=== PATIENT | male | born 1950 | race Caucasian/White ===

== ENCOUNTER → 2017-10-26 09:02 | Outpatient (CLI) | payer MEDICARE, OTHER, SELFPAY ==
[2017-07-23 14:46] VITALS: BMI 28.0
[2017-10-26 12:39] LABS: Absolute Lymphocyte Count 1.63 X10^3/ul (0.83-4.51); Absolute Neutrophil Count 3.5 X10^3/uL (2.0-7.7); Basophil# 0.04 X10^3/uL; Basophil% 0.6 % (0-1); Eosinophil# 0.35 X10^3/uL; Eosinophils% 5.6 % (0-5); Hematocrit 33.2 % (40-54); Hemoglobin 11.1 g/dl (13.0-16.5); Lymphocyte # 1.63 X10^3/ul (4.0); Lymphocyte % 26.1 % (19-41); Mean Corp Hgb Conc 33.4 g/gl (32-36); Mean Corpuscular Hgb 31.7 pg (27.0-32.0); Mean Corpuscular Volume 94.9 fL (80-94); Mean Platelet Vol. 12.1 fl (6.2-12.0); Monocyte# 0.74 X10^3/uL; Monocyte% 11.8 % (0-10); Neutrophil # 3.48 X10^3/uL (2.7-7.7); Neutrophil % 55.7 % (47-70); POSITIVE COUNT NO; POSITIVE DIFFERENTIAL NO; POSITIVE MORPHOLOGY NO; Platelet Count 210 K/mm3 (150-450); RBC Distribution Width CV 13.7 % (11.6-14.6); RBC Distribution Width SD 44.6 fl (35.1-43.9); White Blood Count 6.3 K/mm3 (4.4-11.0)
[2017-10-26 13:20] LABS: ALB/GLOB Ratio 0.8 RATIO (0.9-2.4); AST(SGOT) 13 U/L (15-37); Alanine Aminotransfer ALT/SGPT 25 U/L (16-61); Albumin, Serum 3.4 g/dL (3.2-5.0); Alkaline Phosphatase 147 U/L (45-117); Anion Gap 9 (5-15); BUN 30 mg/dL (7-18); BUN/Creat Ratio 3.9 RATIO (10-20); Calcium,Total 9.1 mg/dL (8.5-10.1); Chloride 95 mmol/L (98-107); Creatinine, Serum 7.67 mg/dL (0.70-1.30); EST Glomerular Filtration Rate 8 mL/min (>60); Est Glom Filt Rate - Afr Amer 9 mL/min (>60); Glucose 219 mg/dL (74-106); Potassium 4.4 mmol/L (3.5-5.1); Protein, Total 7.4 g/dL (6.4-8.2); Sodium Level 136 mmol/L (136-145); Thyroid Stim Hormone (TSH) 1.48 uIU/mL (0.358-3.74)
== END ==
PROVIDERS: Family Provider Family Medicine Geriatric Medicine; PCP Family Medicine Geriatric Medicine; Visit Provider Family Medicine Geriatric Medicine
DX: E11.9 Type 2 diabetes mellitus without complications (principal); I10 Essential (primary) hypertension
CPT/HCPCS: 36415; 80053; 84443; 85025

== ENCOUNTER → 2018-01-17 16:10 | Outpatient (CLI) | payer MEDICARE, OTHER, SELFPAY ==
[2017-07-23 14:46] VITALS: BMI 28.0
[2018-01-17 16:43] LABS: Absolute Lymphocyte Count 1.66 X10^3/ul (0.83-4.51); Basophil# 0.03 X10^3/uL; Basophil% 0.5 % (0-1); Eosinophil# 0.33 X10^3/uL; Eosinophils% 5.9 % (0-5); Hematocrit 34.1 % (40-54); Lymphocyte # 1.66 X10^3/ul (4.0); Lymphocyte % 29.6 % (19-41); Mean Corp Hgb Conc 32.3 g/gl (32-36); Mean Corpuscular Hgb 31.5 pg (27.0-32.0); Mean Corpuscular Volume 97.7 fL (80-94); Mean Platelet Vol. 10.7 fl (6.2-12.0); Monocyte# 0.63 X10^3/uL; Monocyte% 11.2 % (0-10); Neutrophil # 2.95 X10^3/uL (2.7-7.7); Neutrophil % 52.6 % (47-70); Platelet Count 232 K/mm3 (150-450); RBC Distribution Width CV 15.9 % (11.6-14.6); RBC Distribution Width SD 55.7 fl (35.1-43.9); Red Blood Count 3.49 M/mm3 (4.6-6.2); White Blood Count 5.6 K/mm3 (4.4-11.0)
[2018-01-17 17:10] LABS: POSITIVE COUNT NO; POSITIVE DIFFERENTIAL NO; POSITIVE MORPHOLOGY NO
[2018-01-17 17:11] LABS: ALB/GLOB Ratio 0.8 RATIO (0.9-2.4); AST(SGOT) 12 U/L (15-37); Alanine Aminotransfer ALT/SGPT 20 U/L (16-61); Albumin, Serum 3.4 g/dL (3.2-5.0); Alkaline Phosphatase 127 U/L (45-117); Anion Gap 7 (5-15); BUN 14 mg/dL (7-18); BUN/Creat Ratio 2.2 RATIO (10-20); Calcium,Total 8.4 mg/dL (8.5-10.1); Chloride 96 mmol/L (98-107); Creatinine, Serum 6.37 mg/dL (0.70-1.30); EST Glomerular Filtration Rate 9 mL/min (>60); Est Glom Filt Rate - Afr Amer 11 mL/min (>60); Glucose 298 mg/dL (74-106); Potassium 4.8 mmol/L (3.5-5.1); Protein, Total 7.4 g/dL (6.4-8.2); Sodium Level 138 mmol/L (136-145); Thyroid Stim Hormone (TSH) 0.95 uIU/mL (0.358-3.74)
== END ==
PROVIDERS: Family Provider Family Medicine Geriatric Medicine; PCP Family Medicine Geriatric Medicine; Visit Provider Family Medicine Geriatric Medicine
DX: E11.9 Type 2 diabetes mellitus without complications (principal); E55.9 Vitamin D deficiency, unspecified; I10 Essential (primary) hypertension
CPT/HCPCS: 36415; 80053; 82306; 84443; 85025

== ENCOUNTER → 2018-01-18 16:51 | Outpatient (CLI) | payer MEDICARE, OTHER, SELFPAY ==
[2017-07-23 14:46] VITALS: BMI 28.0
--- NOTE | 2018-01-18 16:35 | CT_ITS ---
STUDY: CT CHEST/THORAX WITH CONTRAST REASON FOR EXAM: Male, 67 years old. Lung nodules follow-up. RADIATION DOSAGE (If Supplied By Facility): CTDIvol = ( 13.48 ) mGy, DLP = ( 722.66 ) mGycm TECHNIQUE: Transaxial imaging was performed following intravenous administration of 100ml ml of Isovue 300 contrast material. Multiplanar coronal and sagittal images were reformatted. Individualized dose optimization techniques were used for this CT. COMPARISON: None. FINDINGS: Irregular 10 mm density in the posterior left apex (series 4 image 21) is unchanged. 5 mm nodular density seen at its inferomedial margin. The pair of 1 cm groundglass nodular densities in the posterior medial right upper lobe on series 4 image 37 are unchanged (differences in measurement reflect interobserver variability). Vague 17.5 x 14.5 x 11.5 mm density in the anterior basilar right lower lobe near the pleural fissure is also stable (again, differences in measurement reflect interim observer variability). There is also stable, similar-appearing 7-8 mm vague density in the anterior medial periphery of the right middle lobe on series 4 image 65. Oval-shaped 11.5 x 5 x 8 mm lesion in the posterior right lower lobe is unchanged. There is stable subtle ill-defined 1.6 x 1.3 1.3 cm density surrounding a central irregular shaped site of gas lucency in the inferior posterior right upper lobe, with subtle retraction of the adjacent pleural fissure. Sites of focal subsegmental atelectasis in the anteromedial inferior right middle lobe and lingula left upper lobe are present. There is no demonstrated pleural abnormality. Normal heart. There is minor thickening of the anterior inferior pericardium. There are stable calcifications of the coronary arteries. There are 2 stable low right anterior pretracheal lymph nodes on series 602 image 1:30, the more superior measuring 14.5 x 9 x 4.5 mm, and the more inferior measuring 10.5 x 8.5 x 4 mm. There is a stable teardrop shaped 18 x 6 x 7 mm precarinal lymph node with a possible fatty hilus. 10 x 4 x 9 mm node seen at the juncture of the aorticopulmonary window and left hilum. There is a stable 2.5 x 1.5 x 0.9 cm right subcarinal lymph node, and stable 12.5 x 8.5 x 7 mm left subcarinal node. Better seen today is a 15 x 8 x 8.5 mm right hilar lymph node just above the distal right pulmonary artery. Normal enhanced pulmonary arteries. There is stable atherosclerotic calcification of the aortic arch, proximal brachiocephalic arteries, and descending thoracic aorta. There are stable multi-level degenerative changes of the thoracic spine as well as degenerative arthrosis of the sternomanubrial articulation. There is stable mild depression of the superior T4-T6 vertebral endplates, and slight depression of the superior T3 endplate. Well-corticated focal invagination of the superior T12 vertebral endplate consistent with benign Schmorl's node. Better defined today is a 19.5 x 14 x 18.5 mm cortical cyst in the posterior upper to midpole of the right kidney. CT/Chest WITH Contrast IMPRESSION: 1. Stable bilateral pulmonary nodular densities, as described. Follow-up in another 6 months is advised to further document stability. 2. Nonspecific borderline enlarged mediastinal and central hilar lymph nodes again identified. 3. Atherosclerotic calcifications of the coronary arteries and thoracic aorta. 4. Stable degenerative changes of the spine, as well as mild depression of a few thoracic superior vertebral endplates. 5. 19.5 mm cortical cyst incidentally noted in the posterior upper to midpole of the right kidney. Electronically Signed: Cleveland Kiser MD at 14:33 EDT , Service support ,
== END ==
PROVIDERS: Family Provider Family Medicine Geriatric Medicine; PCP Family Medicine Geriatric Medicine; Visit Provider Family Medicine Geriatric Medicine
DX: R91.8 Other nonspecific abnormal finding of lung field (principal)
CPT/HCPCS: 71260; Q9967

== ENCOUNTER 2018-04-15 06:13 | Emergency (ER) | payer MEDICARE, OTHER, SELFPAY ==
[2017-07-23 14:46] VITALS: BMI 28.0
[2018-04-15 06:14] VITALS: BP 104/62; PULSE 103; RESP 20; TEMP 36.5; O2SAT 92; BMI 28.9
--- NOTE | 2018-04-15 06:18 | ED.RN ---
CALLED FOR EKG PER RN REQUEST, PULLED OLD EKG'S FOR
--- NOTE | 2018-04-15 06:35 | EKG12_ITS ---
Test Reason : HYPOTEN Blood Pressure : / mmHG Vent. Rate : 099 BPM Atrial Rate : 099 BPM P-R Int : 180 ms QRS Dur : 110 ms QT Int : 366 ms P-R-T Axes : 063 015 170 degrees QTc Int : 469 ms Normal sinus rhythm Incomplete left bundle branch block ST & T wave abnormality, consider inferolateral ischemia Prolonged QT Abnormal ECG Confirmed by KEENAN ARECHIGA, RENATA ([id number]), deputy editor in chief DRISS MONROY ([id number]) on 04/18/2018 2:28:41 PM Referred By: MIRIAN Confirmed By:RENATA HUSSEIN MD
--- NOTE | 2018-04-15 06:40 | RAD_ITS ---
STUDY: X-RAY CHEST REASON FOR EXAM: Male, 67 years old. Shortness of breath. Hypotension TECHNIQUE: 2 views COMPARISON: January 18, 2018 FINDINGS: Small pleural effusions. No pneumonia or failure. The heart is normal.. Platelike atelectatic changes in the left base Normal visualized thoracic spine. Normal visualized ribs, clavicles, and shoulders. There is no demonstrated abnormality of the visualized soft tissue structures of the upper abdomen. RAD/Chest PA and Lateral IMPRESSION: Small pleural effusions bilaterally. Plate atelectatic changes in the left base Electronically Signed: Edwin Gamez, at 7:14 EDT Tel , Service support ,
[2018-04-15 06:43] LABS: Absolute Lymphocyte Count 1.53 X10^3/ul (0.83-4.51); Absolute Neutrophil Count 3.2 X10^3/uL (2.0-7.7); Basophil# 0.05 X10^3/uL; Basophil% 0.9 % (0-1); Eosinophils% 8.6 % (0-5); Hematocrit 21.1 % (40-54); Hemoglobin 6.4 g/dl (13.0-16.5); Lymphocyte # 1.53 X10^3/ul (4.0); Lymphocyte % 26.2 % (19-41); Mean Corp Hgb Conc 30.3 g/gl (32-36); Mean Corpuscular Hgb 31.2 pg (27.0-32.0); Mean Corpuscular Volume 102.9 fL (80-94); Mean Platelet Vol. 10.5 fl (6.2-12.0); Monocyte# 0.55 X10^3/uL; Monocyte% 9.4 % (0-10); Neutrophil # 3.19 X10^3/uL (2.7-7.7); Neutrophil % 54.7 % (47-70); Platelet Count 301 K/mm3 (150-450); RBC Distribution Width CV 15.8 % (11.6-14.6); RBC Distribution Width SD 55.5 fl (35.1-43.9); Red Blood Count 2.05 M/mm3 (4.6-6.2); White Blood Count 5.8 K/mm3 (4.4-11.0)
[2018-04-15 06:46] VITALS: BP 119/72; PULSE 97
[2018-04-15 06:56] LABS: POSITIVE COUNT NO; POSITIVE DIFFERENTIAL NO; POSITIVE MORPHOLOGY NO
[2018-04-15 07:09] LABS: Anion Gap 10 (5-15); BUN 46 mg/dL (7-18); BUN/Creat Ratio 5.7 RATIO (10-20); Calcium,Total 9.1 mg/dL (8.5-10.1); Chloride 98 mmol/L (98-107); Creatinine, Serum 8.12 mg/dL (0.70-1.30); EST Glomerular Filtration Rate 7 mL/min (>60); Est Glom Filt Rate - Afr Amer 9 mL/min (>60); Estimated Creatinine Clearance 8.83 ml/min; Glucose 140 mg/dL (74-106); Sodium Level 140 mmol/L (136-145)
--- NOTE | 2018-04-15 07:09 | ED.RN ---
SERUM CREAT 8.12
--- NOTE | 2018-04-15 07:14 | ED.VISSUMM ---
- ER Visit Summary Date of Service: 04/15/18 Chief Complaint: [] Blood pressures low History of Present Illness: The patient is a 67 M [] complaining of low blood pressure since yesterday gradual onset. He was getting in the 70s last night. This concerned him. He is end-stage renal disease on dialysis. Occasionally gets some chest tightness on and off since yesterday multiple episodes. He has [address] Lund. His last heart cath was last fall and he did have some in stent stenoses requiring a stent to his left circumflex and obtuse marginal.. He had a balloon angioplasty of his ramus intermedius. He is scheduled for dialysis today but missed that. His normal blood pressure is 120s. He was recently admitted [facility] for 9 days and recently just discharged. I told him he had a cardiac event needed 6 units of blood secondary to an occult GI bleed. He had endoscopy that showed no source of the bleeding. Told he should have an outpatient colonoscopy. He did suffer a pneumonia with his admission. He did resume his Plavix. He has had no dark stools. Physical Examination: [] Vital signs reviewed General: Well-nourished well-developed. The patient appears pale Head: Normocephalic atraumatic Eyes: Pupils equal round and reactive to light extraocular movements intact ENT: TMs clear no hemotympanum no trauma Neck: Nontender full range of motion Cardiovascular: Regular rate rhythm no murmurs normal S1-S2 Respiratory: No distress clear to auscultation bilaterally chest nontender Abdomen: Soft nontender nondistended normal bowel sounds no masses Back: Nontender no CVA tenderness Extremities: Nontender active range of motion ?4 extremities no trauma fistula clean dry and intact Skin: Normal color no trauma Neuro alert oriented cranial nerves II through XII intact normal strength sensation reflexes Test Results: [] Emergency Department Course and Treatment: [] EKG shows sinus rhythm at a rate of 99. ST depression inferior lead II and V5 and V6. CBC normal except hemoglobin 6.4. Chemistries normal except creatinine 8.1. Troponin indeterminate 0.19. Patient has an allergy to aspirin therefore was not given. Has no symptoms on reevaluation currently. Chest x-ray shows chronic changes. Discussed with the hospitalist Treatment Plan: [] Disposition: [] Impression: [] Reported hypotension resolved Anemia - acute Indeterminate troponin Chronic renal failure History of occult GI bleed EKG changes This note was generated with [employer] software. It may contain incorrect words, spelling, and punctuation that were not noted in review of the chart prior to signing <Ronen Kohli - Last Filed: 04/15/18 07:14> - ER Visit Summary Date of Service: 04/15/18 Chief Complaint: [] History of Present Illness: The patient is a 67 M [] Physical Examination: [] Test Results: [] Emergency Department Course and Treatment: [] Treatment Plan: [] Disposition: [] Impression: [] This note was generated with [employer] software. It may contain incorrect words, spelling, and punctuation that were not noted in review of the chart prior to signing Dr. Street dictating the patient remained stable hemodynamically department with no complaints the case was discussed with [facility] by Dr. Kohli, it was determined the patient would be best managed by being transferred back to [facility] where he had recently received care for the above, this was discussed the patient and he agreed, I was asked to speak with the [facility] transferring service, I spoke with the hospitalist there discussed the case in great detail they accepted the patient in transfer to [facility] patient's remained hemodynamically stable, <Jaden Street - Last Filed: 04/15/18 08:34> ED Disposition <Ronen Kohli - Last Filed: 04/15/18 07:14> <Jaden Street - Last Filed: 04/15/18 08:34> - Plan for ED Patient: Chief Complaint: Hypotension Referrals: Alfonso Rushing Chi, MD [Primary Care Provider] -
--- NOTE | 2018-04-15 07:17 | ED.DCSUM_ITS ---
- ER Visit Summary Date of Service: 04/15/18 Chief Complaint: [] Blood pressures low History of Present Illness: The patient is a 67 M [] complaining of low blood pressure since yesterday gradual onset. He was getting in the 70s last night. This concerned him. He is end-stage renal disease on dialysis. Occasionally gets some chest tightness on and off since yesterday multiple episodes. He has [address] Lund. His last heart cath was last fall and he did have some in stent stenoses requiring a stent to his left circumflex and obtuse marginal.. He had a balloon angioplasty of his ramus intermedius. He is scheduled for dialysis today but missed that. His normal blood pressure is 120s. He was recently admitted [facility] for 9 days and recently just discharged. I told him he had a cardiac event needed 6 units of blood secondary to an occult GI bleed. He had endoscopy that showed no source of the bleeding. Told he should have an outpatient colonoscopy. He did suffer a pneumonia with his admission. He did resume his Plavix. He has had no dark stools. Physical Examination: [] Vital signs reviewed General: Well-nourished well-developed. The patient appears pale Head: Normocephalic atraumatic Eyes: Pupils equal round and reactive to light extraocular movements intact ENT: TMs clear no hemotympanum no trauma Neck: Nontender full range of motion Cardiovascular: Regular rate rhythm no murmurs normal S1-S2 Respiratory: No distress clear to auscultation bilaterally chest nontender Abdomen: Soft nontender nondistended normal bowel sounds no masses Back: Nontender no CVA tenderness Extremities: Nontender active range of motion ?4 extremities no trauma fistula clean dry and intact Skin: Normal color no trauma Neuro alert oriented cranial nerves II through XII intact normal strength sensation reflexes Test Results: [] Emergency Department Course and Treatment: [] EKG shows sinus rhythm at a rate of 99. ST depression inferior lead II and V5 and V6. CBC normal except hemoglobin 6.4. Chemistries normal except creatinine 8.1. Troponin indeterminate 0.19. Patient has an allergy to aspirin therefore was not given. Has no symptoms on reevaluation currently. Chest x-ray shows chronic changes. Discussed with the hospitalist Treatment Plan: [] Disposition: [] Impression: [] Reported hypotension resolved Anemia - acute Indeterminate troponin Chronic renal failure History of occult GI bleed EKG changes This note was generated with [employer] software. It may contain incorrect words, spelling, and punctuation that were not noted in review of the chart prior to signing <Ronen Kohli - Last Filed: 04/15/18 07:14> - ER Visit Summary Date of Service: 04/15/18 Chief Complaint: [] History of Present Illness: The patient is a 67 M [] Physical Examination: [] Test Results: [] Emergency Department Course and Treatment: [] Treatment Plan: [] Disposition: [] Impression: [] This note was generated with [employer] software. It may contain incorrect words, spelling, and punctuation that were not noted in review of the chart prior to signing Dr. Street dictating the patient remained stable hemodynamically department with no complaints [facility], it was determined the patient would be best managed by being transferred back to [facility] where he had recently received care for the above, this was discussed the patient and he agreed, I was asked to speak with the [facility] transferring service, I spoke with the hospitalist there discussed the case in great detail they accepted the patient in transfer to [facility] patient's remained hemodynamically stable, <Jaden Street - Last Filed: 04/15/18 08:34> ED Disposition <Ronen Kohli - Last Filed: 04/15/18 07:14> <Jaden Street - Last Filed: 04/15/18 08:34> - Plan for ED Patient: Chief Complaint: Hypotension Referrals: Alfonso Rushing Chi, MD [Primary Care Provider] -
--- NOTE | 2018-04-15 07:37 | NURSING ---
DR CIERA VELA
--- NOTE | 2018-04-15 07:46 | PCM.HP.STD ---
History of Present Illness The patient is a 67 year old M [] Past Medical History Past Medical History (Chronic Problems): Chronic Problems (Last Reviewed 01/17/18 @ 14:48 by Nicci Germain) ESRD (end stage renal disease) on dialysis (Chronic) [facility]. He is presently inactive, see consult. 12/16/17 Presence of arteriovenous fistula for hemodialysis (Chronic) Left Arm; Balloon plasty to fistula 05/30; Dialysis 3 days per week Mon, Wed, Fri Presence of stent in coronary artery (Chronic ~07/23/17) PTCA/BLAIR to prox CX, BLAIR to OM1, BLAIR to Ramus 11/27 @ [facility]; PCI /BLAIR of LCX ISR, PCI/BLAIR Ostial OM1, [id number] Ramus ISR 07/23/17;HX stents 2003 Atherosclerosis [place] coronary artery of [place] heart without angina pectoris (Chronic) PTCA/BLAIR to prox CX, BLAIR to OM1, BLAIR to Ramus 11/27 @ [facility]; PCI /BLAIR of LCX ISR, PCI/BLAIR Ostial OM1, [id number] Ramus ISR 07/23/17;HX stents 2003 Essential (primary) hypertension (Chronic) Hyperlipemia, mixed (Chronic) Medical History: Medical History (Last Reviewed 01/17/18 @ 14:48 by Nicci Germani) ESRD (end stage renal disease) on dialysis (Chronic) N18.6, Z99.2 [facility]. He is presently inactive, see consult. 12/16/17 Atherosclerosis [place] coronary artery of [place] heart without angina pectoris (Chronic) I25.10 PTCA/BLAIR to prox CX, BLAIR to OM1, BLAIR to Ramus 11/27 @ [facility]; PCI /BLAIR of LCX ISR, PCI/BLAIR Ostial OM1, [id number] Ramus ISR 07/23/17;HX stents 2003 Essential (primary) hypertension (Chronic) I10 Hyperlipemia, mixed (Chronic) E78.2 Bladder cancer C67.9 COPD (chronic obstructive pulmonary disease) J44.9 Cataract H26.9 Glaucoma H40.9 Hemorrhoid K64.9 Hypothyroidism E03.9 Type 2 diabetes mellitus without complications E11.9 Colon polyp K63.5 Allergies aspirin Adverse Reaction (Verified 04/15/18 06:20) Rash, hives azithromycin Adverse Reaction (Verified 04/15/18 06:20) hr irreg cefaclor [From Ceclor] Adverse Reaction (Verified 04/15/18 06:20) Nausea/Vom/Diarrhea codeine Adverse Reaction (Verified 04/15/18 06:20) Abd cramps/diarrhea metronidazole [From Flagyl] Adverse Reaction (Verified 04/15/18 06:20) feels sick all over morphine Adverse Reaction (Verified 04/15/18 06:20) Itching Sulfa (Sulfonamide Antibiotics) Adverse Reaction (Verified 04/15/18 06:20) double vision iv contrast Adverse Reaction (Uncoded 04/15/18 06:20) Hives Home Medications: Ambulatory Orders Medication Instructions Recorded Aspirin [Adult Low Dose Aspirin EC] 81 mg PO DAILY 08/12/16 Furosemide 40 mg PO BID 08/12/16 Levothyroxine Sodium [Levo-T] 200 mcg PO DAILY 08/12/16 Atorvastatin Calcium 80 mg PO DAILY 07/23/17 Insulin Aspart [Novolog Flexpen] units SC DAILY PRN PRN 07/23/17 Insulin Degludec [Tresiba 40 unit SQ DAILY 07/23/17 Flextouch U-100] carvedilol 12.5 mg tablet 12.5 mg PO BID 01/17/18 clopidogrel 75 mg tablet 75 mg PO DAILY #90 tab 01/17/18 nitroglycerin 0.4 mg sublingual 0.4 mg SUBLINGUAL Q5-15M PRN 01/17/18 tablet Calcium Acetate 667 mg PO TID 04/15/18 Insulin Degludec [Tresiba 200 unit SQ 04/15/18 Flextouch U-200] Lanthanum Carbonate [Fosrenol] 1,000 mg PO TID 04/15/18 Linaclotide [Linzess] 72 mcg PO DAILY 04/15/18 Nephro-Janel 1 tab PO DAILY 04/15/18 Surgical History: Surgical History (Last Reviewed 01/17/18 @ 14:48 by Nicci Germain) Presence of arteriovenous fistula for hemodialysis (Chronic) Z99.2 Left Arm; Balloon plasty to fistula 05/30; Dialysis 3 days per week Mon, Wed, Fri Presence of stent in coronary artery (Chronic) Onset Date: ~07/23/17 Z95.5 PTCA/BLAIR to prox CX, BLAIR to OM1, BLAIR to Ramus 11/27 @ [facility]; PCI /BLAIR of LCX ISR, PCI/BLAIR Ostial OM1, [id number] Ramus ISR 07/23/17;HX stents 2003 History of bladder surgery Onset Date: ~1992 Z98.890 History of cataract surgery Z98.49 Surgical History: angioplasty - stent, cataract - bilateral, - - AVF, bladder tumor resection Smoking Status: Former smoker - Physical Exam Vital Signs Temp Pulse Resp BP Pulse Ox 97.7 F L 97 20 H 119/72 92 04/15/18 06:14 04/15/18 06:46 04/15/18 06:14 04/15/18 06:46 04/15/18 06:14 Oxygen Flow Rate (L/min) 2 Oxygen Delivery Method Nasal Cannula Weight: 88.8 kg Body Mass Index (BMI) 28.9 Laboratory Tests Past 24 Hrs 04/15/18 04/15/18 04/15/18 06:25 06:25 06:25 WBC 5.8 RBC 2.05 L Hgb 6.4 L Hct 21.1 L MCV 102.9 H MCH 31.2 MCHC 30.3 L RDW 15.8 H RDW Differential 55.5 H Plt Count 301 MPV 10.5 Immature Gran % (Auto) 0.200 Neut % (Auto) 54.7 Lymph % (Auto) 26.2 [place] % (Auto) 9.4 Eos % (Auto) 8.6 H Baso % (Auto) 0.9 Absolute Neuts (auto) 3.2 Absolute Lymphs (auto) 1.53 Total Counted Not Reportable Sodium 140 Potassium 5.0 Chloride 98 Carbon Dioxide 32.0 Anion Gap 10 BUN 46 H Creatinine 8.12 H* Estim Creat Clear Calc 8.83 Est GFR (MDRD) Af Amer 9 L Est GFR (MDRD) Non-Af 7 L BUN/Creatinine Ratio 5.7 L Glucose 140 H Calcium 9.1 Troponin I 0.199 H Blood Type Pending Antibody Screen Pending Crossmatch See Detail
--- NOTE | 2018-04-15 08:29 | NURSING ---
[facility] HOSPITALIST FOR DR LINDSAY
--- NOTE | 2018-04-15 08:34 | NURSING ---
ACCEPTED AT [facility] [id number] REPORT [phone]
[2018-04-15 08:36] VITALS: BP 127/73; PULSE 94; RESP 20; O2SAT 100
--- NOTE | 2018-04-15 08:40 | NURSING ---
CALLED [facility] FOR TRANSPORT. [place] IN [place]
[2018-04-15 08:52] VITALS: BP 120/74; PULSE 96; RESP 18; TEMP 36.5; O2SAT 100
== END 2018-04-15 09:29 | disposition home or self-care (01) ==
LOC: ED 07:19
PROVIDERS: Emergency Provider Emergency Medicine; Family Provider Family Medicine Geriatric Medicine; PCP Family Medicine Geriatric Medicine
DX: I95.9 Hypotension, unspecified (principal); D64.9 Anemia, unspecified; R79.89 Other specified abnormal findings of blood chemistry; E11.22 Type 2 diabetes mellitus with diabetic chronic kidney disease; I12.0 Hypertensive chronic kidney disease with stage 5 chronic kidney disease or end stage renal disease; N18.6 End stage renal disease; Z99.2 Dependence on renal dialysis; Z87.19 Personal history of other diseases of the digestive system; I25.10 Atherosclerotic heart disease of native coronary artery without angina pectoris; J44.9 Chronic obstructive pulmonary disease, unspecified; E78.00 Pure hypercholesterolemia, unspecified; Z87.01 Personal history of pneumonia (recurrent); Z85.51 Personal history of malignant neoplasm of bladder; Z94.0 Kidney transplant status; Z95.5 Presence of coronary angioplasty implant and graft; Z79.82 Long term (current) use of aspirin; Z79.02 Long term (current) use of antithrombotics/antiplatelets; Z79.4 Long term (current) use of insulin; Z79.899 Other long term (current) drug therapy
CPT/HCPCS: 71046; 80048; 84484; 85025; 86850; 86900; 86920; 86922; 93005; 99285

== ENCOUNTER → 2018-04-21 11:17 | Outpatient (CLI) | payer MEDICARE, OTHER, SELFPAY ==
[2017-07-23 14:46] VITALS: BMI 28.0
[2018-04-21 12:53] LABS: Absolute Lymphocyte Count 1.32 X10^3/ul (0.83-4.51); Absolute Neutrophil Count 3.7 X10^3/uL (2.0-7.7); Basophil# 0.05 X10^3/uL; Basophil% 0.8 % (0-1); Eosinophil# 0.61 X10^3/uL; Eosinophils% 9.7 % (0-5); Hematocrit 28.7 % (40-54); Hemoglobin 8.9 g/dl (13.0-16.5); Lymphocyte # 1.32 X10^3/ul (4.0); Lymphocyte % 21.1 % (19-41); Mean Corpuscular Hgb 30.3 pg (27.0-32.0); Mean Corpuscular Volume 97.6 fL (80-94); Mean Platelet Vol. 11.1 fl (6.2-12.0); Monocyte# 0.57 X10^3/uL; Monocyte% 9.1 % (0-10); Neutrophil % 59.1 % (47-70); Platelet Count 333 K/mm3 (150-450); RBC Distribution Width CV 19.3 % (11.6-14.6); RBC Distribution Width SD 66.8 fl (35.1-43.9); Red Blood Count 2.94 M/mm3 (4.6-6.2); White Blood Count 6.3 K/mm3 (4.4-11.0)
[2018-04-21 12:55] LABS: Differential Indicated SCAN CRITERIA MET; POSITIVE COUNT NO; POSITIVE DIFFERENTIAL NO; POSITIVE MORPHOLOGY YES
== END ==
PROVIDERS: Family Provider Family Medicine Geriatric Medicine; PCP Family Medicine Geriatric Medicine; Visit Provider Family Medicine Geriatric Medicine
DX: D64.9 Anemia, unspecified (principal)
CPT/HCPCS: 36415; 85025

== ENCOUNTER → 2018-04-27 14:56 | Outpatient (CLI) | payer MEDICARE, OTHER, SELFPAY ==
[2017-07-23 14:46] VITALS: BMI 28.0
[2018-04-27 16:12] LABS: Absolute Lymphocyte Count 1.15 X10^3/ul (0.83-4.51); Absolute Neutrophil Count 3.8 X10^3/uL (2.0-7.7); Basophil# 0.04 X10^3/uL; Basophil% 0.6 % (0-1); Eosinophil# 0.46 X10^3/uL; Eosinophils% 7.4 % (0-5); Hemoglobin 8.8 g/dl (13.0-16.5); Lymphocyte # 1.15 X10^3/ul (4.0); Lymphocyte % 18.4 % (19-41); Mean Corp Hgb Conc 30.3 g/gl (32-36); Mean Corpuscular Hgb 28.9 pg (27.0-32.0); Mean Corpuscular Volume 95.1 fL (80-94); Mean Platelet Vol. 10.9 fl (6.2-12.0); Monocyte# 0.79 X10^3/uL; Monocyte% 12.6 % (0-10); Neutrophil % 60.8 % (47-70); Platelet Count 324 K/mm3 (150-450); RBC Distribution Width CV 18.7 % (11.6-14.6); RBC Distribution Width SD 64.8 fl (35.1-43.9); Red Blood Count 3.05 M/mm3 (4.6-6.2); White Blood Count 6.3 K/mm3 (4.4-11.0)
[2018-04-27 16:17] LABS: POSITIVE COUNT NO; POSITIVE DIFFERENTIAL NO; POSITIVE MORPHOLOGY NO
[2018-04-27 16:20] LABS: Vitamin D,25 Hydroxy 25.9 ng/mL (29.95-100.01)
[2018-04-27 16:36] LABS: ALB/GLOB Ratio 0.7 RATIO (0.9-2.4); AST(SGOT) 17 U/L (15-37); Alanine Aminotransfer ALT/SGPT 21 U/L (16-61); Albumin, Serum 2.8 g/dL (3.2-5.0); Alkaline Phosphatase 80 U/L (45-117); Anion Gap 6 (5-15); BUN 16 mg/dL (7-18); BUN/Creat Ratio 2.7 RATIO (10-20); Calcium,Total 8.5 mg/dL (8.5-10.1); Chloride 97 mmol/L (98-107); Creatinine, Serum 5.93 mg/dL (0.70-1.30); EST Glomerular Filtration Rate 10 mL/min (>60); Est Glom Filt Rate - Afr Amer 12 mL/min (>60); Globulin 4.3 g/dL (2.2-4.2); Glucose 180 mg/dL (74-106); Potassium 4.1 mmol/L (3.5-5.1); Protein, Total 7.1 g/dL (6.4-8.2); Sodium Level 137 mmol/L (136-145)
== END ==
PROVIDERS: Family Provider Family Medicine Geriatric Medicine; PCP Family Medicine Geriatric Medicine; Visit Provider Family Medicine Geriatric Medicine
DX: E11.9 Type 2 diabetes mellitus without complications (principal); E55.9 Vitamin D deficiency, unspecified; I10 Essential (primary) hypertension
CPT/HCPCS: 36415; 80053; 82306; 84443; 85025

== ENCOUNTER → 2018-05-11 13:57 | Outpatient (CLI) | payer MEDICARE, OTHER, SELFPAY ==
[2017-07-23 14:46] VITALS: BMI 28.0
[2018-05-11 14:26] LABS: Absolute Lymphocyte Count 0.86 X10^3/ul (0.83-4.51); Absolute Neutrophil Count 2.6 X10^3/uL (2.0-7.7); Basophil# 0.05 X10^3/uL; Basophil% 1.1 % (0-1); Eosinophils% 6.7 % (0-5); Hematocrit 27.6 % (40-54); Hemoglobin 8.7 g/dl (13.0-16.5); Lymphocyte # 0.86 X10^3/ul (4.0); Lymphocyte % 19.1 % (19-41); Mean Corp Hgb Conc 31.5 g/gl (32-36); Mean Corpuscular Hgb 29.4 pg (27.0-32.0); Mean Corpuscular Volume 93.2 fL (80-94); Mean Platelet Vol. 10.6 fl (6.2-12.0); Monocyte# 0.69 X10^3/uL; Monocyte% 15.3 % (0-10); Neutrophil # 2.59 X10^3/uL (2.7-7.7); Neutrophil % 57.6 % (47-70); Platelet Count 347 K/mm3 (150-450); RBC Distribution Width CV 17.1 % (11.6-14.6); RBC Distribution Width SD 56.4 fl (35.1-43.9); Red Blood Count 2.96 M/mm3 (4.6-6.2); White Blood Count 4.5 K/mm3 (4.4-11.0)
[2018-05-11 14:28] LABS: POSITIVE COUNT NO; POSITIVE DIFFERENTIAL NO; POSITIVE MORPHOLOGY NO
== END ==
PROVIDERS: Family Provider Family Medicine Geriatric Medicine; PCP Family Medicine Geriatric Medicine; Visit Provider Family Medicine Geriatric Medicine
DX: N18.3 Chronic kidney disease, stage 3 (moderate) (principal)
CPT/HCPCS: 36415; 85025

== ENCOUNTER 2018-05-15 09:11 | Inpatient (IN) | payer MEDICARE, OTHER, SELFPAY ==
[2017-07-23 14:46] VITALS: BMI 28.0
[2018-05-15] VITALS (22 sets, daily range): BP systolic 111–179; BP diastolic 63–101; PULSE 92–105; RESP 18–26; TEMP 36.4–36.9; O2SAT 84–100; BMI 24.2; BMI 27.6; BMI 27.7
[2018-05-15 09:37] LABS: Absolute Lymphocyte Count 1.05 X10^3/ul (0.83-4.51); Absolute Neutrophil Count 5.7 X10^3/uL (2.0-7.7); Basophil# 0.03 X10^3/uL; Basophil% 0.4 % (0-1); Eosinophil# 0.46 X10^3/uL; Eosinophils% 5.8 % (0-5); Hematocrit 27.5 % (40-54); Hemoglobin 8.7 g/dl (13.0-16.5); Lymphocyte # 1.05 X10^3/ul (4.0); Lymphocyte % 13.2 % (19-41); Mean Corp Hgb Conc 31.6 g/gl (32-36); Mean Corpuscular Volume 91.7 fL (80-94); Mean Platelet Vol. 10.7 fl (6.2-12.0); Monocyte# 0.67 X10^3/uL; Monocyte% 8.4 % (0-10); Neutrophil # 5.71 X10^3/uL (2.7-7.7); Neutrophil % 72.1 % (47-70); POSITIVE COUNT NO; POSITIVE DIFFERENTIAL NO; POSITIVE MORPHOLOGY NO; Platelet Count 424 K/mm3 (150-450); RBC Distribution Width CV 17.6 % (11.6-14.6); RBC Distribution Width SD 59.1 fl (35.1-43.9); White Blood Count 7.9 K/mm3 (4.4-11.0)
[2018-05-15 09:44] LABS: Prothrombin Time (Protime)PT. 14.1 SECONDS (11.7-14.9)
[2018-05-15 09:45] LABS: International Normalized Ratio 1.1; Partial Thromboplast Time 36.4 Seconds (24.1-36.2)
[2018-05-15 09:56] LABS: Lactic Acid 1.3 mmol/L (0.4-2.0)
[2018-05-15 10:02] LABS: ALB/GLOB Ratio 0.7 RATIO (0.9-2.4); AST(SGOT) 20 U/L (15-37); Alanine Aminotransfer ALT/SGPT 25 U/L (16-61); Albumin, Serum 3.1 g/dL (3.2-5.0); Alkaline Phosphatase 109 U/L (45-117); Anion Gap 13 (5-15); BUN 50 mg/dL (7-18); BUN/Creat Ratio 5.6 RATIO (10-20); Calcium,Total 9.4 mg/dL (8.5-10.1); Chloride 88 mmol/L (98-107); Creatinine, Serum 8.89 mg/dL (0.70-1.30); EST Glomerular Filtration Rate 6 mL/min (>60); Est Glom Filt Rate - Afr Amer 8 mL/min (>60); Estimated Creatinine Clearance 9.11 ml/min; Globulin 4.4 g/dL (2.2-4.2); Glucose 621 mg/dL (74-106); Potassium 4.4 mmol/L (3.5-5.1); Protein, Total 7.5 g/dL (6.4-8.2); Sodium Level 129 mmol/L (136-145)
[2018-05-15] MEDS: MethylPREDNISolone 125 MG/2 ML Vial IV (10:27)
--- NOTE | 2018-05-15 10:27 | ED.VISSUMM ---
- ER Visit Summary Date of Service: 05/15/18 Chief Complaint: Shortness of breath History of Present Illness: The patient is a 67 M with increased shortness of breath for the past few days. No fever or chills. He has a history of healthcare associated pneumonia and was seen at an outside hospital however now his sputum is somewhat more thickened associated with the cough. No subjective fevers or objective fevers. He has no chest pain. He is on home oxygen for COPD and had to increase this to 4 L/min. He is on hemodialysis for end-stage renal disease and had dialysis 2 days ago. Physical Examination: She appears in some distress, tachypneic Moist mucous membranes, no obvious facial deformity No C-spine tenderness supple neck. Regular rate and rhythm without any obvious murmurs Worse lungs bilaterally, diminished breath sounds and some end expiratory wheezing, tachypnea Abdomen soft and nontender no guarding or rebound Moves all extremities without any difficulty or pain. Trace edema bilaterally, symmetric. He has a palpable thrill left antecubital region from his dialysis fistula Skin does not show any obvious rashes or lesions, no trauma. Alert oriented ?3 with no gross focal deficit Emergency Department Course and Treatment: Patient is found to have bilateral pneumonia, he is not in septic shock, he did not receive significant IV fluids, he is not dehydrated, he will need admission to the hospital, he will see vancomycin and Zosyn. Nebulizers were given insulin was given since he was hyperglycemic. Disposition: Admit in stable condition Impression: Healthcare associated pneumonia This note was generated with [employer] dictation software. It may contain incorrect words, spelling, and punctuation that were not noted in review of the chart prior to signing ED Disposition - Plan for ED Patient: Chief Complaint: Shortness of Breath Referrals: Alfonso Rushing Chi, MD [Primary Care Provider] -
--- NOTE | 2018-05-15 10:30 | NURSING ---
HOSPITALIST FOR DR BURK
[2018-05-15] MEDS: Ipratropium/Albuterol Sulfate 3 ML AMPUL.NEB INHALATION ×4 (10:46→22:43)
--- NOTE | 2018-05-15 10:48 | NURSING ---
PCU CHERIP DAVE
[2018-05-15] MEDS: Insulin Lispro 100 UNIT/ML INSULN.PEN 10 UNIT SC (10:57)
[2018-05-15 12:25] LABS: Erythrocyte Sedimentation Rate 41 mm/hr (0-20)
--- NOTE | 2018-05-15 12:48 | PCM.HP.STD ---
Problem List (1) COPD with acute exacerbation Status: Acute History of Present Illness Date of Admission: 05/15/18 Chief Complaint: increasing SOB and wheezing The patient is a 67 year old M with a h/o severe COPD on home O2 of 2-4L and CAD s/p PCI and stents and ESRD on HD. Presents to the hospital with a several week h/o increasing and worsening SOB and exertional dyspnea. Of note is that patient was recently admitted at [facility] several weeks ago for unexplained anemia (suspected to be secondary to GI blood loss) and HCAP. Patient also complains of wheezing and increased cough above baseline with expectoration of thick yellowish mucopurulent sputum. He denies any fever per say. Denies any chest pain Of note as well is anorexia, easy satiety, chronic nausea and occasional vomiting of recently ingested food. He does admit to depression as well. [] Past Medical History Past Medical History (Chronic Problems): Chronic Problems (Last Reviewed 01/17/18 @ 14:48 by Nicci Germain) ESRD (end stage renal disease) on dialysis (Chronic) He was evaluated at [facility] transplant list. He is presently inactive, see consult. 12/16/17 Presence of arteriovenous fistula for hemodialysis (Chronic) Left Arm; Balloon plasty to fistula 05/30; Dialysis 3 days per week Mon, Wed, Wed Presence of stent in coronary artery (Chronic ~07/23/17) PTCA/BLAIR to prox CX, BLAIR to OM1, BLAIR to Ramus 11/27 @ [facility]; PCI /BLAIR of LCX ISR, PCI/BLAIR Ostial OM1, [id number] Ramus ISR 07/23/17;HX stents 2003 Atherosclerosis of [place] coronary artery of [place] heart without angina pectoris (Chronic) PTCA/BLAIR to prox CX, BLAIR to OM1, BLAIR to Ramus 11/27 @ [facility]; PCI /BLAIR of LCX ISR, PCI/BLAIR Ostial OM1, [id number] Ramus ISR 07/23/17;HX stents 2003 Essential (primary) hypertension (Chronic) Hyperlipemia, mixed (Chronic) Medical History: Medical History (Last Reviewed 01/17/18 @ 14:48 by Nicci Germain) ESRD (end stage renal disease) on dialysis (Chronic) N18.6, Z99.2 He was evaluated at [facility] fro transplant list. He is presently inactive, see consult. 12/16/17 Atherosclerosis of [place] coronary artery of [place] heart without angina pectoris (Chronic) I25.10 PTCA/BLAIR to prox CX, BLAIR to OM1, BLAIR to Ramus 11/27 @ [facility]; PCI /BLAIR of LCX ISR, PCI/BLAIR Ostial OM1, [id number]-Daru Ramus ISR 07/23/17;HX stents 2003 Essential (primary) hypertension (Chronic) I10 Hyperlipemia, mixed (Chronic) E78.2 Bladder cancer C67.9 COPD (chronic obstructive pulmonary disease) J44.9 Cataract H26.9 Glaucoma H40.9 Hemorrhoid K64.9 Hypothyroidism E03.9 Type 2 diabetes mellitus without complications E11.9 Colon polyp K63.5 Allergies morphine Adverse Reaction (Verified 05/15/18 09:13) Itching Home Medications: Ambulatory Orders Medication Instructions Recorded Furosemide 40 mg PO BID 08/12/16 Levothyroxine Sodium [Levo-T] 200 mcg PO DAILY 08/12/16 Atorvastatin Calcium 80 mg PO DAILY 07/23/17 Insulin Aspart [Novolog Flexpen] See Protocol SC DAILY PRN PRN 07/23/17 Insulin Degludec [Tresiba 17 unit SQ BREAKFAST 07/23/17 Flextouch U-100] carvedilol 12.5 mg tablet 12.5 mg PO BID 01/17/18 nitroglycerin 0.4 mg sublingual 0.4 mg SUBLINGUAL Q5-15M PRN 01/17/18 tablet Calcium Acetate 5 tab PO TID 04/15/18 Lanthanum Carbonate [Fosrenol] 1,000 mg PO TID 04/15/18 Nephro-Janel 1 tab PO DAILY 04/15/18 Clopidogrel Bisulfate [Plavix] 75 mg PO DAILY 05/15/18 Mirtazapine 7.5 mg PO QHS 05/15/18 Surgical History: Surgical History (Last Reviewed 01/17/18 @ 14:48 by Nicci Germain) Presence of arteriovenous fistula for hemodialysis (Chronic) Z99.2 Left Arm; Balloon plasty to fistula 05/30; Dialysis 3 days per week Mon, Wed, Fri Presence of stent in coronary artery (Chronic) Onset Date: ~07/23/17 Z95.5 PTCA/BLAIR to prox CX, BLAIR to OM1, BLAIR to Ramus 11/27 @ [facility]; PCI /BLAIR of LCX ISR, PCI/BLAIR Ostial OM1, [id number] Ramus ISR 07/23/17;HX stents 2004 History of bladder surgery Onset Date: ~1992 Z98.890 History of cataract surgery Z98.49 Surgical History: angioplasty - stent, cataract - bilateral, - - AVF, bladder tumor resection Smoking Status: Former smoker Review of Systems Constitutional: Reports: Anorexia, Fever, Malaise, Weakness, Fatigue Cardiovascular: Reports: Chest Tightness. Denies: Chest Pain, Claudication, Edema Respiratory: Reports: Cough, Hemoptysis, Shortness of Breath, Shortness of breath at rest, Shortness of breath upon exertion, Sputum production, Wheezing Gastrointestinal: Reports: Dyspepsia, Nausea, Vomiting. Denies: Abdominal Pain Psychiatric: Reports: Depression Comment: rest of the ROS is essentially negative VTE Information - Inpt Only VTE Present on Admission: Yes - heparin Patient Problems: Active and Suspected Problems (Last Reviewed 01/17/18 @ 14:48 by Nicci Germain) COPD with acute exacerbation (Acute) - Physical Exam General: Alert, Oriented x3, Cooperative Oral: Dry Mucosa Neck: Supple, No JVD, Negative Carotid Bruits, No Nuchal Rigidity, Trachea Midline Lungs: Diminished, Rhonchi, Short of Breath, Tachypneic, Using Accessory Muscles, Wheezes - markedly diminished air entry and rhonchi, few transmitted sounds as well Cardiovascular: Regular rate, Regular Rhythm, Normal S1, Normal S2, Murmur - grade 3/6 systolic murmur, ? ESM maximal at RUSM or PSM at apex. Difficult to tell with wheezing in the background Abdomen: Bowel Sounds Present, Soft, Non Tender, Non-Distended, Obese Extremities: No clubbing, No edema Skin: No rashes, - - hyperpigmented Musculoskeletal: No Muscle Wasting Neurological: Cranial nerves II-XII grossly intact, Deep Tendon Reflexes 2+/4 and Symmetrical, Neuro grossly intact, Motor Exam 5/5 strength throughout Psych/Mental Status: Normal Affect, Flat Affect, Depressed, Alert and oriented to time, place, person, mood and affect Vital Signs Temp Pulse Resp BP Pulse Ox 97.8 F 96 19 H 117/81 H 99 05/15/18 11:35 05/15/18 11:35 09/02/18 11:35 05/15/18 11:35 05/15/18 11:35 Oxygen Flow Rate (L/min) 4 Oxygen Delivery Method Nasal Cannula Weight: 85 kg Body Mass Index (BMI) 27.6 Assessment/Plan All Active Problems (Last Reviewed 01/17/18 @ 14:48 by Nicci Germain) COPD with acute exacerbation (Acute) 1. Acute COPD exacerbation. I think a recurrence of HCAP is much less likely. No new infiltrates seen on CXR by my exam. Will treat with IV abx, steroids, mucolytics and aerosolized bronchodilators. Educated extensively on the nature of the disease of COPD and exacerbations. Advised starting on ICS/LABA therapy to reduced exacerbations and hospitalizations. Recommended pulmonology referral and consult upon discharge and PFTs as well when exacerbation fully resolved. 2. Acute on chronic hypoxic respiratory failure secondary to #1 above. ABGs not suggestive of respiratory acidosis. Will just keep on supplemental O2 for now. 3. Anemia of CKD/AOCD. Will check iron panel and load with IV iron if indicated, start on erythropoietin injections. Being worked up for possible occult GI bleeding. Planned for capsule endoscopy with the [facility]. I agree to this line of management to hopefully avoid subjecting patient to a colonoscopy. 4. ESRD on HD. Will consult nephrology to assist with hemodialysis. 5. DM2 with Severe Hyperglycemia with glucose of 621 on presentation. Serum ketones negative. Not in hyperglycemic emergency. Can avoid use of insulin drip for now. Given 500cc bolus of NS Humalog 10 units IV and 10 units SC to be given. Start on basal insulin (Lantus) and scheduled mealtime insulin with sliding scale. Accuchecks AC/HS. 6. CAD s/p CABG. Stable at this time. 7. Pseudohyponatremia. Expect to self correct with normalization of blood glucose. Code Visit Inpatient E&M: [id number] Init Hosp L3
[2018-05-15 13:11] LABS: Bedside Glucose > 500 mg/dL (70-110)
[2018-05-15 13:11] LABS: Bedside Glucose > 500 mg/dL (70-110)
[2018-05-15] MEDS: Insulin Lispro 100 UNIT/ML INSULN.PEN 8 UNIT SQ (15:09)
[2018-05-15] MEDS: Insulin Lispro 100 UNIT/ML INSULN.PEN SQ (15:10)
[2018-05-15 16:56] LABS: Bedside Glucose 457 mg/dL (70-110)
[2018-05-15] MEDS: Sodium Chloride 3% 500 ML IV.SOLN. INHALATION (19:15)
[2018-05-15 20:33] LABS: Bacteria 0 SEEN /hpf (None Seen); Mucous, Urine 0 SEEN /hpf (<or=2+)
[2018-05-15 20:34] LABS: Color, Urine Yellow (Yellow); Glucose, Dipstick 1000 mg/dl (Normal); Ketone-Dipstick Negative (Negative); Leukocyte Esterase-Dipstick Negative /ul (Negative); Nitrite-Dipstick Negative (Negative); Occult Blood-Urine 10 /ul (Negative); Protein-Dipstick 100 mg/dl (Negative); Urine Bilirubin Dipstick Negative (Negative); Urine Clarity Clear (Clear); Urine Urobilinogen Normal (Normal); Urine pH 6.5 (5.0 - 8.0)
[2018-05-15 20:45] LABS: Fine Granular Cast- Urine 0-5 SEEN /lpf (0-5)
[2018-05-15 20:46] LABS: Squamous Epithelial Cells - UA 0-5 SEEN /hpf (0-5); White Blood Cells 0-5 SEEN /hpf (0-5)
[2018-05-15 20:48] LABS: Red Blood Cells-Urine 0-5 SEEN /hpf (0-5)
[2018-05-15] MEDS: Heparin Injection (Vial) 5,000 UNIT/ML VIAL 5000 UNIT SC (21:41)
[2018-05-15 21:45] LABS: Bedside Glucose 397 mg/dL (70-110)
[2018-05-15] MEDS: Insulin Lispro 100 UNIT/ML INSULN.PEN SC (22:11)
[2018-05-15] MEDS: Furosemide 40 MG/4 ML Vial IV (22:11)
[2018-05-15] MEDS: Metoprolol Tartrate 5 MG/5 ML Vial IV (22:11)
[2018-05-15] MEDS: 0.9% NaCl Peripheral Flush Adult/Peds IV (22:12)
[2018-05-16] VITALS (17 sets, daily range): BP systolic 140–160; BP diastolic 58–80; PULSE 85–110; RESP 15–20; TEMP 36.6–37; O2SAT 85–100
[2018-05-16] MEDS: Sodium Chloride 3% 500 ML IV.SOLN. INHALATION ×3 (03:19→19:30)
[2018-05-16] MEDS: Ipratropium/Albuterol Sulfate 3 ML AMPUL.NEB INHALATION ×6 (03:19→22:45)
[2018-05-16] MEDS: Insulin Lispro 100 UNIT/ML INSULN.PEN SC ×4 (05:39→21:02)
[2018-05-16] MEDS: 0.9% NaCl Peripheral Flush Adult/Peds IV (05:40)
[2018-05-16] MEDS: Metoprolol Tartrate 5 MG/5 ML Vial IV (05:40)
[2018-05-16 05:41] LABS: Bedside Glucose 353 mg/dL (70-110)
[2018-05-16 07:09] LABS: Absolute Lymphocyte Count 0.58 X10^3/ul (0.83-4.51); Absolute Neutrophil Count 8.6 X10^3/uL (2.0-7.7); Hematocrit 25.5 % (40-54); Hemoglobin 8.1 g/dl (13.0-16.5); Lymphocyte # 0.58 X10^3/ul (4.0); Lymphocyte % 6.2 % (19-41); Mean Corp Hgb Conc 31.8 g/gl (32-36); Mean Corpuscular Hgb 29.1 pg (27.0-32.0); Mean Corpuscular Volume 91.7 fL (80-94); Mean Platelet Vol. 11.3 fl (6.2-12.0); Monocyte% 1.1 % (0-10); Neutrophil # 8.63 X10^3/uL (2.7-7.7); Neutrophil % 92.2 % (47-70); Platelet Count 392 K/mm3 (150-450); RBC Distribution Width CV 16.9 % (11.6-14.6); RBC Distribution Width SD 54.2 fl (35.1-43.9); Red Blood Count 2.78 M/mm3 (4.6-6.2); White Blood Count 9.4 K/mm3 (4.4-11.0)
[2018-05-16 07:10] LABS: Differential Indicated SCAN CRITERIA MET; POSITIVE COUNT NO; POSITIVE DIFFERENTIAL YES; POSITIVE MORPHOLOGY NO
[2018-05-16 07:27] LABS: ALB/GLOB Ratio 0.7 RATIO (0.9-2.4); AST(SGOT) 13 U/L (15-37); Alanine Aminotransfer ALT/SGPT 20 U/L (16-61); Albumin, Serum 2.7 g/dL (3.2-5.0); Alkaline Phosphatase 79 U/L (45-117); Anion Gap 16 (5-15); BUN 56 mg/dL (7-18); BUN/Creat Ratio 5.9 RATIO (10-20); Calcium,Total 8.8 mg/dL (8.5-10.1); Chloride 92 mmol/L (98-107); Creatinine, Serum 9.52 mg/dL (0.70-1.30); EST Glomerular Filtration Rate 6 mL/min (>60); Est Glom Filt Rate - Afr Amer 7 mL/min (>60); Estimated Creatinine Clearance 7.53 ml/min; Globulin 3.9 g/dL (2.2-4.2); Glucose 338 mg/dL (74-106); Potassium 4.2 mmol/L (3.5-5.1); Protein, Total 6.6 g/dL (6.4-8.2); Sodium Level 134 mmol/L (136-145)
[2018-05-16 07:58] LABS: Differential Comment SCANNED
[2018-05-16] MEDS: Calcium Acetate 667 MG Capsule 3335 MG PO ×3 (09:49→17:56)
[2018-05-16] MEDS: Furosemide 40 MG/4 ML Vial IV (09:50)
[2018-05-16] MEDS: Heparin Injection (Vial) 5,000 UNIT/ML VIAL 5000 UNIT SC ×2 (09:50→21:02)
--- NOTE | 2018-05-16 10:58 | PCM.CONS.R ---
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 Lyons. Consulted for dialysis management. His last dialysis was on Wednesday. He was admitted on May 15 for 1 week history of productive cough with yellow phlegm. Denied any fever chills. He did have nausea, decreased appetite. He did not seek medical attention. He was not on antibiotic therapy prior to admission. He is feeling better and his appetite has improved. His shortness of breath is improved since hospitalization after initiating antibiotic therapy. He has COPD on oxygen at home. He quit smoking about 10 years ago. He has hx of CAD s/p PCI and stents. He denied any chest pain. He does admit to leg swelling and arm swelling. We will arrange his dialysis later this afternoon. - Allergies Allergies: Allergies morphine Adverse Reaction (Verified 05/15/18 09:13) Itching - Current Medications Current Medications: Current Medications Albuterol Sulfate (Ventolin Aerosols) 2.5 mg INHALATION Q2H PRN PRN PRN Reason: SOB &/OR WHEEZING Albuterol/Ipratropium (Duoneb) 3 ml INHALATION Q4H.RT [facility] Last Admin: 05/16/18 10:40 Dose: 3 ml Aspirin (Aspirin) 300 mg RECTAL DAILY [facility] Calcium Acetate (Phoslo Gel Cap) 3,335 mg PO TIDCM [facility] Last Admin: 05/16/18 09:49 Dose: 3,335 mg Dextrose (D50w Syringe) 0 gm IV X1 PRN; Protocol PRN Reason: Hypoglycemia Furosemide (Lasix) 40 mg IV DAILY [facility] Last Admin: 05/16/18 09:50 Dose: 40 mg Glucagon () 1 mg IM .X1 PRN PRN Reason: Hypoglycemia Heparin Sodium (Porcine) (Heparin Na) 5,000 unit SC Q12 [facility] Last Admin: 05/16/18 09:50 Dose: 5,000 unit Levofloxacin 250 mg/ N/A 50 mls @ 50 mls/hr IV Q48 [facility] Last Admin: 05/15/18 15:12 Dose: 50 mls/hr Insulin Glargine (Lantus (Bk)) 20 units SC DAILY [facility] Last Admin: 05/16/18 09:50 Dose: 20 units Insulin Human Lispro (Humalog Kwikpen ([facility])) 0 unit SC Q6 [facility] PRN Reason: Protocol Last Admin: 05/16/18 05:39 Dose: 8 u Methylprednisolone (Solu-Medrol) 40 mg IV Q8 [facility] Last Admin: 05/16/18 05:40 Dose: 40 mg Metoprolol Tartrate (Lopressor (Beta Vane)) 5 mg IV Q8 [facility] Last Admin: 05/16/18 05:40 Dose: 5 mg Nitroglycerin (Nitrostat) 0.4 mg SUBLINGUAL Q5M PRN PRN Reason: CARDIAC/CHEST PAIN Sodium Chloride (Sodium Chloride 3%) 5 ml INHALATION Q8H.RT [facility] Last Admin: 05/16/18 10:40 Dose: 5 ml Sodium Chloride () 5 - 30 ml IV UD PRN PRN Reason: SALINE FLUSH Last Admin: 05/16/18 05:40 Dose: 10 ml - Past Medical History Past Medical History (Chronic Problems): Chronic Problems (Last Reviewed 01/17/18 @ 14:48 by Nicci Germain) ESRD (end stage renal disease) on dialysis (Chronic) He was evaluated at [facility] fro transplant list. He is presently inactive, see consult. 12/16/17 Presence of arteriovenous fistula for hemodialysis (Chronic) Left Arm; Balloon plasty to fistula 05/30; Dialysis 3 days per week Mon, Wed, Fri Presence of stent in coronary artery (Chronic ~07/23/17) PTCA/BLAIR to prox CX, BLAIR to OM1, BLAIR to Ramus 11/27 @ [facility]; PCI /BLAIR of LCX ISR, PCI/BLAIR Ostial OM1, [id number]-Ryvn Ramus ISR 07/23/17;HX stents 2003 Atherosclerosis of [place] coronary artery of [place] heart without angina pectoris (Chronic) PTCA/BLAIR to prox CX, BLAIR to OM1, BLAIR to Ramus 11/27 @ [facility]; PCI /BLAIR of LCX ISR, PCI/BLAIR Ostial OM1, [id number] Ramus ISR 07/23/17;HX stents 2003 Essential (primary) hypertension (Chronic) Hyperlipemia, mixed (Chronic) - Past Surgical History Surgical History: angioplasty - stent, cataract - bilateral, - - AVF, bladder tumor resection - Social History Smoking Status: Former smoker Review of Systems Constitutional: Reports: Anorexia, Weakness. Denies: Chills, Fever Eyes: Denies: Vision Change HEENT: Denies: Head Aches Cardiovascular: Reports: Edema. Denies: Chest Pain Respiratory: Reports: Cough, Shortness of Breath, Sputum production - yellow Gastrointestinal: Reports: - - anorexia. Denies: Abdominal Pain, Diarrhea, Nausea, Vomiting Genitourinary: Reports: - - Still makes urine, edema better with urine output Neurological: Denies: Tremor, Seizures Hematologic/ Lymphatic: Reports: Anemia Patient Problems: Active and Suspected Problems (Last Reviewed 01/17/18 @ 14:48 by Nicci Germain) COPD with acute exacerbation (Acute) - Physical Exam General: Alert, Oriented x3, Cooperative, No apparent distress HEENT: PERRLA, Normocephalic Oral: Moist Mucosa Neck: Supple Lungs: Clear to auscultation, Diminished Cardiovascular: Regular rate Abdomen: Bowel Sounds Present, Soft, Non Tender, Non-Distended Extremities: Edema - mild Skin: No rashes Musculoskeletal: No Muscle Wasting, - - AV fistula left upper arm with good thrill and bruit, mild swelling in access arm Neurological: Cranial nerves II-XII grossly intact Psych/Mental Status: Normal Affect, Appropriate, Alert and oriented to time, place, person, mood and affect Vital Signs Temp Pulse Resp BP Pulse Ox 97.8 F 104 H 16 140/70 H 97 05/16/18 09:35 05/16/18 09:35 05/16/18 09:35 05/16/18 09:35 05/16/18 09:35 Oxygen Flow Rate (L/min) 4 Oxygen Delivery Method Nasal Cannula Weight: 85 kg Body Mass Index (BMI) 27.6 Intake and Output for Last 24 Hours 05/14/18 05/15/18 05/16/18 23:59 23:59 23:59 Intake Total 1169 / 1169 Output Total 300 / 300 Balance 869 / 869 Laboratory Tests Past 24 Hrs 05/15/18 05/16/18 05/16/18 20:25 06:05 06:05 WBC 9.4 RBC 2.78 L Hgb 8.1 L Hct 25.5 L MCV 91.7 MCH 29.1 MCHC 31.8 L RDW 16.9 H RDW Differential 54.2 H Plt Count 392 MPV 11.3 Immature Gran % (Auto) 0.500 Neut % (Auto) 92.2 H Lymph % (Auto) 6.2 L [place] % (Auto) 1.1 Eos % (Auto) 0.0 Baso % (Auto) 0.0 Absolute Neuts (auto) 8.6 H Absolute Lymphs (auto) 0.58 L Total Counted Not Reportable Differential Comment SCANNED Sodium 134 L Potassium 4.2 Chloride 92 L Carbon Dioxide 26.0 Anion Gap 16 H BUN 56 H Creatinine 9.52 H* Estim Creat Clear Calc 7.53 Est GFR (MDRD) Af Amer 7 L Est GFR (MDRD) Non-Af 6 L BUN/Creatinine Ratio 5.9 L Glucose 338 H Calcium 8.8 Total Bilirubin 0.30 AST 13 L ALT 20 Alkaline Phosphatase 79 Total Protein 6.6 Albumin 2.7 L Globulin 3.9 Albumin/Globulin Ratio 0.7 L Urine Color Yellow Urine Clarity Clear Urine pH 6.5 Ur Specific [place] 1.010 Urine Protein 100 H Urine Glucose (UA) 1000 H Urine Ketones Negative Urine Occult Blood 10 H Urine Nitrite Negative Urine Bilirubin Negative Urine Urobilinogen Normal Ur Leukocyte Esterase Negative Urine RBC 0-5 SEEN Urine WBC 0-5 SEEN Ur Squamous Epith Cells 0-5 SEEN Urine Bacteria 0 SEEN Fine Granular Casts 0-5 SEEN Urine Mucus 0 SEEN POC Glucose 05/16/18 05/15/18 05/15/18 05:35 21:39 16:47 POC Glucose 353 H 397 H 457 H* 05/15/18 05/15/18 13:06 12:09 POC Glucose > 500 H* > 500 H* Assessment/Plan All Active Problems (Last Reviewed 01/17/18 @ 14:48 by Nicci Germain) COPD with acute exacerbation (Acute) 1.ESRD HD today and MWF 2. HCAP on iv antbx 3. COPD on O2, IV steroids with elevated sugars 4. HTN stable 5. Diabetes mellitus type 2 on insulin. Primary care management 6. CAD bilateral pleural effusion, fluid removal on dialysis as tolerated 7. Anemia EPO, IV iron per chronic orders from dialysis center
--- NOTE | 2018-05-16 11:02 | CON.PCM_ITS ---
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 Lyons. Consulted for dialysis management. His last dialysis was on Wednesday. He was admitted on May 15 for 1 week history of productive cough with yellow phlegm. Denied any fever chills. He did have nausea, decreased appetite. He did not seek medical attention. He was not on antibiotic therapy prior to admission. He is feeling better and his appetite has improved. His shortness of breath is improved since hospitalization after initiating antibiotic therapy. He has COPD on oxygen at home. He quit smoking about 10 years ago. He has hx of CAD s/p PCI and stents. He denied any chest pain. He does admit to leg swelling and arm swelling. We will arrange his dialysis later this afternoon. - Allergies Allergies: Allergies morphine Adverse Reaction (Verified 05/15/18 09:13) Itching - Current Medications Current Medications: Current Medications Albuterol Sulfate (Ventolin Aerosols) 2.5 mg INHALATION Q2H PRN PRN PRN Reason: SOB &/OR WHEEZING Albuterol/Ipratropium (Duoneb) [address] [facility] Last Admin: 05/16/18 10:40 Dose: 3 ml Aspirin (Aspirin) [address] [facility] Calcium Acetate (Phoslo Gel Cap) 3,[address] [facility] Last Admin: 05/16/18 09:49 Dose: 3,335 mg Dextrose (D50w Syringe) 0 gm IV X1 PRN; Protocol PRN Reason: Hypoglycemia Furosemide (Lasix) [address] [facility] Last Admin: 05/16/18 09:50 Dose: 40 mg Glucagon () 1 mg IM .X1 PRN PRN Reason: Hypoglycemia Heparin Sodium (Porcine) (Heparin Na) 5,[address] [facility] Last Admin: 05/16/18 09:50 Dose: 5,000 unit Levofloxacin 250 mg/ N/A 50 mls @ 50 mls/hr IV Q48 [facility] Last Admin: 05/15/18 15:12 Dose: 50 mls/hr Insulin Glargine (Lantus (Bk)) 20 units SC DAILY [facility] Last Admin: 05/16/18 09:50 Dose: 20 units Insulin Human Lispro (Humalog Kwikpen ([facility])) 0 unit SC Q6 [facility] PRN Reason: Protocol Last Admin: 05/16/18 05:39 Dose: 8 u Methylprednisolone (Solu-Medrol) 40 mg IV Q8 [facility] Last Admin: 05/16/18 05:40 Dose: 40 mg Metoprolol Tartrate (Lopressor (Beta Vane)) 5 mg IV Q8 [facility] Last Admin: 05/16/18 05:40 Dose: 5 mg Nitroglycerin (Nitrostat) 0.4 mg SUBLINGUAL Q5M PRN PRN Reason: CARDIAC/CHEST PAIN Sodium Chloride (Sodium Chloride 3%) 5 ml INHALATION Q8H.RT [facility] Last Admin: 05/16/18 10:40 Dose: 5 ml Sodium Chloride () 5 - 30 ml IV UD PRN PRN Reason: SALINE FLUSH Last Admin: 05/16/18 05:40 Dose: 10 ml - Past Medical History Past Medical History (Chronic Problems): Chronic Problems (Last Reviewed 01/17/18 @ 14:48 by Nicci Germain) ESRD (end stage renal disease) on dialysis (Chronic) He was evaluated at [facility] fro transplant list. He is presently inactive, see consult. 12/16/17 Presence of arteriovenous fistula for hemodialysis (Chronic) Left Arm; Balloon plasty to fistula 05/30; Dialysis 3 days per week Mon, Wed, Fri Presence of stent in coronary artery (Chronic ~07/23/17) PTCA/BLAIR to prox CX, BLAIR to OM1, BLAIR to Ramus 11/27 @ [facility]; PCI /BLAIR of LCX ISR , PCI/BLAIR Ostial OM1, [id number] Ramus ISR 07/23/17;HX stents 2003 Atherosclerosis of [place] coronary artery of [place] heart without angina pectoris (Chronic) PTCA/BLAIR to prox CX, BLAIR to OM1, BLAIR to Ramus 11/27 @ [facility]; PCI /BLAIR of LCX ISR , PCI/BLAIR Ostial OM1, [id number]-Rokq Ramus ISR 07/23/17;HX stents 2003 Essential (primary) hypertension (Chronic) Hyperlipemia, mixed (Chronic) - Past Surgical History Surgical History: angioplasty - stent, cataract - bilateral, - - AVF, bladder tumor resection - Social History Smoking Status: Former smoker Review of Systems Constitutional: Reports: Anorexia, Weakness. Denies: Chills, Fever Eyes: Denies: Vision Change HEENT: Denies: Head Aches Cardiovascular: Reports: Edema. Denies: Chest Pain Respiratory: Reports: Cough, Shortness of Breath, Sputum production - yellow Gastrointestinal: Reports: - - anorexia. Denies: Abdominal Pain, Diarrhea, Nausea, Vomiting Genitourinary: Reports: - - Still makes urine, edema better with urine output Neurological: Denies: Tremor, Seizures Hematologic/ Lymphatic: Reports: Anemia Patient Problems: Active and Suspected Problems (Last Reviewed 01/17/18 @ 14:48 by Nicci Germain) COPD with acute exacerbation (Acute) - Physical Exam General: Alert, Oriented x3, Cooperative, No apparent distress HEENT: PERRLA, Normocephalic Oral: Moist Mucosa Neck: Supple Lungs: Clear to auscultation, Diminished Cardiovascular: Regular rate Abdomen: Bowel Sounds Present, Soft, Non Tender, Non-Distended Extremities: Edema - mild Skin: No rashes Musculoskeletal: No Muscle Wasting, - - AV fistula left upper arm with good thrill and bruit, mild swelling in access arm Neurological: Cranial nerves II-XII grossly intact Psych/Mental Status: Normal Affect, Appropriate, Alert and oriented to time, place, person, mood and affect Vital Signs Temp Pulse Resp BP Pulse Ox 97.8 F 104 H 16 140/70 H 97 05/16/18 09:35 05/16/18 09:35 05/16/18 09:35 05/16/18 09:35 05/16/18 09:35 Oxygen Flow Rate (L/min) 4 Oxygen Delivery Method Nasal Cannula Weight: 85 kg Body Mass Index (BMI) 27.6 Intake and Output for Last 24 Hours 05/14/18 05/15/18 05/16/18 23:59 23:59 23:59 Intake Total 1169 / 1169 Output Total 300 / 300 Balance 869 / 869 Laboratory Tests Past 24 Hrs 05/15/18 05/16/18 05/16/18 20:25 06:05 06:05 WBC 9.4 RBC 2.78 L Hgb 8.1 L Hct 25.5 L MCV 91.7 MCH 29.1 MCHC 31.8 L RDW 16.9 H RDW Differential 54.2 H Plt Count 392 MPV 11.3 Immature Gran % (Auto) 0.500 Neut % (Auto) 92.2 H Lymph % (Auto) 6.2 L [place] % (Auto) 1.1 Eos % (Auto) 0.0 Baso % (Auto) 0.0 Absolute Neuts (auto) 8.6 H Absolute Lymphs (auto) 0.58 L Total Counted Not Reportable Differential Comment SCANNED Sodium 134 L Potassium 4.2 Chloride 92 L Carbon Dioxide 26.0 Anion Gap 16 H BUN 56 H Creatinine 9.52 H* Estim Creat Clear Calc 7.53 Est GFR (MDRD) Af Amer 7 L Est GFR (MDRD) Non-Af 6 L BUN/Creatinine Ratio 5.9 L Glucose 338 H Calcium 8.8 Total Bilirubin 0.30 AST 13 L ALT 20 Alkaline Phosphatase 79 Total Protein 6.6 Albumin 2.7 L Globulin 3.9 Albumin/Globulin Ratio 0.7 L Urine Color Yellow Urine Clarity Clear Urine pH 6.5 Ur Specific [place] 1.010 Urine Protein 100 H Urine Glucose (UA) 1000 H Urine Ketones Negative Urine Occult Blood 10 H Urine Nitrite Negative Urine Bilirubin Negative Urine Urobilinogen Normal Ur Leukocyte Esterase Negative Urine RBC 0-5 SEEN Urine WBC 0-5 SEEN Ur Squamous Epith Cells 0-5 SEEN Urine Bacteria 0 SEEN Fine Granular Casts 0-5 SEEN Urine Mucus 0 SEEN POC Glucose 05/16/18 05/15/18 05/15/18 05:35 21:39 16:47 POC Glucose 353 H 397 H 457 H* 05/15/18 05/15/18 13:06 12:09 POC Glucose > 500 H* > 500 H* Assessment/Plan All Active Problems (Last Reviewed 01/17/18 @ 14:48 by Nicci Germain) COPD with acute exacerbation (Acute) 1.ESRD HD today and MWF 2. HCAP on iv antbx 3. COPD on O2, IV steroids with elevated sugars 4. HTN stable 5. Diabetes mellitus type 2 on insulin. Primary care management 6. CAD bilateral pleural effusion, fluid removal on dialysis as tolerated 7. Anemia EPO, IV iron per chronic orders from dialysis center
--- NOTE | 2018-05-16 11:29 | PCM.PROGNOTE ---
<RobertNathaly - Last Filed: 05/16/18 12:06> Patient Problems: Active and Suspected Problems (Last Reviewed 01/17/18 @ 14:48 by Nicci Germain) COPD with acute exacerbation (Acute) Subjective: Patient seen and examined. Resting in chair in no acute distress. States shortness of breath has significantly improved. Denies fever, chills. Continues to have productive cough with yellow sputum. Denies other current complaints. - Physical Exam General: Alert, Oriented x3, Cooperative, No apparent distress HEENT: Atraumatic, PERRLA, EOMI, Normocephalic Neck: Supple, No JVD, Negative Carotid Bruits Lungs: Diminished, Rhonchi, Wheezes Cardiovascular: Regular rate, Regular Rhythm, Normal S1, Normal S2, No murmurs Abdomen: Bowel Sounds Present, Soft, Non Tender, Non-Distended Extremities: No clubbing, No cyanosis, No edema, Capillary Refill Less than 3 Seconds Skin: No rashes, No breakdown Musculoskeletal: No Tenderness to Palpation of Joints or Extremities Neurological: Cranial nerves II-XII grossly intact, Neuro grossly intact Psych/Mental Status: Normal Affect, Appropriate Vital Signs Temp Pulse Resp BP Pulse Ox 97.8 F 100 16 140/70 H 97 05/16/18 09:35 05/16/18 11:05 05/16/18 09:35 05/16/18 09:35 05/16/18 09:35 Oxygen Flow Rate (L/min) 4 Oxygen Delivery Method Nasal Cannula Weight: 187 lb 6.287 oz Body Mass Index (BMI) 27.6 Intake and Output for Last 24 Hours 05/14/18 05/15/18 05/16/18 23:59 23:59 23:59 Intake Total 1169 / 1169 Output Total 300 / 300 Balance 869 / 869 Laboratory Tests Past 24 Hrs 05/15/18 05/16/18 05/16/18 20:25 06:05 06:05 WBC 9.4 RBC 2.78 L Hgb 8.1 L Hct 25.5 L MCV 91.7 MCH 29.1 MCHC 31.8 L RDW 16.9 H RDW Differential 54.2 H Plt Count 392 MPV 11.3 Immature Gran % (Auto) 0.500 Neut % (Auto) 92.2 H Lymph % (Auto) 6.2 L [place] % (Auto) 1.1 Eos % (Auto) 0.0 Baso % (Auto) 0.0 Absolute Neuts (auto) 8.6 H Absolute Lymphs (auto) 0.58 L Total Counted Not Reportable Differential Comment SCANNED Sodium 134 L Potassium 4.2 Chloride 92 L Carbon Dioxide 26.0 Anion Gap 16 H BUN 56 H Creatinine 9.52 H* Estim Creat Clear Calc 7.53 Est GFR (MDRD) Af Amer 7 L Est GFR (MDRD) Non-Af 6 L BUN/Creatinine Ratio 5.9 L Glucose 338 H Calcium 8.8 Total Bilirubin 0.30 AST 13 L ALT 20 Alkaline Phosphatase 79 Total Protein 6.6 Albumin 2.7 L Globulin 3.9 Albumin/Globulin Ratio 0.7 L Urine Color Yellow Urine Clarity Clear Urine pH 6.5 Ur Specific [place] 1.010 Urine Protein 100 H Urine Glucose (UA) 1000 H Urine Ketones Negative Urine Occult Blood 10 H Urine Nitrite Negative Urine Bilirubin Negative Urine Urobilinogen Normal Ur Leukocyte Esterase Negative Urine RBC 0-5 SEEN Urine WBC 0-5 SEEN Ur Squamous Epith Cells 0-5 SEEN Urine Bacteria 0 SEEN Fine Granular Casts 0-5 SEEN Urine Mucus 0 SEEN POC Glucose 05/16/18 05/15/18 05/15/18 05:35 21:39 16:47 POC Glucose 353 H 397 H 457 H* 05/15/18 05/15/18 13:06 12:09 POC Glucose > 500 H* > 500 H* Medical Necessity - Tobacco Use Smoking Status: Former smoker Assessment/Plan All Active Problems (Last Reviewed 01/17/18 @ 14:48 by Nicci Germain) COPD with acute exacerbation (Acute) 1. Acute COPD exacerbation with chronic hypoxic respiratory failure-chest x-ray on admission showed bilateral pleural effusions. CT of chest showed a lateral lower lobe consolidations, moderate bilateral pleural effusions consistent with CHF. Prior chest x-ray 04/15/2018 also demonstrated small pleural effusions bilaterally. Do not further suspect pneumonia. Feel pleural effusions are secondary to fluid overload as result of end-stage renal disease. Breathing improved with IV steroids. Continue IV Solu-Medrol. Continue albuterol and DuoNeb aerosols. Send sputum for culture. Continue IV Levaquin. Continue supplement oxygen to maintain O2 at or above 90%. Patient chronically wears 2-4 L nasal cannula continuously at home. Recommend follow-up with pulmonary medicine as outpatient. Patient has not followed with pulmonary medicine in the past and denies history of PFTs. 2. Anemia of chronic disease-stable, trend CBC. EPO, IV iron as outpatient per dialysis center. 3. End-stage renal disease on hemodialysis-nephrology consulted. Scheduled for dialysis today. Schedule Wednesday, Wednesday, Wednesday. 4. Type 2 diabetes mellitus-glucose greater than 600 on admission. Improving. Increase sliding scale insulin to high dosing. Every 6 Accu-Cheks. Continue Lantus regimen. 5. CAD status post CABG-continue Plavix, statin, carvedilol. 6. Pseudohyponatremia-improved. 7. Hypothyroidism-continue levothyroxine regimen. 8. Hypertension-stable, continue home carvedilol regimen. 9. Hyperlipidemia-continue statin. DVT prophylaxis-heparin subcu. This patient was seen by JSOE F Noguera under the supervision of Dr. Barbour. <Ananth Barbour - Last Filed: 05/16/18 16:30> Subjective: Patient admitted with productive cough with yellow sputum. Patient still seemed mild short of breath but has improved. Patient is on hemodialysis on Wednesday and Wednesday. - Physical Exam General: Alert, Oriented x3, Cooperative HEENT: Atraumatic, PERRLA, EOMI, Normocephalic Neck: Supple, No JVD, Negative Carotid Bruits Lungs: Diminished, Rhonchi, Wheezes Cardiovascular: Regular rate, No murmurs Abdomen: Bowel Sounds Present, Soft, Non Tender Extremities: No edema, Capillary Refill Less than 3 Seconds, - - Left arm AV fistula Skin: No rashes, No breakdown Musculoskeletal: No Tenderness to Palpation of Joints or Extremities Neurological: Cranial nerves II-XII grossly intact Psych/Mental Status: Normal Affect, Appropriate Vital Signs Temp Pulse Resp BP Pulse Ox 98.4 F 102 H 16 154/80 H 98 05/16/18 15:29 05/16/18 15:29 05/16/18 15:29 05/16/18 15:29 05/16/18 15:29 Oxygen Flow Rate (L/min) 4 Oxygen Delivery Method Nasal Cannula Weight: 187 lb 6.287 oz Body Mass Index (BMI) 27.6 Intake and Output for Last 24 Hours 05/14/18 05/15/18 05/16/18 23:59 23:59 23:59 Intake Total 1169 / 1169 320 / 320 Output Total 300 / 300 Balance 869 / 869 320 / 320 Laboratory Tests Past 24 Hrs 05/15/18 05/16/18 05/16/18 20:25 06:05 06:05 WBC 9.4 RBC 2.78 L Hgb 8.1 L Hct 25.5 L MCV 91.7 MCH 29.1 MCHC 31.8 L RDW 16.9 H RDW Differential 54.2 H Plt Count 392 MPV 11.3 Immature Gran % (Auto) 0.500 Neut % (Auto) 92.2 H Lymph % (Auto) 6.2 L [place] % (Auto) 1.1 Eos % (Auto) 0.0 Baso % (Auto) 0.0 Absolute Neuts (auto) 8.6 H Absolute Lymphs (auto) 0.58 L Total Counted Not Reportable Differential Comment SCANNED Sodium 134 L Potassium 4.2 Chloride 92 L Carbon Dioxide 26.0 Anion Gap 16 H BUN 56 H Creatinine 9.52 H* Estim Creat Clear Calc 7.53 Est GFR (MDRD) Af Amer 7 L Est GFR (MDRD) Non-Af 6 L BUN/Creatinine Ratio 5.9 L Glucose 338 H Calcium 8.8 Total Bilirubin 0.30 AST 13 L ALT 20 Alkaline Phosphatase 79 Total Protein 6.6 Albumin 2.7 L Globulin 3.9 Albumin/Globulin Ratio 0.7 L Urine Color Yellow Urine Clarity Clear Urine pH 6.5 Ur Specific [place] 1.010 Urine Protein 100 H Urine Glucose (UA) 1000 H Urine Ketones Negative Urine Occult Blood 10 H Urine Nitrite Negative Urine Bilirubin Negative Urine Urobilinogen Normal Ur Leukocyte Esterase Negative Urine RBC 0-5 SEEN Urine WBC 0-5 SEEN Ur Squamous Epith Cells 0-5 SEEN Urine Bacteria 0 SEEN Fine Granular Casts 0-5 SEEN Urine Mucus 0 SEEN POC Glucose 05/16/18 05/16/18 05/15/18 11:10 05:35 21:39 POC Glucose 368 H 353 H 397 H 05/15/18 16:47 POC Glucose 457 H* Assessment/Plan This patient was seen in conjunction with POLISHING WHEEL SETTER, Nathaly. I have independently interviewed and examined the patient and reviewed pertinent history, examination findings, laboratory and plan of management. I have reviewed the note and agree with the documented findings with the few additional points. In brief, patient is admitted for COPD exacerbation, exacerbated by bilateral lower lobes healthcare associated pneumonia and chronic hypoxic respiratory failure. IV antibiotics, bronchodilator, IV Solu-Medrol. Blood sugar high due to IV Solu-Medrol. Lantus insulin increased . I have discussed my assessment with POLISHING WHEEL SETTER, Nathaly and orders have been reviewed. Clinical Impression(s) from Imaging Studies Chest X-Ray 05/15/18 09:45 IMPRESSION: 1. Consolidative infiltrates in the left lung base. Small left pleural effusion. 2. Interstitial infiltrates in the right lung base. Electronically Signed: Eros Rose MD at 10:01 EDT Tel , Service support , Chest CT 05/15/18 11:14 IMPRESSION: 1. There are extensive bilateral lower lobe consolidations with air bronchograms consistent with atelectasis and/or pneumonic process, as well as moderate bilateral pleural effusions, new in the interval. 2. There is prominence of pulmonary vascularity consistent with CHF, also new in the interval. 3. Stable 10 mm density of the posterior left lung apex, most likely fibrotic in nature. 2. Adjacent approximately 1.0 cm nodules of the medial right upper lobe, similar in size from the previous study but increased in density in the interval. 4. 1.7 cm hazy right perihilar density noted in the interval. 5. Stable 1.7 x 1.5 cm density of the anterobasilar right lower lobe Code Visit Inpatient E&M: [id number] [facility] L3
[2018-05-16 12:31] LABS: Bedside Glucose 368 mg/dL (70-110)
[2018-05-16 17:15] LABS: Bedside Glucose 208 mg/dL (70-110)
--- NOTE | 2018-05-16 17:42 | CPS ---
PEP therapy held, patient currently on dialysis.
[2018-05-16] MEDS: Furosemide 40 MG Tablet PO (17:54)
--- NOTE | 2018-05-16 18:44 | DIALYSIS ---
Hemodialysis completed, 3.5 hours on a 3 K 2.5 Ca bath. Epogen was increased to 6000 u q tx. Fluid removed was 3000 ml and patient tolerated this well. Fistula bled for over an hour after needles were removed and I did not give heparin during the treatment. Patient verbalized that sometimes it bleeds for a long time in the outpatient center. Dr Lepe was notified. Once hemostasis was achieved, assessed for bruit and thrill and they were both strong. Next HD WednesdayMay 18 . See flow sheet for details.
[2018-05-16] MEDS: Atorvastatin Calcium 80 MG Tablet PO (21:01)
[2018-05-16] MEDS: Carvedilol 12.5 MG Tablet PO (21:01)
[2018-05-16] MEDS: Mirtazapine 15 MG Tablet 7.5 MG PO (21:02)
[2018-05-16 22:21] LABS: Bedside Glucose 300 mg/dL (70-110)
[2018-05-17 03:00] VITALS: PULSE 103
[2018-05-17 03:25] VITALS: BP 150/74; PULSE 104; RESP 16; TEMP 37; O2SAT 99
[2018-05-17 05:22] LABS: Hematocrit 26.5 % (40-54); Hemoglobin 8.4 g/dl (13.0-16.5); Mean Corp Hgb Conc 31.7 g/gl (32-36); Mean Corpuscular Hgb 29.7 pg (27.0-32.0); Mean Corpuscular Volume 93.6 fL (80-94); Mean Platelet Vol. 11.3 fl (6.2-12.0); Platelet Count 361 K/mm3 (150-450); RBC Distribution Width CV 17.9 % (11.6-14.6); RBC Distribution Width SD 57.4 fl (35.1-43.9); Red Blood Count 2.83 M/mm3 (4.6-6.2); White Blood Count 17.9 K/mm3 (4.4-11.0)
[2018-05-17 05:24] LABS: Scan Indicated on CBC? Y/N NO
[2018-05-17] MEDS: Levothyroxine 100 MCG Tablet 200 MCG PO (05:30)
[2018-05-17] MEDS: 0.9% NaCl Peripheral Flush Adult/Peds IV ×2 (05:31→08:58)
[2018-05-17 05:45] LABS: Anion Gap 13 (5-15); BUN 35 mg/dL (7-18); BUN/Creat Ratio 5.5 RATIO (10-20); Calcium,Total 9.8 mg/dL (8.5-10.1); Chloride 93 mmol/L (98-107); Creatinine, Serum 6.39 mg/dL (0.70-1.30); EST Glomerular Filtration Rate 9 mL/min (>60); Est Glom Filt Rate - Afr Amer 11 mL/min (>60); Estimated Creatinine Clearance 11.22 ml/min; Glucose 322 mg/dL (74-106); Potassium 4.4 mmol/L (3.5-5.1); Sodium Level 136 mmol/L (136-145)
[2018-05-17 06:50] LABS: Bedside Glucose 314 mg/dL (70-110)
[2018-05-17 07:00] VITALS: PULSE 100
[2018-05-17 07:13] VITALS: PULSE 100; RESP 20; O2SAT 96
[2018-05-17] MEDS: Ipratropium/Albuterol Sulfate 3 ML AMPUL.NEB INHALATION ×2 (07:13→11:25)
[2018-05-17 08:25] VITALS: BP 139/74; PULSE 103; RESP 16; TEMP 36.8; O2SAT 96
[2018-05-17] MEDS: Insulin Lispro 100 UNIT/ML INSULN.PEN SC (08:27)
[2018-05-17] MEDS: Calcium Acetate 667 MG Capsule 3335 MG PO (08:27)
[2018-05-17] MEDS: Heparin Injection (Vial) 5,000 UNIT/ML VIAL 5000 UNIT SC (08:28)
[2018-05-17] MEDS: Carvedilol 12.5 MG Tablet PO (08:28)
[2018-05-17] MEDS: Clopidogrel Bisulfate 75 MG Tablet PO (08:29)
[2018-05-17] MEDS: Furosemide 40 MG Tablet PO (08:29)
--- NOTE | 2018-05-17 09:21 | PCM.PN.REN ---
Patient Problems: Active and Suspected Problems (Last Reviewed 01/17/18 @ 14:48 by Nicci Germain) COPD with acute exacerbation (Acute) Subjective: less edematous. breathing better, less productive cough - Physical Exam General: Alert, Oriented x3, Cooperative, No apparent distress Lungs: Clear to auscultation Cardiovascular: Regular rate Extremities: No edema Vital Signs Temp Pulse Resp BP Pulse Ox 98.3 F 103 H 16 139/74 H 96 05/17/18 08:25 05/17/18 08:25 05/17/18 08:25 05/17/18 08:25 05/17/18 08:25 Oxygen Flow Rate (L/min) 4 Oxygen Delivery Method Nasal Cannula Weight: 84.2 kg Body Mass Index (BMI) 27.6 Intake and Output for Last 24 Hours 05/15/18 05/16/18 05/17/18 23:59 23:59 23:59 Intake Total 1169 / 1169 560 / 560 300 / 300 Output Total 300 / 300 Balance 869 / 869 560 / 560 300 / 300 Laboratory Tests Past 24 Hrs 05/17/18 05/17/18 05:00 05:00 WBC 17.9 H RBC 2.83 L Hgb 8.4 L Hct 26.5 L MCV 93.6 MCH 29.7 MCHC 31.7 L RDW 17.9 H RDW Differential 57.4 H Plt Count 361 MPV 11.3 Sodium 136 Potassium 4.4 Chloride 93 L Carbon Dioxide 30.0 Anion Gap 13 BUN 35 H Creatinine 6.39 H Estim Creat Clear Calc 11.22 Est GFR (MDRD) Af Amer 11 L Est GFR (MDRD) Non-Af 9 L BUN/Creatinine Ratio 5.5 L Glucose 322 H Calcium 9.8 POC Glucose 05/17/18 05/16/18 05/16/18 06:42 20:59 17:08 POC Glucose 314 H 300 H 208 H 05/16/18 11:10 POC Glucose 368 H Medical Necessity - Tobacco Use Smoking Status: Former smoker Assessment/Plan All Active Problems (Last Reviewed 01/17/18 @ 14:48 by Nicci Germain) COPD with acute exacerbation (Acute) 1.ESRD HD MWF 2. HCAP on antbx 3. COPD on O2, steroids 4. HTN stable 5. Diabetes mellitus type 2 on insulin. Primary care management 6. CAD bilateral pleural effusion, fluid removal on dialysis as tolerated 7. Anemia EPO
--- NOTE | 2018-05-17 10:58 | PCM.DC ---
- Discharge Diagnoses Current Active Problems: Current Active and Chronic Problems (Last Reviewed 01/17/18 @ 14:48 by Nicci Germain) COPD with acute exacerbation (Acute) You will use the following diet at home:: Calorie/Carbohydrate Controlled (specify 1200, 1400, etc) Discharge Activity: Return to Normal Activity Call your doctor if you observe: Shortness of breath, Dizziness, Fainting spells, Chest pain Allergies/Adverse Reactions: Allergies morphine Adverse Reaction (Verified 05/15/18 09:13) Itching Medications to take at Discharge Furosemide 40 mg PO BID 08/12/16 Levothyroxine Sodium [Levo-T] 200 mcg PO DAILY 08/12/16 Atorvastatin Calcium 80 mg PO DAILY 07/23/17 carvedilol 12.5 mg tablet 12.5 mg PO BID 01/17/18 nitroglycerin 0.4 mg sublingual tablet 0.4 mg SUBLINGUAL Q5-15M PRN 01/17/18 Calcium Acetate 5 tab PO TID 04/15/18 Lanthanum Carbonate [Fosrenol] 1,000 mg PO TID 04/15/18 Nephro-Janel 1 tab PO DAILY 04/15/18 Clopidogrel Bisulfate [Plavix] 75 mg PO DAILY 05/15/18 Mirtazapine 7.5 mg PO QHS 05/15/18 Epoetin Topher [Procrit] 6,000 units IV MoWeFr ml 05/17/18 Insulin Aspart [Novolog Flexpen] See Protocol SC DAILY PRN PRN #0 05/17/18 Insulin Degludec [Tresiba Flextouch U-100] 30 unit SQ BREAKFAST #0 05/17/18 Levofloxacin [Levaquin] 250 mg PO Q48H #5 tab 05/17/18 Prednisone See Taper PO DAILY #30 tab 05/17/18 The following prescriptions were given: Levofloxacin [Levaquin] 250 mg PO Q48H #5 tab Prednisone See Taper PO DAILY #30 tab Primary Care Physician: Alfonso Rushing Chi, MD [Primary Care Provider] - Please follow up with your Primary Care Physician in: 1 Week Test Results: Test results from this visit will be discussed in further detail at your follow-up appointment, if applicable. Please Follow Up With: Seferino Feliciano MD - or Dr. Rios, may see RACE RELATIONS ADVISER When: 1-2 Weeks, establish care with pulmonary medicine Proposed Discharge Date: 05/17/18
[2018-05-17 11:00] VITALS: PULSE 98
--- NOTE | 2018-05-17 11:03 | PCM.DC.SUM ---
<Nathaly Jones - Last Filed: 05/17/18 11:14> Discharge Date and Diagnosis Date of Admission: 05/15/18 Date of Discharge: 05/17/18 - Primary Discharge Diagnosis Active and Suspected Problems (Last Reviewed 01/17/18 @ 14:48 by Nicci Germain) 1. Acute COPD exacerbation secondary to suspected bilateral lower lobe healthcare acquired pneumonia with chronic hypoxic respiratory failure 2. Anemia of chronic disease 3. End-stage renal disease on hemodialysis 4. Type 2 diabetes mellitus, uncontrolled - Secondary Discharge Diagnosis Chronic Problems (Last Reviewed 01/17/18 @ 14:48 by Nicci Germain) ESRD (end stage renal disease) on dialysis (Chronic) He was evaluated at [facility] fro transplant list. He is presently inactive, see consult. 12/16/17 Presence of arteriovenous fistula for hemodialysis (Chronic) Left Arm; Balloon plasty to fistula 05/30; Dialysis 3 days per week Mon, Wed, Fri Presence of stent in coronary artery (Chronic ~07/23/17) PTCA/BLAIR to prox CX, BLAIR to OM1, BLAIR to Ramus 11/27 @ [facility]; PCI /BLAIR of LCX ISR, PCI/BLAIR Ostial OM1, [id number] Ramus ISR 07/23/17;HX stents 2003 Atherosclerosis of [place] coronary artery of [place] heart without angina pectoris (Chronic) PTCA/BLAIR to prox CX, BLAIR to OM1, BLAIR to Ramus 11/27 @ [facility]; PCI /BLAIR of LCX ISR, PCI/BLAIR Ostial OM1, [id number] Ramus ISR 07/23/17;HX stents 2003 Essential (primary) hypertension (Chronic) Hyperlipemia, mixed (Chronic) Hospital Course and Treatment Imaging Results: Diagnostic Data Chest X-Ray 05/15/18 09:45 IMPRESSION: 1. Consolidative infiltrates in the left lung base. Small left pleural effusion. 2. Interstitial infiltrates in the right lung base. Electronically Signed: Eros Rose MD at 10:01 EDT Tel , Service support , Chest CT 05/15/18 11:14 IMPRESSION: 1. There are extensive bilateral lower lobe consolidations with air bronchograms consistent with atelectasis and/or pneumonic process, as well as moderate bilateral pleural effusions, new in the interval. 2. There is prominence of pulmonary vascularity consistent with CHF, also new in the interval. 3. Stable 10 mm density of the posterior left lung apex, most likely fibrotic in nature. 2. Adjacent approximately 1.0 cm nodules of the medial right upper lobe, similar in size from the previous study but increased in density in the interval. 4. 1.7 cm hazy right perihilar density noted in the interval. 5. Stable 1.7 x 1.5 cm density of the anterobasilar right lower lobe Electronically Signed: Jonel Carvalho MD at 17:40 EDT , Service support , Operations: None Procedures: Dialysis Summary of Care Provided: The patient is a 67 year old M admitted 05/15/18 due to increasing shortness of breath and wheezing. 1. Acute COPD exacerbation suspected secondary to bilateral lower lobe community acquired pneumonia with chronic hypoxic respiratory failure-chest x-ray on admission showed bilateral pleural effusions. CT of chest showed a lateral lower lobe consolidations, moderate bilateral pleural effusions consistent with CHF. Prior chest x-ray 04/15/2018 also demonstrated small pleural effusions bilaterally. Feel pleural effusions are secondary to fluid overload as result of end-stage renal disease. Breathing improved with IV steroids. Transitioned to oral prednisone taper at discharge. Continue albuterol and DuoNeb aerosols at discharge. Patient will be discharged with nebulizer for treatments given history of COPD with chronic hypoxic respiratory failure. Continue oral Levaquin empirically for 5 more days of therapy at discharge. Continue supplement oxygen to maintain O2 at or above 90%. Patient chronically wears 2-4 L nasal cannula continuously at home. Recommend follow-up with pulmonary medicine as outpatient. Patient has not followed with pulmonary medicine in the past and denies history of PFTs. Follow-up with Dr. Rios or Dr. Felciiano in 1-2 weeks. May see SERVICE DESK SPECIALIST. Follow-up with primary care physician in 1 week. 2. Anemia of chronic disease-stable, trend CBC. EPO, IV iron as outpatient per dialysis center. 3. End-stage renal disease on hemodialysis-nephrology consulted. Received dialysis 05/16/2018. Schedule Wednesday, Wednesday, Wednesday. Follow-up with nephrology as scheduled. 4. Type 2 diabetes mellitus-glucose greater than 600 on admission. Improved. Home sliding scale regimen increased at discharge. Long-acting regimen, Tresiba increased to 30 units daily. Recommend close outpatient follow-up. Patient instructed to continue to monitor glucose before meals at bedtime at discharge. 5. CAD status post CABG-continue Plavix, statin, carvedilol. 6. Pseudohyponatremia-resolved. 7. Hypothyroidism-continue levothyroxine regimen. 8. Hypertension-stable, continue home carvedilol regimen. 9. Hyperlipidemia-continue statin. General: Alert, Oriented x3, Cooperative, No apparent distress HEENT: Atraumatic, PERRLA, EOMI, Normocephalic Neck: Supple, No JVD, Negative Carotid Bruits Lungs: Diminished, faint scattered wheezes Cardiovascular: Regular rate, Regular Rhythm, Normal S1, Normal S2, No murmurs Abdomen: Bowel Sounds Present, Soft, Non Tender, Non-Distended Extremities: No clubbing, No cyanosis, No edema, Capillary Refill Less than 3 Seconds Skin: No rashes, No breakdown Musculoskeletal: No Tenderness to Palpation of Joints or Extremities Neurological: Cranial nerves II-XII grossly intact, Neuro grossly intact Psych/Mental Status: Normal Affect, Appropriate Patient seen exam prior to discharge. Physical assessment as noted above. Patient stable for discharge home with the follow-up her conditions as noted above. This patient was seen by JOSE F Noguera under the supervision of Dr. Barbour. Discharge Diet: Carb Control Diet Discharge Activity: Return to Normal Activity Call your doctor if you observe: Shortness of breath, Dizziness, Fainting spells, Chest pain Home Medications: Medications to take at Discharge Furosemide 40 mg PO BID 08/12/16 Levothyroxine Sodium [Levo-T] 200 mcg PO DAILY 08/12/16 Atorvastatin Calcium 80 mg PO DAILY 07/23/17 carvedilol 12.5 mg tablet 12.5 mg PO BID 01/17/18 nitroglycerin 0.4 mg sublingual tablet 0.4 mg SUBLINGUAL Q5-15M PRN 01/17/18 Calcium Acetate 5 tab PO TID 04/15/18 Lanthanum Carbonate [Fosrenol] 1,000 mg PO TID 04/15/18 Nephro-Janel 1 tab PO DAILY 04/15/18 Clopidogrel Bisulfate [Plavix] 75 mg PO DAILY 05/15/18 Mirtazapine 7.5 mg PO QHS 05/15/18 Albuterol Aerosols [Ventolin Aerosols] 2.5 mg INHALATION Q2H PRN PRN #90 vial.neb. 05/17/18 Epoetin Topher [Procrit] 6,000 units IV MoWeFr ml 05/17/18 Insulin Aspart [Novolog Flexpen] See Protocol SC DAILY PRN PRN #0 05/17/18 Insulin Degludec [Tresiba Flextouch U-100] 30 unit SQ BREAKFAST #0 05/17/18 Ipratropium/Albuterol Sulfate [Duoneb] 3 ml INHALATION Q4H.RT #90 ampul.neb 05/17/18 Levofloxacin [Levaquin] 250 mg PO Q48H #5 tab 05/17/18 Prednisone See Taper PO DAILY #30 tab 05/17/18 Following Prescrptions Were Given to Patient: Albuterol Aerosols [Ventolin Aerosols] 2.5 mg INHALATION Q2H PRN PRN #90 vial.neb. PRN Reason: Shortness Of Breath Ipratropium/Albuterol Sulfate [Duoneb] 3 ml INHALATION Q4H.RT #90 ampul.neb Levofloxacin [Levaquin] 250 mg PO Q48H #5 tab Prednisone See Taper PO DAILY #30 tab Primary Care Physician: Alfonso Rushing Chi, MD [Primary Care Provider] - Please follow up with your Primary Care Physician in: 1 Week Please Follow Up With: Seferino Feliciano MD - or Dr. Rios, may see SERVICE DESK SPECIALIST When: 1-2 Weeks, establish care with pulmonary medicine Disposition: Home Minutes spent on discharge:: 35 Patient Condition:: Stable Medical Necessity - Tobacco Use Smoking Status: Former smoker Meaningful Use Info Meaningful Use Diagnoses (Choose all that apply): None applicable <Ananth Barbour - Last Filed: 05/17/18 16:02> Discharge Date and Diagnosis - Secondary Discharge Diagnosis Chronic Problems (Last Reviewed 01/17/18 @ 14:48 by Nicci Germain) ESRD (end stage renal disease) on dialysis (Chronic) He was evaluated at [facility] fro transplant list. He is presently inactive, see consult. 12/16/17 Presence of arteriovenous fistula for hemodialysis (Chronic) Left Arm; Balloon plasty to fistula 05/30; Dialysis 3 days per week Mon, Wed, Fri Presence of stent in coronary artery (Chronic ~07/23/17) PTCA/BLAIR to prox CX, BLAIR to OM1, BLAIR to Ramus 11/27 @ [facility]; PCI /BLAIR of LCX ISR, PCI/BLAIR Ostial OM1, [id number] Ramus ISR 07/23/17;HX stents 2003 Atherosclerosis of [place] coronary artery of [place] heart without angina pectoris (Chronic) PTCA/BLAIR to prox CX, BLAIR to OM1, BLAIR to Ramus 11/27 @ [facility]; PCI /BLAIR of LCX ISR, PCI/BLAIR Ostial OM1, [id number]-[place] Ramus ISR 07/23/17;HX stents 2003 Essential (primary) hypertension (Chronic) Hyperlipemia, mixed (Chronic) Hospital Course and Treatment Summary of Care Provided: This patient was seen in conjunction with Nathaly KUO. I have independently interviewed and examined the patient and reviewed pertinent history, examination findings, laboratory and plan of management. I have reviewed the note and agree with the documented findings with the few additional points. In brief, patient is admitted for COPD exacerbation, exacerbated by bilateral lower lobes healthcare associated pneumonia and chronic hypoxic respiratory failure. She was treated with IV antibiotics, bronchodilator, IV Solu-Medrol, incentive spirometry and chest physiotherapy. Blood sugar high due to IV Solu-Medrol. Lantus insulin increased. Blood sugars controlled. She is discharged on tapering dose of prednisone. Discharge meds reconciliation done. Discharge follow-up instructions completed. I have discussed my assessment with Nathaly KUO and orders have been reviewed. [] Total time spent, exact 35 minutes on discharge meds reconciliation, examination, review of imaging and blood test and discussion with the patient on follow-up instructions. Code Visit Inpatient E&M: [id number] Disch Hosp
--- NOTE | 2018-05-17 11:40 | NURSING ---
PT'S HERE TO DRIVE PT HOME. PT'S DID NOT BRING HOME 02 FOR THE TRANSPORT HOME. PT AND PT'S REFUSE TO GO HOME AND GET PT'S OXYGEN. THIS RN EXPLAINED RISK OF NOT WEARING OXYGEN HOME AND PT AND PT'S VERBALIZE UNDERSTANDING AND ACCEPT RESPONSIBILTY.
--- NOTE | 2018-05-17 11:42 | CASEMGMT ---
Face to Face with patient for initial transition planning/care coordination assessment. DINA OR[place]O introduced self and role at [facility], pt voices understanding and consents to assessment at this time. Pt is standing up at bedside in no distress at this time. Pt is A/O x4 at this time and answers all questions appropriately. Care providers, pharmacy, and demographics verified. See attached link. Pt voices no further concerns/needs at this time. Advised pt to ask for CM if any further questions, concerns or needs arise, voices understanding. PLAN: Home [place]
--- NOTE | 2018-05-17 12:00 | CASEMGMT ---
Per Jose CUTTER OPERATOR BRICK, pt to be sent home with nebulizer. Pt is already on home oxygen 4liters through [facility] and referral faxed to [facility] at this time. Per , they do not have time to pear picker nebulizer at this time. Ailyn from [facility] states that they can ship nebulizer to pt's home tomorrow. Pt/ state that this will be the best option at this time and Ailyn from [facility] aware, voices understanding. Chaitanya ARROYO CM
[2018-05-20 11:42] LABS: Procalcitonin 1.01 ng/mL (0.00-0.08)
--- NOTE | 2018-05-20 17:03 | CASEMGMT ---
DINA ORLANDO Discharge Follow-up Phone Call: MARISA: Eric Strata: 4 Call Date: 05/20/18 Discharge Date: 05/17/18 Time of Call: [id number] Duration: 5 minutes/1 minutes ~ Admitting Diagnosis: COPD exacerbation This RN JOHANNY spoke with patient via phone in follow-up to pt's recent discharge. Pt states his breathing has been doing pretty good but states he has not received his nebulizer machine. This RN JOHANNY called [facility] and spoke with Anahy in regard to the shipment of the patient's nebulizer machine. She states she will contact the patient and address this issue. Phoned patient back at 1703 and he states he now has his nebulizer machine and that it has all been taken care of. Pt denies any questions regarding his discharge instructions or other needs.
== END 2018-05-17 12:00 | disposition home or self-care (01) | DRG 190 ==
LOC: ED 09:35 → PCU 11:21
PROVIDERS: Nurse Practitioner Family; Admitting Provider Internal Medicine; Emergency Provider Emergency Medicine; Family Provider Family Medicine Geriatric Medicine; PCP Family Medicine Geriatric Medicine; Visit Provider Internal Medicine
DX: J44.1 Chronic obstructive pulmonary disease with (acute) exacerbation (principal); N18.6 End stage renal disease; J96.21 Acute and chronic respiratory failure with hypoxia; J18.9 Pneumonia, unspecified organism; I12.0 Hypertensive chronic kidney disease with stage 5 chronic kidney disease or end stage renal disease; E87.1 Hypo-osmolality and hyponatremia; Z99.81 Dependence on supplemental oxygen; Z99.2 Dependence on renal dialysis; E11.22 Type 2 diabetes mellitus with diabetic chronic kidney disease; I25.10 Atherosclerotic heart disease of native coronary artery without angina pectoris; Z95.5 Presence of coronary angioplasty implant and graft; H40.9 Unspecified glaucoma; E03.9 Hypothyroidism, unspecified; Z79.4 Long term (current) use of insulin; Z87.891 Personal history of nicotine dependence; D63.1 Anemia in chronic kidney disease; J44.0 Chronic obstructive pulmonary disease with (acute) lower respiratory infection; Y95 Nosocomial condition; E11.65 Type 2 diabetes mellitus with hyperglycemia
CPT/HCPCS: 36415; 71045; 71250; 80048; 80053; 81001; 82009; 82962; 83605; 84145; 85025; 85027; 85610; 85652; 85730; 86140; 87040; 87070; 87205; 90937; 93005; 94640; 94667; 94668; 97802; 99285; J0885; J1756; J7030; J7040; J7050; A4216; G0257; J1940

== ENCOUNTER → 2018-05-26 15:25 | Outpatient (CLI) | payer MEDICARE, OTHER, SELFPAY ==
[2017-07-23 14:46] VITALS: BMI 28.0
== END ==
PROVIDERS: Family Provider Family Medicine Geriatric Medicine; PCP Family Medicine Geriatric Medicine; Visit Provider Family Medicine Geriatric Medicine
DX: E03.9 Hypothyroidism, unspecified (principal)

== ENCOUNTER 2018-06-01 06:38 | Inpatient (IN) | payer MEDICARE, OTHER, SELFPAY ==
[2017-07-23 14:46] VITALS: BMI 28.0
[2018-06-01] VITALS (19 sets, daily range): BP systolic 74–148; BP diastolic 53–86; PULSE 86–109; RESP 16–27; TEMP 35.9–36.7; O2SAT 95–100; BMI 28.7; BMI 27.6
--- NOTE | 2018-06-01 07:28 | RAD_ITS ---
STUDY: X-RAY CHEST REASON FOR EXAM: Male, 67 years old. Dizziness. Shortness of breath. TECHNIQUE: Single AP portable view of the chest. COMPARISON: Comparison is made with prior study dated May 15, 2018. FINDINGS: EKG electrodes are seen. Mild degree of vascular congestion. Small bilateral pleural effusions worse on the left side with bibasilar atelectasis and/or infiltrate worse on the left side. There is mild cardiac enlargement. Questionable pericardial effusion. Normal mediastinum and александр. Normal visualized pulmonary arteries. There is atherosclerotic calcification of the aortic arch with tortuosity. Normal visualized thoracic spine. Normal visualized ribs, clavicles, and shoulders. There is no demonstrated abnormality of the visualized soft tissue structures of the upper abdomen. RAD/Chest 1 View (Portable) IMPRESSION: Blastic congestion with small bilateral pleural effusions worse on the left side with bibasilar atelectasis and/or infiltrate more prominent on the left side. Questionable pericardial effusion. Electronically Signed: Herrera Hayes MD at 8:23 EDT Tel [phone], Service support ,
--- NOTE | 2018-06-01 07:28 | EKG12_ITS ---
Test Reason : DIZZINESS Blood Pressure : / mmHG Vent. Rate : 095 BPM Atrial Rate : 095 BPM P-R Int : 190 ms QRS Dur : 122 ms QT Int : 396 ms P-R-T Axes : 057 039 213 degrees QTc Int : 497 ms Normal sinus rhythm Non-specific intra-ventricular conduction delay Marked ST abnormality, possible inferior subendocardial injury Abnormal ECG Confirmed by NENA ARECHIGA, KM ([id number]), online editor DRISS MONROY ([id number]) on 06/02/2018 1:39:04 PM Referred By: KARLIE Confirmed By:KM BARRETT MD
[2018-06-01 07:48] LABS: Absolute Lymphocyte Count 1.02 X10^3/ul (0.83-4.51); Absolute Neutrophil Count 8.8 X10^3/uL (2.0-7.7); Basophil# 0.01 X10^3/uL; Basophil% 0.1 % (0-1); Eosinophil# 0.26 X10^3/uL; Eosinophils% 2.3 % (0-5); Hematocrit 20.6 % (40-54); Hemoglobin 6.5 g/dl (13.0-16.5); Lymphocyte # 1.02 X10^3/ul (4.0); Lymphocyte % 9.1 % (19-41); Mean Corp Hgb Conc 31.6 g/gl (32-36); Mean Corpuscular Hgb 30.2 pg (27.0-32.0); Mean Corpuscular Volume 95.8 fL (80-94); Mean Platelet Vol. 11.7 fl (6.2-12.0); Monocyte% 9.8 % (0-10); Neutrophil # 8.79 X10^3/uL (2.7-7.7); Neutrophil % 78.1 % (47-70); Platelet Count 204 K/mm3 (150-450); RBC Distribution Width CV 21.6 % (11.6-14.6); RBC Distribution Width SD 75.7 fl (35.1-43.9); Red Blood Count 2.15 M/mm3 (4.6-6.2); White Blood Count 11.3 K/mm3 (4.4-11.0)
[2018-06-01 07:52] LABS: Differential Indicated SCAN CRITERIA MET; POSITIVE COUNT NO; POSITIVE DIFFERENTIAL NO; POSITIVE MORPHOLOGY YES
[2018-06-01 07:59] LABS: ALB/GLOB Ratio 0.8 RATIO (0.9-2.4); AST(SGOT) 10 U/L (15-37); Alanine Aminotransfer ALT/SGPT 21 U/L (16-61); Albumin, Serum 2.6 g/dL (3.2-5.0); Alkaline Phosphatase 88 U/L (45-117); Anion Gap 20 (5-15); BUN 148 mg/dL (7-18); BUN/Creat Ratio 12.2 RATIO (10-20); Calcium,Total 7.6 mg/dL (8.5-10.1); Chloride 96 mmol/L (98-107); EST Glomerular Filtration Rate 4 mL/min (>60); Est Glom Filt Rate - Afr Amer 5 mL/min (>60); Estimated Creatinine Clearance 5.92 ml/min; Globulin 3.3 g/dL (2.2-4.2); Glucose 291 mg/dL (74-106); Protein, Total 5.9 g/dL (6.4-8.2); Sodium Level 139 mmol/L (136-145)
--- NOTE | 2018-06-01 08:00 | ED.RN ---
critical high bun and creat reported to
[2018-06-01 08:38] LABS: Anisocytosis 2+; Hypochromasia 2+
--- NOTE | 2018-06-01 09:11 | ED.VISSUMM ---
- ER Visit Summary Date of Service: 06/01/18 Chief Complaint: Weakness History of Present Illness: The patient is a 67 M who is a dialysis patient and missed his dialysis on Wednesday. He states he could not go to dialysis because every time he goes to stand up he gets very weak and feels like he is going to pass out. This began over the weekend. Last dialysis treatment was on Wednesday. He has a history of anemia and chronic GI bleed that they have been unable to locate a source and is scheduled to have capsule endoscopy at [facility]. He needed to have cardiology clearance and went to his appointment yesterday but his states was very difficult to get him there and he had be in a wheelchair. Patient has numerous stents in his heart and sees Dr. Lund for cardiology. He states he had a bowel movement yesterday that was very hard but was brown. He states he last had transfusion at the end of March. His steam pipe fitter is Dr. Lyons from [facility]. Physical Examination: Afebrile vital signs are stable. Blood pressure dropped significantly into the 70s with sitting. Gen: Well-nourished well-developed Head: Normocephalic atraumatic Eyes: Perrl EOMI ENT: TMs clear no rhinorrhea moist mucous membranes Neck: Supple no lymphadenopathy no JVD nontender CVS: Regular rate rhythm no murmurs normal S1-S2 Respiratory: No distress clear to auscultation bilaterally chest nontender Abdomen: Soft nontender nondistended normal bowel sounds no masses Back: Nontender Extremity: Nontender no edema left upper arm fistula. There is a stitch in place. He states it was worked on last week and was workable on Wednesday for dialysis. Skin: Normal color no rash Neuro: alert orientated ?3 CN II-XII intact normal strength sensation reflexes gait cerebellar Psych: Normal affect normal mood Test Results: Hemoglobin 6.5. BUN 148 with a creatinine of 12.1 EKG shows a sinus rhythm at a rate of [address] depression from his baseline. Emergency Department Course and Treatment: 1 unit of typed and crossed blood cells were ordered. Plan is admission into the hospital for dialysis and transfusion. Impression: 1. Acute on chronic anemia requiring transfusion 2. Chronic renal failure 3. Orthostatic hypotension 4. Uremia This note was generated with Appscioation software. It may contain incorrect words, spelling, and punctuation that were not noted in review of the chart prior to signing ED Disposition - Plan for ED Patient: Chief Complaint: Dizziness Referrals: Alfonso Rushing Chi, MD [Primary Care Provider] -
--- NOTE | 2018-06-01 09:13 | NURSING ---
PCU SEVERE ANEMIA, ORTHOSTATIC HYPOTENSION PAINTSIL
--- NOTE | 2018-06-01 09:15 | ED.DCSUM_ITS ---
- ER Visit Summary Date of Service: 06/01/18 Chief Complaint: Weakness History of Present Illness: The patient is a 67 M who is a dialysis patient and missed his dialysis on Wednesday. He states he could not go to dialysis because every time he goes to stand up he gets very weak and feels like he is going to pass out. This began over the weekend. Last dialysis treatment was on Wednesday. He has a history of anemia and chronic GI bleed that they have been unable to locate a source and is scheduled to have capsule endoscopy at [facility]. He needed to have cardiology clearance and went to his appointment yesterday but his states was very difficult to get him there and he had be in a wheelchair. Patient has numerous stents in his heart and sees Dr. Lund for cardiology. He states he had a bowel movement yesterday that was very hard but was brown. He states he last had transfusion at the end of March. His lens edger is Dr. Lyons from [facility]. Physical Examination: Afebrile vital signs are stable. Blood pressure dropped significantly into the 70s with sitting. Gen: Well-nourished well-developed Head: Normocephalic atraumatic Eyes: Perrl EOMI ENT: TMs clear no rhinorrhea moist mucous membranes Neck: Supple no lymphadenopathy no JVD nontender CVS: Regular rate rhythm no murmurs normal S1-S2 Respiratory: No distress clear to auscultation bilaterally chest nontender Abdomen: Soft nontender nondistended normal bowel sounds no masses Back: Nontender Extremity: Nontender no edema left upper arm fistula. There is a stitch in place. He states it was worked on last week and was workable on Wednesday for dialysis. Skin: Normal color no rash Neuro: alert orientated ?3 CN II-XII intact normal strength sensation reflexes gait cerebellar Psych: Normal affect normal mood Test Results: Hemoglobin 6.5. BUN 148 with a creatinine of 12.1 EKG shows a sinus rhythm at a rate of [address] more pronounced [address] depression from his baseline. Emergency Department Course and Treatment: 1 unit of typed and crossed blood cells were ordered. Plan is admission into the hospital for dialysis and transfusion. Impression: 1. Acute on chronic anemia requiring transfusion 2. Chronic renal failure 3. Orthostatic hypotension 4. Uremia This note was generated with Datasnap.ioation software. It may contain incorrect words, spelling, and punctuation that were not noted in review of the chart prior to signing ED Disposition - Plan for ED Patient: Chief Complaint: Dizziness Referrals: Alfonso Rushing Chi, MD [Primary Care Provider] -
[2018-06-01 11:46] LABS: Bedside Glucose 195 mg/dL (70-110)
[2018-06-01] MEDS: Calcium Acetate 667 MG Capsule 3335 MG PO ×2 (11:58→17:15)
--- NOTE | 2018-06-01 15:14 | PCM.CONS.R ---
Consultation - Renal 06/01/18 PCP/ Referring MD: Requesting physician: Ann Bravo Primary care physician: Alfonso Rushing Reason for Consultation:: ESRD HD MWF - History of Present Illness History of Present Illness: The patient is a 67 year old M admitted for profound weakness, near syncope. He went to his automatic vulcanizing operator and his PCP yesterday and was very weak. He was found to have a hgb level of 6.5. His systolic blood pressure was in the 70s in emergency room. He is frequently hospitalized for anemia. He was scheduled for GI workup at [facility] for GI bleed. He admits to black stools at home. He received 2 units packed red blood cell upon admission. He is on hemodialysis Wednesday, Wednesday, Wednesday at [facility] with primary air brake man Dr. Lyons. Currently he is receiving hemodialysis. He complains of shortness of breath. He underwent fistulogram last week. Currently he is on Plavix prescribed by cardiology. He is not on a PPI. - Allergies Allergies: Allergies morphine Adverse Reaction (Verified 06/01/18 06:42) Itching - Current Medications Current Medications: Current Medications Atorvastatin Calcium (Lipitor) 80 mg PO DAILY LAINEY Bisacodyl (Dulcolax) 5 mg PO DAILY PRN PRN PRN Reason: Constipation Calcium Acetate (Phoslo Gel Cap) 3,335 mg PO TIDCM [facility] Last Admin: 06/01/18 11:58 Dose: 3,335 mg Clopidogrel Bisulfate (Plavix) 75 mg PO DAILY [facility] Insulin Glargine (Lantus (Bkc)) 40 units SC BREAKFAST [facility] Levothyroxine Sodium (Synthroid) 200 mcg PO DAILY@0600 [facility] Levothyroxine Sodium (Synthroid) 25 mcg PO DAILY@0600 [facility] Magnesium Hydroxide (Milk Of Magnesia) 30 ml PO DAILY PRN PRN Reason: Constipation Mirtazapine (Remeron) 7.5 mg PO HS [facility] Multivit/Ca Carb/B Cmplx/FA/Prenat (Nephrocaps, Renaphro) 1 capsule PO DAILY [facility] Nitroglycerin (Nitrostat) 0.4 mg SUBLINGUAL Q5M PRN PRN Reason: CARDIAC/CHEST PAIN Non-Formulary Medication (Lanthanum Carbonate) 1,000 mg PO TID [facility] Ondansetron HCl (Zofran) 4 mg IV Q8H PRN PRN PRN Reason: NAUSEA Psyllium Hydrophilic Mucilloid (Metamucil) 1 packet PO DAILY PRN PRN PRN Reason: CONSTIPATION - Past Medical History Past Medical History (Chronic Problems): Chronic Problems (Last Reviewed 05/31/18 @ 16:24 by Marya Rodriguez) Hyperlipidemia (Chronic) Type 2 diabetes mellitus without complications (Chronic) Hypothyroidism (Chronic) Bladder cancer (Chronic) COPD (chronic obstructive pulmonary disease) (Chronic) ESRD (end stage renal disease) on dialysis (Chronic) He was evaluated at [facility] fro transplant list. He is presently inactive, see consult. 12/16/17 Presence of arteriovenous fistula for hemodialysis (Chronic) Left Arm; Balloon plasty to fistula 05/30; Dialysis 3 days per week Mon, Wed, Fri Presence of stent in coronary artery (Chronic 07/23/17) PTCA/BLAIR to prox CX, BLAIR to OM1, BLAIR to Ramus 11/27 @ [facility]; PCI /BLAIR of LCX ISR, PCI/BLAIR Ostial OM1, [id number] Ramus ISR 07/23/17;HX stents 2003 Atherosclerosis of [place] coronary artery of [place] heart without angina pectoris (Chronic) PTCA/BLAIR to prox CX, BLAIR to OM1, BLAIR to Ramus 11/27 @ [facility]; PCI /BLAIR of LCX ISR, PCI/BLAIR Ostial OM1, [id number] Ramus ISR 07/23/17;HX stents 2003 Essential (primary) hypertension (Chronic) - Past Surgical History Surgical History: angioplasty - stent, cataract - bilateral, - - AVF, bladder tumor resection - Social History Smoking Status: Former smoker Review of Systems Constitutional: Reports: Weakness, Fatigue. Denies: Anorexia, Chills, Fever HEENT: Denies: Head Aches Cardiovascular: Reports: Edema. Denies: Chest Pain Respiratory: Reports: Shortness of Breath. Denies: Cough Gastrointestinal: Reports: Melena. Denies: Abdominal Pain, Hematochezia, Nausea, Vomiting Genitourinary: Denies: Dysuria Musculoskeletal: Reports: - - Generalized weakness Skin: Denies: Rash Neurological: Denies: Tremor, Seizures Patient Problems: Active and Suspected Problems (Last Reviewed 05/31/18 @ 16:24 by Marya Rodriguez) GI bleed (Acute) - Physical Exam General: Alert, Oriented x3, Cooperative, No apparent distress HEENT: PERRLA Oral: Dry Mucosa Neck: Supple Lungs: Clear to auscultation Cardiovascular: Regular rate Abdomen: Bowel Sounds Present, Soft, Non Tender, Non-Distended Extremities: Edema - Trace edema, - - AV fistula left upper arm with good thrill and bruit Skin: No rashes Musculoskeletal: No Muscle Wasting Psych/Mental Status: Alert and oriented to time, place, person, mood and affect Vital Signs Temp Pulse Resp BP Pulse Ox 97.1 F L 88 18 141/66 H 100 06/01/18 14:40 06/01/18 14:40 06/01/18 14:40 06/01/18 14:40 06/01/18 14:40 Oxygen Flow Rate (L/min) 4 Oxygen Delivery Method Nasal Cannula Weight: 84.8 kg Body Mass Index (BMI) 27.6 Intake and Output for Last 24 Hours 05/30/18 05/31/18 06/01/18 23:59 23:59 23:59 Intake Total 400 / 400 Balance 400 / 400 POC Glucose 06/01/18 11:36 POC Glucose 195 H Assessment/Plan All Active Problems (Last Reviewed 05/31/18 @ 16:24 by Marya Rodriguez) GI bleed (Acute) COPD with acute exacerbation (Acute) 1. ESRD due to diabetes on hemodialysis Wednesday, Wednesday, Wednesday. Dialysis today currently tolerating well. Blood pressure stable. Primary air brake man Dr. Lyons in [place]. 2. GI bleed on Plavix. Consider PPI. PRBC ordered. 3. Near syncope, hypotension likely due to profound anemia. Blood pressure stable on dialysis. 4. CAD status post PCI on Plavix 5. Hypertension with stable blood pressure. Episode of hypotension on admission 6. Diabetes mellitus type 2 primary care management
[2018-06-01 16:56] LABS: Bedside Glucose 94 mg/dL (70-110)
[2018-06-01] MEDS: Clopidogrel Bisulfate 75 MG Tablet PO (17:14)
[2018-06-01] MEDS: Folic Acid/Vitamin B Comp W-C 1 Capsule 1 CAP PO (17:14)
[2018-06-01] MEDS: Levothyroxine 100 MCG Tablet 200 MCG PO (17:15)
[2018-06-01] MEDS: Levothyroxine 25 MCG TABLET PO (17:15)
--- NOTE | 2018-06-01 18:19 | PCM.HP.STD ---
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 He is presently inactive, see consult. 12/16/17 (6) Essential (primary) hypertension Status: Chronic (7) Severe anemia Status: Acute History of Present Illness Date of Admission: 06/01/18 Chief Complaint: Shortness of breath, dizziness The patient is a 67 year old M multiple comorbidities significant for ESRD on hemodialysis via left upper extremity AV fistula, chronic hypoxic respiratory failure secondary to COPD, on 4 L of oxygen at home, hypertension, type II DM, history of anemia with chronic GI loss, due for follow-up in the [facility] system for capsule endoscopy. Patient apparently was seen this week for preoperative clearance by cardiology. He was scheduled for dialysis today, attempted to go for dialysis but felt very weak and nauseous. He did not pass out. He denied any fever or chills. He recently admitted and discharged for acute on chronic respiratory failure secondary to HCAP In the ED with temperature of 90 7.6F, heart rate 88, blood pressure 102/53, respiratory rate 27, SPO2 is 95% on 4 L of oxygen. Orthostatic vitals were positive. He dropped to blood pressure 74/57 on standing. His admitting blood work showed RBC count of 11.3, Hb 6.5, platelet count of 204, BUN of 148, creatinine 12.10. Past Medical History Past Medical History (Chronic Problems): Chronic Problems (Last Reviewed 05/31/18 @ 16:24 by Marya Rodriguez) GI bleed (Chronic) Hyperlipidemia (Chronic) Type 2 diabetes mellitus without complications (Chronic) Hypothyroidism (Chronic) Bladder cancer (Chronic) COPD (chronic obstructive pulmonary disease) (Chronic) ESRD (end stage renal disease) on dialysis (Chronic) He was evaluated at [facility] transplant list. He is presently inactive, see consult. 12/16/17 Presence of arteriovenous fistula for hemodialysis (Chronic) Left Arm; Balloon plasty to fistula 05/30; Dialysis 3 days per week Mon, Wed, Fri Presence of stent in coronary artery (Chronic 07/23/17) PTCA/BLAIR to prox CX, BLAIR to OM1, BLAIR to Ramus 11/27 @ [facility]; PCI /BLAIR of LCX ISR, PCI/BLAIR Ostial OM1, RDU-EDBA-Ezmo Ramus ISR 07/23/17;HX stents 2003 Atherosclerosis of [place] coronary artery of [place] heart without angina pectoris (Chronic) PTCA/BLAIR to prox CX, BLAIR to OM1, BLAIR to Ramus 11/27 @ [facility]; PCI /BLAIR of LCX ISR, PCI/BLAIR Ostial OM1, BLA-VWVP-Lylw Ramus ISR 07/23/17;HX stents 2003 Essential (primary) hypertension (Chronic) Medical History: Medical History (Last Reviewed 05/31/18 @ 16:24 by Marya Rodriguez) Hyperlipidemia (Chronic) E78.5 Type 2 diabetes mellitus without complications (Chronic) E11.9 Hypothyroidism (Chronic) E03.9 Bladder cancer (Chronic) C67.9 COPD (chronic obstructive pulmonary disease) (Chronic) J44.9 ESRD (end stage renal disease) on dialysis (Chronic) N18.6, Z99.2 He was evaluated at [facility] transplant list. He is presently inactive, see consult. 12/16/17 Atherosclerosis of [place] coronary artery of [place] heart without angina pectoris (Chronic) I25.10 PTCA/BLAIR to prox CX, BLAIR to OM1, BLAIR to Ramus 11/27 @ [facility]; PCI /BLAIR of LCX ISR, PCI/BLAIR Ostial OM1, BIY-BUPG-Crua Ramus ISR 07/23/17;HX stents 2003 Essential (primary) hypertension (Chronic) I10 Cataract H26.9 Glaucoma H40.9 Hemorrhoid K64.9 Colon polyp K63.5 Allergies morphine Adverse Reaction (Verified 06/01/18 06:42) Itching Home Medications: Ambulatory Orders Medication Instructions Recorded Furosemide 40 mg PO BID 08/12/16 Atorvastatin Calcium 80 mg PO DAILY 07/23/17 carvedilol 12.5 mg tablet 12.5 mg PO BID 01/17/18 nitroglycerin 0.4 mg sublingual 0.4 mg SUBLINGUAL Q5-15M PRN 01/17/18 tablet Lanthanum Carbonate [Fosrenol] 1,000 mg PO TID 04/15/18 Nephro-Janel 1 tab PO DAILY 04/15/18 Clopidogrel Bisulfate [Plavix] 75 mg PO DAILY 05/15/18 Mirtazapine 7.5 mg PO QHS 05/15/18 Insulin Aspart [Novolog Flexpen] See Protocol SC DAILY PRN PRN #0 05/17/18 levothyroxine 200 mcg tablet 200 mcg PO .COMPLEX 05/31/18 Calcium Acetate [Phoslo Gel Cap] 1,334 mg PO TIDCM 06/01/18 Insulin Degludec [Tresiba 30 unit SQ BREAKFAST 06/01/18 Flextouch U-100] Surgical History: Surgical History (Last Reviewed 05/31/18 @ 16:24 by Marya Rodriguez) Presence of arteriovenous fistula for hemodialysis (Chronic) Z99.2 Left Arm; Balloon plasty to fistula 05/30; Dialysis 3 days per week Mon, Wed, Fri Presence of stent in coronary artery (Chronic) Onset Date: 07/23/17 Z95.5 PTCA/BLAIR to prox CX, BLAIR to OM1, BLAIR to Ramus 11/27 @ [facility]; PCI /BLAIR of LCX ISR, PCI/BLIAR Ostial OM1, CAO-TOBP-Awzo Ramus ISR 07/23/17;HX stents 2003 History of bladder surgery Onset Date: ~1992 Z98.890 History of cataract surgery Z98.49 Surgical History: angioplasty - stent, cataract - bilateral, - - AVF, bladder tumor resection Smoking Status: Former smoker - *Family History Maternal Family History: Family History (Last Reviewed 05/31/18 @ 16:24 by Marya Rodriguez) Mother Cervical cancer Father CAD (coronary artery disease) Sister Cervical cancer Colon cancer Thromboembolism History Items: Cancer Paternal Family History: Family History (Last Reviewed 05/31/18 @ 16:24 by Marya Rodriguez) Mother Cervical cancer Father CAD (coronary artery disease) Sister Cervical cancer Colon cancer Thromboembolism History Items: Heart Disease Sibling Family History: Family History (Last Reviewed 05/31/18 @ 16:24 by Marya Rodriguez) Mother Cervical cancer Father CAD (coronary artery disease) Sister Cervical cancer Colon cancer Thromboembolism History Items: Cancer Review of Systems Constitutional: Reports: Weakness. Denies: Anorexia, Chills, Fever, Weight Change Eyes: Denies: Blurred vision, Cataracts, Conjunctivae Inflammation, Pain, Redness, Vision Change HEENT: Denies: Difficulty Hearing, Difficulty Swallowing, Head Aches, Hearing Changes, Sinus Congestion, Sinus Drainage Cardiovascular: Reports: Light Headedness. Denies: Chest Pain, Claudication, Orthopnea, Palpitations, Paroxysmal Noc. Dyspnea, Syncope Respiratory: Reports: Shortness of breath at rest, Shortness of breath upon exertion. Denies: Cough, Hemoptysis, Sputum production Gastrointestinal: Reports: Melena. Denies: Abdominal Pain, Constipation, Hematemesis, Hematochezia, Nausea, Vomiting Genitourinary: Denies: Dysuria, Frequency, Incontinence, Retention Musculoskeletal: Denies: Joint Pain, Joint stiffness, Joint swelling, Joint Tenderness Skin: Denies: Rash, Wounds Neurological: Denies: Numbness, Tingling, Focal weakness Psychiatric: Denies: Anxiety, Depression, Homicidal Ideations, Suicidal Ideations Hematologic/ Lymphatic: Denies: Easy Bruising, Easy Bleeding VTE Information - Inpt Only VTE Present on Admission: No VTE Pharm Prophylaxis ordered?: Yes Patient Problems: Active and Suspected Problems (Last Reviewed 05/31/18 @ 16:24 by Marya Rodriguez) Severe anemia (Acute) - Physical Exam General: Alert, Oriented x3, Cooperative, - - Appears tired, not in respiratory distress, pale HEENT: Atraumatic, PERRLA, EOMI, Normocephalic Oral: Moist Mucosa Neck: Supple, No JVD, Negative Carotid Bruits Lungs: Clear to auscultation, Normal air movement Cardiovascular: Regular rate, No murmurs Abdomen: Bowel Sounds Present, Soft, Non Tender, Non-Distended, No Hepato-splenomegaly Extremities: Capillary Refill Less than 3 Seconds, Edema - Bilateral +1pedal edema, - - Left upper extremity AV fistula Skin: No rashes, No breakdown Musculoskeletal: No Tenderness to Palpation of Joints or Extremities Lymphatic: No Cervical, Supraclavicular, or Inguinal Adenopathy Neurological: Cranial nerves II-XII grossly intact, Neuro grossly intact Psych/Mental Status: Normal Affect, Appropriate Vital Signs Temp Pulse Resp BP Pulse Ox 97.7 F L 101 H 18 134/84 H 100 06/01/18 16:15 06/01/18 16:15 06/01/18 16:15 06/01/18 16:15 06/01/18 16:15 Oxygen Flow Rate (L/min) 4 Oxygen Delivery Method Nasal Cannula Weight: 84.8 kg Body Mass Index (BMI) 27.6 Intake and Output for Last 24 Hours 05/30/18 05/31/18 06/01/18 23:59 23:59 23:59 Intake Total 400 / 400 Balance 400 / 400 POC Glucose 06/01/18 06/01/18 16:44 11:36 POC Glucose 94 195 H Assessment/Plan All Active Problems (Last Reviewed 05/31/18 @ 16:24 by Marya Rodriguez) Severe anemia (Acute) COPD with acute exacerbation (Acute) 67 year old M with multiple comorbidities significant for ESRD on hemodialysis via left upper extremity AV fistula, chronic hypoxic respiratory failure secondary to COPD, on 4 L of oxygen at home, hypertension, type II DM, history of anemia with chronic GI loss, due for follow-up in the [facility] system for capsule endoscopy. 1. Acute symptomatic anemia, admitting hemoglobin of 6.5, positively orthostatic, patient will be transfused 2 units of packed RBCs, will monitor vitals closely 2. ESRD on hemodialysis, nephrology consulted, missed dialysis this morning, patient will have dialysis while here and receive second unit of blood during dialysis 3. Type II DM, on insulin, continue home regimen, Accu-Cheks with insulin sliding scale 4. Hypertension, controlled, continue home regimen 5. Chronic respiratory failure secondary COPD, not in acute exacerbation, continue home oxygen 6. Rest of chronic conditions including chronic GI loss, unclear etiology, history of bladder tumor, all are stable 7. DVT PPx- SCD Code Visit Inpatient E&M: 53037 Init Hosp L3
--- NOTE | 2018-06-01 18:25 | HP.PCM_ITS ---
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 He is presently inactive, see consult. 12/16/17 (6) Essential (primary) hypertension Status: Chronic (7) Severe anemia Status: Acute History of Present Illness Date of Admission: 06/01/18 Chief Complaint: Shortness of breath, dizziness The patient is a 67 year old M multiple comorbidities significant for ESRD on hemodialysis via left upper extremity AV fistula, chronic hypoxic respiratory failure secondary to COPD, on 4 L of oxygen at home, hypertension, type II DM, history of anemia with chronic GI loss, due for follow-up in the [facility] system for capsule endoscopy. Patient apparently was seen this week for preoperative clearance by cardiology. He was scheduled for dialysis today, attempted to go for dialysis but felt very weak and nauseous. He did not pass out. He denied any fever or chills. He recently admitted and discharged for acute on chronic respiratory failure secondary to HCAP In the ED with temperature of 90 7.6F, heart rate 88, blood pressure 102/53, respiratory rate 27, SPO2 is 95% on 4 L of oxygen. Orthostatic vitals were positive. He dropped to blood pressure 74/57 on standing. His admitting blood work showed RBC count of 11.3, Hb 6.5, platelet count of 204 , BUN of 148, creatinine 12.10. Past Medical History Past Medical History (Chronic Problems): Chronic Problems (Last Reviewed 05/31/18 @ 16:24 by Marya Rodriguez) GI bleed (Chronic) Hyperlipidemia (Chronic) Type 2 diabetes mellitus without complications (Chronic) Hypothyroidism (Chronic) Bladder cancer (Chronic) COPD (chronic obstructive pulmonary disease) (Chronic) ESRD (end stage renal disease) on dialysis (Chronic) He was evaluated at [facility] transplant list. He is presently inactive, see consult. 12/16/17 Presence of arteriovenous fistula for hemodialysis (Chronic) Left Arm; Balloon plasty to fistula 05/30; Dialysis 3 days per week Mon, Wed, Fri Presence of stent in coronary artery (Chronic 07/23/17) PTCA/BLAIR to prox CX, BLAIR to OM1, BLAIR to Ramus 11/27 @ [facility]; PCI /BLAIR of LCX ISR , PCI/BLAIR Ostial OM1, QBB-TZLI-Nzpc Ramus ISR 07/23/17;HX stents 2003 Atherosclerosis of [place] coronary artery of [place] heart without angina pectoris (Chronic) PTCA/BLAIR to prox CX, BLAIR to OM1, BLAIR to Ramus 11/27 @ [facility]; PCI /BLAIR of LCX ISR , PCI/BLAIR Ostial OM1, QRG-HEWH-Enao Ramus ISR 07/23/17;HX stents 2003 Essential (primary) hypertension (Chronic) Medical History: Medical History (Last Reviewed 05/31/18 @ 16:24 by Marya Rodriguez) Hyperlipidemia (Chronic) E78.5 Type 2 diabetes mellitus without complications (Chronic) E11.9 Hypothyroidism (Chronic) E03.9 Bladder cancer (Chronic) C67.9 COPD (chronic obstructive pulmonary disease) (Chronic) J44.9 ESRD (end stage renal disease) on dialysis (Chronic) N18.6, Z99.2 He was evaluated at [facility] transplant list. He is presently inactive, see consult. 12/16/17 Atherosclerosis of [place] coronary artery of [place] heart without angina pectoris (Chronic) I25.10 PTCA/BLAIR to prox CX, BLAIR to OM1, BLAIR to Ramus 11/27 @ [facility]; PCI /BLAIR of LCX ISR , PCI/BLAIR Ostial OM1, [id number]-TKWG-Qxpm Ramus ISR 07/23/17;HX stents 2003 Essential (primary) hypertension (Chronic) I10 Cataract H26.9 Glaucoma H40.9 Hemorrhoid K64.9 Colon polyp K63.5 Allergies morphine Adverse Reaction (Verified 06/01/18 06:42) Itching Home Medications: Ambulatory Orders Medication Instructions Recorded Furosemide 40 mg PO BID 08/12/16 Atorvastatin Calcium 80 mg PO DAILY 07/23/17 carvedilol 12.5 mg tablet 12.5 mg PO BID 01/17/18 nitroglycerin 0.4 mg sublingual 0.4 mg SUBLINGUAL Q5-15M PRN 01/17/18 tablet Lanthanum Carbonate [Fosrenol] 1,000 mg PO TID 04/15/18 Nephro-Janel 1 tab PO DAILY 04/15/18 Clopidogrel Bisulfate [Plavix] 75 mg PO DAILY 05/15/18 Mirtazapine 7.5 mg PO QHS 05/15/18 Insulin Aspart [Novolog Flexpen] See Protocol SC DAILY PRN PRN #0 05/17/18 levothyroxine 200 mcg tablet 200 mcg PO .COMPLEX 05/31/18 Calcium Acetate [Phoslo Gel Cap] 1,334 mg PO TIDCM 06/01/18 Insulin Degludec [Tresiba 30 unit SQ BREAKFAST 06/01/18 Flextouch U-100] Surgical History: Surgical History (Last Reviewed 05/31/18 @ 16:24 by Marya Rodriguez) Presence of arteriovenous fistula for hemodialysis (Chronic) Z99.2 Left Arm; Balloon plasty to fistula 05/30; Dialysis 3 days per week Mon, Wed, Fri Presence of stent in coronary artery (Chronic) Onset Date: 07/23/17 Z95.5 PTCA/BLAIR to prox CX, BLAIR to OM1, BLAIR to Ramus 11/27 @ [facility]; PCI /BLAIR of LCX ISR , PCI/BLAIR Ostial OM1, JZM-CNEY-Solp Ramus ISR 07/23/17;HX stents 2003 History of bladder surgery Onset Date: ~1992 Z98.890 History of cataract surgery Z98.49 Surgical History: angioplasty - stent, cataract - bilateral, - - AVF, bladder tumor resection Smoking Status: Former smoker - *Family History Maternal Family History: Family History (Last Reviewed 05/31/18 @ 16:24 by Marya Rodriguez) Mother Cervical cancer Father CAD (coronary artery disease) Sister Cervical cancer Colon cancer Thromboembolism History Items: Cancer Paternal Family History: Family History (Last Reviewed 05/31/18 @ 16:24 by Marya Rodriguez) Mother Cervical cancer Father CAD (coronary artery disease) Sister Cervical cancer Colon cancer Thromboembolism History Items: Heart Disease Sibling Family History: Family History (Last Reviewed 05/31/18 @ 16:24 by Marya Rodriguez) Mother Cervical cancer Father CAD (coronary artery disease) Sister Cervical cancer Colon cancer Thromboembolism History Items: Cancer Review of Systems Constitutional: Reports: Weakness. Denies: Anorexia, Chills, Fever, Weight Change Eyes: Denies: Blurred vision, Cataracts, Conjunctivae Inflammation, Pain, Redness, Vision Change HEENT: Denies: Difficulty Hearing, Difficulty Swallowing, Head Aches, Hearing Changes, Sinus Congestion, Sinus Drainage Cardiovascular: Reports: Light Headedness. Denies: Chest Pain, Claudication, Orthopnea, Palpitations, Paroxysmal Noc. Dyspnea, Syncope Respiratory: Reports: Shortness of breath at rest, Shortness of breath upon exertion. Denies: Cough, Hemoptysis, Sputum production Gastrointestinal: Reports: Melena. Denies: Abdominal Pain, Constipation, Hematemesis, Hematochezia, Nausea, Vomiting Genitourinary: Denies: Dysuria, Frequency, Incontinence, Retention Musculoskeletal: Denies: Joint Pain, Joint stiffness, Joint swelling, Joint Tenderness Skin: Denies: Rash, Wounds Neurological: Denies: Numbness, Tingling, Focal weakness Psychiatric: Denies: Anxiety, Depression, Homicidal Ideations, Suicidal Ideations Hematologic/ Lymphatic: Denies: Easy Bruising, Easy Bleeding VTE Information - Inpt Only VTE Present on Admission: No VTE Pharm Prophylaxis ordered?: Yes Patient Problems: Active and Suspected Problems (Last Reviewed 05/31/18 @ 16:24 by Marya Rodriguez) Severe anemia (Acute) - Physical Exam General: Alert, Oriented x3, Cooperative, - - Appears tired, not in respiratory distress, pale HEENT: Atraumatic, PERRLA, EOMI, Normocephalic Oral: Moist Mucosa Neck: Supple, No JVD, Negative Carotid Bruits Lungs: Clear to auscultation, Normal air movement Cardiovascular: Regular rate, No murmurs Abdomen: Bowel Sounds Present, Soft, Non Tender, Non-Distended, No Hepato- splenomegaly Extremities: Capillary Refill Less than 3 Seconds, Edema - Bilateral +1pedal edema, - - Left upper extremity AV fistula Skin: No rashes, No breakdown Musculoskeletal: No Tenderness to Palpation of Joints or Extremities Lymphatic: No Cervical, Supraclavicular, or Inguinal Adenopathy Neurological: Cranial nerves II-XII grossly intact, Neuro grossly intact Psych/Mental Status: Normal Affect, Appropriate Vital Signs Temp Pulse Resp BP Pulse Ox 97.7 F L 101 H 18 134/84 H 100 06/01/18 16:15 06/01/18 16:15 06/01/18 16:15 06/01/18 16:15 06/01/18 16:15 Oxygen Flow Rate (L/min) 4 Oxygen Delivery Method Nasal Cannula Weight: 84.8 kg Body Mass Index (BMI) 27.6 Intake and Output for Last 24 Hours 05/30/18 05/31/18 06/01/18 23:59 23:59 23:59 Intake Total 400 / 400 Balance 400 / 400 POC Glucose 06/01/18 06/01/18 16:44 11:36 POC Glucose 94 195 H Assessment/Plan All Active Problems (Last Reviewed 05/31/18 @ 16:24 by Marya Rodriguez) Severe anemia (Acute) COPD with acute exacerbation (Acute) 67 year old M with multiple comorbidities significant for ESRD on hemodialysis via left upper extremity AV fistula, chronic hypoxic respiratory failure secondary to COPD, on 4 L of oxygen at home, hypertension, type II DM, history of anemia with chronic GI loss, due for follow-up in the [facility] system for capsule endoscopy. 1. Acute symptomatic anemia, admitting hemoglobin of 6.5, positively orthostatic, patient will be transfused 2 units of packed RBCs, will monitor vitals closely 2. ESRD on hemodialysis, nephrology consulted, missed dialysis this morning, patient will have dialysis while here and receive second unit of blood during dialysis 3. Type II DM, on insulin, continue home regimen, Accu-Cheks with insulin sliding scale 4. Hypertension, controlled, continue home regimen 5. Chronic respiratory failure secondary COPD, not in acute exacerbation, continue home oxygen 6. Rest of chronic conditions including chronic GI loss, unclear etiology, history of bladder tumor, all are stable 7. DVT PPx- SCD Code Visit Inpatient E&M: 64459 Init Hosp L3
[2018-06-01] MEDS: Dextrose 50%-Water 25 GM/50 ML DISP.SYRIN IV (22:30)
[2018-06-01 22:41] LABS: Bedside Glucose 41 mg/dL (70-110)
[2018-06-01 22:41] LABS: Bedside Glucose 47 mg/dL (70-110)
[2018-06-01 22:41] LABS: Bedside Glucose 186 mg/dL (70-110)
[2018-06-01 23:11] LABS: Bedside Glucose 159 mg/dL (70-110)
[2018-06-01 23:42] LABS: Glucose 148 mg/dL (74-106)
[2018-06-02] VITALS (23 sets, daily range): BP systolic 116–143; BP diastolic 59–86; PULSE 75–122; RESP 12–30; TEMP 36.6–37.2; O2SAT 94–100
[2018-06-02] LABS: Bedside Glucose 144 mg/dL (70-110)
--- NOTE | 2018-06-02 02:00 | RAD_ITS ---
STUDY: X-RAY CHEST REASON FOR EXAM: Male, 67 years old. Tachypnea and shortness of breath TECHNIQUE: Single AP portable view of the chest. COMPARISON: 06/01/2018 FINDINGS: Patchy airspace infiltration throughout both lung bases, worsened from prior imaging. Small bilateral pleural effusions, unchanged. No pneumothorax. Normal size heart. Normal mediastinum and александр. Normal visualized pulmonary arteries. There is atherosclerotic calcification of the aortic arch . Normal visualized thoracic spine. Normal visualized ribs, clavicles, and shoulders. There is no demonstrated abnormality of the visualized soft tissue structures of the upper abdomen. RAD/Chest 1 View (Portable) IMPRESSION: Worsening bibasilar infiltrates with small bilateral pleural effusions. Electronically Signed: Thony Mckeon MD at 2:50 EDT Tel , Service support ,
[2018-06-02 02:11] LABS: Bedside Glucose 144 mg/dL (70-110)
[2018-06-02 02:11] LABS: Bedside Glucose 135 mg/dL (70-110)
--- NOTE | 2018-06-02 02:31 | EKG12_ITS ---
Test Reason : CP Blood Pressure : / mmHG Vent. Rate : 108 BPM Atrial Rate : 108 BPM P-R Int : 174 ms QRS Dur : 110 ms QT Int : 344 ms P-R-T Axes : 066 040 199 degrees QTc Int : 460 ms Sinus tachycardia Possible Left atrial enlargement Incomplete left bundle branch block Marked ST abnormality, possible inferior subendocardial injury Abnormal ECG Confirmed by NENA ARECHIGA, KM ([id number]), film editor supervisor DRISS MONROY ([id number] on 06/08/2018 9:35:17 AM Referred By: DR ESTRADA Confirmed By:KM BARRETT MD
[2018-06-02] MEDS: Furosemide 100 MG/10 ML Vial 80 MG IV (03:47)
[2018-06-02 04:01] LABS: Bedside Glucose 147 mg/dL (70-110)
[2018-06-02 06:46] LABS: Absolute Lymphocyte Count 0.98 X10^3/ul (0.83-4.51); Absolute Neutrophil Count 9.6 X10^3/uL (2.0-7.7); Basophil# 0.03 X10^3/uL; Basophil% 0.2 % (0-1); Eosinophil# 0.33 X10^3/uL; Eosinophils% 2.7 % (0-5); Hematocrit 25.6 % (40-54); Hemoglobin 8.3 g/dl (13.0-16.5); Lymphocyte # 0.98 X10^3/ul (4.0); Lymphocyte % 7.9 % (19-41); Mean Corp Hgb Conc 32.4 g/gl (32-36); Mean Corpuscular Hgb 30.2 pg (27.0-32.0); Mean Corpuscular Volume 93.1 fL (80-94); Mean Platelet Vol. 11.7 fl (6.2-12.0); Monocyte# 1.33 X10^3/uL; Monocyte% 10.8 % (0-10); Neutrophil # 9.64 X10^3/uL (2.7-7.7); Platelet Count 181 K/mm3 (150-450); RBC Distribution Width CV 20.5 % (11.6-14.6); RBC Distribution Width SD 65.2 fl (35.1-43.9); Red Blood Count 2.75 M/mm3 (4.6-6.2); White Blood Count 12.4 K/mm3 (4.4-11.0)
[2018-06-02 06:49] LABS: Differential Indicated SCAN CRITERIA MET; POSITIVE COUNT NO; POSITIVE DIFFERENTIAL NO; POSITIVE MORPHOLOGY YES
[2018-06-02 07:06] LABS: Anion Gap 12 (5-15); BUN 84 mg/dL (7-18); BUN/Creat Ratio 10.2 RATIO (10-20); Calcium,Total 8.2 mg/dL (8.5-10.1); Chloride 95 mmol/L (98-107); Creatinine, Serum 8.22 mg/dL (0.70-1.30); EST Glomerular Filtration Rate 7 mL/min (>60); Est Glom Filt Rate - Afr Amer 8 mL/min (>60); Estimated Creatinine Clearance 8.72 ml/min; Glucose 176 mg/dL (74-106); Potassium 4.5 mmol/L (3.5-5.1); Sodium Level 136 mmol/L (136-145)
[2018-06-02 07:06] LABS: Bedside Glucose 150 mg/dL (70-110)
[2018-06-02 07:15] LABS: Anisocytosis 1+; Differential Comment SCAN; Hypochromasia 1+
[2018-06-02] MEDS: Ipratropium/Albuterol Sulfate 3 ML AMPUL.NEB INHALATION ×2 (07:23→15:09)
--- NOTE | 2018-06-02 08:47 | PN.RENAL_ITS ---
Patient Problems: Active and Suspected Problems (Last Reviewed 05/31/18 @ 16:24 by Marya Rodriguez) Severe anemia (Acute) Subjective: Episode of chest pain last night with diaphoresis. Denies jaw pain, arm pain, nausea or vomiting. Hemoglobin improved to 8.3 g after 2 units blood transfusion yesterday. Tolerated hemodialysis yesterday. - Physical Exam General: Alert, Oriented x3, Cooperative Lungs: Clear to auscultation, Diminished Cardiovascular: Regular rate, Murmur Abdomen: Bowel Sounds Present, Soft, Non Tender, Non-Distended Extremities: No edema Skin: No rashes Psych/Mental Status: Normal Affect, Appropriate, Alert and oriented to time, place, person, mood and affect Vital Signs Temp Pulse Resp BP Pulse Ox 98 F 108 H 20 H 129/71 H 98 06/02/18 06:49 06/02/18 07:01 06/02/18 06:49 06/02/18 06:49 06/02/18 06:49 Oxygen Flow Rate (L/min) 4 Oxygen Delivery Method Nasal Cannula Weight: 84.8 kg Body Mass Index (BMI) 27.6 Intake and Output for Last 24 Hours 05/31/18 06/01/18 06/02/18 23:59 23:59 23:59 Intake Total 1670 / 1670 Balance 1670 / 1670 Laboratory Tests Past 24 Hrs 06/01/18 06/02/18 06/02/18 23:22 06:10 06:18 WBC 12.4 H RBC 2.75 L Hgb 8.3 L Hct 25.6 L MCV 93.1 MCH 30.2 MCHC 32.4 RDW 20.5 H RDW Differential 65.2 H Plt Count 181 MPV 11.7 Immature Gran % (Auto) 0.400 Neut % (Auto) 78.0 H Lymph % (Auto) 7.9 L [place] % (Auto) 10.8 H Eos % (Auto) 2.7 Baso % (Auto) 0.2 Absolute Neuts (auto) 9.6 H Absolute Lymphs (auto) 0.98 Total Counted Not Reportable Differential Comment SCAN Hypochromasia 1+ Anisocytosis 1+ Sodium 136 Potassium 4.5 Chloride 95 L Carbon Dioxide 29.0 Anion Gap 12 BUN 84 H Creatinine 8.22 H* Estim Creat Clear Calc 8.72 Est GFR (MDRD) Af Amer 8 L Est GFR (MDRD) Non-Af 7 L BUN/Creatinine Ratio 10.2 Glucose 148 H 176 H Calcium 8.2 L POC Glucose 06/02/18 06/02/18 06/02/18 06:44 03:41 02:04 POC Glucose 150 H 147 H 135 H 06/02/18 06/01/18 06/01/18 01:46 23:54 22:50 POC Glucose 144 H 144 H 159 H 06/01/18 06/01/18 06/01/18 22:37 22:16 21:50 POC Glucose 186 H 41 L* 47 L 06/01/18 06/01/18 16:44 11:36 POC Glucose 94 195 H Medical Necessity - Tobacco Use Smoking Status: Former smoker Assessment/Plan All Active Problems (Last Reviewed 05/31/18 @ 16:24 by Marya Rodriguez) Severe anemia (Acute) COPD with acute exacerbation (Acute) 1. ESRD due to diabetes on hemodialysis Wednesday, Wednesday, Wednesday. Dialysis yesterday without incident. Next dialysis Wednesday. 2. GI bleed on Plavix. Consider PPI. s/p PRBC. 3. Near syncope, hypotension likely due to profound anemia. Blood pressure stable on dialysis. 4. CAD status post PCI on Plavix 5. Hypertension with stable blood pressure. Episode of hypotension on admission 6. Diabetes mellitus type 2 primary care management
[2018-06-02 09:00] LABS: Bedside Glucose 144 mg/dL (70-110)
[2018-06-02 09:19] LABS: Phosphorus 7.9 mg/dL (2.5-4.9)
[2018-06-02] MEDS: Calcium Acetate 667 MG Capsule 3335 MG PO ×2 (09:24→11:44)
[2018-06-02] MEDS: Clopidogrel Bisulfate 75 MG Tablet PO (09:24)
[2018-06-02] MEDS: Folic Acid/Vitamin B Comp W-C 1 Capsule 1 CAP PO (09:26)
--- NOTE | 2018-06-02 10:33 | CASEMGMT ---
Readmission chart review: Pt was admitted 05/15-05/17 for HCAP and was discharge home with nebulizer and on his 4 liters home oxygen through [employer]. See CM assessment completed by this RN CM on 05/17/18. Pt returned 06/01 for severe anemia/orthostatic hypotension. Pt states missed dialysis on wednesday due to inability to stand d/t dizziness/near syncope. Pt gets normally gets dialysis every M,W,F. CM to follow PT/OT notes and for any further discharge planning/needs. [facility] [place]
--- NOTE | 2018-06-02 11:54 | PCM.DC ---
- Discharge Diagnoses Current Active Problems: Current Active and Chronic Problems (Last Reviewed 05/31/18 @ 16:24 by Marya Rodriguez) Severe anemia (Acute) GI bleed (Chronic) Reason(s) for Visit for Discharge Instructions: Shortness of breath, weakness You will use the following diet at home:: Calorie/Carbohydrate Controlled (specify 1200, 1400, etc), Renal (restricted protein/sodium) Your food should be the consistency of: Regular Your liquids should be the consistency of: Regular/Thin Discharge Activity: Return to Normal Activity Additional Instructions: Continue to use your incentive spirometer. Continue with dialysis as scheduled. There are no changes to ypur medications. You will need a repeat CXR in 4-6 weeks. Continue to remain active. Follow-up with your business process coordinator for capsule endoscopy as scheduled. Allergies/Adverse Reactions: Allergies morphine Adverse Reaction (Verified 06/01/18 06:42) Itching Medications to take at Discharge Furosemide 40 mg PO BID 08/12/16 Atorvastatin Calcium 80 mg PO DAILY 07/23/17 carvedilol 12.5 mg tablet 12.5 mg PO BID 01/17/18 nitroglycerin 0.4 mg sublingual tablet 0.4 mg SUBLINGUAL Q5-15M PRN 01/17/18 Lanthanum Carbonate [Fosrenol] 1,000 mg PO TID 04/15/18 Nephro-Janel 1 tab PO DAILY 04/15/18 Clopidogrel Bisulfate [Plavix] 75 mg PO DAILY 05/15/18 Mirtazapine 7.5 mg PO QHS 05/15/18 Insulin Aspart [Novolog Flexpen] See Protocol SC DAILY PRN PRN #0 05/17/18 levothyroxine 200 mcg tablet 200 mcg PO .COMPLEX 05/31/18 Calcium Acetate [Phoslo Gel Cap] 1,334 mg PO TIDCM 06/01/18 Insulin Degludec [Tresiba Flextouch U-100] 30 unit SQ BREAKFAST 06/01/18 Bisacodyl [Dulcolax] 5 mg PO DAILY PRN PRN #30 tab 06/02/18 The following prescriptions were given: Bisacodyl [Dulcolax] 5 mg PO DAILY PRN PRN #30 tab PRN Reason: Constipation Orders to be completed after discharge: Chest PA and Lateral [RAD] Location: None Selected Primary Care Physician: Alfonso Rushing Chi, MD [Primary Care Provider] - Please follow up with your Primary Care Physician in: within 2 weeks Test Results: Test results from this visit will be discussed in further detail at your follow-up appointment, if applicable. Please Follow Up With: Alfonso Rushing Chi, MD Please Follow Up With: America Lepe DO When: as scheduled in dialysis Proposed Discharge Date: 06/02/18
--- NOTE | 2018-06-02 11:58 | DCINST_ITS ---
- Discharge Diagnoses Current Active Problems: Current Active and Chronic Problems (Last Reviewed 05/31/18 @ 16:24 by Marya Rodriguez) Severe anemia (Acute) GI bleed (Chronic) Reason(s) for Visit for Discharge Instructions: Shortness of breath, weakness You will use the following diet at home:: Calorie/Carbohydrate Controlled ( specify 1200, 1400, etc), Renal (restricted protein/sodium) Your food should be the consistency of: Regular Your liquids should be the consistency of: Regular/Thin Discharge Activity: Return to Normal Activity Additional Instructions: Continue to use your incentive spirometer. Continue with dialysis as scheduled. There are no changes to ypur medications. You will need a repeat CXR in 4-6 weeks. Continue to remain active. Follow-up with your damage cutter for capsule endoscopy as scheduled. Allergies/Adverse Reactions: Allergies morphine Adverse Reaction (Verified 06/01/18 06:42) Itching Medications to take at Discharge Furosemide 40 mg PO BID 08/12/16 Atorvastatin Calcium 80 mg PO DAILY 07/23/17 carvedilol 12.5 mg tablet 12.5 mg PO BID 01/17/18 nitroglycerin 0.4 mg sublingual tablet 0.4 mg SUBLINGUAL Q5-15M PRN 01/17/18 Lanthanum Carbonate [Fosrenol] 1,000 mg PO TID 04/15/18 Nephro-Janel 1 tab PO DAILY 04/15/18 Clopidogrel Bisulfate [Plavix] 75 mg PO DAILY 05/15/18 Mirtazapine 7.5 mg PO QHS 05/15/18 Insulin Aspart [Novolog Flexpen] See Protocol SC DAILY PRN PRN #0 05/17/18 levothyroxine 200 mcg tablet 200 mcg PO .COMPLEX 05/31/18 Calcium Acetate [Phoslo Gel Cap] 1,334 mg PO TIDCM 06/01/18 Insulin Degludec [Tresiba Flextouch U-100] 30 unit SQ BREAKFAST 06/01/18 Bisacodyl [Dulcolax] 5 mg PO DAILY PRN PRN #30 tab 06/02/18 The following prescriptions were given: Bisacodyl [Dulcolax] 5 mg PO DAILY PRN PRN #30 tab PRN Reason: Constipation Orders to be completed after discharge: Chest PA and Lateral [RAD] Location: None Selected Primary Care Physician: Alfonso Rushing Chi, MD [Primary Care Provider] - Please follow up with your Primary Care Physician in: within 2 weeks Test Results: Test results from this visit will be discussed in further detail at your follow- up appointment, if applicable. Please Follow Up With: Alfonso Rushing Chi, MD Please Follow Up With: America Lepe DO When: as scheduled in dialysis Proposed Discharge Date: 06/02/18
--- NOTE | 2018-06-02 11:59 | DS.PCM_ITS ---
Discharge Date and Diagnosis - Problem List Patient Problems: Active and Suspected Problems (Last Reviewed 05/31/18 @ 16:24 by Marya Rodriguez) Severe anemia (Acute) Date of Admission: 06/01/18 Date of Discharge: 06/02/18 - Primary Discharge Diagnosis Active and Suspected Problems (Last Reviewed 05/31/18 @ 16:24 by Marya Rodriguez) Severe anemia (Acute) - Secondary Discharge Diagnosis Chronic Problems (Last Reviewed 05/31/18 @ 16:24 by Marya Rodriguez) GI bleed (Chronic) Hyperlipidemia (Chronic) Type 2 diabetes mellitus without complications (Chronic) Hypothyroidism (Chronic) Bladder cancer (Chronic) COPD (chronic obstructive pulmonary disease) (Chronic) ESRD (end stage renal disease) on dialysis (Chronic) He was evaluated at [facility] fro transplant list. He is presently inactive, see consult. 12/16/17 Presence of arteriovenous fistula for hemodialysis (Chronic) Left Arm; Balloon plasty to fistula 05/30; Dialysis 3 days per week Mon, Wed, Fri Presence of stent in coronary artery (Chronic 07/23/17) PTCA/BLAIR to prox CX, BLAIR to OM1, BLAIR to Ramus 11/27 @ [facility]; PCI /BLAIR of LCX ISR , PCI/BLAIR Ostial OM1, [id number]-Sdhw Ramus ISR 07/23/17;HX stents 2003 Atherosclerosis of [place] coronary artery of [place] heart without angina pectoris (Chronic) PTCA/BLAIR to prox CX, BLAIR to OM1, BLAIR to Ramus 11/27 @ [facility]; PCI /BLAIR of LCX ISR , PCI/BLAIR Ostial OM1, [id number]-Lvrc Ramus ISR 07/23/17;HX stents 2003 Essential (primary) hypertension (Chronic) Hospital Course and Treatment Imaging Results: Clinical Impression(s) from Imaging Studies Chest X-Ray 06/01/18 07:28 IMPRESSION: Blastic congestion with small bilateral pleural effusions worse on the left side with bibasilar atelectasis and/or infiltrate more prominent on the left side. Questionable pericardial effusion. Electronically Signed: Herrera Hayes MD at 8:23 EDT Tel [phone], Service support , Chest X-Ray 06/02/18 02:00 IMPRESSION: Worsening bibasilar infiltrates with small bilateral pleural effusions. Electronically Signed: Thony Mckeon MD at 2:50 EDT Tel , Service support , Nephrology Operations: None Procedures: None Summary of Care Provided: The patient is a 67 year old M with multiple co-morbidities significant for ESRD on hemodialysis, chronic hypoxic respiratory failure second to COPD, on 4 L of oxygen, hypertension, type II DM, chronic history of anemia from unspecified GI source, scheduled for capsule endoscopy who was recently seen for preoperative clearance by cardiology. Patient was getting ready to go for dialysis but felt very weak and nauseous. He did not pass out but denied any fever or chills. He was recently discharged for acute on chronic respiratory failure second to HCAP. His hemoglobin was found to be 6.5. He was admitted to the telemetry bed, transfused 2 units of packed RBC. He had his dialysis yesterday. He was short of breath denied before his discharge, received Lasix 80 mg IV ?1, chest x-ray showed bilateral effusions with worsening bibasal infiltrates. Patient was stable on 4 L of oxygen, advised to use his incentive spirometer. His home Lasix was resumed. He had a transient episode of difficulty swallowing whilst eating bread on sandwich on the day of admission. He was seen by speech therapy recommended regular texture/thin liquids. He was instructed to avoid thick pieces of bread. Patient was discharged to follow-up with his primary care doctor and his business systems architect as well as dialysis. Discharge Diet: Low fat/ Low Cholesterol, 2000 mg Sodium Diet Discharge Activity: Return to Normal Activity Home Medications: Medications to take at Discharge Furosemide 40 mg PO BID 08/12/16 Atorvastatin Calcium 80 mg PO DAILY 07/23/17 carvedilol 12.5 mg tablet 12.5 mg PO BID 01/17/18 nitroglycerin 0.4 mg sublingual tablet 0.4 mg SUBLINGUAL Q5-15M PRN 01/17/18 Lanthanum Carbonate [Fosrenol] 1,000 mg PO TID 04/15/18 Nephro-Janel 1 tab PO DAILY 04/15/18 Clopidogrel Bisulfate [Plavix] 75 mg PO DAILY 05/15/18 Mirtazapine 7.5 mg PO QHS 05/15/18 Insulin Aspart [Novolog Flexpen] See Protocol SC DAILY PRN PRN #0 05/17/18 levothyroxine 200 mcg tablet 200 mcg PO .COMPLEX 05/31/18 Calcium Acetate [Phoslo Gel Cap] 1,334 mg PO TIDCM 06/01/18 Insulin Degludec [Tresiba Flextouch U-100] 30 unit SQ BREAKFAST 06/01/18 Bisacodyl [Dulcolax] 5 mg PO DAILY PRN PRN #30 tab 06/02/18 Following Prescrptions Were Given to Patient: Bisacodyl [Dulcolax] 5 mg PO DAILY PRN PRN #30 tab PRN Reason: Constipation Other Amb Orders: Chest PA and Lateral [RAD] Location: None Selected Primary Care Physician: Alfonso Rushing Chi, MD [Primary Care Provider] - Please follow up with your Primary Care Physician in: within 2 weeks Please Follow Up With: Alfonso Rushing Chi, MD Please Follow Up With: America Lepe DO When: as scheduled in dialysis Disposition: Home Minutes spent on discharge:: 40 Patient Condition:: Stable Medical Necessity - Tobacco Use Smoking Status: Former smoker Tobacco Use: Non-smoker Meaningful Use Info Meaningful Use Diagnoses (Choose all that apply): None applicable Code Visit Inpatient E&M: 07649 Disch Hosp
[2018-06-02] MEDS: Furosemide 40 MG Tablet PO ×2 (12:26→21:03)
--- NOTE | 2018-06-02 12:35 | CASEMGMT ---
This D[facility] CM to room to f/u with pt regarding discharge planning and pt states no concerns with going home at time of discharge. Pt states feeling 'much better.' Pt states no concerns with home oxygen or nebulizer at this time. Pt awaiting dispo. [facility] [place]
[2018-06-02 16:25] LABS: Bedside Glucose 136 mg/dL (70-110)
--- NOTE | 2018-06-02 16:25 | EKG12_ITS ---
Test Reason : RAPID RESPONSE Blood Pressure : / mmHG Vent. Rate : 051 BPM Atrial Rate : 051 BPM P-R Int : 148 ms QRS Dur : 106 ms QT Int : 434 ms P-R-T Axes : 053 024 036 degrees QTc Int : 400 ms Sinus bradycardia Possible Left atrial enlargement Borderline ECG When compared with ECG of 02-JUN-2018 18:28, MANUAL COMPARISON REQUIRED, DATA IS UNCONFIRMED Confirmed by KEENAN ARECHIGA, RENATA ([id number]), web editor DRISS MONROY ([id number]) on 06/10/2018 2:37:16 PM Referred By: BRADFORD Confirmed By:RENATA HUSSEIN MD
--- NOTE | 2018-06-02 18:35 | EKG12_ITS ---
Test Reason : CHEST PAIN Blood Pressure : / mmHG Vent. Rate : 120 BPM Atrial Rate : 120 BPM P-R Int : 144 ms QRS Dur : 116 ms QT Int : 332 ms P-R-T Axes : 053 033 178 degrees QTc Int : 469 ms Sinus tachycardia Incomplete left bundle branch block ST & T wave abnormality, consider inferolateral ischemia Abnormal ECG When compared with ECG of 02-JUN-2018 16:31, MANUAL COMPARISON REQUIRED, DATA IS UNCONFIRMED Confirmed by KEENAN ARECHIGA, RENATA ([id number]), video editor DRISS MONROY ([id number]) on 06/10/2018 2:41:05 PM Referred By: TAMY Confirmed By:RENATA HUSSEIN MD
[2018-06-02 18:41] LABS: Bedside Glucose 58 mg/dL (70-110)
[2018-06-02 18:41] LABS: Bedside Glucose 61 mg/dL (70-110)
[2018-06-02 18:41] LABS: Bedside Glucose 69 mg/dL (70-110)
[2018-06-02] MEDS: Dextrose 50%-Water 25 GM/50 ML DISP.SYRIN IV (18:53)
[2018-06-02] MEDS: Aspirin 81 MG TAB.CHEW PO (18:58)
[2018-06-02 19:06] LABS: Bedside Glucose 170 mg/dL (70-110)
[2018-06-02] MEDS: Nitroglycerin Oint 1 INCH PACKET TRANSDERM. ×2 (19:32→23:42)
[2018-06-02 19:53] LABS: Hematocrit 26.2 % (40-54); Hemoglobin 8.5 g/dl (13.0-16.5)
[2018-06-02] MEDS: Carvedilol 12.5 MG Tablet PO (21:03)
[2018-06-02] MEDS: Atorvastatin Calcium 80 MG Tablet PO (21:03)
[2018-06-02] MEDS: Mirtazapine 15 MG Tablet 7.5 MG PO (21:03)
[2018-06-02 21:21] LABS: Bedside Glucose 101 mg/dL (70-110)
[2018-06-02] MEDS: Ondansetron 4 MG/2 ML Vial IV (23:40)
[2018-06-02 23:50] LABS: Bedside Glucose 75 mg/dL (70-110)
[2018-06-03] VITALS (17 sets, daily range): BP systolic 98–137; BP diastolic 56–70; PULSE 84–103; RESP 16–20; TEMP 36.1–37; O2SAT 94–100
--- NOTE | 2018-06-03 00:33 | CT_ITS ---
STUDY: CT ABDOMEN AND PELVIS WITHOUT CONTRAST REASON FOR EXAM: Male, 67 years old. Abdominal pain RADIATION DOSAGE (If Supplied By Facility): CTDIvol = ( 8.93 ) mGy, DLP = ( 475.20 ) mGycm TECHNIQUE: Transaxial images were obtained from the dome of the diaphragm to the symphysis pubis without oral contrast, and without intravenous contrast. Sagittal and coronal images were reconstructed. Individualized dose optimization techniques were used for this CT. COMPARISON: None. FINDINGS: Evaluation limited by lack of IV and oral contrast. Atelectasis/scarring within the lungs. Moderate bilateral pleural effusions with adjacent atelectasis/infiltrate. Right lower lobe 1.3 cm nodularity. Coronary artery calcifications. Small pericardial effusion. Normal unenhanced liver. Unenhanced Normal gallbladder and extrahepatic biliary system. Normal unenhanced spleen. Normal unenhanced pancreas. Normal unenhanced bilateral adrenal glands. 1.6 cm low-attenuation structure left kidney likely representing a cyst. Calcific structures within the bilateral kidneys likely vascular calcifications. Small nonobstructing stones cannot be totally excluded. There is no hydronephrosis identified. Kidneys appear slightly small in size. There is a small hiatal hernia. The stomach appears distended. Normal small intestine. There are multiple colonic diverticula consistent with diverticulosis. The appendix is visualized and appears normal. There is diffuse atherosclerotic calcification of the abdominal aorta, without a demonstrated aneurysm. Cannot evaluate for dissection due to lack of IV contrast. Nonspecific subcentimeter short axis mesenteric and retroperitoneal lymph nodes. Normal unenhanced urinary bladder. There is a small umbilical hernia containing fat. There are diffuse degenerative changes of the visualized lumbar spine. CT/Abdomen/Pelvis without Cont IMPRESSION: Bilateral pleural effusions with adjacent atelectasis/infiltrates. Right lower lobe nodularity. This could represent infectious process. However recommend 3-4 week follow-up CT scan to ensure resolution. Underlying neoplasm cannot be excluded. No hydronephrosis. Small pericardial effusion. No CT evidence for diverticulitis or appendicitis. Other findings as discussed above. Electronically Signed: Ed Powell, at 1:47 EDT Tel , Service support ,
[2018-06-03] MEDS: Dextrose 50%-Water 25 GM/50 ML DISP.SYRIN IV ×3 (00:49→08:16)
--- NOTE | 2018-06-03 01:39 | CPS ---
Pt not wearing d/t nausea
[2018-06-03 02:41] LABS: Bedside Glucose 74 mg/dL (70-110)
[2018-06-03 03:16] LABS: Bedside Glucose 98 mg/dL (70-110)
[2018-06-03] MEDS: Levothyroxine 25 MCG TABLET PO (05:02)
[2018-06-03] MEDS: Nitroglycerin Oint 1 INCH PACKET TRANSDERM. ×4 (05:02→23:33)
[2018-06-03] MEDS: Levothyroxine 100 MCG Tablet 200 MCG PO (05:02)
[2018-06-03 05:56] LABS: Bedside Glucose 64 mg/dL (70-110)
[2018-06-03 05:56] LABS: Bedside Glucose 111 mg/dL (70-110)
[2018-06-03] MEDS: Ipratropium/Albuterol Sulfate 3 ML AMPUL.NEB INHALATION (06:44)
[2018-06-03 07:06] LABS: Bedside Glucose 78 mg/dL (70-110)
--- NOTE | 2018-06-03 07:37 | PCM.PN.HOSP ---
Patient Problems: Active and Suspected Problems (Last Reviewed 05/31/18 @ 16:24 by Marya Rodriguez) Severe anemia (Acute) Subjective: Patient was going to be discharged when he developed severe chest pain. He said he was the worst pain of his life, radiated to his left neck and left arm. EKG was unchanged. Patient's felt uncomfortable being discharged home with chest pain. He was given nitro couple of times and eventually transitioned to Nitropaste. Overnight, he continued to complain of intermittent chest pain. Blood sugars have also been low, treated several times, patient admits to not eating well. Vitals/I&O's: Vital Signs Temp Pulse Resp BP Pulse Ox 97.6 F L 94 20 H 104/62 100 06/03/18 04:54 06/03/18 07:26 06/03/18 06:44 06/03/18 04:54 06/03/18 06:44 Oxygen Flow Rate (L/min) 4 Oxygen Delivery Method Nasal Cannula Weight: 86.2 kg Body Mass Index (BMI) 27.6 Intake and Output for Last 24 Hours 06/01/18 06/02/18 06/03/18 23:59 23:59 23:59 Intake Total 1670 / 1670 642 / 642 360 / 360 Balance 1670 / 1670 642 / 642 360 / 360 General: Alert, Oriented x3, Cooperative, No apparent distress, - - on 4 L of oxygen, having dialysis HEENT: Atraumatic, PERRLA, EOMI, Normocephalic Oral: Moist Mucosa Neck: Supple, No JVD, Negative Carotid Bruits Lungs: Clear to auscultation, Normal air movement Cardiovascular: Regular rate, Regular Rhythm, Normal S1, Normal S2, No murmurs Abdomen: Bowel Sounds Present, Soft, Non Tender, Non-Distended, No Hepato-splenomegaly Extremities: Edema - +1 Skin: No rashes, No breakdown Musculoskeletal: No Tenderness to Palpation of Joints or Extremities Lymphatic: No Cervical, Supraclavicular, or Inguinal Adenopathy Neurological: Cranial nerves II-XII grossly intact, Neuro grossly intact Psych/Mental Status: Normal Affect, Appropriate Laboratory Results 06/02/18 06:10: Phosphorus 7.9 H 06/02/18 08:46: POC Glucose 144 H 06/02/18 11:26: POC Glucose 136 H 06/02/18 16:54: POC Glucose 58 L 06/02/18 17:03: Troponin I 0.444 H 06/02/18 17:14: POC Glucose 61 L 06/02/18 18:08: POC Glucose 69 L 06/02/18 19:00: POC Glucose 170 H 06/02/18 19:45: Troponin I 0.465 H 06/02/18 19:45: Hgb 8.5 L, Hct 26.2 L 06/02/18 21:02: POC Glucose 101 06/02/18 23:10: Troponin I 0.494 H 06/02/18 23:46: POC Glucose 75 06/03/18 02:30: POC Glucose 74 06/03/18 03:13: POC Glucose 98 06/03/18 04:51: POC Glucose 64 L 06/03/18 05:31: POC Glucose 111 H 06/03/18 06:40: POC Glucose 78 Current Medications Albuterol/Ipratropium (Duoneb) 3 ml INHALATION Q4HWA.RT [facility] Last Admin: 06/03/18 06:44 Dose: 3 ml Atorvastatin Calcium (Lipitor) 80 mg PO QHS [facility] Last Admin: 06/02/18 21:03 Dose: 80 mg Bisacodyl (Dulcolax) 5 mg PO DAILY PRN PRN PRN Reason: Constipation Calcium Acetate (Phoslo Gel Cap) 3,335 mg PO TIDCM [facility] Last Admin: 06/02/18 18:13 Dose: Not Given Carvedilol (Coreg) 12.5 mg PO BID [facility] Last Admin: 06/02/18 21:03 Dose: 12.5 mg Clopidogrel Bisulfate (Plavix) 75 mg PO DAILY [facility] Last Admin: 06/02/18 09:24 Dose: 75 mg Dextrose (D50w Syringe) 0 gm IV X1 PRN; Protocol PRN Reason: Hypoglycemia Last Admin: 06/03/18 04:55 Dose: 12.5 gm Furosemide (Lasix) 40 mg PO BID [facility] Last Admin: 06/02/18 21:03 Dose: 40 mg Glucagon () 1 mg IM .X1 PRN PRN Reason: Hypoglycemia Levothyroxine Sodium (Synthroid) 200 mcg PO DAILY@0600 [facility] Last Admin: 06/03/18 05:02 Dose: 200 mcg Levothyroxine Sodium (Synthroid) 25 mcg PO DAILY@0600 [facility] Last Admin: 06/03/18 05:02 Dose: 25 mcg Magnesium Hydroxide (Milk Of Magnesia) 30 ml PO DAILY PRN PRN Reason: Constipation Mirtazapine (Remeron) 7.5 mg PO HS [facility] Last Admin: 06/02/18 21:03 Dose: 7.5 mg Multivit/Ca Carb/B Cmplx/FA/Prenat (Nephrocaps, Renaphro) 1 capsule PO DAILY [facility] Last Admin: 06/02/18 09:26 Dose: 1 capsule Nitroglycerin (Nitrostat) 0.4 mg SUBLINGUAL Q5M PRN PRN Reason: CARDIAC/CHEST PAIN Last Admin: 06/02/18 18:20 Dose: 0.4 mg Nitroglycerin (Nitrobid) 1 inch TRANSDERM. Q6 [facility] Last Admin: 06/03/18 05:02 Dose: 1 inch Ondansetron HCl (Zofran) 4 mg IV Q8H PRN PRN PRN Reason: NAUSEA Last Admin: 06/02/18 23:40 Dose: 4 mg Psyllium Hydrophilic Mucilloid (Metamucil) 1 packet PO DAILY PRN PRN PRN Reason: CONSTIPATION Medical Necessity - Tobacco Use Smoking Status: Former smoker Tobacco Use: Non-smoker Assessment/Plan All Active Problems (Last Reviewed 05/31/18 @ 16:24 by Marya Rodriguez) Severe anemia (Acute) COPD with acute exacerbation (Acute) 67 year old M with multiple comorbidities significant for ESRD on hemodialysis via left upper extremity AV fistula, chronic hypoxic respiratory failure secondary to COPD, on 4 L of oxygen at home, hypertension, type II DM, history of anemia with chronic GI loss, due for follow-up in the [facility] system for capsule endoscopy. 1. Chest pain, concerning for angina, h/o CAD s/p CABG, reportedly following at [facility], Troponins x 3 were 0.444, 0.465, 0.494 will get 2D-echo, stat records from [facility], Cardiology consulted, on plavix 2. Episode of hypoglycemia, h/o Type 2 DM, off insulin, will continue to monitor 3. ESRD on hemodialysis, will get dialysis today. 4. Hypertension, controlled, continue home regimen 5. Chronic respiratory failure secondary COPD, not in acute exacerbation, continue home oxygen 6. Anemia, acute on chronic, h/o GI loss, s/p 1 unit pRBC in dialysis, will continue to monitor. 7. Rest of chronic conditions including chronic GI loss, unclear etiology, history of bladder tumor, all are stable 8. DVT PPx- SCD Code Visit Inpatient E&M: 34428 Subs Hosp L2
[2018-06-03 08:22] LABS: Hematocrit 23.8 % (40-54); Hemoglobin 7.6 g/dl (13.0-16.5); Mean Corp Hgb Conc 31.9 g/gl (32-36); Mean Corpuscular Volume 94.1 fL (80-94); Mean Platelet Vol. 10.8 fl (6.2-12.0); Platelet Count 155 K/mm3 (150-450); RBC Distribution Width CV 20.3 % (11.6-14.6); RBC Distribution Width SD 67.9 fl (35.1-43.9); Red Blood Count 2.53 M/mm3 (4.6-6.2)
[2018-06-03 08:24] LABS: Scan Indicated on CBC? Y/N YES- FLAGS NOTED
[2018-06-03 08:40] LABS: Differential Comment SCANNED
[2018-06-03 09:11] LABS: Albumin, Serum 2.3 g/dL (3.2-5.0); BUN 97 mg/dL (7-18); BUN/Creat Ratio 9.7 RATIO (10-20); Calcium,Total 8.3 mg/dL (8.5-10.1); Chloride 93 mmol/L (98-107); Creatinine, Serum 9.95 mg/dL (0.70-1.30); EST Glomerular Filtration Rate 6 mL/min (>60); Est Glom Filt Rate - Afr Amer 7 mL/min (>60); Glucose 65 mg/dL (74-106); Phosphorus 8.3 mg/dL (2.5-4.9); Potassium 5.1 mmol/L (3.5-5.1); Sodium Level 134 mmol/L (136-145)
[2018-06-03 09:46] LABS: Bedside Glucose 91 mg/dL (70-110)
[2018-06-03 09:46] LABS: Bedside Glucose 64 mg/dL (70-110)
--- NOTE | 2018-06-03 10:39 | ECHOCS_ITS ---
Reason For Study: Chest Pain Procedure This was a 2D Doppler, Color Flow transthoracic echocardiogram. Exam performed portable in patient room. Left Ventricle Mildly dilated left ventricle. The estimated ejection fraction is 25-30 %. Stage 2 diastolic dysfunction. There is severe global hypokinesis of the left ventricle. Right Ventricle Normal size and thickness. Normal systolic function. Atria Normal left atrium. Normal right atrium. Normal atrial septum. Mitral Valve Mild diffuse mitral valve thickening. Mild (1+) eccentric mitral valve insufficiency. Tricuspid Valve Normal tricuspid valve. Unable to estimate RV systolic pressure due to inadequate jet, pulmonary artery pressure probably normal. Aortic Valve Trisinus/trileaflet aortic valve. Severe focal aortic valve thickening. Moderate focal aortic valve calcification. Severe restriction of the aortic valve. Peak aortic valve gradient 13 mmHg. Mean aortic valve gradient 8 mmHg. Calculated aortic valve area (continuity equation) is 1.7 cm2. Pulmonic Valve Normal pulmonic valve. Great Vessels Normal aortic root. Normal arch. The inferior vena cava is dilated. No collapse of the inferior vena cava. Pericardium/Pleural No pericardial effusion. MMode/2D Measurements & Calculations LVIDd: 5.0 cm IVSd: 1.1 cm LVOT diam: 2.0 cm LVIDs: 4.2 cm LVPWd: 1.1 cm LVOT area: 3.2 cm2 FS: 16.6 % Ao root diam: 2.4 cm LAV(MOD-bp): 43.5 ml LVAd ap4: 40.8 cm2 LA dimension: 4.1 cm LAV(MOD-bp) Indexed: 21.5 ml/m2 EDV(MOD-sp4): 145.3 ml LAV(MOD-sp2): 52.4 ml EDV(sp4-el): 150.2 ml LAV(MOD-sp4): 36.0 ml LVAs ap4: 31.3 cm2 ESV(MOD-sp4): 100.9 ml ESV(sp4-el): 96.5 ml EF(MOD-sp4): 30.6 % EF(sp4-el): 35.7 % SV(MOD-sp4): 44.4 ml SV(sp4-el): 53.7 ml LA A4 area: 15.8 cm2 Doppler Measurements & Calculations MV E max teja: 99.3 cm/sec Lat Peak E' Teja: 6.4 cm/sec Med Peak E' Teja: 4.5 cm/sec MV A max teja: 50.2 cm/sec E/E' lat: 15.5 E/E' med: 22.0 MV E/A: 2.0 Ao V2 max: 179.0 cm/sec LV V1 max: 100.8 cm/sec SV(LVOT): 60.4 ml Ao max P.8 mmHg LV V1 max P.1 mmHg Ao V2 mean: 140.4 cm/sec LV V1 mean P.4 mmHg Ao mean P.4 mmHg LV V1 mean: 73.9 cm/sec Ao V2 VTI: 35.1 cm LV V1 VTI: 19.0 cm MEG(I,D): 1.7 cm2 MEG(V,D): 1.8 cm2 PA V2 max: 78.3 cm/sec Interpretation Summary The estimated ejection fraction is 25-30 %. Stage 2 diastolic dysfunction. There is severe global hypokinesis of the left ventricle. Mild (1+) eccentric mitral valve insufficiency. Unable to estimate RV systolic pressure due to inadequate jet, pulmonary artery pressure probably normal. Possible severe aortic stenosis; AV gradient and area may be underestimated due to poor LV function. Very limited AV opening. Recommend DESTINY or RHC to estimate pulmonary pressures. Compared to echo report dated 07/06/2017, LV Function has decreased from 60% to 25%, and aortic valve appears to have severe restriction. Ordering Physician: Ann Bravo Referring Physician: Alfonso Rushing Chi Performed By: Elina Ash, RDCS, RVT
[2018-06-03 12:10] LABS: Bedside Glucose 75 mg/dL (70-110)
--- NOTE | 2018-06-03 12:29 | PCM.PN.REN ---
Patient Problems: Active and Suspected Problems (Last Reviewed 05/31/18 @ 16:24 by Marya Rodriguez) Severe anemia (Acute) Subjective: Seen on dialysis. Denied chest pain on dialysis. Tolerated 1 L fluid removal. Received 1 unit of PRBC on dialysis this morning for drop in hemoglobin to 7.6G. Episode of chest pain last night. Cardiology consulted and discharge was put on hold. - Physical Exam General: Alert, Oriented x3, Cooperative, No apparent distress Lungs: Clear to auscultation, Diminished Cardiovascular: Regular rate Abdomen: Bowel Sounds Present, Soft, Non Tender, Non-Distended Extremities: No edema, - - Left upper arm AVF Skin: No rashes Musculoskeletal: No Muscle Wasting Psych/Mental Status: Normal Affect, Appropriate, Alert and oriented to time, place, person, mood and affect Vital Signs Temp Pulse Resp BP Pulse Ox 98.2 F 89 18 106/63 100 06/03/18 08:38 06/03/18 11:39 06/03/18 08:38 06/03/18 08:38 06/03/18 08:38 Oxygen Flow Rate (L/min) 4 Oxygen Delivery Method Nasal Cannula Weight: 86.2 kg Body Mass Index (BMI) 27.6 Intake and Output for Last 24 Hours 06/01/18 06/02/18 06/03/18 23:59 23:59 23:59 Intake Total 1670 / 1670 642 / 642 360 / 360 Output Total 3 / 3 Balance 1670 / 1670 639 / 639 360 / 360 Laboratory Tests Past 24 Hrs 06/02/18 06/02/18 06/02/18 17:03 19:45 19:45 WBC RBC Hgb 8.5 L Hct 26.2 L MCV MCH MCHC RDW RDW Differential Plt Count MPV Differential Comment Sodium Potassium Chloride Carbon Dioxide BUN Creatinine Estim Creat Clear Calc Est GFR (MDRD) Af Amer Est GFR (MDRD) Non-Af BUN/Creatinine Ratio Glucose Calcium Phosphorus Troponin I 0.444 H 0.465 H Albumin 06/02/18 06/03/18 06/03/18 23:10 08:15 08:15 WBC 12.0 H RBC 2.53 L Hgb 7.6 L Hct 23.8 L MCV 94.1 H MCH 30.0 MCHC 31.9 L RDW 20.3 H RDW Differential 67.9 H Plt Count 155 MPV 10.8 Differential Comment SCANNED Sodium 134 L Potassium 5.1 Chloride 93 L Carbon Dioxide 27.0 BUN 97 H Creatinine 9.95 H* Estim Creat Clear Calc 7.20 Est GFR (MDRD) Af Amer 7 L Est GFR (MDRD) Non-Af 6 L BUN/Creatinine Ratio 9.7 L Glucose 65 L Calcium 8.3 L Phosphorus 8.3 H Troponin I 0.494 H Albumin 2.3 L POC Glucose 06/03/18 06/03/18 06/03/18 12:05 09:37 08:07 POC Glucose 75 91 64 L 06/03/18 06/03/18 06/03/18 06:40 05:31 04:51 POC Glucose 78 111 H 64 L 06/03/18 06/03/18 06/02/18 03:13 02:30 23:46 POC Glucose 98 74 75 06/02/18 06/02/18 06/02/18 21:02 19:00 18:08 POC Glucose 101 170 H 69 L 06/02/18 06/02/18 06/02/18 17:14 16:54 11:26 POC Glucose 61 L 58 L 136 H Medical Necessity - Tobacco Use Smoking Status: Former smoker Tobacco Use: Non-smoker Assessment/Plan All Active Problems (Last Reviewed 05/31/18 @ 16:24 by Marya Rodriguez) Severe anemia (Acute) COPD with acute exacerbation (Acute) 1. ESRD due to diabetes on hemodialysis Wednesday, Wednesday, Wednesday. Seen on dialysis today. Tolerated 1 L fluid removal. Blood pressure stable. Okay for discharge from renal standpoint. Follow up with Dr. Lyons at [facility] unit. 2. GI bleed on Plavix. Started on PPI. s/p PRBC. Additional unit today on dialysis received. 3. Near syncope, hypotension likely due to profound anemia. Blood pressure stable on dialysis. 4. CAD status post PCI on Plavix. Episode of chest pain cardiology consulted. 5. Hypertension with stable blood pressure. 6. Diabetes mellitus type 2 primary care management
--- NOTE | 2018-06-03 12:49 | DIALYSIS ---
Hd x 3.5 hours complete. Tolerated tx fairly well. Uf of 1000ml. 1 unit of PRBC given during tx. Used left arm fistula. [place] removed post tx and pressure applied to sites. Epogen given as ordered. Suture removed from fistula as ordered. Report was given to DINA Amador.
[2018-06-03 13:30] LABS: Bedside Glucose 89 mg/dL (70-110)
[2018-06-03] MEDS: Calcium Acetate 667 MG Capsule 3335 MG PO (14:43)
[2018-06-03] MEDS: Furosemide 40 MG Tablet PO ×2 (14:43→21:55)
[2018-06-03] MEDS: Carvedilol 12.5 MG Tablet PO ×2 (14:43→21:55)
[2018-06-03] MEDS: Folic Acid/Vitamin B Comp W-C 1 Capsule 1 CAP PO (14:47)
[2018-06-03] MEDS: Clopidogrel Bisulfate 75 MG Tablet PO (14:47)
[2018-06-03 16:11] LABS: Bedside Glucose 153 mg/dL (70-110)
[2018-06-03] MEDS: Mirtazapine 15 MG Tablet 7.5 MG PO (21:55)
[2018-06-03] MEDS: Atorvastatin Calcium 80 MG Tablet PO (21:55)
[2018-06-03 22:05] LABS: Bedside Glucose 122 mg/dL (70-110)
[2018-06-04] VITALS (12 sets, daily range): BP systolic 100–117; BP diastolic 52–62; PULSE 79–93; RESP 17–18; TEMP 36.6–37.1; O2SAT 97–100
[2018-06-04] MEDS: Levothyroxine 25 MCG TABLET PO (05:10)
[2018-06-04] MEDS: Nitroglycerin Oint 1 INCH PACKET TRANSDERM. (05:10)
[2018-06-04] MEDS: Levothyroxine 100 MCG Tablet 200 MCG PO (05:10)
[2018-06-04 06:16] LABS: Absolute Lymphocyte Count 0.91 X10^3/ul (0.83-4.51); Basophil# 0.02 X10^3/uL; Basophil% 0.2 % (0-1); Eosinophil# 0.32 X10^3/uL; Eosinophils% 3.4 % (0-5); Hematocrit 24.7 % (40-54); Lymphocyte # 0.91 X10^3/ul (4.0); Lymphocyte % 9.7 % (19-41); Mean Corp Hgb Conc 32.4 g/gl (32-36); Mean Corpuscular Hgb 31.1 pg (27.0-32.0); Mean Corpuscular Volume 96.1 fL (80-94); Mean Platelet Vol. 11.6 fl (6.2-12.0); Monocyte% 11.7 % (0-10); Neutrophil # 7.04 X10^3/uL (2.7-7.7); Neutrophil % 74.7 % (47-70); Platelet Count 142 K/mm3 (150-450); RBC Distribution Width CV 20.1 % (11.6-14.6); Red Blood Count 2.57 M/mm3 (4.6-6.2); White Blood Count 9.4 K/mm3 (4.4-11.0)
[2018-06-04 06:16] LABS: Bedside Glucose 122 mg/dL (70-110)
[2018-06-04 06:17] LABS: Differential Indicated SCAN CRITERIA MET; POSITIVE COUNT NO; POSITIVE DIFFERENTIAL NO; POSITIVE MORPHOLOGY YES
[2018-06-04 06:30] LABS: ALB/GLOB Ratio 0.7 RATIO (0.9-2.4); AST(SGOT) 15 U/L (15-37); Alanine Aminotransfer ALT/SGPT 17 U/L (16-61); Albumin, Serum 2.2 g/dL (3.2-5.0); Alkaline Phosphatase 66 U/L (45-117); Anion Gap 12 (5-15); BUN 53 mg/dL (7-18); BUN/Creat Ratio 7.8 RATIO (10-20); Calcium,Total 8.2 mg/dL (8.5-10.1); Chloride 95 mmol/L (98-107); Creatinine, Serum 6.78 mg/dL (0.70-1.30); EST Glomerular Filtration Rate 9 mL/min (>60); Est Glom Filt Rate - Afr Amer 11 mL/min (>60); Estimated Creatinine Clearance 10.57 ml/min; Globulin 3.3 g/dL (2.2-4.2); Glucose 119 mg/dL (74-106); Magnesium 2.4 mg/dL (1.6-2.6); Potassium 4.3 mmol/L (3.5-5.1); Protein, Total 5.5 g/dL (6.4-8.2); Sodium Level 137 mmol/L (136-145)
[2018-06-04] MEDS: Calcium Acetate 667 MG Capsule 3335 MG PO (09:54)
[2018-06-04] MEDS: Carvedilol 12.5 MG Tablet PO ×2 (09:56→20:51)
[2018-06-04] MEDS: Clopidogrel Bisulfate 75 MG Tablet PO (09:56)
[2018-06-04] MEDS: Folic Acid/Vitamin B Comp W-C 1 Capsule 1 CAP PO (09:56)
[2018-06-04] MEDS: Furosemide 40 MG Tablet PO ×2 (09:56→20:51)
--- NOTE | 2018-06-04 10:54 | PCM.CONS.C ---
Problem List (1) Chest pain Status: Acute Reason for Consult Date of Consultation: 06/04/18 History of Present Illness: The patient is a 67 year old M medical history significant for coronary artery disease status post percutaneous intervention to the left circumflex obtuse marginal and ramus intermedius. He also has history of end-stage renal disease, hypertension and chronic GI blood loss. He was admitted to the hospital this time with symptomatic anemia with his hemoglobin 6.5. He has received 3 units of blood so far and his hemoglobin today is 8.0. Patient had an episode of severe chest discomfort day before yesterday. According to him, it was similar to his previous anginal episodes with anterior chest pressure radiating to the neck. The discomfort was relieved with 2 sublingual nitroglycerin. Since then, he is mostly chest pain-free. Past Medical History Allergies/Adverse Reactions: Allergies morphine Adverse Reaction (Verified 06/01/18 06:42) Itching Home Medications: Ambulatory Orders Medication Instructions Recorded Furosemide 40 mg PO BID 08/12/16 Atorvastatin Calcium 80 mg PO DAILY 07/23/17 carvedilol 12.5 mg tablet 12.5 mg PO BID 01/17/18 nitroglycerin 0.4 mg sublingual 0.4 mg SUBLINGUAL Q5-15M PRN 01/17/18 tablet Lanthanum Carbonate [Fosrenol] 1,000 mg PO TID 04/15/18 Nephro-Janel 1 tab PO DAILY 04/15/18 Clopidogrel Bisulfate [Plavix] 75 mg PO DAILY 05/15/18 Mirtazapine 7.5 mg PO QHS 05/15/18 Insulin Aspart [Novolog Flexpen] See Protocol SC DAILY PRN PRN #0 05/17/18 levothyroxine 200 mcg tablet 200 mcg PO .COMPLEX 05/31/18 Calcium Acetate [Phoslo Gel Cap] 1,334 mg PO TIDCM 06/01/18 Insulin Degludec [Tresiba 30 unit SQ BREAKFAST 06/01/18 Flextouch U-100] Bisacodyl [Dulcolax] 5 mg PO DAILY PRN PRN #30 tab 06/02/18 Past Medical History (Chronic Problems): Chronic Problems (Last Reviewed 05/31/18 @ 16:24 by Marya Rodriguez) GI bleed (Chronic) Hyperlipidemia (Chronic) Type 2 diabetes mellitus without complications (Chronic) Hypothyroidism (Chronic) Bladder cancer (Chronic) COPD (chronic obstructive pulmonary disease) (Chronic) ESRD (end stage renal disease) on dialysis (Chronic) He was evaluated at [facility] fro transplant list. He is presently inactive, see consult. 12/16/17 Presence of arteriovenous fistula for hemodialysis (Chronic) Left Arm; Balloon plasty to fistula 05/30; Dialysis 3 days per week Mon, Wed, Fri Presence of stent in coronary artery (Chronic 07/23/17) PTCA/BLAIR to prox CX, BLAIR to OM1, BLAIR to Ramus 11/27 @ [facility]; PCI /BLAIR of LCX ISR, PCI/BLAIR Ostial OM1, [id number] Ramus ISR 07/23/17;HX stents 2003 Atherosclerosis of [place] coronary artery of [place] heart without angina pectoris (Chronic) PTCA/BLAIR to prox CX, BLAIR to OM1, BLAIR to Ramus 11/27 @ [facility]; PCI /BLAIR of LCX ISR, PCI/BLAIR Ostial OM1, [id number] Ramus ISR 07/23/17;HX stents 2003 Essential (primary) hypertension (Chronic) Surgical History: angioplasty - stent, cataract - bilateral, - - AVF, bladder tumor resection - *Family History Maternal Family History: Family History (Last Reviewed 05/31/18 @ 16:24 by Marya Rodriguez) Mother Cervical cancer Father CAD (coronary artery disease) Sister Cervical cancer Colon cancer Thromboembolism History Items: Cancer Paternal Family History: Family History (Last Reviewed 05/31/18 @ 16:24 by Marya Rodriguez) Mother Cervical cancer Father CAD (coronary artery disease) Sister Cervical cancer Colon cancer Thromboembolism History Items: Heart Disease Sibling Family History: Family History (Last Reviewed 05/31/18 @ 16:24 by Marya Rodriguez) Mother Cervical cancer Father CAD (coronary artery disease) Sister Cervical cancer Colon cancer Thromboembolism History Items: Cancer Smoking Status: Former smoker Tobacco Use: Non-smoker Review of Systems - Review of Systems General: Denies: Fever, Chills Cardiovascular: Reports: Chest Discomfort at Rest Respiratory: Denies: Cough, Hemoptysis Gastrointestinal: Reports: - - History of chronic GI blood loss. Denies: Abdominal Discomfort, Jaundice Neurological: Reports: Dizziness Hematologic/ Lymphatic: Denies: Easy Brusing Objective: Vital Signs Temp Pulse Resp BP Pulse Ox 98.4 F 88 17 114/56 L 100 06/04/18 09:52 06/04/18 09:52 06/04/18 09:52 06/04/18 09:52 06/04/18 09:52 Oxygen Flow Rate (L/min) 4 Oxygen Delivery Method Nasal Cannula Weight: 85.7 kg Body Mass Index (BMI) 27.6 Intake and Output for Last 24 Hours 06/02/18 06/03/18 06/04/18 23:59 23:59 23:59 Intake Total 642 / 642 880 / 880 120 / 120 Output Total 3 / 3 0 / 0 100 / 100 Balance 639 / 639 880 / 880 General: Awake, Alert, Oriented x 3, No Acute Distress HEENT: Atraumatic Neck: Supple Lungs: Diminished [place] Bases Cardiovascular: Regular Rhythm, Normal S1, Normal S2 Abdomen: Bowel Sounds Present, Soft Neurological: No Focal Motor or Sensory Deficit Psych/Mental Status: Appropriate 06/04/18 06:00: WBC 9.4, RBC 2.57 L, Hgb 8.0 L, Hct 24.7 L, MCV 96.1 H, MCH 31.1, MCHC 32.4, RDW 20.1 H, RDW Differential 67.0 H, Plt Count 142 L, MPV 11.6, Immature Gran % (Auto) 0.300, Neut % (Auto) 74.7 H, Lymph % (Auto) 9.7 L, [place] % (Auto) 11.7 H, Eos % (Auto) 3.4, Baso % (Auto) 0.2, Absolute Neuts (auto) 7.0, Total Counted Not Reportable 06/04/18 06:00: Sodium 137, Potassium 4.3, Chloride 95 L, Carbon Dioxide 30.0, Anion Gap 12, BUN 53 H, Creatinine 6.78 H, Est GFR (MDRD) Af Amer 11 L, Est GFR (MDRD) Non-Af 9 L, BUN/Creatinine Ratio 7.8 L, Glucose 119 H, Calcium 8.2 L, Phosphorus 6.0 H, Magnesium 2.4, Total Bilirubin 0.40 Rhythm: Normal sinus rhythm EKG: Sinus tachycardia. Chronic incomplete left bundle branch block ECHO: Severe LV systolic dysfunction. Mild aortic valve stenosis Stress Test: Cardiac Cath: PCI: CT Surgery: Holter monitor: EPS: PPM: CXR: Chest CT Scan: Assessment/Plan 1. Angina pectoris. Patient has history of severe coronary artery disease with percutaneous interventions in the past. Patient has GI blood loss and his aspirin is therefore being held. Continue Plavix for now. Continue beta donavan. Increase dose as tolerated. DC Nitropaste. Start on Imdur. Medical management for now. Recommend keeping hemoglobin more than 8. Troponin elevation without any significant trend. Likely secondary to end-stage renal disease 2. History of coronary artery disease. See #1 above 3. Mild aortic stenosis. 4. Severe cardiomyopathy. LVEF 25-30%. Continue beta blockers. Consider adding hydralazine at a later stage to the nitrates 5. End-stage renal disease 6. GI blood loss. Patient has received 3 units of blood so far and his hemoglobin has only gone up from 6.5-8.0. Continue to monitor. Follow as per internal medicine
--- NOTE | 2018-06-04 10:59 | CON.PCM_ITS ---
Problem List (1) Chest pain Status: Acute Reason for Consult Date of Consultation: 06/04/18 History of Present Illness: The patient is a 67 year old M medical history significant for coronary artery disease status post percutaneous intervention to the left circumflex obtuse marginal and ramus intermedius. He also has history of end-stage renal disease , hypertension and chronic GI blood loss. He was admitted to the hospital this time with symptomatic anemia with his hemoglobin 6.5. He has received 3 units of blood so far and his hemoglobin today is 8.0. Patient had an episode of severe chest discomfort day before yesterday. According to him, it was similar to his previous anginal episodes with anterior chest pressure radiating to the neck. The discomfort was relieved with 2 sublingual nitroglycerin. Since then, he is mostly chest pain-free. Past Medical History Allergies/Adverse Reactions: Allergies morphine Adverse Reaction (Verified 06/01/18 06:42) Itching Home Medications: Ambulatory Orders Medication Instructions Recorded Furosemide 40 mg PO BID 08/12/16 Atorvastatin Calcium 80 mg PO DAILY 07/23/17 carvedilol 12.5 mg tablet 12.5 mg PO BID 01/17/18 nitroglycerin 0.4 mg sublingual 0.4 mg SUBLINGUAL Q5-15M PRN 01/17/18 tablet Lanthanum Carbonate [Fosrenol] 1,000 mg PO TID 04/15/18 Nephro-Janel 1 tab PO DAILY 04/15/18 Clopidogrel Bisulfate [Plavix] 75 mg PO DAILY 05/15/18 Mirtazapine 7.5 mg PO QHS 05/15/18 Insulin Aspart [Novolog Flexpen] See Protocol SC DAILY PRN PRN #0 05/17/18 levothyroxine 200 mcg tablet 200 mcg PO .COMPLEX 05/31/18 Calcium Acetate [Phoslo Gel Cap] 1,334 mg PO TIDCM 06/01/18 Insulin Degludec [Tresiba 30 unit SQ BREAKFAST 06/01/18 Flextouch U-100] Bisacodyl [Dulcolax] 5 mg PO DAILY PRN PRN #30 tab 06/02/18 Past Medical History (Chronic Problems): Chronic Problems (Last Reviewed 05/31/18 @ 16:24 by Marya Rodriguez) GI bleed (Chronic) Hyperlipidemia (Chronic) Type 2 diabetes mellitus without complications (Chronic) Hypothyroidism (Chronic) Bladder cancer (Chronic) COPD (chronic obstructive pulmonary disease) (Chronic) ESRD (end stage renal disease) on dialysis (Chronic) He was evaluated at [facility] fro transplant list. He is presently inactive, see consult. 12/16/17 Presence of arteriovenous fistula for hemodialysis (Chronic) Left Arm; Balloon plasty to fistula 05/30; Dialysis 3 days per week Mon, Wed, Fri Presence of stent in coronary artery (Chronic 07/23/17) PTCA/BLAIR to prox CX, BLAIR to OM1, BLAIR to Ramus 11/27 @ [facility]; PCI /BLAIR of LCX ISR , PCI/BLAIR Ostial OM1, [id number] Ramus ISR 07/23/17;HX stents 2003 Atherosclerosis of [place] coronary artery of [place] heart without angina pectoris (Chronic) PTCA/BLAIR to prox CX, BLAIR to OM1, BLAIR to Ramus 11/27 @ [facility]; PCI /BLAIR of LCX ISR , PCI/BLAIR Ostial OM1, [id number] Ramus ISR 07/23/17;HX stents 2003 Essential (primary) hypertension (Chronic) Surgical History: angioplasty - stent, cataract - bilateral, - - AVF, bladder tumor resection - *Family History Maternal Family History: Family History (Last Reviewed 05/31/18 @ 16:24 by Marya Rodriguez) Mother Cervical cancer Father CAD (coronary artery disease) Sister Cervical cancer Colon cancer Thromboembolism History Items: Cancer Paternal Family History: Family History (Last Reviewed 05/31/18 @ 16:24 by Marya Rodriguez) Mother Cervical cancer Father CAD (coronary artery disease) Sister Cervical cancer Colon cancer Thromboembolism History Items: Heart Disease Sibling Family History: Family History (Last Reviewed 05/31/18 @ 16:24 by Marya Rodriguez) Mother Cervical cancer Father CAD (coronary artery disease) Sister Cervical cancer Colon cancer Thromboembolism History Items: Cancer Smoking Status: Former smoker Tobacco Use: Non-smoker Review of Systems - Review of Systems General: Denies: Fever, Chills Cardiovascular: Reports: Chest Discomfort at Rest Respiratory: Denies: Cough, Hemoptysis Gastrointestinal: Reports: - - History of chronic GI blood loss. Denies: Abdominal Discomfort, Jaundice Neurological: Reports: Dizziness Hematologic/ Lymphatic: Denies: Easy Brusing Objective: Vital Signs Temp Pulse Resp BP Pulse Ox 98.4 F 88 17 114/56 L 100 06/04/18 09:52 06/04/18 09:52 06/04/18 09:52 06/04/18 09:52 06/04/18 09:52 Oxygen Flow Rate (L/min) 4 Oxygen Delivery Method Nasal Cannula Weight: 85.7 kg Body Mass Index (BMI) 27.6 Intake and Output for Last 24 Hours 06/02/18 06/03/18 06/04/18 23:59 23:59 23:59 Intake Total 642 / 642 880 / 880 120 / 120 Output Total 3 / 3 0 / 0 100 / 100 Balance 639 / 639 880 / 880 General: Awake, Alert, Oriented x 3, No Acute Distress HEENT: Atraumatic Neck: Supple Lungs: Diminished [place] Bases Cardiovascular: Regular Rhythm, Normal S1, Normal S2 Abdomen: Bowel Sounds Present, Soft Neurological: No Focal Motor or Sensory Deficit Psych/Mental Status: Appropriate 06/04/18 06:00: WBC 9.4, RBC 2.57 L, Hgb 8.0 L, Hct 24.7 L, MCV 96.1 H, MCH 31.1 , MCHC 32.4, RDW 20.1 H, RDW Differential 67.0 H, Plt Count 142 L, MPV 11.6, Immature Gran % (Auto) 0.300, Neut % (Auto) 74.7 H, Lymph % (Auto) 9.7 L, [place] % (Auto) 11.7 H, Eos % (Auto) 3.4, Baso % (Auto) 0.2, Absolute Neuts (auto) 7.0 , Total Counted Not Reportable 06/04/18 06:00: Sodium 137, Potassium 4.3, Chloride 95 L, Carbon Dioxide 30.0, Anion Gap 12, BUN 53 H, Creatinine 6.78 H, Est GFR (MDRD) Af Amer 11 L, Est GFR (MDRD) Non-Af 9 L, BUN/Creatinine Ratio 7.8 L, Glucose 119 H, Calcium 8.2 L, Phosphorus 6.0 H, Magnesium 2.4, Total Bilirubin 0.40 Rhythm: Normal sinus rhythm EKG: Sinus tachycardia. Chronic incomplete left bundle branch block ECHO: Severe LV systolic dysfunction. Mild aortic valve stenosis Stress Test: Cardiac Cath: PCI: CT Surgery: Holter monitor: EPS: PPM: CXR: Chest CT Scan: Assessment/Plan 1. Angina pectoris. Patient has history of severe coronary artery disease with percutaneous interventions in the past. Patient has GI blood loss and his aspirin is therefore being held. Continue Plavix for now. Continue beta donavan. Increase dose as tolerated. DC Nitropaste. Start on Imdur. Medical management for now. Recommend keeping hemoglobin more than 8. Troponin elevation without any significant trend. Likely secondary to end- stage renal disease 2. History of coronary artery disease. See #1 above 3. Mild aortic stenosis. 4. Severe cardiomyopathy. LVEF 25-30%. Continue beta blockers. Consider adding hydralazine at a later stage to the nitrates 5. End-stage renal disease 6. GI blood loss. Patient has received 3 units of blood so far and his hemoglobin has only gone up from 6.5-8.0. Continue to monitor. Follow as per internal medicine
[2018-06-04 11:51] LABS: Bedside Glucose 180 mg/dL (70-110)
[2018-06-04] MEDS: Ondansetron 4 MG/2 ML Vial IV (11:53)
[2018-06-04] MEDS: Isosorbide Mononitrate 60 MG Tablet PO (12:36)
--- NOTE | 2018-06-04 14:34 | PCM.PN.HOSP ---
Patient Problems: Active and Suspected Problems (Last Reviewed 05/31/18 @ 16:24 by Marya Rodriguez) Severe anemia (Acute) Chest pain (Acute) Subjective: Patient seen and examined. No new complains. No bleeding seen. No more chest pain. Objective: General: Alert, Oriented x3, Cooperative, No apparent distress, - - on 4 L of oxygen HEENT: Atraumatic, PERRLA, EOMI, Normocephalic Oral: Moist Mucosa Neck: Supple, No JVD, Negative Carotid Bruits Lungs: Clear to auscultation, Normal air movement Cardiovascular: Regular rate, Regular Rhythm, Normal S1, Normal S2, No murmurs Abdomen: Bowel Sounds Present, Soft, Non Tender, Non-Distended, No Hepato-splenomegaly Extremities: Edema - +1 Skin: No rashes, No breakdown Musculoskeletal: No Tenderness to Palpation of Joints or Extremities Lymphatic: No Cervical, Supraclavicular, or Inguinal Adenopathy Neurological: Cranial nerves II-XII grossly intact, Neuro grossly intact Psych/Mental Status: Normal Affect, Appropriate Vitals/I&O's: Vital Signs Temp Pulse Resp BP Pulse Ox 98.4 F 88 17 114/56 L 100 06/04/18 09:52 06/04/18 11:01 06/04/18 09:52 06/04/18 09:52 06/04/18 09:52 Oxygen Flow Rate (L/min) 4 Oxygen Delivery Method Nasal Cannula Weight: 85.7 kg Body Mass Index (BMI) 27.6 Intake and Output for Last 24 Hours 06/02/18 06/03/18 06/04/18 23:59 23:59 23:59 Intake Total 642 / 642 880 / 880 520 / 520 Output Total 3 / 3 0 / 0 100 / 100 Balance 639 / 639 880 / 880 420 / 420 Laboratory Results 06/03/18 16:04: POC Glucose 153 H 06/03/18 21:51: POC Glucose 122 H 06/04/18 06:00: WBC 9.4, RBC 2.57 L, Hgb 8.0 L, Hct 24.7 L, MCV 96.1 H, MCH 31.1, MCHC 32.4, RDW 20.1 H, RDW Differential 67.0 H, Plt Count 142 L, MPV 11.6, Immature Gran % (Auto) 0.300, Neut % (Auto) 74.7 H, Lymph % (Auto) 9.7 L, [place] % (Auto) 11.7 H, Eos % (Auto) 3.4, Baso % (Auto) 0.2, Absolute Neuts (auto) 7.0, Absolute Lymphs (auto) 0.91, Total Counted Not Reportable, Differential Comment 06/04/18 06:00: Sodium 137, Potassium 4.3, Chloride 95 L, Carbon Dioxide 30.0, Anion Gap 12, BUN 53 H, Creatinine 6.78 H, Estim Creat Clear Calc 10.57, Est GFR (MDRD) Af Amer 11 L, Est GFR (MDRD) Non-Af 9 L, BUN/Creatinine Ratio 7.8 L, Glucose 119 H, Calcium 8.2 L, Phosphorus 6.0 H, Magnesium 2.4, Total Bilirubin 0.40, AST 15, ALT 17, Alkaline Phosphatase 66, Total Protein 5.5 L, Albumin 2.2 L, Globulin 3.3, Albumin/Globulin Ratio 0.7 L 06/04/18 06:08: POC Glucose 122 H 06/04/18 11:44: POC Glucose 180 H Current Medications Albuterol/Ipratropium (Duoneb) 3 ml INHALATION Q4HWA.RT [facility] Last Admin: 06/04/18 10:55 Dose: Not Given Atorvastatin Calcium (Lipitor) 80 mg PO QHS [facility] Last Admin: 06/03/18 21:55 Dose: 80 mg Bisacodyl (Dulcolax) 5 mg PO DAILY PRN PRN PRN Reason: Constipation Calcium Acetate (Phoslo Gel Cap) 3,335 mg PO TIDCM [facility] Last Admin: 06/04/18 09:54 Dose: 3,335 mg Carvedilol (Coreg) 12.5 mg PO BID [facility] Last Admin: 06/04/18 09:56 Dose: 12.5 mg Clopidogrel Bisulfate (Plavix) 75 mg PO DAILY [facility] Last Admin: 06/04/18 09:56 Dose: 75 mg Dextrose (D50w Syringe) 0 gm IV X1 PRN; Protocol PRN Reason: Hypoglycemia Last Admin: 06/03/18 08:16 Dose: 12.5 gm Furosemide (Lasix) 40 mg PO BID [facility] Last Admin: 06/04/18 09:56 Dose: 40 mg Glucagon () 1 mg IM .X1 PRN PRN Reason: Hypoglycemia Pantoprazole Sodium 40 mg/ (Sodium Chloride) 110 mls @ 330 mls/hr IV Q12 [facility] Last Admin: 06/04/18 09:58 Dose: 330 mls/hr Isosorbide Mononitrate (Imdur) 60 mg PO DAILY [facility] Last Admin: 06/04/18 12:36 Dose: 60 mg Levothyroxine Sodium (Synthroid) 200 mcg PO DAILY@0600 [facility] Last Admin: 06/04/18 05:10 Dose: 200 mcg Levothyroxine Sodium (Synthroid) 25 mcg PO DAILY@0600 [facility] Last Admin: 06/04/18 05:10 Dose: 25 mcg Magnesium Hydroxide (Milk Of Magnesia) 30 ml PO DAILY PRN PRN Reason: Constipation Mirtazapine (Remeron) 7.5 mg PO HS [facility] Last Admin: 06/03/18 21:55 Dose: 7.5 mg Multivit/Ca Carb/B Cmplx/FA/Prenat (Nephrocaps, Renaphro) 1 capsule PO DAILY [facility] Last Admin: 06/04/18 09:56 Dose: 1 capsule Nitroglycerin (Nitrostat) 0.4 mg SUBLINGUAL Q5M PRN PRN Reason: CARDIAC/CHEST PAIN Last Admin: 06/02/18 18:20 Dose: 0.4 mg Ondansetron HCl (Zofran) 4 mg IV Q8H PRN PRN PRN Reason: NAUSEA Last Admin: 06/04/18 11:53 Dose: 4 mg Psyllium Hydrophilic Mucilloid (Metamucil) 1 packet PO DAILY PRN PRN PRN Reason: CONSTIPATION Medical Necessity - Tobacco Use Smoking Status: Former smoker Tobacco Use: Non-smoker Assessment/Plan All Active Problems (Last Reviewed 05/31/18 @ 16:24 by Marya Rodriguez) Severe anemia (Acute) Chest pain (Acute) COPD with acute exacerbation (Acute) 67 year old M with multiple comorbidities significant for ESRD on hemodialysis via left upper extremity AV fistula, chronic hypoxic respiratory failure secondary to COPD, on 4 L of oxygen at home, hypertension, type II DM, history of anemia with chronic GI loss, due for follow-up in the [facility] system for capsule endoscopy. 1. Chest pain, concerning for angina, h/o CAD s/p stents, not CABG, no more chest pain x 48 hours, 2d-echo shows severe LV systolic dysfunction, severe aortic stenosis, Troponins x 3 were 0.444, 0.465, 0.494, U consulted, started on Imdur, will continue on Plavix, will continue to monitor. 2. Episode of hypoglycemia, h/o Type 2 DM, off insulin, blood sugars better controlled as patient is starting to eat small, will continue to monitor 3. ESRD on hemodialysis, on hemodialysis- Wednesday, Wednesday, Wednesday 4. Hypertension, controlled, continue home regimen 5. Chronic respiratory failure secondary COPD, not in acute exacerbation, continue home oxygen 6. Anemia, acute on chronic, h/o GI loss, s/p 3 units packed RBC, globin remained stable at 8.0, will keep hemoglobin more than 8 7. Rest of chronic conditions including chronic GI loss, unclear etiology, history of bladder tumor, all are stable 8. DVT PPx- SCD Code Visit Inpatient E&M: 17010 Subs Hosp L2
--- NOTE | 2018-06-04 14:38 | PN_ITS ---
Patient Problems: Active and Suspected Problems (Last Reviewed 05/31/18 @ 16:24 by Marya Rodriguez) Severe anemia (Acute) Chest pain (Acute) Subjective: Patient seen and examined. No new complains. No bleeding seen. No more chest pain. Objective: General: Alert, Oriented x3, Cooperative, No apparent distress, - - on 4 L of oxygen HEENT: Atraumatic, PERRLA, EOMI, Normocephalic Oral: Moist Mucosa Neck: Supple, No JVD, Negative Carotid Bruits Lungs: Clear to auscultation, Normal air movement Cardiovascular: Regular rate, Regular Rhythm, Normal S1, Normal S2, No murmurs Abdomen: Bowel Sounds Present, Soft, Non Tender, Non-Distended, No Hepato- splenomegaly Extremities: Edema - +1 Skin: No rashes, No breakdown Musculoskeletal: No Tenderness to Palpation of Joints or Extremities Lymphatic: No Cervical, Supraclavicular, or Inguinal Adenopathy Neurological: Cranial nerves II-XII grossly intact, Neuro grossly intact Psych/Mental Status: Normal Affect, Appropriate Vitals/I&O's: Vital Signs Temp Pulse Resp BP Pulse Ox 98.4 F 88 17 114/56 L 100 06/04/18 09:52 06/04/18 11:01 06/04/18 09:52 06/04/18 09:52 06/04/18 09:52 Oxygen Flow Rate (L/min) 4 Oxygen Delivery Method Nasal Cannula Weight: 85.7 kg Body Mass Index (BMI) 27.6 Intake and Output for Last 24 Hours 06/02/18 06/03/18 06/04/18 23:59 23:59 23:59 Intake Total 642 / 642 880 / 880 520 / 520 Output Total 3 / 3 0 / 0 100 / 100 Balance 639 / 639 880 / 880 420 / 420 Laboratory Results 06/03/18 16:04: POC Glucose 153 H 06/03/18 21:51: POC Glucose 122 H 06/04/18 06:00: WBC 9.4, RBC 2.57 L, Hgb 8.0 L, Hct 24.7 L, MCV 96.1 H, MCH 31.1 , MCHC 32.4, RDW 20.1 H, RDW Differential 67.0 H, Plt Count 142 L, MPV 11.6, Immature Gran % (Auto) 0.300, Neut % (Auto) 74.7 H, Lymph % (Auto) 9.7 L, [place] % (Auto) 11.7 H, Eos % (Auto) 3.4, Baso % (Auto) 0.2, Absolute Neuts (auto) 7.0 , Absolute Lymphs (auto) 0.91, Total Counted Not Reportable, Differential Comment 06/04/18 06:00: Sodium 137, Potassium 4.3, Chloride 95 L, Carbon Dioxide 30.0, Anion Gap 12, BUN 53 H, Creatinine 6.78 H, Estim Creat Clear Calc 10.57, Est GFR (MDRD) Af Amer 11 L, Est GFR (MDRD) Non-Af 9 L, BUN/Creatinine Ratio 7.8 L, Glucose 119 H, Calcium 8.2 L, Phosphorus 6.0 H, Magnesium 2.4, Total Bilirubin 0.40, AST 15, ALT 17, Alkaline Phosphatase 66, Total Protein 5.5 L, Albumin 2.2 L, Globulin 3.3, Albumin/Globulin Ratio 0.7 L 06/04/18 06:08: POC Glucose 122 H 06/04/18 11:44: POC Glucose 180 H Current Medications Albuterol/Ipratropium (Duoneb) 3 ml INHALATION Q4HWA.RT [facility] Last Admin: 06/04/18 10:55 Dose: Not Given Atorvastatin Calcium (Lipitor) 80 mg PO QHS [facility] Last Admin: 06/03/18 21:55 Dose: 80 mg Bisacodyl (Dulcolax) 5 mg PO DAILY PRN PRN PRN Reason: Constipation Calcium Acetate (Phoslo Gel Cap) 3,335 mg PO TIDCM [facility] Last Admin: 06/04/18 09:54 Dose: 3,335 mg Carvedilol (Coreg) 12.5 mg PO BID [facility] Last Admin: 06/04/18 09:56 Dose: 12.5 mg Clopidogrel Bisulfate (Plavix) 75 mg PO DAILY [facility] Last Admin: 06/04/18 09:56 Dose: 75 mg Dextrose (D50w Syringe) 0 gm IV X1 PRN; Protocol PRN Reason: Hypoglycemia Last Admin: 06/03/18 08:16 Dose: 12.5 gm Furosemide (Lasix) 40 mg PO BID [facility] Last Admin: 06/04/18 09:56 Dose: 40 mg Glucagon () 1 mg IM .X1 PRN PRN Reason: Hypoglycemia Pantoprazole Sodium 40 mg/ (Sodium Chloride) 110 mls @ 330 mls/hr IV Q12 [facility] Last Admin: 06/04/18 09:58 Dose: 330 mls/hr Isosorbide Mononitrate (Imdur) 60 mg PO DAILY [facility] Last Admin: 06/04/18 12:36 Dose: 60 mg Levothyroxine Sodium (Synthroid) 200 mcg PO DAILY@0600 [facility] Last Admin: 06/04/18 05:10 Dose: 200 mcg Levothyroxine Sodium (Synthroid) 25 mcg PO DAILY@0600 [facility] Last Admin: 06/04/18 05:10 Dose: 25 mcg Magnesium Hydroxide (Milk Of Magnesia) 30 ml PO DAILY PRN PRN Reason: Constipation Mirtazapine (Remeron) 7.5 mg PO HS [facility] Last Admin: 06/03/18 21:55 Dose: 7.5 mg Multivit/Ca Carb/B Cmplx/FA/Prenat (Nephrocaps, Renaphro) 1 capsule PO DAILY [facility] Last Admin: 06/04/18 09:56 Dose: 1 capsule Nitroglycerin (Nitrostat) 0.4 mg SUBLINGUAL Q5M PRN PRN Reason: CARDIAC/CHEST PAIN Last Admin: 06/02/18 18:20 Dose: 0.4 mg Ondansetron HCl (Zofran) 4 mg IV Q8H PRN PRN PRN Reason: NAUSEA Last Admin: 06/04/18 11:53 Dose: 4 mg Psyllium Hydrophilic Mucilloid (Metamucil) 1 packet PO DAILY PRN PRN PRN Reason: CONSTIPATION Medical Necessity - Tobacco Use Smoking Status: Former smoker Tobacco Use: Non-smoker Assessment/Plan All Active Problems (Last Reviewed 05/31/18 @ 16:24 by Marya Rodriguez) Severe anemia (Acute) Chest pain (Acute) COPD with acute exacerbation (Acute) 67 year old M with multiple comorbidities significant for ESRD on hemodialysis via left upper extremity AV fistula, chronic hypoxic respiratory failure secondary to COPD, on 4 L of oxygen at home, hypertension, type II DM, history of anemia with chronic GI loss, due for follow-up in the [facility] system for capsule endoscopy. 1. Chest pain, concerning for angina, h/o CAD s/p stents, not CABG, no more chest pain x 48 hours, 2d-echo shows severe LV systolic dysfunction, severe aortic stenosis, Troponins x 3 were 0.444, 0.465, 0.494, U consulted, started on Imdur, will continue on Plavix, will continue to monitor. 2. Episode of hypoglycemia, h/o Type 2 DM, off insulin, blood sugars better controlled as patient is starting to eat small, will continue to monitor 3. ESRD on hemodialysis, on hemodialysis- Wednesday, Wednesday, Wednesday 4. Hypertension, controlled, continue home regimen 5. Chronic respiratory failure secondary COPD, not in acute exacerbation, continue home oxygen 6. Anemia, acute on chronic, h/o GI loss, s/p 3 units packed RBC, globin remained stable at 8.0, will keep hemoglobin more than 8 7. Rest of chronic conditions including chronic GI loss, unclear etiology, history of bladder tumor, all are stable 8. DVT PPx- SCD Code Visit Inpatient E&M: 57850 Subs Hosp L2
[2018-06-04 16:15] LABS: Bedside Glucose 202 mg/dL (70-110)
--- NOTE | 2018-06-04 18:52 | NURSING ---
Pt refusing calcium acetate. pt states he is unable to swallow the bills and takes a chewable pill for this medication at home. Jourdan ARROYO
[2018-06-04] MEDS: Mirtazapine 15 MG Tablet 7.5 MG PO (20:50)
[2018-06-04] MEDS: Atorvastatin Calcium 80 MG Tablet PO (20:51)
[2018-06-04 21:16] LABS: Bedside Glucose 261 mg/dL (70-110)
[2018-06-05] VITALS (27 sets, daily range): BP systolic 98–142; BP diastolic 42–77; PULSE 40–90; RESP 15–22; TEMP 36.4–36.6; O2SAT 92–100
[2018-06-05] MEDS: Levothyroxine 100 MCG Tablet 200 MCG PO (05:23)
[2018-06-05] MEDS: Levothyroxine 25 MCG TABLET PO (05:23)
[2018-06-05 06:56] LABS: Bedside Glucose 221 mg/dL (70-110)
[2018-06-05] MEDS: Calcium Acetate 667 MG Capsule 3335 MG PO (08:41)
[2018-06-05] MEDS: Isosorbide Mononitrate 60 MG Tablet PO (09:48)
[2018-06-05] MEDS: Carvedilol 12.5 MG Tablet PO (09:48)
[2018-06-05] MEDS: Furosemide 40 MG Tablet PO (09:49)
[2018-06-05] MEDS: Folic Acid/Vitamin B Comp W-C 1 Capsule 1 CAP PO (09:49)
[2018-06-05] MEDS: Clopidogrel Bisulfate 75 MG Tablet PO (09:49)
[2018-06-05] MEDS: Psyllium 1 PACKET PO (09:57)
--- NOTE | 2018-06-05 10:11 | DCINST_ITS ---
- Discharge Diagnoses Current Active Problems: Current Active and Chronic Problems (Last Reviewed 05/31/18 @ 16:24 by Marya Rodriguez) Severe anemia (Acute) Chest pain (Acute) GI bleed (Chronic) Reason(s) for Visit for Discharge Instructions: Chest pain, shortness of breath , weakness You will use the following diet at home:: Calorie/Carbohydrate Controlled ( specify 1200, 1400, etc), Cardiac Your food should be the consistency of: Regular Your liquids should be the consistency of: Regular/Thin Discharge Activity: Return to Normal Activity Additional Instructions: Continue to monitor your blood sugar at least 3 times a day. You are strongly advised to follow-up with doing the capsule endoscopy to find the source of the GI bleed. Follow-up with your primary care doctor in 1 -2 weeks. Allergies/Adverse Reactions: Allergies morphine Adverse Reaction (Verified 06/01/18 06:42) Itching Medications to take at Discharge Furosemide 40 mg PO BID 08/12/16 Atorvastatin Calcium 80 mg PO DAILY 07/23/17 carvedilol 12.5 mg tablet 12.5 mg PO BID 01/17/18 nitroglycerin 0.4 mg sublingual tablet 0.4 mg SUBLINGUAL Q5-15M PRN 01/17/18 Lanthanum Carbonate [Fosrenol] 1,000 mg PO TID 04/15/18 Nephro-Janel 1 tab PO DAILY 04/15/18 Clopidogrel Bisulfate [Plavix] 75 mg PO DAILY 05/15/18 Mirtazapine 7.5 mg PO QHS 05/15/18 Insulin Aspart [Novolog Flexpen] See Protocol SC DAILY PRN PRN #0 05/17/18 levothyroxine 200 mcg tablet 200 mcg PO .COMPLEX 05/31/18 Calcium Acetate [Phoslo Gel Cap] 1,334 mg PO TIDCM 06/01/18 Insulin Degludec [Tresiba Flextouch U-100] 30 unit SQ BREAKFAST 06/01/18 Bisacodyl [Dulcolax] 5 mg PO DAILY PRN PRN #30 tab 06/02/18 Isosorbide Mononitrate [Imdur] 60 mg PO DAILY #30 tab 06/05/18 The following prescriptions were given: Bisacodyl [Dulcolax] 5 mg PO DAILY PRN PRN #30 tab PRN Reason: Constipation Isosorbide Mononitrate [Imdur] 60 mg PO DAILY #30 tab Orders to be completed after discharge: Chest PA and Lateral [RAD] Location: None Selected Primary Care Physician: Alfonso Rushing Chi, MD [Primary Care Provider] - Please follow up with your Primary Care Physician in: within 2 weeks Test Results: Test results from this visit will be discussed in further detail at your follow- up appointment, if applicable. Please Follow Up With: Alfonso Rushing Chi, MD Please Follow Up With: America Lepe DO When: as scheduled in dialysis Proposed Discharge Date: 06/02/18
--- NOTE | 2018-06-05 10:23 | DS.PCM_ITS ---
Discharge Date and Diagnosis - Problem List Patient Problems: Active and Suspected Problems (Last Reviewed 05/31/18 @ 16:24 by Marya Rodriguez) Severe anemia (Acute) Chest pain (Acute) Date of Admission: 06/01/18 Date of Discharge: 06/05/18 - Primary Discharge Diagnosis Active and Suspected Problems (Last Reviewed 05/31/18 @ 16:24 by Marya Rodriguez) Severe anemia (Acute) Chest pain (Acute) - Secondary Discharge Diagnosis Chronic Problems (Last Reviewed 05/31/18 @ 16:24 by Marya Rodriguez) GI bleed (Chronic) Hyperlipidemia (Chronic) Type 2 diabetes mellitus without complications (Chronic) Hypothyroidism (Chronic) Bladder cancer (Chronic) COPD (chronic obstructive pulmonary disease) (Chronic) ESRD (end stage renal disease) on dialysis (Chronic) He was evaluated at [facility] fro transplant list. He is presently inactive, see consult. 12/16/17 Presence of arteriovenous fistula for hemodialysis (Chronic) Left Arm; Balloon plasty to fistula 05/30; Dialysis 3 days per week Mon, Wed, Wed Presence of stent in coronary artery (Chronic 07/23/17) PTCA/BLAIR to prox CX, BLAIR to OM1, BLAIR to Ramus 11/27 @ [facility]; PCI /BLAIR of LCX ISR , PCI/BLAIR Ostial OM1, [id number] Ramus ISR 07/23/17;HX stents 2003 Atherosclerosis of [place] coronary artery of [place] heart without angina pectoris (Chronic) PTCA/BLAIR to prox CX, BLAIR to OM1, BLAIR to Ramus 11/27 @ [facility]; PCI /BLAIR of LCX ISR , PCI/BLAIR Ostial OM1, [id number] Ramus ISR 07/23/17;HX stents 2003 Essential (primary) hypertension (Chronic) Hospital Course and Treatment Operations: None Summary of Care Provided: The patient is a 67 year old M [] Discharge Diet: Low fat/ Low Cholesterol, 2000 mg Sodium Diet Discharge Activity: Return to Normal Activity Home Medications: Medications to take at Discharge Furosemide 40 mg PO BID 08/12/16 Atorvastatin Calcium 80 mg PO DAILY 07/23/17 carvedilol 12.5 mg tablet 12.5 mg PO BID 01/17/18 nitroglycerin 0.4 mg sublingual tablet 0.4 mg SUBLINGUAL Q5-15M PRN 01/17/18 Lanthanum Carbonate [Fosrenol] 1,000 mg PO TID 04/15/18 Nephro-Janel 1 tab PO DAILY 04/15/18 Clopidogrel Bisulfate [Plavix] 75 mg PO DAILY 05/15/18 Mirtazapine 7.5 mg PO QHS 05/15/18 Insulin Aspart [Novolog Flexpen] See Protocol SC DAILY PRN PRN #0 05/17/18 levothyroxine 200 mcg tablet 200 mcg PO .COMPLEX 05/31/18 Calcium Acetate [Phoslo Gel Cap] 1,334 mg PO TIDCM 06/01/18 Insulin Degludec [Tresiba Flextouch U-100] 30 unit SQ BREAKFAST 06/01/18 Bisacodyl [Dulcolax] 5 mg PO DAILY PRN PRN #30 tab 06/02/18 Isosorbide Mononitrate [Imdur] 60 mg PO DAILY #30 tab 06/05/18 Following Prescrptions Were Given to Patient: Bisacodyl [Dulcolax] 5 mg PO DAILY PRN PRN #30 tab PRN Reason: Constipation Isosorbide Mononitrate [Imdur] 60 mg PO DAILY #30 tab Other Amb Orders: Chest PA and Lateral [RAD] Location: None Selected Primary Care Physician: Alfonso Rushing Chi, MD [Primary Care Provider] - Please follow up with your Primary Care Physician in: within 2 weeks Please Follow Up With: Alfonso Rushing Chi, MD Please Follow Up With: America Lepe DO When: as scheduled in dialysis Disposition: Home Medical Necessity - Tobacco Use Smoking Status: Former smoker Tobacco Use: Non-smoker
--- NOTE | 2018-06-05 11:22 | EKG12_ITS ---
Test Reason : Blood Pressure : / mmHG Vent. Rate : 119 BPM Atrial Rate : 119 BPM P-R Int : 148 ms QRS Dur : 116 ms QT Int : 334 ms P-R-T Axes : 058 027 187 degrees QTc Int : 469 ms Sinus tachycardia Possible Left atrial enlargement Incomplete left bundle branch block Marked ST abnormality, possible inferior subendocardial injury Abnormal ECG When compared with ECG of 02-JUN-2018 02:38, MANUAL COMPARISON REQUIRED, DATA IS UNCONFIRMED Confirmed by KEENAN ARECHIGA, RENATA ([id number]), fashion editor DRISS MONROY ([id number]) on 06/10/2018 2:45:40 PM Referred By: TAMY Confirmed By:RENATA HUSSEIN MD
[2018-06-05] MEDS: Albuterol 2.5 MG/3 ML VIAL.NEB. INHALATION (11:43)
[2018-06-05 11:46] LABS: Bedside Glucose 310 mg/dL (70-110)
--- NOTE | 2018-06-05 11:49 | PCM.PN.HOSP ---
Patient Problems: Active and Suspected Problems (Last Reviewed 05/31/18 @ 16:24 by Marya Rodriguez) Severe anemia (Acute) Chest pain (Acute) Subjective: Patient was seen and examined earlier. He was feeling better. No acute events over the last 24-48 hours. Denied chest pain on ambulating in the room. Denied dizziness and SOB. Blood sugars have started to rise up. Physical therapy walked with the patient and he started to complains of severe chest discomfort, was diaphoretic, short of breath. A rapid response was called. He was brought to the bed, BS was reported 310. Initial BP ~69/40. Patient was brought back to bed, had 500mls NS bolus. BP improved to Systolic 92 as infusion was ongoing. EKG shows no acute or new ST-T changes. Patient was 98% on 6 L oxygen. Patient was slightly disoriented, sweating profusely. Decision was made to transfer him to the ICU for closer monitoring. Discussed his code status again with the as well as the goals of care; she still wants Full code, wants to discuss with him in ICU about hospice and change of code status. Vitals/I&O's: Vital Signs Temp Pulse Resp BP Pulse Ox 97.8 F 74 20 H 103/56 L 100 06/05/18 08:37 06/05/18 11:15 06/05/18 11:15 06/05/18 08:37 06/05/18 08:37 Oxygen Flow Rate (L/min) 4 Oxygen Delivery Method Nasal Cannula Weight: 85.1 kg Body Mass Index (BMI) 27.6 Intake and Output for Last 24 Hours 06/03/18 06/04/18 06/05/18 23:59 23:59 23:59 Intake Total 880 / 880 1209 / 1209 50 / 50 Output Total 0 / 0 100 / 100 Balance 880 / 880 1109 / 1109 50 / 50 General: Alert, Cooperative, Confused, - - ill-looking, diaphoretic, pale HEENT: Atraumatic, PERRLA, EOMI, Normocephalic Oral: Dry Mucosa Neck: Supple Lungs: Clear to auscultation, Normal air movement Cardiovascular: Regular rate, Regular Rhythm, Normal S1, Normal S2, No murmurs Abdomen: Bowel Sounds Present, Soft, Non Tender, Non-Distended, No Hepato-splenomegaly Extremities: No edema Skin: No rashes, No breakdown Musculoskeletal: No Tenderness to Palpation of Joints or Extremities Lymphatic: No Cervical, Supraclavicular, or Inguinal Adenopathy Neurological: Cranial nerves II-XII grossly intact, Neuro grossly intact Psych/Mental Status: Normal Affect, Appropriate Laboratory Results 06/04/18 11:44: POC Glucose 180 H 06/04/18 16:11: POC Glucose 202 H 06/04/18 21:08: POC Glucose 261 H 06/05/18 06:50: POC Glucose 221 H 06/05/18 11:13: POC Glucose 310 H Current Medications Albuterol Sulfate (Ventolin Aerosols) 2.5 mg INHALATION X1 ONE Stop: 06/05/18 11:44 Albuterol/Ipratropium (Duoneb) 3 ml INHALATION Q4HWA.RT [facility] Last Admin: 06/05/18 06:49 Dose: Not Given Atorvastatin Calcium (Lipitor) 80 mg PO QHS [facility] Last Admin: 06/04/18 20:51 Dose: 80 mg Bisacodyl (Dulcolax) 5 mg PO DAILY PRN PRN PRN Reason: Constipation Calcium Acetate (Phoslo Gel Cap) 3,335 mg PO TIDCM [facility] Last Admin: 06/05/18 08:41 Dose: 3,335 mg Carvedilol (Coreg) 12.5 mg PO BID [facility] Last Admin: 06/05/18 09:48 Dose: 12.5 mg Clopidogrel Bisulfate (Plavix) 75 mg PO DAILY [facility] Last Admin: 06/05/18 09:49 Dose: 75 mg Dextrose (D50w Syringe) 0 gm IV X1 PRN; Protocol PRN Reason: Hypoglycemia Last Admin: 06/03/18 08:16 Dose: 12.5 gm Furosemide (Lasix) 40 mg PO BID [facility] Last Admin: 06/05/18 09:49 Dose: 40 mg Glucagon () 1 mg IM .X1 PRN PRN Reason: Hypoglycemia Pantoprazole Sodium 40 mg/ (Sodium Chloride) 110 mls @ 330 mls/hr IV Q12 [facility] Last Admin: 06/05/18 09:49 Dose: 330 mls/hr Isosorbide Mononitrate (Imdur) 60 mg PO DAILY [facility] Last Admin: 06/05/18 09:48 Dose: 60 mg Levothyroxine Sodium (Synthroid) 200 mcg PO DAILY@0600 [facility] Last Admin: 06/05/18 05:23 Dose: 200 mcg Levothyroxine Sodium (Synthroid) 25 mcg PO DAILY@0600 [facility] Last Admin: 06/05/18 05:23 Dose: 25 mcg Magnesium Hydroxide (Milk Of Magnesia) 30 ml PO DAILY PRN PRN Reason: Constipation Mirtazapine (Remeron) 7.5 mg PO HS [facility] Last Admin: 06/04/18 20:50 Dose: 7.5 mg Multivit/Ca Carb/B Cmplx/FA/Prenat (Nephrocaps, Renaphro) 1 capsule PO DAILY [facility] Last Admin: 06/05/18 09:49 Dose: 1 capsule Nitroglycerin (Nitrostat) 0.4 mg SUBLINGUAL Q5M PRN PRN Reason: CARDIAC/CHEST PAIN Last Admin: 06/02/18 18:20 Dose: 0.4 mg Ondansetron HCl (Zofran) 4 mg IV Q8H PRN PRN PRN Reason: NAUSEA Last Admin: 06/04/18 11:53 Dose: 4 mg Psyllium Hydrophilic Mucilloid (Metamucil) 1 packet PO DAILY PRN PRN PRN Reason: CONSTIPATION Last Admin: 06/05/18 09:57 Dose: 1 packet Medical Necessity - Tobacco Use Smoking Status: Former smoker Tobacco Use: Non-smoker Assessment/Plan All Active Problems (Last Reviewed 05/31/18 @ 16:24 by Marya Rodriguez) Severe anemia (Acute) Chest pain (Acute) COPD with acute exacerbation (Acute) 67 year old M with multiple comorbidities significant for ESRD on hemodialysis via left upper extremity AV fistula, chronic hypoxic respiratory failure secondary to COPD, on 4 L of oxygen at home, hypertension, type II DM, history of anemia with chronic GI loss, due for follow-up in the [facility] for capsule endoscopy. 1. Recurrent angina, h/o CAD s/p stents, Last cath was here in [facility] in 2017 which showed a critical in-stent restenosis of his left circumflex, obtuse marginal #1 and ramus intermedius He underwent a repeat BLAIR to his left circumflex, OM #1 and ballon angioplasty to his in-stent restenosis of his ramus intermedius. 2d-echo in this admission shows EF 25-30% , severe aortic stenosis, Has had 2 episodes of symptomatic chest pain, resulting in cancelling of discharge x 2, Cardiology consulted, Imdur started. With current episode of angina, will trend troponins, cannot start on Heparin or aspirin because of GI bleed, Discussed with Dr. Olivas, will start Ranolazine 500mg BID. He might need a cardiac cath to further elucidate his symptoms. 2. Episode of hypoglycemia, h/o Type 2 DM, off insulin, blood sugars are better, slightly elevated, will continue on ISS with accucheks. 3. Anemia, acute on chronic, h/o GI loss, unclear etiology, due for capsule endoscopy s/p 3 units packed RBC, last Hb was 8.0, will repeat CBCD in light of recurrent angina. 4. ESRD on hemodialysis, on hemodialysis- Wednesday, Wednesday, Wednesday 5. Hypertension, controlled, continue home regimen 6. Acute on chronic respiratory failure, h/o COPD, likely acute exacerbation related to his angina, recent pleural effusions noted on previous chest x-ray. Will continue on oxygen therapy to keep SpO2>94%, will get a chest x-ray 7. DVT PPx- SCD Code status: Discussed patient's full health status with ; she is aware of the current state of his heart, acute on chronic GI loss, etiology unknown Patient cannot safely be heparinised or aspirin added to his plavix. She wants to re-discuss this with the patient because they had discussed this but not concluded. Time spent going over code status and goals of care, coordinating his care to ICU is 20 minutes Code Visit Inpatient E&M: 02562 Subs Hosp L3 Procedures: 77459 Advncd Care Plan 30 Min
--- NOTE | 2018-06-05 11:56 | PN_ITS ---
Patient Problems: Active and Suspected Problems (Last Reviewed 05/31/18 @ 16:24 by Marya Rodriguez) Severe anemia (Acute) Chest pain (Acute) Subjective: Patient was seen and examined earlier. He was feeling better. No acute events over the last 24-48 hours. Denied chest pain on ambulating in the room. Denied dizziness and SOB. Blood sugars have started to rise up. Physical therapy walked with the patient and he started to complains of severe chest discomfort, was diaphoretic, short of breath. A rapid response was called. He was brought to the bed, BS was reported 310. Initial BP ~69/40. Patient was brought back to bed, had 500mls NS bolus. BP improved to Systolic 92 as infusion was ongoing. EKG shows no acute or new ST-T changes. Patient was 98% on 6 L oxygen. Patient was slightly disoriented, sweating profusely. Decision was made to transfer him to the ICU for closer monitoring. Discussed his code status again with the as well as the goals of care; she still wants Full code, wants to discuss with him in ICU about hospice and change of code status. Vitals/I&O's: Vital Signs Temp Pulse Resp BP Pulse Ox 97.8 F 74 20 H 103/56 L 100 06/05/18 08:37 06/05/18 11:15 06/05/18 11:15 06/05/18 08:37 06/05/18 08:37 Oxygen Flow Rate (L/min) 4 Oxygen Delivery Method Nasal Cannula Weight: 85.1 kg Body Mass Index (BMI) 27.6 Intake and Output for Last 24 Hours 06/03/18 06/04/18 06/05/18 23:59 23:59 23:59 Intake Total 880 / 880 1209 / 1209 50 / 50 Output Total 0 / 0 100 / 100 Balance 880 / 880 1109 / 1109 50 / 50 General: Alert, Cooperative, Confused, - - ill-looking, diaphoretic, pale HEENT: Atraumatic, PERRLA, EOMI, Normocephalic Oral: Dry Mucosa Neck: Supple Lungs: Clear to auscultation, Normal air movement Cardiovascular: Regular rate, Regular Rhythm, Normal S1, Normal S2, No murmurs Abdomen: Bowel Sounds Present, Soft, Non Tender, Non-Distended, No Hepato- splenomegaly Extremities: No edema Skin: No rashes, No breakdown Musculoskeletal: No Tenderness to Palpation of Joints or Extremities Lymphatic: No Cervical, Supraclavicular, or Inguinal Adenopathy Neurological: Cranial nerves II-XII grossly intact, Neuro grossly intact Psych/Mental Status: Normal Affect, Appropriate Laboratory Results 06/04/18 11:44: POC Glucose 180 H 06/04/18 16:11: POC Glucose 202 H 06/04/18 21:08: POC Glucose 261 H 06/05/18 06:50: POC Glucose 221 H 06/05/18 11:13: POC Glucose 310 H Current Medications Albuterol Sulfate (Ventolin Aerosols) 2.5 mg INHALATION X1 ONE Stop: 06/05/18 11:44 Albuterol/Ipratropium (Duoneb) 3 ml INHALATION Q4HWA.RT [facility] Last Admin: 06/05/18 06:49 Dose: Not Given Atorvastatin Calcium (Lipitor) 80 mg PO QHS [facility] Last Admin: 06/04/18 20:51 Dose: 80 mg Bisacodyl (Dulcolax) 5 mg PO DAILY PRN PRN PRN Reason: Constipation Calcium Acetate (Phoslo Gel Cap) 3,335 mg PO TIDCM [facility] Last Admin: 06/05/18 08:41 Dose: 3,335 mg Carvedilol (Coreg) 12.5 mg PO BID [facility] Last Admin: 06/05/18 09:48 Dose: 12.5 mg Clopidogrel Bisulfate (Plavix) 75 mg PO DAILY [facility] Last Admin: 06/05/18 09:49 Dose: 75 mg Dextrose (D50w Syringe) 0 gm IV X1 PRN; Protocol PRN Reason: Hypoglycemia Last Admin: 06/03/18 08:16 Dose: 12.5 gm Furosemide (Lasix) 40 mg PO BID [facility] Last Admin: 06/05/18 09:49 Dose: 40 mg Glucagon () 1 mg IM .X1 PRN PRN Reason: Hypoglycemia Pantoprazole Sodium 40 mg/ (Sodium Chloride) 110 mls @ 330 mls/hr IV Q12 [facility] Last Admin: 06/05/18 09:49 Dose: 330 mls/hr Isosorbide Mononitrate (Imdur) 60 mg PO DAILY [facility] Last Admin: 06/05/18 09:48 Dose: 60 mg Levothyroxine Sodium (Synthroid) 200 mcg PO DAILY@0600 [facility] Last Admin: 06/05/18 05:23 Dose: 200 mcg Levothyroxine Sodium (Synthroid) 25 mcg PO DAILY@0600 [facility] Last Admin: 06/05/18 05:23 Dose: 25 mcg Magnesium Hydroxide (Milk Of Magnesia) 30 ml PO DAILY PRN PRN Reason: Constipation Mirtazapine (Remeron) 7.5 mg PO HS [facility] Last Admin: 06/04/18 20:50 Dose: 7.5 mg Multivit/Ca Carb/B Cmplx/FA/Prenat (Nephrocaps, Renaphro) 1 capsule PO DAILY [facility] Last Admin: 06/05/18 09:49 Dose: 1 capsule Nitroglycerin (Nitrostat) 0.4 mg SUBLINGUAL Q5M PRN PRN Reason: CARDIAC/CHEST PAIN Last Admin: 06/02/18 18:20 Dose: 0.4 mg Ondansetron HCl (Zofran) 4 mg IV Q8H PRN PRN PRN Reason: NAUSEA Last Admin: 06/04/18 11:53 Dose: 4 mg Psyllium Hydrophilic Mucilloid (Metamucil) 1 packet PO DAILY PRN PRN PRN Reason: CONSTIPATION Last Admin: 06/05/18 09:57 Dose: 1 packet Medical Necessity - Tobacco Use Smoking Status: Former smoker Tobacco Use: Non-smoker Assessment/Plan All Active Problems (Last Reviewed 05/31/18 @ 16:24 by Marya Rodriguez) Severe anemia (Acute) Chest pain (Acute) COPD with acute exacerbation (Acute) 67 year old M with multiple comorbidities significant for ESRD on hemodialysis via left upper extremity AV fistula, chronic hypoxic respiratory failure secondary to COPD, on 4 L of oxygen at home, hypertension, type II DM, history of anemia with chronic GI loss, due for follow-up in the [facility] for capsule endoscopy. 1. Recurrent angina, h/o CAD s/p stents, Last cath was here in [facility] in 2017 which showed a critical in-stent restenosis of his left circumflex, obtuse marginal #1 and ramus intermedius He underwent a repeat BLAIR to his left circumflex, OM #1 and ballon angioplasty to his in-stent restenosis of his ramus intermedius. 2d-echo in this admission shows EF 25-30% , severe aortic stenosis, Has had 2 episodes of symptomatic chest pain, resulting in cancelling of discharge x 2, Cardiology consulted, Imdur started. With current episode of angina, will trend troponins, cannot start on Heparin or aspirin because of GI bleed, Discussed with Dr. Olivas, will start Ranolazine 500mg BID. He might need a cardiac cath to further elucidate his symptoms. 2. Episode of hypoglycemia, h/o Type 2 DM, off insulin, blood sugars are better , slightly elevated, will continue on ISS with accucheks. 3. Anemia, acute on chronic, h/o GI loss, unclear etiology, due for capsule endoscopy s/p 3 units packed RBC, last Hb was 8.0, will repeat CBCD in light of recurrent angina. 4. ESRD on hemodialysis, on hemodialysis- Wednesday, Wednesday, Wednesday 5. Hypertension, controlled, continue home regimen 6. Acute on chronic respiratory failure, h/o COPD, likely acute exacerbation related to his angina, recent pleural effusions noted on previous chest x-ray. Will continue on oxygen therapy to keep SpO2>94%, will get a chest x-ray 7. DVT PPx- SCD Code status: Discussed patient's full health status with ; she is aware of the current state of his heart, acute on chronic GI loss, etiology unknown Patient cannot safely be heparinised or aspirin added to his plavix. She wants to re-discuss this with the patient because they had discussed this but not concluded. Time spent going over code status and goals of care, coordinating his care to ICU is 20 minutes Code Visit Inpatient E&M: 14179 Subs Hosp L3 Procedures: 96388 Advncd Care Plan 30 Min
[2018-06-05 12:03] LABS: Absolute Lymphocyte Count 0.94 X10^3/ul (0.83-4.51); Absolute Neutrophil Count 6.8 X10^3/uL (2.0-7.7); Basophil# 0.03 X10^3/uL; Basophil% 0.3 % (0-1); Differential Indicated SCAN CRITERIA MET; Eosinophil# 0.34 X10^3/uL; Eosinophils% 3.8 % (0-5); Hematocrit 25.3 % (40-54); Hemoglobin 7.9 g/dl (13.0-16.5); Lymphocyte # 0.94 X10^3/ul (4.0); Lymphocyte % 10.4 % (19-41); Mean Corp Hgb Conc 31.2 g/gl (32-36); Mean Corpuscular Hgb 30.4 pg (27.0-32.0); Mean Corpuscular Volume 97.3 fL (80-94); Mean Platelet Vol. 11.4 fl (6.2-12.0); Monocyte# 0.86 X10^3/uL; Monocyte% 9.5 % (0-10); Neutrophil # 6.84 X10^3/uL (2.7-7.7); Neutrophil % 75.7 % (47-70); POSITIVE COUNT NO; POSITIVE DIFFERENTIAL NO; POSITIVE MORPHOLOGY YES; Platelet Count 180 K/mm3 (150-450); RBC Distribution Width CV 19.3 % (11.6-14.6)
[2018-06-05] MEDS: Ondansetron 4 MG/2 ML Vial IV (12:05)
--- NOTE | 2018-06-05 12:06 | CT_ITS ---
STUDY: CTA CHEST REASON FOR EXAM: Male, 67 years old. Shortness of breath on dialysis history of bladder cancer RADIATION DOSAGE (If Supplied By Facility): CTDIvol = ( 19.68 ) mGy, DLP = ( 695.20 ) mGycm TECHNIQUE: The examination was performed with the intravenous administration of 75ML ml of Isovue 370 contrast material. Post-processing of the angiographic images was performed, with multiplanar reformation and 3D reconstruction. Individualized dose optimization techniques were used for this CT. COMPARISON: CT scan abdomen lung bases June 03, 2018, prior chest x-ray June 02, 2018., CT chest May 15, 2018. FINDINGS: Normal enhancement of the main pulmonary artery and right and left pulmonary arteries. Normal enhancement of the bilateral peripheral pulmonary arteries. There is no demonstrated pulmonary embolism. There is atherosclerotic calcification of the aortic arch with tortuosity. There is no demonstrated aortic dissection. There is mild cardiac enlargement there are coronary calcifications. There are a few nonspecific subcarinal lymph nodes. Normal hilar regions. Normal visualized trachea and bronchi. Again noted are moderate to large bilateral effusions. Pleural fluid is tracking to the posterior aspect of the left upper lobe similar to the prior study. There is lower lobe atelectasis. There is a persistent focus of groundglass opacity within the right lower lobe with a rounded border measuring 1.1 cm. Normal chest wall structures. There are degenerative changes of thoracic spine. There is a partially visualized mildly edematous appearance of the soft tissue in the manny hepatis. CT/CTA Chest W/WO Contrast IMPRESSION: Large bilateral effusions persisting since multiple prior studies. Atelectasis. Small stable focus of 1 cm groundglass opacity within the right lower lobe. Right upper Medial based smaller opacities measuring 2.4 and 8 mm , these are smaller than the prior study May 15, 2018. Consider inflammatory and/or potentially metastatic foci. No visualized pulmonary embolism. No visualized aortic dissection. Partially visualized mild edema in the soft tissues of the manny hepatis. Consider early trace ascites developing inflammation possible pancreatitis. Electronically Signed: Brenda Hale MD at 13:35 EDT Tel , Service support ,
[2018-06-05 12:19] LABS: Ferritin 580 ng/mL (26-388); Iron 19 ug/dL (65-175); Iron Binding Capacity,Total 121 ug/dL (250-450); PERCENT IRON SATURATION 15.7 % (15.0-55.0)
[2018-06-05 12:22] LABS: Anisocytosis 1+; Hypochromasia 2+; Platelet Estimate ADEQUATE (ADEQ); Polychromasia RARE
--- NOTE | 2018-06-05 12:28 | NURSING ---
Patient was up with therapy on a walk and c/o dizziness and SOB. This RN was going to d/c patient when therapy came and told me patient wasn't feeling well. MD notified. This RN and MD walked back to patient's room where he was sitting in chair SOB and diaphoretic. Vitals taken while [employer] was called. BP 69/40's. Patient moved to bed. NS bolus. BP up to 90's systolic while fluids being infused. transferred patient to ICU.
--- NOTE | 2018-06-05 12:46 | RAD_ITS ---
STUDY: X-RAY CHEST REASON FOR EXAM: Male, 67 years old. Shortness of breath and dyspnea TECHNIQUE: Single AP portable view of the chest. COMPARISON: 06/02/2018 FINDINGS: There is an overall pattern of groundglass opacity lower lobe opacity left greater than right peribronchial thickening. There is mild to moderate cardiac enlargement. Normal mediastinum and александр. Normal visualized pulmonary arteries. There is atherosclerotic calcification of the aortic arch with tortuosity. Normal visualized thoracic spine. Normal visualized ribs, clavicles, and shoulders. There is no demonstrated abnormality of the visualized soft tissue structures of the upper abdomen. RAD/Chest 1 View (Portable) IMPRESSION: Findings are compatible with bilateral effusions and atelectasis findings suspicious for possible pulmonary edema. Cardiomegaly. Electronically Signed: Brenda Hale MD at 15:59 EDT Tel , Service support ,
[2018-06-05] MEDS: Ipratropium/Albuterol Sulfate 3 ML AMPUL.NEB INHALATION ×2 (15:18→19:13)
[2018-06-05 16:26] LABS: Bedside Glucose 325 mg/dL (70-110)
[2018-06-05] MEDS: Insulin Lispro 100 UNIT/ML INSULN.PEN 10 UNIT SC (18:11)
[2018-06-05] MEDS: Ferrous Sulfate 325 MG Tablet PO (18:16)
[2018-06-05] MEDS: Mirtazapine 15 MG Tablet 7.5 MG PO (21:35)
[2018-06-05] MEDS: Atorvastatin Calcium 80 MG Tablet PO (21:35)
[2018-06-05] MEDS: Ranolazine 500 MG Tablet PO (21:35)
[2018-06-05] MEDS: Insulin Lispro 100 UNIT/ML INSULN.PEN SQ (21:36)
[2018-06-05] MEDS: 0.9% NaCl Peripheral Flush Adult/Peds IV (21:38)
[2018-06-05 21:50] LABS: Bedside Glucose 337 mg/dL (70-110)
[2018-06-05] MEDS: MELATONIN 3 MG TABLET PO (22:41)
[2018-06-06] VITALS (40 sets, daily range): BP systolic 91–159; BP diastolic 50–105; PULSE 65–125; RESP 16–22; TEMP 36.3–36.8; O2SAT 95–100
[2018-06-06 04:42] LABS: Absolute Neutrophil Count 6.5 X10^3/uL (2.0-7.7); Basophil# 0.02 X10^3/uL; Basophil% 0.2 % (0-1); Eosinophil# 0.38 X10^3/uL; Eosinophils% 4.5 % (0-5); Hematocrit 22.7 % (40-54); Hemoglobin 7.3 g/dl (13.0-16.5); Lymphocyte % 9.4 % (19-41); Mean Corp Hgb Conc 32.2 g/gl (32-36); Mean Corpuscular Hgb 30.8 pg (27.0-32.0); Mean Corpuscular Volume 95.8 fL (80-94); Mean Platelet Vol. 11.4 fl (6.2-12.0); Monocyte# 0.77 X10^3/uL; Neutrophil % 76.4 % (47-70); Platelet Count 193 K/mm3 (150-450); RBC Distribution Width CV 18.7 % (11.6-14.6); RBC Distribution Width SD 62.4 fl (35.1-43.9); Red Blood Count 2.37 M/mm3 (4.6-6.2); White Blood Count 8.5 K/mm3 (4.4-11.0)
[2018-06-06 04:57] LABS: POSITIVE COUNT NO; POSITIVE DIFFERENTIAL NO; POSITIVE MORPHOLOGY NO
[2018-06-06 05:06] LABS: Anion Gap 13 (5-15); BUN 75 mg/dL (7-18); BUN/Creat Ratio 7.7 RATIO (10-20); Calcium,Total 8.1 mg/dL (8.5-10.1); Chloride 93 mmol/L (98-107); Creatinine, Serum 9.68 mg/dL (0.70-1.30); EST Glomerular Filtration Rate 6 mL/min (>60); Est Glom Filt Rate - Afr Amer 7 mL/min (>60); Estimated Creatinine Clearance 7.41 ml/min; Glucose 274 mg/dL (74-106); Magnesium 2.6 mg/dL (1.6-2.6); Phosphorus 7.5 mg/dL (2.5-4.9); Potassium 4.9 mmol/L (3.5-5.1); Sodium Level 132 mmol/L (136-145)
[2018-06-06] MEDS: Levothyroxine 100 MCG Tablet 200 MCG PO (05:32)
[2018-06-06] MEDS: Levothyroxine 25 MCG TABLET PO (05:32)
[2018-06-06] MEDS: Ipratropium/Albuterol Sulfate 3 ML AMPUL.NEB INHALATION ×2 (06:56→10:53)
[2018-06-06 07:11] LABS: Bedside Glucose 265 mg/dL (70-110)
[2018-06-06] MEDS: Insulin Lispro 100 UNIT/ML INSULN.PEN SQ ×2 (08:29→11:40)
[2018-06-06] MEDS: Ferrous Sulfate 325 MG Tablet PO ×2 (08:30→21:39)
[2018-06-06] MEDS: Calcium Acetate 667 MG Capsule 3335 MG PO (09:36)
[2018-06-06] MEDS: Carvedilol 12.5 MG Tablet PO ×2 (09:36→21:40)
[2018-06-06] MEDS: Folic Acid/Vitamin B Comp W-C 1 Capsule 1 CAP PO (09:37)
[2018-06-06] MEDS: Isosorbide Mononitrate 60 MG Tablet PO (09:37)
[2018-06-06] MEDS: Clopidogrel Bisulfate 75 MG Tablet PO (09:37)
[2018-06-06] MEDS: Ranolazine 500 MG Tablet PO ×2 (09:37→21:41)
[2018-06-06] MEDS: Furosemide 40 MG Tablet PO ×2 (09:37→21:41)
--- NOTE | 2018-06-06 09:45 | PCM.PN.CARD ---
Subjectve: Denies any complaints today. Patient was being discharged home yesterday. He however had an episode of acute onset shortness of breath and chest discomfort. Subsequently the discharge was canceled. Objective: Vital Signs Temp Pulse Resp BP Pulse Ox 97.7 F L 84 16 114/70 100 06/06/18 08:00 06/06/18 09:00 06/06/18 09:00 06/06/18 09:00 06/06/18 09:00 Oxygen Flow Rate (L/min) 4 Oxygen Delivery Method Nasal Cannula Weight: 91.6 kg Body Mass Index (BMI) 27.6 Intake and Output for Last 24 Hours 06/04/18 06/05/18 06/06/18 23:59 23:59 23:59 Intake Total 1209 / 1209 550 / 550 503 / 503 Output Total 100 / 100 100 / 100 Balance 1109 / 1109 450 / 450 503 / 503 General: Awake, Alert, Oriented x 3, No Acute Distress HEENT: Atraumatic Oral: Moist Mucosa Neck: Supple Lungs: Diminished Zenon Bases Cardiovascular: Regular Rhythm, Normal S1, Normal S2 Extremities: - - Trace ankle edema 06/05/18 11:50: Iron 19 L, TIBC 121 L, Iron Saturation 15.7, Ferritin 580 H 06/05/18 11:50: WBC 9.0, RBC 2.60 L, Hgb 7.9 L, Hct 25.3 L, MCV 97.3 H, MCH 30.4, MCHC 31.2 L, RDW 19.3 H, RDW Differential 66.0 H, Plt Count 180, MPV 11.4, Immature Gran % (Auto) 0.300, Neut % (Auto) 75.7 H, Lymph % (Auto) 10.4 L, [place] % (Auto) 9.5, Eos % (Auto) 3.8, Baso % (Auto) 0.3, Absolute Neuts (auto) 6.8, Total Counted Not Reportable 06/05/18 11:50: Troponin I 0.180 H 06/05/18 14:30: Troponin I 0.196 H 06/05/18 18:00: Troponin I 0.188 H 06/06/18 04:30: WBC 8.5, RBC 2.37 L, Hgb 7.3 L, Hct 22.7 L, MCV 95.8 H, MCH 30.8, MCHC 32.2, RDW 18.7 H, RDW Differential 62.4 H, Plt Count 193, MPV 11.4, Immature Gran % (Auto) 0.500, Neut % (Auto) 76.4 H, Lymph % (Auto) 9.4 L, [place] % (Auto) 9.0, Eos % (Auto) 4.5, Baso % (Auto) 0.2, Absolute Neuts (auto) 6.5, Total Counted Not Reportable 06/06/18 04:30: Sodium 132 L, Potassium 4.9, Chloride 93 L, Carbon Dioxide 26.0, Anion Gap 13, BUN 75 H, Creatinine 9.68 H*, Est GFR (MDRD) Af Amer 7 L, Est GFR (MDRD) Non-Af 6 L, BUN/Creatinine Ratio 7.7 L, Glucose 274 H, Calcium 8.1 L, Phosphorus 7.5 H, Magnesium 2.6 Rhythm: Normal sinus rhythm EKG: Sinus bradycardia ECHO: Stress Test: Cardiac Cath: PCI: CT Surgery: Holter monitor: EPS: PPM: CXR: Chest CT Scan: Medical Necessity - Tobacco Use Smoking Status: Former smoker Tobacco Use: Non-smoker Assessment/Plan 1. Unstable angina pectoris. Started on Ranexa yesterday. He has been having episodes of chest discomfort. Discussed with him and his family in detail. Recommended coronary angiography to evaluate his anatomy and possible revascularization. Of course the fact accounting into decision-making for any revascularization would be his anemia. His hemoglobin continues going down. 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 Lund 2. History of coronary artery disease. See #1 above 3. Mild aortic stenosis. Suggestion that it may be moderately severe per echo report. For left heart cath in the morning 4. Severe cardiomyopathy. LVEF 25-30%. Continue beta blockers. Consider adding hydralazine at a later stage to the nitrates 5. End-stage renal disease 6. GI blood loss. Patient's hemoglobin is again dropped this morning. Manage as per internal medicine/GI
--- NOTE | 2018-06-06 09:51 | PN.CARD_ITS ---
Subjectve: Denies any complaints today. Patient was being discharged home yesterday. He however had an episode of acute onset shortness of breath and chest discomfort. Subsequently the discharge was canceled. Objective: Vital Signs Temp Pulse Resp BP Pulse Ox 97.7 F L 84 16 114/70 100 06/06/18 08:00 06/06/18 09:00 06/06/18 09:00 06/06/18 09:00 06/06/18 09:00 Oxygen Flow Rate (L/min) 4 Oxygen Delivery Method Nasal Cannula Weight: 91.6 kg Body Mass Index (BMI) 27.6 Intake and Output for Last 24 Hours 06/04/18 06/05/18 06/06/18 23:59 23:59 23:59 Intake Total 1209 / 1209 550 / 550 503 / 503 Output Total 100 / 100 100 / 100 Balance 1109 / 1109 450 / 450 503 / 503 General: Awake, Alert, Oriented x 3, No Acute Distress HEENT: Atraumatic Oral: Moist Mucosa Neck: Supple Lungs: Diminished [place] Bases Cardiovascular: Regular Rhythm, Normal S1, Normal S2 Extremities: - - Trace ankle edema 06/05/18 11:50: Iron 19 L, TIBC 121 L, Iron Saturation 15.7, Ferritin 580 H 06/05/18 11:50: WBC 9.0, RBC 2.60 L, Hgb 7.9 L, Hct 25.3 L, MCV 97.3 H, MCH 30.4 , MCHC 31.2 L, RDW 19.3 H, RDW Differential 66.0 H, Plt Count 180, MPV 11.4, Immature Gran % (Auto) 0.300, Neut % (Auto) 75.7 H, Lymph % (Auto) 10.4 L, [place] % (Auto) 9.5, Eos % (Auto) 3.8, Baso % (Auto) 0.3, Absolute Neuts (auto) 6.8, Total Counted Not Reportable 06/05/18 11:50: Troponin I 0.180 H 06/05/18 14:30: Troponin I 0.196 H 06/05/18 18:00: Troponin I 0.188 H 06/06/18 04:30: WBC 8.5, RBC 2.37 L, Hgb 7.3 L, Hct 22.7 L, MCV 95.8 H, MCH 30.8 , MCHC 32.2, RDW 18.7 H, RDW Differential 62.4 H, Plt Count 193, MPV 11.4, Immature Gran % (Auto) 0.500, Neut % (Auto) 76.4 H, Lymph % (Auto) 9.4 L, [place] % (Auto) 9.0, Eos % (Auto) 4.5, Baso % (Auto) 0.2, Absolute Neuts (auto) 6.5, Total Counted Not Reportable 06/06/18 04:30: Sodium 132 L, Potassium 4.9, Chloride 93 L, Carbon Dioxide 26.0 , Anion Gap 13, BUN 75 H, Creatinine 9.68 H*, Est GFR (MDRD) Af Amer 7 L, Est GFR (MDRD) Non-Af 6 L, BUN/Creatinine Ratio 7.7 L, Glucose 274 H, Calcium 8.1 L , Phosphorus 7.5 H, Magnesium 2.6 Rhythm: Normal sinus rhythm EKG: Sinus bradycardia ECHO: Stress Test: Cardiac Cath: PCI: CT Surgery: Holter monitor: EPS: PPM: CXR: Chest CT Scan: Medical Necessity - Tobacco Use Smoking Status: Former smoker Tobacco Use: Non-smoker Assessment/Plan 1. Unstable angina pectoris. Started on Ranexa yesterday. He has been having episodes of chest discomfort. Discussed with him and his family in detail. Recommended coronary angiography to evaluate his anatomy and possible revascularization. Of course the fact accounting into decision-making for any revascularization would be his anemia. His hemoglobin continues going down. We will schedule him tentatively for coronary angiography tomorrow with his primary data virtualization consultant Dr. Lund 2. History of coronary artery disease. See #1 above 3. Mild aortic stenosis. Suggestion that it may be moderately severe per echo report. For left heart cath in the morning 4. Severe cardiomyopathy. LVEF 25-30%. Continue beta blockers. Consider adding hydralazine at a later stage to the nitrates 5. End-stage renal disease 6. GI blood loss. Patient's hemoglobin is again dropped this morning. Manage as per internal medicine/GI
[2018-06-06] MEDS: Ondansetron 4 MG/2 ML Vial IV (10:26)
[2018-06-06] MEDS: 0.9% NaCl Peripheral Flush Adult/Peds IV (10:26)
[2018-06-06 11:50] LABS: Bedside Glucose 212 mg/dL (70-110)
--- NOTE | 2018-06-06 12:29 | PCM.PN.HOSP ---
Patient Problems: Active and Suspected Problems (Last Reviewed 05/31/18 @ 16:24 by Marya Rodriguez) Severe anemia (Acute) Chest pain (Acute) Subjective: Patient is a 67-year-old gentleman with multiple comorbidities including CAD status post previous stent placement, end-stage renal disease on hemodialysis who presented with chest pain. Patient enzymes have so far remained in the indeterminate zone. Plan also patient will be discharged on 06/05/2018 however patient became hypotensive resulted in cancellation of his discharge. Admitted to the intensive care unit consultation placed to cardiology plan is for patient undergo left heart catheterization on 06/07/2018 Objective: GENERAL: cooperative HEENT: Clear conjunctiva, NECK; supple, normal thyroid, CHEST: Diminished to auscultation bilaterally, HEART: Regular S1 S2, no audible murmurs ABDOMEN: soft, non-tender, normoactive bowel sounds, RECTAL: deferred EXTREMITIES: No edema, no clubbing, no cyanosis. 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 SKIN: No Rash Vitals/I&O's: Vital Signs Temp Pulse Resp BP Pulse Ox 97.5 F L 85 21 H 115/68 95 06/06/18 12:25 06/06/18 12:25 06/06/18 12:25 06/06/18 12:25 06/06/18 12:00 Oxygen Flow Rate (L/min) 4 Oxygen Delivery Method Nasal Cannula Weight: 91.6 kg Body Mass Index (BMI) 27.6 Intake and Output for Last 24 Hours 06/04/18 06/05/18 06/06/18 23:59 23:59 23:59 Intake Total 1209 / 1209 550 / 550 715 / 715 Output Total 100 / 100 100 / 100 0 / 0 Balance 1109 / 1109 450 / 450 715 / 715 Laboratory Results 06/05/18 14:30: Troponin I 0.196 H 06/05/18 16:18: POC Glucose 325 H 06/05/18 18:00: Troponin I 0.188 H 06/05/18 21:29: POC Glucose 337 H 06/06/18 04:30: WBC 8.5, RBC 2.37 L, Hgb 7.3 L, Hct 22.7 L, MCV 95.8 H, MCH 30.8, MCHC 32.2, RDW 18.7 H, RDW Differential 62.4 H, Plt Count 193, MPV 11.4, Immature Gran % (Auto) 0.500, Neut % (Auto) 76.4 H, Lymph % (Auto) 9.4 L, [place] % (Auto) 9.0, Eos % (Auto) 4.5, Baso % (Auto) 0.2, Absolute Neuts (auto) 6.5, Absolute Lymphs (auto) 0.80 L, Total Counted Not Reportable 06/06/18 04:30: Sodium 132 L, Potassium 4.9, Chloride 93 L, Carbon Dioxide 26.0, Anion Gap 13, BUN 75 H, Creatinine 9.68 H*, Estim Creat Clear Calc 7.41, Est GFR (MDRD) Af Amer 7 L, Est GFR (MDRD) Non-Af 6 L, BUN/Creatinine Ratio 7.7 L, Glucose 274 H, Calcium 8.1 L, Phosphorus 7.5 H, Magnesium 2.6 06/06/18 06:42: POC Glucose 265 H 06/06/18 10:05: Blood Type O POSITIVE, Antibody Screen NEGATIVE, Crossmatch See Detail 06/06/18 11:37: POC Glucose 212 H Current Medications Albuterol/Ipratropium (Duoneb) 3 ml INHALATION Q4HWA.RT [facility] Last Admin: 06/06/18 10:53 Dose: 3 ml Atorvastatin Calcium (Lipitor) 80 mg PO QHS [facility] Last Admin: 06/05/18 21:35 Dose: 80 mg Bisacodyl (Dulcolax) 5 mg PO DAILY PRN PRN PRN Reason: Constipation Calcium Acetate (Phoslo Gel Cap) 3,335 mg PO TIDCM [facility] Last Admin: 06/06/18 09:36 Dose: 3,335 mg Carvedilol (Coreg) 12.5 mg PO BID [facility] Last Admin: 06/06/18 09:36 Dose: 12.5 mg Clopidogrel Bisulfate (Plavix) 75 mg PO DAILY [facility] Last Admin: 06/06/18 09:37 Dose: 75 mg Dextrose (D50w Syringe) 0 gm IV X1 PRN; Protocol PRN Reason: Hypoglycemia Last Admin: 06/03/18 08:16 Dose: 12.5 gm Ferrous Sulfate (Ferrous Sulfate) 325 mg PO BIDCM [facility] Last Admin: 06/06/18 08:30 Dose: 325 mg Furosemide (Lasix) 40 mg PO BID [facility] Last Admin: 06/06/18 09:37 Dose: 40 mg Glucagon () 1 mg IM .X1 PRN PRN Reason: Hypoglycemia Pantoprazole Sodium 40 mg/ (Sodium Chloride) 110 mls @ 330 mls/hr IV Q12 [facility] Last Admin: 06/06/18 09:41 Dose: 330 mls/hr Sodium Chloride () 250 mls @ 15 mls/hr IV .[id number] PRN PRN Reason: SALINE FLUSH Sodium Chloride () 1,000 mls @ 0 mls/hr IV .Q0M LAINEY PRN Reason: KVO Insulin Human Lispro (Humalog Kwikpen (Bkc)) 0 unit SQ ACHS [facility] PRN Reason: Protocol Last Admin: 06/06/18 11:40 Dose: 1 u Isosorbide Mononitrate (Imdur) 60 mg PO DAILY [facility] Last Admin: 06/06/18 09:37 Dose: 60 mg Levothyroxine Sodium (Synthroid) 200 mcg PO DAILY@0600 [facility] Last Admin: 06/06/18 05:32 Dose: 200 mcg Levothyroxine Sodium (Synthroid) 25 mcg PO DAILY@0600 [facility] Last Admin: 06/06/18 05:32 Dose: 25 mcg Magnesium Hydroxide (Milk Of Magnesia) 30 ml PO DAILY PRN PRN Reason: Constipation Melatonin (Melatonin) 3 mg PO QHS PRN PRN Reason: INSOMNIA Last Admin: 06/05/18 22:41 Dose: 3 mg Mirtazapine (Remeron) 7.5 mg PO HS [facility] Last Admin: 06/05/18 21:35 Dose: 7.5 mg Multivit/Ca Carb/B Cmplx/FA/Prenat (Nephrocaps, Renaphro) 1 capsule PO DAILY [facility] Last Admin: 06/06/18 09:37 Dose: 1 capsule Nitroglycerin (Nitrostat) 0.4 mg SUBLINGUAL Q5M PRN PRN Reason: CARDIAC/CHEST PAIN Last Admin: 06/02/18 18:20 Dose: 0.4 mg Ondansetron HCl (Zofran) 4 mg IV Q8H PRN PRN PRN Reason: NAUSEA Last Admin: 06/06/18 10:26 Dose: 4 mg Psyllium Hydrophilic Mucilloid (Metamucil) 1 packet PO DAILY PRN PRN PRN Reason: CONSTIPATION Last Admin: 06/05/18 09:57 Dose: 1 packet Ranolazine (Ranexa) 500 mg PO BID [facility] Last Admin: 06/06/18 09:37 Dose: 500 mg Sodium Chloride () 5 - 30 ml IV UD PRN PRN Reason: SALINE FLUSH Last Admin: 06/06/18 10:26 Dose: 10 ml Medical Necessity - Tobacco Use Smoking Status: Former smoker Tobacco Use: Non-smoker Assessment/Plan All Active Problems (Last Reviewed 05/31/18 @ 16:24 by Marya Rodriguez) Severe anemia (Acute) Chest pain (Acute) COPD with acute exacerbation (Acute) Patient is a 67-year-old gentleman with multiple comorbidities including CAD status post previous stent placement, end-stage renal disease on hemodialysis who presented with chest pain. Patient enzymes have so far remained in the indeterminate zone. 1. Chest pain: Patient cardiac enzymes have remained in the indeterminate zone; Plan also patient will be discharged on 06/05/2018 however patient became hypotensive resulted in cancellation of his discharge. Admitted to the intensive care unit consultation placed to cardiology plan is for patient undergo left heart catheterization on 06/07/2018 2. Diabetes mellitus type 2 with complications including hypoglycemia 3. CAD with previous stent placement 4. Severe aortic stenosis 5. End-stage renal disease on hemodialysis secondary to diabetic nephropathy dialysis days are Mondays, Wednesdays and Fridays 6. Chronic hypoxic respiratory failure secondary to COPD patient is on baseline home O2 7. Hypertension-blood pressure controlled, home medications continued with dose adjustment as needed 8. Anemia secondary to anemia secondary to end-stage renal disease and order was given for patient to be transfusing 2 unit PRBC by nephrology 9. DVT prophylaxis SCDs 10. History of bladder tumor currently stable Active Medications Albuterol/Ipratropium (Duoneb) 3 ml INHALATION Q4HWA.RT [facility] Last Admin: 06/06/18 10:53 Dose: 3 ml Atorvastatin Calcium (Lipitor) 80 mg PO QHS [facility] Last Admin: 06/05/18 21:35 Dose: 80 mg Bisacodyl (Dulcolax) 5 mg PO DAILY PRN PRN PRN Reason: Constipation Calcium Acetate (Phoslo Gel Cap) 3,335 mg PO TIDCM [facility] Last Admin: 06/06/18 12:34 Dose: Not Given Carvedilol (Coreg) 12.5 mg PO BID [facility] Last Admin: 06/06/18 09:36 Dose: 12.5 mg Clopidogrel Bisulfate (Plavix) 75 mg PO DAILY [facility] Last Admin: 06/06/18 09:37 Dose: 75 mg Dextrose (D50w Syringe) 0 gm IV X1 PRN; Protocol PRN Reason: Hypoglycemia Last Admin: 06/03/18 08:16 Dose: 12.5 gm Ferrous Sulf[facility] ([facility] S[facility]) [facility] Last Admin: 06/06/18 08:30 Dose: 325 mg Furosemide (Lasix) 40 mg PO BID [facility] Last Admin: 06/06/18 09:37 Dose: 40 mg Glucagon () 1 mg IM .X1 PRN PRN Reason: Hypoglycemia Pantoprazole Sodium 40 mg/ (Sodium Chloride) 110 mls @ 330 mls/hr IV Q12 [facility] Last Admin: 06/06/18 09:41 Dose: 330 mls/hr Sodium Chloride () 250 mls @ 15 mls/hr IV .[id number] PRN PRN Reason: SALINE FLUSH Sodium Chloride () 1,000 mls @ 0 mls/hr IV .Q0M [facility] PRN Reason: KVO Insulin Human Lispro (Humalog Kwikpen (Bkc)) 0 unit SQ ACHS [facility] PRN Reason: Protocol Last Admin: 06/06/18 11:40 Dose: 1 u Isosorbide Mononitrate (Imdur) 60 mg PO DAILY [facility] Last Admin: 06/06/18 09:37 Dose: 60 mg Levothyroxine Sodium (Synthroid) 200 mcg PO DAILY@0600 [facility] Last Admin: 06/06/18 05:32 Dose: 200 mcg Levothyroxine Sodium (Synthroid) 25 mcg PO DAILY@0600 [facility] Last Admin: 06/06/18 05:32 Dose: 25 mcg Magnesium Hydroxide (Milk Of Magnesia) 30 ml PO DAILY PRN PRN Reason: Constipation Melatonin (Melatonin) 3 mg PO QHS PRN PRN Reason: INSOMNIA Last Admin: 06/05/18 22:41 Dose: 3 mg Mirtazapine (Remeron) 7.5 mg PO [facility] Last Admin: 06/05/18 21:35 Dose: 7.5 mg Multivit/Ca Carb/B Cmplx/FA/Prenat (Nephrocaps, Renaphro) 1 capsule PO DAILY [facility] Last Admin: 06/06/18 09:37 Dose: 1 capsule Nitroglycerin (Nitrostat) 0.4 mg SUBLINGUAL Q5M PRN PRN Reason: CARDIAC/CHEST PAIN Last Admin: 06/02/18 18:20 Dose: 0.4 mg Ondansetron HCl (Zofran) 4 mg IV Q8H PRN PRN PRN Reason: NAUSEA Last Admin: 06/06/18 10:26 Dose: 4 mg Psyllium Hydrophilic Mucilloid (Metamucil) 1 packet PO DAILY PRN PRN PRN Reason: CONSTIPATION Last Admin: 06/05/18 09:57 Dose: 1 packet Ranolazine (Ranexa) 500 mg PO BID [facility] Last Admin: 06/06/18 09:37 Dose: 500 mg Sodium Chloride () 5 - 30 ml IV UD PRN PRN Reason: SALINE FLUSH Last Admin: 06/06/18 10:26 Dose: 10 ml Code Visit Inpatient E&M: [id number] [facility] Hosp L3
--- NOTE | 2018-06-06 12:35 | PN_ITS ---
Patient Problems: Active and Suspected Problems (Last Reviewed 05/31/18 @ 16:24 by Marya Rodriguez) Severe anemia (Acute) Chest pain (Acute) Subjective: Patient is a 67-year-old gentleman with multiple comorbidities including CAD status post previous stent placement, end-stage renal disease on hemodialysis who presented with chest pain. Patient enzymes have so far remained in the indeterminate zone. Plan also patient will be discharged on 06/05/2018 however patient became hypotensive resulted in cancellation of his discharge. Admitted to the intensive care unit consultation placed to cardiology plan is for patient undergo left heart catheterization on 06/07/2018 Objective: GENERAL: cooperative HEENT: Clear conjunctiva, NECK; supple, normal thyroid, CHEST: Diminished to auscultation bilaterally, HEART: Regular S1 S2, no audible murmurs ABDOMEN: soft, non-tender, normoactive bowel sounds, RECTAL: deferred EXTREMITIES: No edema, no clubbing, no cyanosis. 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 SKIN: No Rash Vitals/I&O's: Vital Signs Temp Pulse Resp BP Pulse Ox 97.5 F L 85 21 H 115/68 95 06/06/18 12:25 06/06/18 12:25 06/06/18 12:25 06/06/18 12:25 06/06/18 12:00 Oxygen Flow Rate (L/min) 4 Oxygen Delivery Method Nasal Cannula Weight: 91.6 kg Body Mass Index (BMI) 27.6 Intake and Output for Last 24 Hours 06/04/18 06/05/18 06/06/18 23:59 23:59 23:59 Intake Total 1209 / 1209 550 / 550 715 / 715 Output Total 100 / 100 100 / 100 0 / 0 Balance 1109 / 1109 450 / 450 715 / 715 Laboratory Results 06/05/18 14:30: Troponin I 0.196 H 06/05/18 16:18: POC Glucose 325 H 06/05/18 18:00: Troponin I 0.188 H 06/05/18 21:29: POC Glucose 337 H 06/06/18 04:30: WBC 8.5, RBC 2.37 L, Hgb 7.3 L, Hct 22.7 L, MCV 95.8 H, MCH 30.8 , MCHC 32.2, RDW 18.7 H, RDW Differential 62.4 H, Plt Count 193, MPV 11.4, Immature Gran % (Auto) 0.500, Neut % (Auto) 76.4 H, Lymph % (Auto) 9.4 L, [place] % (Auto) 9.0, Eos % (Auto) 4.5, Baso % (Auto) 0.2, Absolute Neuts (auto) 6.5, Absolute Lymphs (auto) 0.80 L, Total Counted Not Reportable 06/06/18 04:30: Sodium 132 L, Potassium 4.9, Chloride 93 L, Carbon Dioxide 26.0 , Anion Gap 13, BUN 75 H, Creatinine 9.68 H*, Estim Creat Clear Calc 7.41, Est GFR (MDRD) Af Amer 7 L, Est GFR (MDRD) Non-Af 6 L, BUN/Creatinine Ratio 7.7 L, Glucose 274 H, Calcium 8.1 L, Phosphorus 7.5 H, Magnesium 2.6 06/06/18 06:42: POC Glucose 265 H 06/06/18 10:05: Blood Type O POSITIVE, Antibody Screen NEGATIVE, Crossmatch See Detail 06/06/18 11:37: POC Glucose 212 H Current Medications Albuterol/Ipratropium (Duoneb) 3 ml INHALATION Q4HWA.RT [facility] Last Admin: 06/06/18 10:53 Dose: 3 ml Atorvastatin Calcium (Lipitor) 80 mg PO QHS [facility] Last Admin: 06/05/18 21:35 Dose: 80 mg Bisacodyl (Dulcolax) 5 mg PO DAILY PRN PRN PRN Reason: Constipation Calcium Acetate (Phoslo Gel Cap) 3,335 mg PO TIDCM [facility] Last Admin: 06/06/18 09:36 Dose: 3,335 mg Carvedilol (Coreg) 12.5 mg PO BID [facility] Last Admin: 06/06/18 09:36 Dose: 12.5 mg Clopidogrel Bisulfate (Plavix) 75 mg PO DAILY [facility] Last Admin: 06/06/18 09:37 Dose: 75 mg Dextrose (D50w Syringe) 0 gm IV X1 PRN; Protocol PRN Reason: Hypoglycemia Last Admin: 06/03/18 08:16 Dose: 12.5 gm Ferrous Sulfate (Ferrous Sulfate) 325 mg PO BIDCM [facility] Last Admin: 06/06/18 08:30 Dose: 325 mg Furosemide (Lasix) 40 mg PO BID [facility] Last Admin: 06/06/18 09:37 Dose: 40 mg Glucagon () 1 mg IM .X1 PRN PRN Reason: Hypoglycemia Pantoprazole Sodium 40 mg/ (Sodium Chloride) 110 mls @ 330 mls/hr IV Q12 [facility] Last Admin: 06/06/18 09:41 Dose: 330 mls/hr Sodium Chloride () 250 mls @ 15 mls/hr IV .[id number] PRN PRN Reason: SALINE FLUSH Sodium Chloride () 1,000 mls @ 0 mls/hr IV .Q0M [facility]INEY PRN Reason: KVO Insulin Human Lispro (Humalog Kwikpen (Bkc)) 0 unit SQ ACHS [facility] PRN Reason: Protocol Last Admin: 06/06/18 11:40 Dose: 1 u Isosorbide Mononitrate (Imdur) 60 mg PO DAILY [facility] Last Admin: 06/06/18 09:37 Dose: 60 mg Levothyroxine Sodium (Synthroid) 200 mcg PO DAILY@0600 [facility] Last Admin: 06/06/18 05:32 Dose: 200 mcg Levothyroxine Sodium (Synthroid) 25 mcg PO DAILY@0600 [facility] Last Admin: 06/06/18 05:32 Dose: 25 mcg Magnesium Hydroxide (Milk Of Magnesia) 30 ml PO DAILY PRN PRN Reason: Constipation Melatonin (Melatonin) 3 mg PO QHS PRN PRN Reason: INSOMNIA Last Admin: 06/05/18 22:41 Dose: 3 mg Mirtazapine (Remeron) 7.5 mg PO HS [facility] Last Admin: 06/05/18 21:35 Dose: 7.5 mg Multivit/Ca Carb/B Cmplx/FA/Prenat (Nephrocaps, Renaphro) 1 capsule PO DAILY [facility] Last Admin: 06/06/18 09:37 Dose: 1 capsule Nitroglycerin (Nitrostat) 0.4 mg SUBLINGUAL Q5M PRN PRN Reason: CARDIAC/CHEST PAIN Last Admin: 06/02/18 18:20 Dose: 0.4 mg Ondansetron HCl (Zofran) 4 mg IV Q8H PRN PRN PRN Reason: NAUSEA Last Admin: 06/06/18 10:26 Dose: 4 mg Psyllium Hydrophilic Mucilloid (Metamucil) 1 packet PO DAILY PRN PRN PRN Reason: CONSTIPATION Last Admin: 06/05/18 09:57 Dose: 1 packet Ranolazine (Ranexa) 500 mg PO BID [facility] Last Admin: 06/06/18 09:37 Dose: 500 mg Sodium Chloride () 5 - 30 ml IV UD PRN PRN Reason: SALINE FLUSH Last Admin: 06/06/18 10:26 Dose: 10 ml Medical Necessity - Tobacco Use Smoking Status: Former smoker Tobacco Use: Non-smoker Assessment/Plan All Active Problems (Last Reviewed 05/31/18 @ 16:24 by Marya Rodriguez) Severe anemia (Acute) Chest pain (Acute) COPD with acute exacerbation (Acute) Patient is a 67-year-old gentleman with multiple comorbidities including CAD status post previous stent placement, end-stage renal disease on hemodialysis who presented with chest pain. Patient enzymes have so far remained in the indeterminate zone. 1. Chest pain: Patient cardiac enzymes have remained in the indeterminate zone ; Plan also patient will be discharged on 06/05/2018 however patient became hypotensive resulted in cancellation of his discharge. Admitted to the intensive care unit consultation placed to cardiology plan is for patient undergo left heart catheterization on 06/07/2018 2. Diabetes mellitus type 2 with complications including hypoglycemia 3. CAD with previous stent placement 4. Severe aortic stenosis 5. End-stage renal disease on hemodialysis secondary to diabetic nephropathy dialysis days are Mondays, Wednesdays and Fridays 6. Chronic hypoxic respiratory failure secondary to COPD patient is on baseline home O2 7. Hypertension-blood pressure controlled, home medications continued with dose adjustment as needed 8. Anemia secondary to anemia secondary to end-stage renal disease and order was given for patient to be transfusing 2 unit PRBC by nephrology 9. DVT prophylaxis SCDs 10. History of bladder tumor currently stable Active Medications Albuterol/Ipratropium (Duoneb) 3 ml INHALATION Q4HWA.RT [facility] Last Admin: 06/06/18 10:53 Dose: 3 ml Atorvastatin Calcium (Lipitor) 80 mg PO QHS [facility] Last Admin: 06/05/18 21:35 Dose: 80 mg Bisacodyl (Dulcolax) 5 mg PO DAILY PRN PRN PRN Reason: Constipation Calcium Acetate (Phoslo Gel Cap) 3,335 mg PO TIDCM [facility] Last Admin: 06/06/18 12:34 Dose: Not Given Carvedilol (Coreg) 12.5 mg PO BID [facility] Last Admin: 06/06/18 09:36 Dose: 12.5 mg Clopidogrel Bisulfate (Plavix) 75 mg PO DAILY [facility] Last Admin: 06/06/18 09:37 Dose: 75 mg Dextrose (D50w Syringe) 0 gm IV X1 PRN; Protocol PRN Reason: Hypoglycemia Last Admin: 06/03/18 08:16 Dose: 12.5 gm [facility]ous S[facility] ([facility]) [facility] Last Admin: 06/06/18 08:30 Dose: 325 mg Furosemide (Lasix) 40 mg PO BID [facility] Last Admin: 06/06/18 09:37 Dose: 40 mg Glucagon () 1 mg IM .X1 PRN PRN Reason: Hypoglycemia Pantoprazole Sodium 40 mg/ (Sodium Chloride) 110 mls @ 330 mls/hr IV Q12 [facility] Last Admin: 06/06/18 09:41 Dose: 330 mls/hr Sodium Chloride () 250 mls @ 15 mls/hr IV .[id number] PRN PRN Reason: SALINE FLUSH Sodium Chloride () 1,000 mls @ 0 mls/hr IV .Q0M [facility] PRN Reason: KVO Insulin Human Lispro (Humalog Kwikpen (Bkc)) 0 unit SQ ACHS [facility] PRN Reason: Protocol Last Admin: 06/06/18 11:40 Dose: 1 u Isosorbide Mononitrate (Imdur) 60 mg PO DAILY [facility] Last Admin: 06/06/18 09:37 Dose: 60 mg Levothyroxine Sodium (Synthroid) 200 mcg PO DAILY@0600 [facility] Last Admin: 06/06/18 05:32 Dose: 200 mcg Levothyroxine Sodium (Synthroid) 25 mcg PO DAILY@0600 [facility] Last Admin: 06/06/18 05:32 Dose: 25 mcg Magnesium Hydroxide (Milk Of Magnesia) 30 ml PO DAILY PRN PRN Reason: Constipation Melatonin (Melatonin) 3 mg PO QHS PRN PRN Reason: INSOMNIA Last Admin: 06/05/18 22:41 Dose: 3 mg Mirtazapine (Remeron) 7.5 mg PO [facility] Last Admin: 06/05/18 21:35 Dose: 7.5 mg Multivit/Ca Carb/B Cmplx/FA/Prenat (Nephrocaps, Renaphro) 1 capsule PO DAILY [facility] Last Admin: 06/06/18 09:37 Dose: 1 capsule Nitroglycerin (Nitrostat) 0.4 mg SUBLINGUAL Q5M PRN PRN Reason: CARDIAC/CHEST PAIN Last Admin: 06/02/18 18:20 Dose: 0.4 mg Ondansetron HCl (Zofran) 4 mg IV Q8H PRN PRN PRN Reason: NAUSEA Last Admin: 06/06/18 10:26 Dose: 4 mg Psyllium Hydrophilic Mucilloid (Metamucil) 1 packet PO DAILY PRN PRN PRN Reason: CONSTIPATION Last Admin: 06/05/18 09:57 Dose: 1 packet Ranolazine (Ranexa) 500 mg PO BID [facility] Last Admin: 06/06/18 09:37 Dose: 500 mg Sodium Chloride () 5 - 30 ml IV UD PRN PRN Reason: SALINE FLUSH Last Admin: 06/06/18 10:26 Dose: 10 ml Code Visit Inpatient E&M: [id number] [facility] Hosp L3
[2018-06-06 17:05] LABS: Bedside Glucose 116 mg/dL (70-110)
--- NOTE | 2018-06-06 17:24 | NURSING ---
blood checked with andrea fitch, being administered with dialysis
--- NOTE | 2018-06-06 17:42 | EKG12_ITS ---
Test Reason : ARRYTHMIA Blood Pressure : / mmHG Vent. Rate : 093 BPM Atrial Rate : 093 BPM P-R Int : 170 ms QRS Dur : 110 ms QT Int : 386 ms P-R-T Axes : 059 021 071 degrees QTc Int : 479 ms Normal sinus rhythm Incomplete left bundle branch block Borderline ECG No previous ECGs available Confirmed by NENA ARECHIGA, KM ([id number]), online content editor DRISS MONROY ([id number]) on 06/10/2018 3:01:02 PM Referred By: Confirmed By:KM BARRETT MD
--- NOTE | 2018-06-06 19:07 | DIALYSIS ---
HD X 3.5 HOURS ON A 2K BATH. UF-1700ML. GIVEN 1UNIT PRBCS DURING DIALYSIS ALSO GAVE EPOGEN 2200 UNITS. CLOTTED VENOUS LINE SET UP X2 NO BLOOD LOSS. STASIS AT RIGHT ARM FISTULA DSG AT SITES. HEART RATE INCREASED DURING TREATMENT 120-130'S EKG DONE BY FLOOR RN. HR IN 90'S AT TAKE OFF/ REPORT GIVEN TO ROLL PANNER
--- NOTE | 2018-06-06 20:57 | PCM.PN.REN ---
Patient Problems: Active and Suspected Problems (Last Reviewed 05/31/18 @ 16:24 by Marya Rodriguez) Severe anemia (Acute) Chest pain (Acute) Subjective: episode of chest pain and hypotension overnight. Transferred to ICU. Currently without chest pain. Hgb dropped to 7.3g. Dialysis today. 2u probc ordered - Physical Exam General: Alert, Oriented x3, Cooperative, No apparent distress Lungs: Diminished, Rales Cardiovascular: Regular rate, Murmur Abdomen: Bowel Sounds Present, Soft, Non Tender Extremities: No edema Psych/Mental Status: Normal Affect, Alert and oriented to time, place, person, mood and affect Vital Signs Temp Pulse Resp BP Pulse Ox 98.0 F 92 18 146/70 H 100 06/06/18 20:00 06/06/18 20:00 06/06/18 20:00 06/06/18 20:00 06/06/18 20:00 Oxygen Flow Rate (L/min) 4 Oxygen Delivery Method Nasal Cannula Weight: 91.6 kg Body Mass Index (BMI) 27.6 Intake and Output for Last 24 Hours 06/04/18 06/05/18 06/06/18 23:59 23:59 23:59 Intake Total 1209 / 1209 550 / 550 1565 / 1565 Output Total 100 / 100 100 / 100 1700 / 1700 Balance 1109 / 1109 450 / 450 -135 / -135 Laboratory Tests Past 24 Hrs 06/06/18 06/06/18 06/06/18 04:30 04:30 10:05 WBC 8.5 RBC 2.37 L Hgb 7.3 L Hct 22.7 L MCV 95.8 H MCH 30.8 MCHC 32.2 RDW 18.7 H RDW Differential 62.4 H Plt Count 193 MPV 11.4 Immature Gran % (Auto) 0.500 Neut % (Auto) 76.4 H Lymph % (Auto) 9.[address] [place] % (Auto) 9.0 Eos % (Auto) 4.5 Baso % (Auto) 0.2 Absolute Neuts (auto) 6.5 Absolute Lymphs (auto) 0.80 L Total Counted Not Reportable Sodium 132 L Potassium 4.9 Chloride 93 L Carbon Dioxide 26.0 Anion Gap 13 BUN 75 H Creatinine 9.68 H* Estim Creat Clear Calc 7.41 Est GFR (MDRD) Af Amer 7 L Est GFR (MDRD) Non-Af 6 L BUN/Creatinine Ratio 7.7 L Glucose 274 H Calcium 8.1 L Phosphorus 7.5 H Magnesium 2.6 Blood Type O POSITIVE Antibody Screen NEGATIVE Crossmatch See Detail POC Glucose 06/06/18 06/06/18 06/06/18 16:58 11:37 06:42 POC Glucose 116 H 212 H 265 H 06/05/18 21:29 POC Glucose 337 H Medical Necessity - Tobacco Use Smoking Status: Former smoker Tobacco Use: Non-smoker Assessment/Plan All Active Problems (Last Reviewed 05/31/18 @ 16:24 by Marya Rodriguez) Severe anemia (Acute) Chest pain (Acute) COPD with acute exacerbation (Acute) 1. ESRD due to diabetes on hemodialysis Wednesday, Wednesday, Wednesday, dialysis today. fluid removal 1-2L as christina. 2. GI bleed on Plavix. Started on PPI. 2u PRBC today for hgb 7.3g 3. Recurrent Near syncope with hypotension received iv fluids and transferred to ICU 4. CAD status post PCI on Plavix. Episode of chest pain cardiology consulted.
[2018-06-06 21:36] LABS: Bedside Glucose 80 mg/dL (70-110)
[2018-06-06] MEDS: Atorvastatin Calcium 80 MG Tablet PO (21:41)
[2018-06-06] MEDS: Mirtazapine 15 MG Tablet 7.5 MG PO (21:47)
[2018-06-06] MEDS: CHLORHEXIDINE GLUC 2% CLOTH 1 EACH TOWELETTE TOPICAL (23:00)
[2018-06-07] VITALS (29 sets, daily range): BP systolic 88–118; BP diastolic 47–70; PULSE 68–85; RESP 12–20; TEMP 36.1–36.9; O2SAT 96–100
--- NOTE | 2018-06-07 05:05 | EKG12_ITS ---
Test Reason : PRE-CATH Blood Pressure : / mmHG Vent. Rate : 078 BPM Atrial Rate : 078 BPM P-R Int : 184 ms QRS Dur : 108 ms QT Int : 400 ms P-R-T Axes : 061 016 071 degrees QTc Int : 456 ms Normal sinus rhythm Low voltage QRS (limb leads) Incomplete left bundle branch block Borderline ECG Confirmed by America Montgomery ([id number]), telegraph editor DRISS MONROY ([id number]) on 06/13/2018 3:37:09 PM Referred By: Ann Bravo Confirmed By:America Montgomery
[2018-06-07 05:08] LABS: Hemoglobin 9.2 g/dl (13.0-16.5); Mean Corp Hgb Conc 32.9 g/gl (32-36); Mean Corpuscular Hgb 30.3 pg (27.0-32.0); Mean Corpuscular Volume 92.1 fL (80-94); Mean Platelet Vol. 11.4 fl (6.2-12.0); Platelet Count 172 K/mm3 (150-450); RBC Distribution Width CV 19.6 % (11.6-14.6); RBC Distribution Width SD 63.4 fl (35.1-43.9); Red Blood Count 3.04 M/mm3 (4.6-6.2); White Blood Count 6.4 K/mm3 (4.4-11.0)
[2018-06-07 05:11] LABS: Scan Indicated on CBC? Y/N NO
[2018-06-07 05:21] LABS: Anion Gap 10 (5-15); BUN 38 mg/dL (7-18); BUN/Creat Ratio 5.7 RATIO (10-20); Calcium,Total 8.1 mg/dL (8.5-10.1); Chloride 97 mmol/L (98-107); Creatinine, Serum 6.67 mg/dL (0.70-1.30); EST Glomerular Filtration Rate 9 mL/min (>60); Est Glom Filt Rate - Afr Amer 11 mL/min (>60); Estimated Creatinine Clearance 10.75 ml/min; Glucose 114 mg/dL (74-106); Potassium 4.1 mmol/L (3.5-5.1); Sodium Level 137 mmol/L (136-145)
[2018-06-07 05:22] LABS: Partial Thromboplast Time 32.3 Seconds (24.1-36.2)
[2018-06-07] MEDS: Levothyroxine 100 MCG Tablet 200 MCG PO (05:56)
[2018-06-07] MEDS: Levothyroxine 25 MCG TABLET PO (05:56)
[2018-06-07] MEDS: CHLORHEXIDINE GLUC 2% CLOTH 1 EACH TOWELETTE TOPICAL (06:11)
[2018-06-07] MEDS: Ipratropium/Albuterol Sulfate 3 ML AMPUL.NEB INHALATION ×3 (06:53→18:35)
[2018-06-07] MEDS: Carvedilol 12.5 MG Tablet PO ×2 (07:34→21:20)
[2018-06-07] MEDS: Isosorbide Mononitrate 60 MG Tablet PO (07:34)
[2018-06-07] MEDS: Clopidogrel Bisulfate 75 MG Tablet PO (07:34)
--- NOTE | 2018-06-07 07:39 | PN_ITS ---
Patient Problems: Active and Suspected Problems (Last Reviewed 05/31/18 @ 16:24 by Marya Rodriguez) Severe anemia (Acute) Chest pain (Acute) Subjective: Patient seen. Denies any chest discomfort no nausea no vomiting. Scheduled to undergo left heart catheterization this a.m. Objective: GENERAL: cooperative HEENT: Clear conjunctiva, NECK; supple, normal thyroid, CHEST: Diminished to auscultation bilaterally, HEART: Regular S1 S2, no audible murmurs ABDOMEN: soft, non-tender, normoactive bowel sounds, RECTAL: deferred EXTREMITIES: No edema, no clubbing, no cyanosis. FIELD CLINICAL ENGINEER: Awake; no lateralizing signs. SKIN: No Rash Vitals/I&O's: Vital Signs Temp Pulse Resp BP Pulse Ox 97.6 F L 78 16 110/60 100 06/07/18 04:00 06/07/18 07:00 06/07/18 07:00 06/07/18 07:00 06/07/18 07:00 Oxygen Flow Rate (L/min) 4 Oxygen Delivery Method Nasal Cannula Weight: 89.9 kg Body Mass Index (BMI) 27.6 Intake and Output for Last 24 Hours 06/05/18 06/06/18 06/07/18 23:59 23:59 23:59 Intake Total 550 / 550 1565 / 1565 409 / 409 Output Total 100 / 100 1700 / 1700 0 / 0 Balance 450 / 450 -135 / -135 409 / 409 Laboratory Results 06/06/18 10:05: Blood Type O POSITIVE, Antibody Screen NEGATIVE, Crossmatch See Detail 06/06/18 11:37: POC Glucose 212 H 06/06/18 16:58: POC Glucose 116 H 06/06/18 21:32: POC Glucose 80 06/07/18 04:45: WBC 6.4, RBC 3.04 L, Hgb 9.2 L, Hct 28.0 L, MCV 92.1, MCH 30.3, MCHC 32.9, RDW 19.6 H, RDW Differential 63.4 H, Plt Count 172, MPV 11.4 06/07/18 04:45: APTT 32.3 06/07/18 04:45: Sodium 137, Potassium 4.1, Chloride 97 L, Carbon Dioxide 30.0, Anion Gap 10, BUN 38 H, Creatinine 6.67 H, Estim Creat Clear Calc 10.75, Est GFR (MDRD) Af Amer 11 L, Est GFR (MDRD) Non-Af 9 L, BUN/Creatinine Ratio 5.7 L, Glucose 114 H, Calcium 8.1 L Current Medications Albuterol/Ipratropium (Duoneb) 3 ml INHALATION Q4HWA.RT [facility] Last Admin: 06/07/18 06:53 Dose: 3 ml Atorvastatin Calcium (Lipitor) 80 mg PO QHS [facility] Last Admin: 06/06/18 21:41 Dose: 80 mg Bisacodyl (Dulcolax) 5 mg PO DAILY PRN PRN PRN Reason: Constipation Calcium Acetate (Phoslo Gel Cap) 3,335 mg PO TIDCM [facility] Last Admin: 06/06/18 19:53 Dose: Not Given Carvedilol (Coreg) 12.5 mg PO BID [facility] Last Admin: 06/07/18 07:34 Dose: 12.5 mg Clopidogrel Bisulfate (Plavix) 75 mg PO DAILY [facility] Last Admin: 06/07/18 07:34 Dose: 75 mg Dextrose (D50w Syringe) 0 gm IV X1 PRN; Protocol PRN Reason: Hypoglycemia Last Admin: 06/03/18 08:16 Dose: 12.5 gm [facility] Last Admin: 06/06/18 21:39 Dose: 325 mg Furosemide (Lasix) 40 mg PO BID [facility] Last Admin: 06/06/18 21:41 Dose: 40 mg Glucagon () 1 mg IM .X1 PRN PRN Reason: Hypoglycemia Sodium Chloride () 250 mls @ 15 mls/hr IV .[id number] PRN PRN Reason: SALINE FLUSH Sodium Chloride () 1,000 mls @ 0 mls/hr IV .Q0M [facility] Insulin Human Lispro (Humalog Kwikpen (Bkc)) 0 unit SQ ACHS [facility]; Protocol Last Admin: 06/07/18 06:31 Dose: Not Given Isosorbide Mononitrate (Imdur) 60 mg PO DAILY [facility] Last Admin: 06/07/18 07:34 Dose: 60 mg Levothyroxine Sodium (Synthroid) 200 mcg PO DAILY@0600 [facility] Last Admin: 06/07/18 05:56 Dose: 200 mcg Levothyroxine Sodium (Synthroid) 25 mcg PO DAILY@0600 [facility] Last Admin: 06/07/18 05:56 Dose: 25 mcg Magnesium Hydroxide (Milk Of Magnesia) 30 ml PO DAILY PRN PRN Reason: Constipation Melatonin (Melatonin) 3 mg PO QHS PRN PRN Reason: INSOMNIA Last Admin: 06/05/18 22:41 Dose: 3 mg Mirtazapine (Remeron) 7.5 mg PO HS [facility] Last Admin: 06/06/18 21:47 Dose: 7.5 mg Multivit/Ca Carb/B Cmplx/FA/Prenat (Nephrocaps, Renaphro) 1 capsule PO DAILY [facility] Last Admin: 06/06/18 09:37 Dose: 1 capsule Nitroglycerin (Nitrostat) 0.4 mg SUBLINGUAL Q5M PRN PRN Reason: CARDIAC/CHEST PAIN Last Admin: 06/02/18 18:20 Dose: 0.4 mg Nutritional Formula (Nepro Carb Steady) 120 ml PO 4X/DAY [facility] Last Admin: 06/06/18 21:34 Dose: Not Given Ondansetron HCl (Zofran) 4 mg IV Q8H PRN PRN PRN Reason: NAUSEA Last Admin: 06/06/18 10:26 Dose: 4 mg Pantoprazole Sodium (Protonix) 40 mg PO BID [facility] Psyllium Hydrophilic Mucilloid (Metamucil) 1 packet PO DAILY PRN PRN PRN Reason: CONSTIPATION Last Admin: 06/05/18 09:57 Dose: 1 packet Ranolazine (Ranexa) 500 mg PO BID [facility] Last Admin: 06/06/18 21:41 Dose: 500 mg Sodium Chloride () 5 - 30 ml IV UD PRN PRN Reason: SALINE FLUSH Last Admin: 06/06/18 10:26 Dose: 10 ml Medical Necessity - Tobacco Use Smoking Status: Former smoker Tobacco Use: Non-smoker Assessment/Plan All Active Problems (Last Reviewed 05/31/18 @ 16:24 by Marya Rodriguez) Severe anemia (Acute) Chest pain (Acute) COPD with acute exacerbation (Acute) Patient is a 67-year-old gentleman with multiple comorbidities including CAD status post previous stent placement, end-stage renal disease on hemodialysis who presented with chest pain. Patient enzymes have so far remained in the indeterminate zone. 1. Chest pain: Patient cardiac enzymes have remained in the indeterminate zone; Plan also patient will be discharged on 06/05/2018 however patient became hypotensive resulted in cancellation of his discharge. Admitted to the intensive care unit consultation placed to cardiology plan is for patient undergo left heart catheterization on 06/07/2018 2. Diabetes mellitus type 2 with complications including hypoglycemia 3. CAD with previous stent placement 4. Severe aortic stenosis 5. End-stage renal disease on hemodialysis secondary to diabetic nephropathy dialysis days are Mondays, Wednesdays and Fridays 6. Chronic hypoxic respiratory failure secondary to COPD patient is on baseline home O2 7. Hypertension-blood pressure controlled, home medications continued with dose adjustment as needed 8. Anemia secondary to anemia secondary to end-stage renal disease and order was given for patient to be transfusing 2 unit PRBC by nephrology 9. DVT prophylaxis SCDs 10. History of bladder tumor currently stable Code Visit Inpatient E&M: 12394 Subs Hosp L2
[2018-06-07 07:41] LABS: Bedside Glucose 106 mg/dL (70-110)
--- NOTE | 2018-06-07 08:17 | NURSING ---
pt off floor at this time to blood and plasma laboratory assistant
--- NOTE | 2018-06-07 09:14 | CL.D_ITS ---
Patient Name: HAILEY CHOI Study Date: 06/07/2018 Performing: Roger Lund MD Ht: 69 inches 175 cm : 1950 Wt: 198.7 lbs 90 kg Age: 67 Gender: male BSA: 2.06 PROCEDURE(S) PERFORMED [id number]/LHC/COR/LV CLINICAL PROFILE AND INDICATIONS Indications: Worsening Angina, Stable Known CAD, Valvular Disease, LV Dysfunction Heart Failure: NYHA Class: 2, Newly Diagnosed: Yes, Heart Failure Type: Systolic Stress/Imaging Stress/Image Study Performed: No Angina Classification Anginal Classification w/in 2 Weeks: CCS III CAD Presentations: Unstable angina. Comorbidities/Risk Factors: Hypertension Dyslipidemia Prior PCI Currently On Dialysis CONCLUSIONS Global LV systolic dysfunction- Moderate Double vessel CAD of the Ramus and OM#1 occluded stents; 60% ostial LCX ISR. Non obstructive coronary arteries Right heart pressures - moderately elevated Aortic Valve Stenosis- Mild RECOMMENDATIONS Risk factor modification DESTINY in 3 months once GI Bleed resolved to better evaluate aortic stenosis. Medical management of ISR of RI and OM#1, as well as ostial LCX due to anemia and recent GI bleed. Management as per referring Windows Security Analyst Manual sheath removal. D/w Dr Saldivar. DESCRIPTION OF PROCEDURE The patient arrived to the procedure lab. The risks and benefits of the procedure as well as a full d escription of our services here and current unavailability of surgical backup were fully explained to the patient and/or their significant other prior to the catheterization. The Timeout was completed, verifying the correct patient and procedure. The patient's procedural site was prepped and draped in the usual fashion. Local anesthetic was given subcutaneously to right groin region with Lidocaine 2%. Using a modified Seldinger technique, arterial access was obtained via the right femoral artery, a 4 Fr sheath was inserted Venous access was obtained via the right femoral vein, an 8Fr sheath was inser rubio. Thermal dilution cardiac outputs were then recorded. O2 saturations were then obtained. The Ther mal dilution catheter was then removed. Left Ventriculography was performed in ALDRICH projection using a 4 Fr. Pigtail catheter. LV to AO pullback pressures were then recorded. Simultaneous pressures were then recorded. Left Coronary Artery selective angiography was performed in multiple views using a 4 F r. JL5 catheter. Right Coronary Artery selective angiography was then performed in multiple views usi ng a 4 Fr. 3DRC catheter.The arterial sheath was left in to be pulled in the unit / patient room. The venous sheath was then left in to be pulled in the unit / patient room CORONARY ANGIOGRAPHY DOMINANCE: Right Dominant LEFT HEART ASSESSMENT Left Ventricular Ejection Fraction: by LV Gram 40 % Global Hypokinesis - Moderate LVEDP: 21 mmHg RIGHT HEART ASSESSMENT Thermal CO: 5.19 Thermal CI: 2.52 Nate CO: 6.08 Nate CI: 2.95 PW: PA: 47/17 28 RV: 42/5 14 RA: 08/24 10 PVR: 108 SVR: 771 Aortic Valve Area: 1.43 Aortic Valve Index: 0.69 Aortic Valve Mean Gradient: 19 Pulmonary Hypertension Moderate LEFT MAIN: No significant disease noted LEFT ANTERIOR DECENDING ARTERY: Mild luminal irregularities less than 30% CIRCUMFLEX ARTERY: Instent restenosis 60 % OM 1: Ostial - Instent restenosis 100 % RAMUS: Instent restenosis 100 % RIGHT CORONARY ARTERY: MID RCA: Moderate luminal irregularities up to 50% RT PDA: Proximal - Mild luminal irregularities less than 30% COLLATERAL FLOW: Collateral flow from Left to Left COMPLICATIONS No Complications PROCEDURE MEDICATIONS Oxygen: 4 L/min via nasal cannula Oxygen: 0 L/min via nasal cannula Oxygen: 4 L/min via nasal cannula SUMMARY OF HEMODYNAMIC DATA Time AIR REST ECG 08:36:12 RA 08/24 (10) SV 08:44:28 RV 42/5, 14 08:44:43 PW () PV 08:45:18 PA 47/ (28) PA 08:45:27 LV 96/-2, 16 08:50:34 LV 97/-1, 17 08:50:41 LV 99/-1, 21 08:51:05 PW (21) 08:51:05 LV 98/-1, 17 08:51:25 RV 43/7, 13 08:51:25 LV 97/-2, 19 08:51:35 RV 44/7, 13 08:51:35 LV 102/-1, 17 08:52:48 LV 98/0, 18 08:52:54 LVp 98/0, 21 08:52:59 AOp 96/41 (60) 08:53:04 AO 80/46 (60) SA 08:54:56 Valve Area (c P-P/ms Time AIR REST Aortic 1.43 19.0 mn/244 ms 2.0 pk/244 ms 08:52:59 Type SV CO (l/m) CI (l/m/ HR Time AIR REST Thermal 64.10 5.19 2.52 81 08:36:12 Nate 75.10 6.08 2.95 81 08:36:12 Label % O2 Pres/Loc Time AIR REST PA 61 PA 08:57:56 AO 97 PV 08:58:00 Signed By Roger Lund MD On 06/07/2018 09:13:44 Roger Lund MD
[2018-06-07 09:15] LABS: Blood Gas Specimen Type VEN; VBG BASE EXCESS 5 mmol/L (-1.0-3.5); VBG Bicarbonate 30 mmol/L (22-26); VBG Oxygen Content 31 mmol/L (23-33); VBG PO2 31 mmHg (25-40); VBG SO2 60 % (50-70); VBG pCO2 46.1 mmHg (41-51); VBG pH 7.42 (7.32-7.42)
[2018-06-07 09:15] LABS: Blood Gas Specimen Type VEN; VBG BASE EXCESS 4 mmol/L (-1.0-3.5); VBG Bicarbonate 29 mmol/L (22-26); VBG Oxygen Content 30 mmol/L (23-33); VBG PO2 31 mmHg (25-40); VBG SO2 61 % (50-70); VBG pCO2 44.7 mmHg (41-51); VBG pH 7.42 (7.32-7.42)
[2018-06-07 09:16] LABS: Base Excess 4 mmol/L (-2 to +2); Bicarbonate 27.1 mmol/L (22-26); Blood Gas Specimen Type ART; PO2 78 mmHG (75-100); SO2 97 % (95-99); Total Carbon Dioxide 28 mmol/L; pCO2 34.3 mmHg (35-45); pH 7.51 (7.35-7.45)
[2018-06-07] MEDS: Ferrous Sulfate 325 MG Tablet PO ×2 (10:46→16:49)
[2018-06-07] MEDS: Furosemide 40 MG Tablet PO ×2 (10:46→21:20)
[2018-06-07] MEDS: Ranolazine 500 MG Tablet PO ×2 (10:46→21:20)
[2018-06-07] MEDS: Folic Acid/Vitamin B Comp W-C 1 Capsule 1 CAP PO (10:46)
[2018-06-07] MEDS: Pantoprazole Sodium 40 MG Tablet PO ×2 (10:46→21:20)
[2018-06-07 11:25] LABS: Bedside Glucose 69 mg/dL (70-110)
[2018-06-07] MEDS: Nepro Liquid 120 ML LIQUID PO ×3 (11:36→21:18)
--- NOTE | 2018-06-07 11:51 | CASEMGMT ---
Addendum entered by Alejandra Osborne 06/07/18 16:02: LINDA spoke with Joann at [employer] and they can take patient at d/c. Alejandra ALAS Original Note: Spoke with RN JOHANNY who indicated patient's and patient would like for him to go to [facility] at d/c. 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 LINDA faxed referral to [employer] and called Joann with referral. Alejandra HICKMAN MSW
[2018-06-07] MEDS: 0.9% NaCl Peripheral Flush Adult/Peds IV (11:59)
[2018-06-07] MEDS: Dextrose 50%-Water 25 GM/50 ML DISP.SYRIN IV (11:59)
[2018-06-07 12:10] LABS: Bedside Glucose 51 mg/dL (70-110)
[2018-06-07 12:36] LABS: Bedside Glucose 114 mg/dL (70-110)
[2018-06-07] MEDS: Insulin Lispro 100 UNIT/ML INSULN.PEN SQ ×2 (16:49→21:19)
[2018-06-07 16:56] LABS: Bedside Glucose 224 mg/dL (70-110)
[2018-06-07] MEDS: Atorvastatin Calcium 80 MG Tablet PO (21:19)
[2018-06-07] MEDS: Mirtazapine 15 MG Tablet 7.5 MG PO (21:19)
[2018-06-07 23:00] LABS: Bedside Glucose 257 mg/dL (70-110)
[2018-06-08] VITALS (7 sets, daily range): BP systolic 118–120; BP diastolic 57–72; PULSE 71–86; RESP 16–17; TEMP 36.1–36.6; O2SAT 98–100
[2018-06-08] MEDS: Levothyroxine 100 MCG Tablet 200 MCG PO (06:45)
[2018-06-08] MEDS: Levothyroxine 25 MCG TABLET PO (06:45)
[2018-06-08] MEDS: Ipratropium/Albuterol Sulfate 3 ML AMPUL.NEB INHALATION (07:09)
[2018-06-08 07:26] LABS: Bedside Glucose 246 mg/dL (70-110)
--- NOTE | 2018-06-08 09:48 | CASEMGMT ---
Physician said patient can be d/c today. SW spoke with dialysis nurse and patient will be done with dialysis around noon. SW called Joann at [facility] and left her a voice mail letting her know above. SW also called patient's and let her know. She said she will transport him and asked that SW call her about a half hour before he is ready to go and she will come and pick him up. Plan: [facility] under skilled level of care. Alejandra HICKMAN MSW
--- NOTE | 2018-06-08 10:41 | PCM.TXEXTCAR ---
- Diet 06/02/18 10:37 Diet: Renal - Carb-Controlled Food consistency:: Regular Liquid Consistency:: Regular/Thin Is pt able to select menu?: Yes - Wound(s) rt groin Wound Type: Puncture - Therapies Physical Therapy: Eval and Treat Occupational Therapy: Eval and Treat - Allergies/Procedures Done in Hospital Allergies/Adverse Reactions: Allergies morphine Adverse Reaction (Verified 06/01/18 06:42) Itching - Type of Care/Length of Stay Estimated LOS: Convalescent Care Less Than 30 days Type of Care Needed: Skilled Rehab Potential: Good Prognosis: Good - Additional Orders/Day of Discharge Day of Discharge: 06/08/18 - Dietary and Speech Recommendations Dietitian Recommendations/Changes: Recommend carb-controlled diet w/ low sodium, low potassium and fluid restriction as indicated - NO PROTEIN restriction. Encourage Nepro w/ Carb Steady w/ medpass d/t pt increased nutritional needs. - Follow Up Care Primary Care Physician: Alfonso Rushing Chi, MD [Primary Care Provider] - Please follow up with your Primary Care Physician in: within 2 weeks Please Follow Up With: Alfonso Rushing Chi, MD Please Follow Up With: America Lepe DO When: as scheduled in dialysis
--- NOTE | 2018-06-08 10:43 | PCM.PN.REN ---
Patient Problems: Active and Suspected Problems (Last Reviewed 05/31/18 @ 16:24 by Marya Rodriguez) Severe anemia (Acute) Chest pain (Acute) Subjective: seen at start of dialysis. Hgb stable. Denies CP or SOB at rest. Transferred to PCU - Physical Exam General: Alert, Oriented x3, Cooperative, No apparent distress Lungs: Clear to auscultation Cardiovascular: Regular rate, Murmur Abdomen: Bowel Sounds Present, Soft, Non Tender, Non-Distended, Obese Extremities: Edema - trace Psych/Mental Status: Alert and oriented to time, place, person, mood and affect Vital Signs Temp Pulse Resp BP Pulse Ox 97.4 F L 80 16 119/63 99 06/08/18 06:47 06/08/18 07:40 06/08/18 07:09 06/08/18 06:47 06/08/18 07:09 Oxygen Flow Rate (L/min) 4 Oxygen Delivery Method Nasal Cannula Weight: 90.9 kg Body Mass Index (BMI) 27.6 Intake and Output for Last 24 Hours 06/06/18 06/07/18 06/08/18 23:59 23:59 23:59 Intake Total 1565 / 1565 689 / 689 340 / 340 Output Total 1700 / 1700 0 / 0 275 / 275 Balance -135 / -135 689 / 689 65 / 65 POC Glucose 06/08/18 06/07/18 06/07/18 06:50 21:17 16:45 POC Glucose 246 H 257 H 224 H 06/07/18 06/07/18 06/07/18 12:29 11:56 11:20 POC Glucose 114 H 51 L 69 L Medical Necessity - Tobacco Use Smoking Status: Former smoker Tobacco Use: Non-smoker Assessment/Plan All Active Problems (Last Reviewed 05/31/18 @ 16:24 by Marya Rodriguez) Severe anemia (Acute) Chest pain (Acute) COPD with acute exacerbation (Acute) 1. ESRD due to diabetes on hemodialysis Wednesday, Wednesday, Wednesday, dialysis today. fluid removal 1-2L as christina. 2. GI bleed on Plavix. Started on PPI. s/p PRBC 3. Recurrent Near syncope with stable BP today 4. CAD, recurrent chest pain status post heart cath yesterday. Cardio following
--- NOTE | 2018-06-08 10:44 | PCM.DC.SUM ---
Discharge Date and Diagnosis - Problem List Patient Problems: Active and Suspected Problems (Last Reviewed 05/31/18 @ 16:24 by Marya Rodriguez) Severe anemia (Acute) Chest pain (Acute) Date of Admission: 06/01/18 Date of Discharge: 06/08/18 - Primary Discharge Diagnosis Active and Suspected Problems (Last Reviewed 05/31/18 @ 16:24 by Marya Rodriguez) Severe anemia (Acute) Chest pain (Acute) - Secondary Discharge Diagnosis Chronic Problems (Last Reviewed 05/31/18 @ 16:24 by Marya Rodriguez) GI bleed (Chronic) Hyperlipidemia (Chronic) Type 2 diabetes mellitus without complications (Chronic) Hypothyroidism (Chronic) Bladder cancer (Chronic) COPD (chronic obstructive pulmonary disease) (Chronic) ESRD (end stage renal disease) on dialysis (Chronic) He was evaluated at [facility] fro transplant list. He is presently inactive, see consult. 12/16/17 Presence of arteriovenous fistula for hemodialysis (Chronic) Left Arm; Balloon plasty to fistula 05/30; Dialysis 3 days per week Mon, Wed, Fri Presence of stent in coronary artery (Chronic 07/23/17) PTCA/BLAIR to prox CX, BLAIR to OM1, BLAIR to Ramus 11/27 @ [facility]; PCI /BLAIR of LCX ISR, PCI/BLAIR Ostial OM1, [id number] Ramus ISR 07/23/17;HX stents 2004 Atherosclerosis of [place] coronary artery of [place] heart without angina pectoris (Chronic) PTCA/BLAIR to prox CX, BLAIR to OM1, BLAIR to Ramus 11/27 @ [facility]; PCI /BLAIR of LCX ISR, PCI/BLAIR Ostial OM1, [id number] Ramus ISR 07/23/17;HX stents 2004 Essential (primary) hypertension (Chronic) Hospital Course and Treatment Imaging Results: Clinical Impression(s) from Imaging Studies Chest X-Ray 06/01/18 07:28 IMPRESSION: Blastic congestion with small bilateral pleural effusions worse on the left side with bibasilar atelectasis and/or infiltrate more prominent on the left side. Questionable pericardial effusion. Electronically Signed: Herrera Hayes MD at 8:23 EDT Tel [phone], Service support , Chest X-Ray 06/02/18 02:00 IMPRESSION: Worsening bibasilar infiltrates with small bilateral pleural effusions. Electronically Signed: Thony Mckeon MD at 2:50 EDT Tel , Service support , Abdomen/Pelvis CT 06/03/18 00:33 IMPRESSION: Bilateral pleural effusions with adjacent atelectasis/infiltrates. Right lower lobe nodularity. This could represent infectious process. However recommend 3-4 week follow-up CT scan to ensure resolution. Underlying neoplasm cannot be excluded. No hydronephrosis. Small pericardial effusion. No CT evidence for diverticulitis or appendicitis. Other findings as discussed above. Electronically Signed: Ed Powell at 1:47 EDT Tel , Service support , Chest CTA 06/05/18 12:06 IMPRESSION: Large bilateral effusions persisting since multiple prior studies. Atelectasis. Small stable focus of 1 cm groundglass opacity within the right lower lobe. Right upper Medial based smaller opacities measuring 2.4 and 8 mm , these are smaller than the prior study May 15, 2018. Consider inflammatory and/or potentially metastatic foci. No visualized pulmonary embolism. No visualized aortic dissection. Partially visualized mild edema in the soft tissues of the manny hepatis. Consider early trace ascites developing inflammation possible pancreatitis. Electronically Signed: Brenda Hale MD at 13:35 EDT Tel , Service support , Chest X-Ray 06/05/18 12:46 IMPRESSION: Findings are compatible with bilateral effusions and atelectasis findings suspicious for possible pulmonary edema. Cardiomegaly. Electronically Signed: Brenda Hale MD at 15:59 EDT Tel , Service support , Operations: None Summary of Care Provided: Patient is a 67-year-old gentleman with multiple comorbidities including CAD status post previous stent placement, end-stage renal disease on hemodialysis who presented with chest pain. Patient enzymes have so far remained in the indeterminate zone. 1. Chest pain: Patient cardiac enzymes have remained in the indeterminate zone; Plan also patient will be discharged on 06/05/2018 however patient became hypotensive resulted in cancellation of his discharge. Admitted to the intensive care unit consultation placed to cardiology and underwent left heart catheterization on 06/07/2018 Dr. Lund findings included 60% in-stent restenosis involving the circumflex, in-stent restenosis 100% OM1, in-stent restenosis ramus 100%, moderate luminal irregularities up to 50% in the mid RCA. Patient was noted to have collateral flow from left to left. Optimization of medical therapy was advised 2. Diabetes mellitus type 2 with complications including hypoglycemia 3. CAD with previous stent placement 4. Severe aortic stenosis 5. End-stage renal disease on hemodialysis secondary to diabetic nephropathy dialysis days are Mondays, Wednesdays and Fridays 6. Chronic hypoxic respiratory failure secondary to COPD patient is on baseline home O2 7. Hypertension-blood pressure controlled, home medications continued with dose adjustment as needed 8. Anemia secondary to anemia secondary to end-stage renal disease and order was given for patient to be transfused 2 unit PRBC by nephrology on 06/06/2018 9. DVT prophylaxis SCDs 10. History of bladder tumor currently stable 11. Physical deconditioning requested for PT and OT eval and treatment. Patient was transferred to a fpc facility once insurance approval was obtained Examination at the time of discharge; GENERAL: cooperative HEENT: Clear conjunctiva, NECK; supple, normal thyroid, CHEST: Diminished to auscultation bilaterally, HEART: Regular S1 S2, no audible murmurs ABDOMEN: soft, non-tender, normoactive bowel sounds, RECTAL: deferred EXTREMITIES: No edema, no clubbing, no cyanosis. FREEZER UNLOADER: Awake; no lateralizing signs. SKIN: No Rash Discharge Diet: Low fat/ Low Cholesterol, 2000 mg Sodium Diet Discharge Activity: Return to Normal Activity Home Medications: Medications to take at Discharge Furosemide 40 mg PO BID 08/12/16 Atorvastatin Calcium 80 mg PO DAILY 07/23/17 carvedilol 12.5 mg tablet 12.5 mg PO BID 01/17/18 nitroglycerin 0.4 mg sublingual tablet 0.4 mg SUBLINGUAL Q5-15M PRN 01/17/18 Lanthanum Carbonate [Fosrenol] 1,000 mg PO TID 04/15/18 Nephro-Janel 1 tab PO DAILY 04/15/18 Clopidogrel Bisulfate [Plavix] 75 mg PO DAILY 05/15/18 Mirtazapine 7.5 mg PO QHS 05/15/18 Insulin Aspart [Novolog Flexpen] See Protocol SC DAILY PRN PRN #0 05/17/18 levothyroxine 200 mcg tablet 200 mcg PO .COMPLEX 05/31/18 Calcium Acetate [Phoslo Gel Cap] 1,334 mg PO TIDCM 06/01/18 Insulin Degludec [Tresiba Flextouch U-100] 30 unit SQ BREAKFAST 06/01/18 Bisacodyl [Dulcolax] 5 mg PO DAILY PRN PRN #30 tab 06/02/18 Isosorbide Mononitrate [Imdur] 60 mg PO DAILY #30 tab 06/05/18 Ferrous Sulfate 325 mg PO BIDCM tablet 06/08/18 Magnesium Hydroxide [Milk Of Magnesia] 30 ml PO DAILY PRN udc 06/08/18 Melatonin 3 mg PO QHS PRN tablet 06/08/18 Nepro Liquid [Nepro Carb Steady] 120 ml PO 4X/DAY liquid 06/08/18 Ranolazine [Ranexa] 500 mg PO BID #120 tablet 06/08/18 Following Prescrptions Were Given to Patient: Bisacodyl [Dulcolax] 5 mg PO DAILY PRN PRN #30 tab PRN Reason: Constipation Isosorbide Mononitrate [Imdur] 60 mg PO DAILY #30 tab Ranolazine [Ranexa] 500 mg PO BID #120 tablet Other Amb Orders: Chest PA and Lateral [RAD] Location: None Selected Primary Care Physician: Alfonso Rushing Chi, MD [Primary Care Provider] - Please follow up with your Primary Care Physician in: within 2 weeks Please Follow Up With: Alfonso Rushing Chi, MD Please Follow Up With: America Lepe DO When: as scheduled in dialysis Disposition: Snf facility Minutes spent on discharge:: 35 Patient Condition:: Stable Medical Necessity - Tobacco Use Smoking Status: Former smoker Tobacco Use: Non-smoker Meaningful Use Info Meaningful Use Diagnoses (Choose all that apply): None applicable Code Visit Inpatient E&M: 16534 Disch Hosp
--- NOTE | 2018-06-08 10:47 | DS.PCM_ITS ---
Discharge Date and Diagnosis - Problem List Patient Problems: Active and Suspected Problems (Last Reviewed 05/31/18 @ 16:24 by Marya Rodriguez) Severe anemia (Acute) Chest pain (Acute) Date of Admission: 06/01/18 Date of Discharge: 06/08/18 - Primary Discharge Diagnosis Active and Suspected Problems (Last Reviewed 05/31/18 @ 16:24 by Marya Rodriguez) Severe anemia (Acute) Chest pain (Acute) - Secondary Discharge Diagnosis Chronic Problems (Last Reviewed 05/31/18 @ 16:24 by Marya Rodriguez) GI bleed (Chronic) Hyperlipidemia (Chronic) Type 2 diabetes mellitus without complications (Chronic) Hypothyroidism (Chronic) Bladder cancer (Chronic) COPD (chronic obstructive pulmonary disease) (Chronic) ESRD (end stage renal disease) on dialysis (Chronic) He was evaluated at [facility] fro transplant list. He is presently inactive, see consult. 12/16/17 Presence of arteriovenous fistula for hemodialysis (Chronic) Left Arm; Balloon plasty to fistula 05/30; Dialysis 3 days per week Mon, Wed, Fri Presence of stent in coronary artery (Chronic 07/23/17) PTCA/BLAIR to prox CX, BLAIR to OM1, BLAIR to Ramus 11/27 @ [facility]; PCI /BLAIR of LCX ISR, PCI/BLAIR Ostial OM1, [id number] Ramus ISR 07/23/17;HX stents 2004 Atherosclerosis of [place] coronary artery of [place] heart without angina pectoris (Chronic) PTCA/BLAIR to prox CX, BLIAR to OM1, BLARI to Ramus 11/27 @ [facility]; PCI /BLAIR of LCX ISR, PCI/BLAIR Ostial OM1, [id number] Ramus ISR 07/23/17;HX stents 2004 Essential (primary) hypertension (Chronic) Hospital Course and Treatment Imaging Results: Clinical Impression(s) from Imaging Studies Chest X-Ray 06/01/18 07:28 IMPRESSION: Blastic congestion with small bilateral pleural effusions worse on the left side with bibasilar atelectasis and/or infiltrate more prominent on the left side. Questionable pericardial effusion. Electronically Signed: Herrera Hayes MD at 8:23 EDT Tel [phone], Service support , Chest X-Ray 06/02/18 02:00 IMPRESSION: Worsening bibasilar infiltrates with small bilateral pleural effusions. Electronically Signed: Thony Mckeon MD at 2:50 EDT Tel , Service support , Abdomen/Pelvis CT 06/03/18 00:33 IMPRESSION: Bilateral pleural effusions with adjacent atelectasis/infiltrates. Right lower lobe nodularity. This could represent infectious process. However recommend 3-4 week follow-up CT scan to ensure resolution. Underlying neoplasm cannot be excluded. No hydronephrosis. Small pericardial effusion. No CT evidence for diverticulitis or appendicitis. Other findings as discussed above. Electronically Signed: Ed Powell at 1:47 EDT Tel , Service support , Chest CTA 06/05/18 12:06 IMPRESSION: Large bilateral effusions persisting since multiple prior studies. Atelectasis. Small stable focus of 1 cm groundglass opacity within the right lower lobe. Right upper Medial based smaller opacities measuring 2.4 and 8 mm , these are smaller than the prior study May 15, 2018. Consider inflammatory and/or potentially metastatic foci. No visualized pulmonary embolism. No visualized aortic dissection. Partially visualized mild edema in the soft tissues of the manny hepatis. Consider early trace ascites developing inflammation possible pancreatitis. Electronically Signed: Brenda Hale MD at 13:35 EDT Tel , Service support , Chest X-Ray 06/05/18 12:46 IMPRESSION: Findings are compatible with bilateral effusions and atelectasis findings suspicious for possible pulmonary edema. Cardiomegaly. Electronically Signed: Brenda Hale MD at 15:59 EDT Tel , Service support , Operations: None Summary of Care Provided: Patient is a 67-year-old gentleman with multiple comorbidities including CAD status post previous stent placement, end-stage renal disease on hemodialysis who presented with chest pain. Patient enzymes have so far remained in the indeterminate zone. 1. Chest pain: Patient cardiac enzymes have remained in the indeterminate zone; Plan also patient will be discharged on 06/05/2018 however patient became hypotensive resulted in cancellation of his discharge. Admitted to the intensive care unit consultation placed to cardiology and underwent left heart catheterization on 06/07/2018 Dr. Lund findings included 60% in-stent restenosis involving the circumflex, in-stent restenosis 100% OM1, in-stent restenosis ramus 100%, moderate luminal irregularities up to 50% in the mid RCA. Patient was noted to have collateral flow from left to left. Optimization of medical therapy was advised 2. Diabetes mellitus type 2 with complications including hypoglycemia 3. CAD with previous stent placement 4. Severe aortic stenosis 5. End-stage renal disease on hemodialysis secondary to diabetic nephropathy dialysis days are Mondays, Wednesdays and Fridays 6. Chronic hypoxic respiratory failure secondary to COPD patient is on baseline home O2 7. Hypertension-blood pressure controlled, home medications continued with dose adjustment as needed 8. Anemia secondary to anemia secondary to end-stage renal disease and order was given for patient to be transfused 2 unit PRBC by nephrology on 06/06/2018 9. DVT prophylaxis SCDs 10. History of bladder tumor currently stable 11. Physical deconditioning requested for PT and OT eval and treatment. Patient was transferred to a group home facility once insurance approval was obtained Examination at the time of discharge; GENERAL: cooperative HEENT: Clear conjunctiva, NECK; supple, normal thyroid, CHEST: Diminished to auscultation bilaterally, HEART: Regular S1 S2, no audible murmurs ABDOMEN: soft, non-tender, normoactive bowel sounds, RECTAL: deferred EXTREMITIES: No edema, no clubbing, no cyanosis. GASTROENTEROLOGY PROFESSOR: Awake; no lateralizing signs. SKIN: No Rash Discharge Diet: Low fat/ Low Cholesterol, 2000 mg Sodium Diet Discharge Activity: Return to Normal Activity Home Medications: Medications to take at Discharge Furosemide 40 mg PO BID 08/12/16 Atorvastatin Calcium 80 mg PO DAILY 07/23/17 carvedilol 12.5 mg tablet 12.5 mg PO BID 01/17/18 nitroglycerin 0.4 mg sublingual tablet 0.4 mg SUBLINGUAL Q5-15M PRN 01/17/18 Lanthanum Carbonate [Fosrenol] 1,000 mg PO TID 04/15/18 Nephro-Janel 1 tab PO DAILY 04/15/18 Clopidogrel Bisulfate [Plavix] 75 mg PO DAILY 05/15/18 Mirtazapine 7.5 mg PO QHS 05/15/18 Insulin Aspart [Novolog Flexpen] See Protocol SC DAILY PRN PRN #0 05/17/18 levothyroxine 200 mcg tablet 200 mcg PO .COMPLEX 05/31/18 Calcium Acetate [Phoslo Gel Cap] 1,334 mg PO TIDCM 06/01/18 Insulin Degludec [Tresiba Flextouch U-100] 30 unit SQ BREAKFAST 06/01/18 Bisacodyl [Dulcolax] 5 mg PO DAILY PRN PRN #30 tab 06/02/18 Isosorbide Mononitrate [Imdur] 60 mg PO DAILY #30 tab 06/05/18 Ferrous Sulfate 325 mg PO BIDCM tablet 06/08/18 Magnesium Hydroxide [Milk Of Magnesia] 30 ml PO DAILY PRN udc 06/08/18 Melatonin 3 mg PO QHS PRN tablet 06/08/18 Nepro Liquid [Nepro Carb Steady] 120 ml PO 4X/DAY liquid 06/08/18 Ranolazine [Ranexa] 500 mg PO BID #120 tablet 06/08/18 Following Prescrptions Were Given to Patient: Bisacodyl [Dulcolax] 5 mg PO DAILY PRN PRN #30 tab PRN Reason: Constipation Isosorbide Mononitrate [Imdur] 60 mg PO DAILY #30 tab Ranolazine [Ranexa] 500 mg PO BID #120 tablet Other Amb Orders: Chest PA and Lateral [RAD] Location: None Selected Primary Care Physician: Alfonso Rushing Chi, MD [Primary Care Provider] - Please follow up with your Primary Care Physician in: within 2 weeks Please Follow Up With: Alfonso Rushing Chi, MD Please Follow Up With: America Lepe DO When: as scheduled in dialysis Disposition: Group Home facility Minutes spent on discharge:: 35 Patient Condition:: Stable Medical Necessity - Tobacco Use Smoking Status: Former smoker Tobacco Use: Non-smoker Meaningful Use Info Meaningful Use Diagnoses (Choose all that apply): None applicable Code Visit Inpatient E&M: 11275 Disch Hosp
--- NOTE | 2018-06-08 10:55 | CASEMGMT ---
Faxed orders to [facility]. SW will call patient's when patient is with in 30 minutes of being ready to go. Plan: d/c to [facility] under skilled level of care on a convalescent stay. Patient's transported him via private car. Alejandra ALAS
--- NOTE | 2018-06-08 11:48 | CASEMGMT ---
LINDA called patient's and left her a vm letting her know that patient will be ready to go between 130 and 2p. Alejandra HICKMAN MSW
[2018-06-08 12:05] LABS: Bedside Glucose 107 mg/dL (70-110)
[2018-06-08] MEDS: Furosemide 40 MG Tablet PO (12:53)
[2018-06-08] MEDS: Pantoprazole Sodium 40 MG Tablet PO (12:53)
[2018-06-08] MEDS: Ferrous Sulfate 325 MG Tablet PO (12:53)
[2018-06-08] MEDS: Folic Acid/Vitamin B Comp W-C 1 Capsule 1 CAP PO (12:53)
[2018-06-08] MEDS: Clopidogrel Bisulfate 75 MG Tablet PO (12:54)
[2018-06-08] MEDS: Ranolazine 500 MG Tablet PO (12:54)
[2018-06-08] MEDS: Carvedilol 12.5 MG Tablet PO (12:55)
[2018-06-08] MEDS: Isosorbide Mononitrate 60 MG Tablet PO (12:55)
--- NOTE | 2018-06-08 13:02 | CASEMGMT ---
LINDA called patient's back to make sure she got LINDA's message about picking up patient and LINDA got her voice mail again. LINDA left another vm. Alejandra HICKMAN MSW
== END 2018-06-08 14:05 | disposition skilled nursing facility (03) | DRG 682 ==
LOC: ED 08:03 → PCU 09:22 → ICU 06-05 11:47 → PCU 06-07 15:58
PROVIDERS: Family Medicine; Hospitalist; Internal Medicine; Internal Medicine Cardiovascular Disease; Internal Medicine Critical Care Medicine; Internal Medicine Nephrology; Physician Assistant; Admitting Provider Internal Medicine; Emergency Provider Emergency Medicine; Family Provider Family Medicine Geriatric Medicine; PCP Family Medicine Geriatric Medicine; Visit Provider Internal Medicine
DX: I12.0 Hypertensive chronic kidney disease with stage 5 chronic kidney disease or end stage renal disease (principal); N18.6 End stage renal disease; J96.21 Acute and chronic respiratory failure with hypoxia; K92.2 Gastrointestinal hemorrhage, unspecified; I42.9 Cardiomyopathy, unspecified; I25.110 Atherosclerotic heart disease of native coronary artery with unstable angina pectoris; J44.1 Chronic obstructive pulmonary disease with (acute) exacerbation; E11.22 Type 2 diabetes mellitus with diabetic chronic kidney disease; Z99.81 Dependence on supplemental oxygen; D63.1 Anemia in chronic kidney disease; E03.9 Hypothyroidism, unspecified; Z99.2 Dependence on renal dialysis; E78.5 Hyperlipidemia, unspecified; Z87.891 Personal history of nicotine dependence; Z79.4 Long term (current) use of insulin; I35.0 Nonrheumatic aortic (valve) stenosis; Z95.5 Presence of coronary angioplasty implant and graft; Z79.02 Long term (current) use of antithrombotics/antiplatelets; C67.9 Malignant neoplasm of bladder, unspecified
CPT/HCPCS: 36415; 71045; 71275; 74176; 80048; 80053; 80069; 82728; 82803; 82947; 82962; 83540; 83550; 83735; 84100; 84484; 85014; 85018; 85025; 85027; 85730; 86850; 86900; 86920; 86922; 90937; 93005; 93306; 93460; 94002; 94640; 94667; 94668; 97110; 97116; 97162; 97166; 97530; 99152; 99153; 99284; J0885; J1756; J7030; J7040; P9016; Q9957; Q9967; A4216; C1751; C1769; C1894; C8929; G0257; J1940; J2405

== ENCOUNTER 2018-07-09 12:00 | Inpatient (IN) | payer MEDICARE, OTHER, SELFPAY ==
[2017-07-23 14:46] VITALS: BMI 28.0
[2018-07-09] VITALS (12 sets, daily range): BP systolic 133–147; BP diastolic 72–83; PULSE 88–105; RESP 16–24; TEMP 36–36.8; O2SAT 85–100; BMI 28.0; BMI 28.1; BMI 28.2
--- NOTE | 2018-07-09 13:08 | EKG12_ITS ---
Test Reason : SOB Blood Pressure : / mmHG Vent. Rate : 092 BPM Atrial Rate : 092 BPM P-R Int : 180 ms QRS Dur : 094 ms QT Int : 392 ms P-R-T Axes : 051 -08 151 degrees QTc Int : 484 ms Normal sinus rhythm Low voltage QRS (LIMB LEADS) ST & T wave abnormality, consider lateral ischemia Prolonged QT Abnormal ECG Confirmed by KEENAN ARECHIGA, RENATA ([id number]), editor in chief DRISS MONROY ([id number]) on 07/12/2018 10:07:31 AM Referred By: CATA Confirmed By:RENATA HUSSEIN MD
--- NOTE | 2018-07-09 13:10 | RAD_ITS ---
STUDY: X-RAY CHEST REASON FOR EXAM: Male, 67 years old. Shortness of breath. TECHNIQUE: Single AP portable view of the chest. COMPARISON: 06/05/2018. FINDINGS: There again is prominence of the pulmonary vasculature. There are bilateral lower lung infiltrates/edema worse than the previous examination more confluent in the left retrocardiac region. There is increased left pleural effusion. There is mild cardiac enlargement. Normal mediastinum and александр. Normal visualized pulmonary arteries. There is atherosclerotic calcification of the aortic arch with tortuosity. The bony structures are unchanged. There is no demonstrated abnormality of the visualized soft tissue structures of the upper abdomen. RAD/Chest 1 View (Portable) IMPRESSION: Bilateral infiltrates/edema worse than the previous examination. Underlying pneumonic process in the left retrocardiac region is difficult to exclude. Increased left pleural effusion. Electronically Signed: Sarbjit Carrillo MD at 13:55 EDT Tel , Service support ,
[2018-07-09] MEDS: Ipratropium/Albuterol Sulfate 3 ML AMPUL.NEB INHALATION (13:21)
[2018-07-09] MEDS: MethylPREDNISolone 125 MG/2 ML Vial IV (13:21)
[2018-07-09 13:41] LABS: Absolute Lymphocyte Count 1.34 X10^3/ul (0.83-4.51); Absolute Neutrophil Count 4.8 X10^3/uL (2.0-7.7); Basophil# 0.03 X10^3/uL; Basophil% 0.4 % (0-1); Eosinophil# 0.67 X10^3/uL; Eosinophils% 8.5 % (0-5); Hematocrit 30.3 % (40-54); Hemoglobin 9.2 g/dl (13.0-16.5); Lymphocyte # 1.34 X10^3/ul (4.0); Mean Corp Hgb Conc 30.4 g/gl (32-36); Mean Corpuscular Hgb 28.3 pg (27.0-32.0); Mean Corpuscular Volume 93.2 fL (80-94); Mean Platelet Vol. 10.6 fl (6.2-12.0); Monocyte# 1.02 X10^3/uL; Monocyte% 12.9 % (0-10); Neutrophil # 4.82 X10^3/uL (2.7-7.7); Neutrophil % 61.1 % (47-70); Platelet Count 283 K/mm3 (150-450); RBC Distribution Width SD 60.3 fl (35.1-43.9); Red Blood Count 3.25 M/mm3 (4.6-6.2); White Blood Count 7.9 K/mm3 (4.4-11.0)
[2018-07-09 13:43] LABS: POSITIVE COUNT NO; POSITIVE DIFFERENTIAL NO; POSITIVE MORPHOLOGY NO
[2018-07-09 13:57] LABS: Anion Gap 7 (5-15); BUN 44 mg/dL (7-18); BUN/Creat Ratio 6.2 RATIO (10-20); Calcium,Total 8.8 mg/dL (8.5-10.1); Chloride 100 mmol/L (98-107); Creatinine, Serum 7.11 mg/dL (0.70-1.30); EST Glomerular Filtration Rate 8 mL/min (>60); Est Glom Filt Rate - Afr Amer 10 mL/min (>60); Estimated Creatinine Clearance 10.08 ml/min; Glucose 210 mg/dL (74-106); Potassium 3.7 mmol/L (3.5-5.1); Sodium Level 139 mmol/L (136-145)
[2018-07-09 14:15] LABS: Lactic Acid 0.9 mmol/L (0.4-2.0)
--- NOTE | 2018-07-09 14:57 | ED.VISSUMM ---
- ER Visit Summary Date of Service: 07/09/18 Chief Complaint: [Shortness of breath] History of Present Illness: The patient is a 67 M [presents to the emergency department complaint of shortness of breath for the last 2 days. Patient developed a cough about a week ago or so. Patient's been coughing up some thick yellow sputum. Patient was too weak to go to dialysis yesterday. Patient complains of exertional dyspnea. Patient has not had a fever. He denies any vomiting or diarrhea. Patient does have a history of COPD, CHF, diabetes, and end-stage renal disease. Patient is normally on 4 L of home O2.] Physical Examination: [HEENT-PERRLA, EOMI. Cranial nerves II through XII grossly intact. TMs clear. Mucous membranes moist. No adenopathy. Cardiovascular-regular rate and rhythm without murmur or ectopy Lungs-minutes breath sounds in the bases. Patient has rales in both bases. Patient is X Tory wheezes bilaterally. He has tachypnea but no accessory muscle use or retractions. Abdomen-normoactive bowel sounds, soft, nontender, no rebound or rigidity, no peritoneal signs. Extremities-intact ?4, normal range of motion, normal pulses, atraumatic]. Patient has +1 edema both lower extremities and symmetric. Test Results: [EKG obtained arrival showed a sinus rhythm with a ventricular rate of [address] changes noted. When compared with prior EKG from June 07, 2018 no significant changes noted. He did have more significant T wave inversions laterally. CBC with differential obtained showed a white count 7.9, hemoglobin 9.2, hematocrit 30, platelets 283. Chemistries unremarkable. BUN was 49 and creatinine 7.11. Troponin was 0.046. BNP was elevated over 3000.] Chest x-ray obtained showed increased markings both lung bases and concern for infiltration left lower lobe. Emergency Department Course and Treatment: [Patient received a DuoNeb aerosol and started on Solu-Medrol 125 mill grams IV.] Patient was started on Rocephin and Zithromax IV. Treatment Plan: [Admit] Disposition: [Admit] Impression: [Pneumonia COPD exacerbation Chronic renal failure Generalized weakness] This note was generated with [employer] dictation software. It may contain incorrect words, spelling, and punctuation that were not noted in review of the chart prior to signing ED Disposition - Plan for ED Patient: Chief Complaint: Shortness of Breath Referrals: Alfonso Rushing Chi, MD [Primary Care Provider] -
--- NOTE | 2018-07-09 14:59 | HP.PCM_ITS ---
Problem List (1) Shortness of breath Status: Acute History of Present Illness Date of Admission: 07/09/18 Chief Complaint: SHORTNESS OF BREATH The patient is a 67 year old M with an extensive past medical history as listed below. He was admitted through the ED on 07/09/2018 with a complaint of shortness of breath about 3 days. He had assisted cough which is productive of clear sputum. He denied any fever or chills but admitted to orthopnea and PND. Patient has ESRD and goes for dialysis Wednesdays. He misses dialysis yesterday on account of feeling weak and lethargic. Symptoms did not improve and so he decided coming to the ED today. He denied any palpitations, dizziness or lightheadedness, abdominal pain, diarrhea vomiting but admitted to lower extremity edema. Vitals in the ED were unremarkable and chemistry was significant for initial troponin 0 0.046 and BNP of 3391. EKG showed mild T wave inversions in the lateral leads. Creatinine was 7.11 and chest x-ray showed increased markings in both lung bases and concern for left lower lobe infiltration. Is been admitted to be managed for CHF exacerbation, possible pneumonia and fluid overload due to missed ESRD. [] Past Medical History Past Medical History (Chronic Problems): Chronic Problems (Last Reviewed 05/31/18 @ 16:24 by Marya Rodriguez) GI bleed (Chronic) Hyperlipidemia (Chronic) Type 2 diabetes mellitus without complications (Chronic) Hypothyroidism (Chronic) Bladder cancer (Chronic) COPD (chronic obstructive pulmonary disease) (Chronic) ESRD (end stage renal disease) on dialysis (Chronic) He was evaluated at [facility] fro transplant list. He is presently inactive, see consult. 12/16/17 Presence of arteriovenous fistula for hemodialysis (Chronic) Left Arm; Balloon plasty to fistula 05/30; Dialysis 3 days per week Wed, Wed, Wed Presence of stent in coronary artery (Chronic 07/23/17) PTCA/BLAIR to prox CX, BLAIR to OM1, BLAIR to Ramus 11/27 @ [facility]; PCI /BLAIR of LCX ISR, PCI/BLAIR Ostial OM1, [id number] Ramus ISR 07/23/17;HX stents 2004 Atherosclerosis of [place] coronary artery of [place] heart without angina pectoris (Chronic) PTCA/BLAIR to prox CX, BLAIR to OM1, BLAIR to Ramus 11/27 @ [facility]; PCI /BLAIR of LCX ISR, PCI/BLAIR Ostial OM1, [id number] Ramus ISR 07/23/17;HX stents 2003 Essential (primary) hypertension (Chronic) Medical History: Medical History (Last Reviewed 05/31/18 @ 16:24 by Marya Rodriguez) Hyperlipidemia (Chronic) E78.5 Type 2 diabetes mellitus without complications (Chronic) E11.9 Hypothyroidism (Chronic) E03.9 Bladder cancer (Chronic) C67.9 COPD (chronic obstructive pulmonary disease) (Chronic) J44.9 ESRD (end stage renal disease) on dialysis (Chronic) N18.6, Z99.2 He was evaluated at [facility] fro transplant list. He is presently inactive, see consult. 12/16/17 Atherosclerosis of [place] coronary artery of [place] heart without angina pectoris (Chronic) I25.10 PTCA/BALIR to prox CX, BLAIR to OM1, BLAIR to Ramus 11/27 @ [facility]; PCI /BLAIR of LCX IS R, PCI/BLAIR Ostial OM1, [id number] Ramus ISR 07/23/17;HX stents 2003 Essential (primary) hypertension (Chronic) I10 Cataract H26.9 Glaucoma H40.9 Hemorrhoid K64.9 Colon polyp K63.5 Allergies morphine Adverse Reaction (Verified 07/09/18 12:02) Itching Home Medications: Ambulatory Orders Medication Instructions Recorded Furosemide 40 mg PO BID 08/12/16 Atorvastatin Calcium 80 mg PO DAILY 07/23/17 carvedilol 12.5 mg tablet 12.5 mg PO BID 01/17/18 nitroglycerin 0.4 mg sublingual 0.4 mg SUBLINGUAL Q5-15M PRN 01/17/18 tablet Lanthanum Carbonate [Fosrenol] 1,000 mg PO TID 04/15/18 Nephro-Janel 1 tab PO DAILY 04/15/18 Clopidogrel Bisulfate [Plavix] 75 mg PO DAILY 05/15/18 Mirtazapine 7.5 mg PO QHS 05/15/18 Insulin Aspart [Novolog Flexpen] See Protocol SC DAILY PRN PRN #0 05/17/18 levothyroxine 200 mcg tablet 200 mcg PO .COMPLEX 05/31/18 Calcium Acetate [Phoslo Gel Cap] 1,334 mg PO TIDCM 06/01/18 Insulin Degludec [Tresiba 40 unit SQ BREAKFAST 06/01/18 Flextouch U-100] Ferrous Sulfate 325 mg PO BIDCM tablet 06/08/18 Linaclotide [Linzess] 72 mcg PO PRN PRN 07/09/18 Surgical History: Surgical History (Last Reviewed 05/31/18 @ 16:24 by Marya Rodriguez) Presence of arteriovenous fistula for hemodialysis (Chronic) Z99.2 Left Arm; Balloon plasty to fistula 05/30; Dialysis 3 days per week Mon, Wed, Fri Presence of stent in coronary artery (Chronic) Onset Date: 07/23/17 Z95.5 PTCA/BLAIR to prox CX, BLAIR to OM1, BLAIR to Ramus 11/27 @ [facility]; PCI /BLAIR of LCX ISR, PCI/BLAIR Ostial OM1, [id number] Ramus ISR 07/23/17;HX stents 2003 History of bladder surgery Onset Date: Z98.890 History of cataract surgery Z98.49 Surgical History: angioplasty - stent, cataract - bilateral, - - AVF, bladder tumor resection Lives: Spouse/ Significant Other Smoking Status: Former smoker Alcohol: Occasional - *Family History Maternal Family History: Family History (Last Reviewed 05/31/18 @ 16:24 by Marya Rodriguez) Mother Cervical cancer Father CAD (coronary artery disease) Sister Cervical cancer Colon cancer Thromboembolism History Items: Cancer Paternal Family History: Family History (Last Reviewed 05/31/18 @ 16:24 by Marya Rodriguez) Mother Cervical cancer Father CAD (coronary artery disease) Sister Cervical cancer Colon cancer Thromboembolism History Items: Heart Disease Sibling Family History: Family History (Last Reviewed 05/31/18 @ 16:24 by Marya Rodriguez) Mother Cervical cancer Father CAD (coronary artery disease) Sister Cervical cancer Colon cancer Thromboembolism History Items: Cancer Review of Systems Constitutional: Reports: Anorexia, Malaise, Weakness, Fatigue. Denies: Chills, Fever Eyes: Denies: Blurred vision HEENT: Denies: Head Aches, Sinus Congestion, Sinus Drainage Cardiovascular: Reports: Edema. Denies: Chest Pain, Chest Pressure, Chest Tightness, Orthopnea, Palpitations, Paroxysmal Noc. Dyspnea Respiratory: Reports: Cough, Shortness of Breath, Shortness of breath at rest, Sputum production, Wheezing Gastrointestinal: Denies: Abdominal Pain, Nausea, Vomiting Genitourinary: Denies: Dysuria Musculoskeletal: Denies: Joint Pain, Joint Tenderness Skin: Denies: Rash, Wounds Neurological: Denies: Numbness, Tingling, Focal weakness Psychiatric: Denies: Anxiety, Depression, Homicidal Ideations, Suicidal Ideations Hematologic/ Lymphatic: Denies: Easy Bruising, Easy Bleeding VTE Information - Inpt Only VTE Present on Admission: No VTE Pharm Prophylaxis ordered?: Yes Patient Problems: Active and Suspected Problems (Last Reviewed 05/31/18 @ 16:24 by Marya Rordiguez) Shortness of breath (Acute) - Physical Exam General: Alert, Oriented x3, Cooperative, No apparent distress HEENT: Atraumatic, PERRLA, EOMI, Normocephalic Oral: Dry Mucosa Neck: Supple, No JVD, Negative Carotid Bruits Lungs: - - decreased breath sounds bibasally with fine crackles in lung bases Cardiovascular: Regular rate, Regular Rhythm, Normal S1, Normal S2 Abdomen: Bowel Sounds Present, Soft, Non Tender, Obese Extremities: Edema - bilateral pitting pedal edema Skin: No rashes, No breakdown Musculoskeletal: No Tenderness to Palpation of Joints or Extremities, - - AV fistula in LUE with palpable thrill Lymphatic: No Cervical, Supraclavicular, or Inguinal Adenopathy Neurological: Cranial nerves II-XII grossly intact, Neuro grossly intact, Motor Exam 5/5 strength throughout Psych/Mental Status: Normal Affect, Appropriate, Alert and oriented to time, place, person, mood and affect Vital Signs Temp Pulse Resp BP Pulse Ox 96.8 F L 91 22 H 133/72 H 97 07/09/18 12:01 07/09/18 13:26 07/09/18 13:26 07/09/18 13:11 07/09/18 13:11 Oxygen Flow Rate (L/min) 4 Oxygen Delivery Method Room Air Weight: 190 lb Body Mass Index (BMI) 28.0 Laboratory Tests Past 24 Hrs 07/09/18 07/09/18 07/09/18 13:10 13:10 13:10 WBC 7.9 RBC 3.25 L Hgb 9.2 L Hct 30.3 L MCV 93.2 MCH 28.3 MCHC 30.4 L RDW 18.0 H RDW Differential 60.3 H Plt Count 283 MPV 10.6 Immature Gran % (Auto) 0.100 Neut % (Auto) 61.1 Lymph % (Auto) 17.0 L [place] % (Auto) 12.9 H Eos % (Auto) 8.5 H Baso % (Auto) 0.4 Absolute Neuts (auto) 4.8 Absolute Lymphs (auto) 1.34 Total Counted Not Reportable Sodium 139 Potassium 3.7 Chloride 100 Carbon Dioxide 32.0 Anion Gap 7 BUN 44 H Creatinine 7.11 H Estim Creat Clear Calc 10.08 Est GFR (MDRD) Af Amer 10 L Est GFR (MDRD) Non-Af 8 L BUN/Creatinine Ratio 6.2 L Glucose 210 H Lactic Acid Calcium 8.8 Troponin I 0.046 H B-Natriuretic Peptide 3391.1 H 07/09/18 13:35 WBC RBC Hgb Hct MCV MCH MCHC RDW RDW Differential Plt Count MPV Immature Gran % (Auto) Neut % (Auto) Lymph % (Auto) [place] % (Auto) Eos % (Auto) Baso % (Auto) Absolute Neuts (auto) Absolute Lymphs (auto) Total Counted Sodium Potassium Chloride Carbon Dioxide Anion Gap BUN Creatinine Estim Creat Clear Calc Est GFR (MDRD) Af Amer Est GFR (MDRD) Non-Af BUN/Creatinine Ratio Glucose Lactic Acid 0.9 Calcium Troponin I B-Natriuretic Peptide Diagnostic Data Chest X-Ray 07/09/18 13:10 IMPRESSION: Bilateral infiltrates/edema worse than the previous examination. Underlying pneumonic process in the left retrocardiac region is difficult to exclude. Increased left pleural effusion. Electronically Signed: Sarbjit Carrillo MD at 13:55 EDT Tel , Service support , Assessment/Plan All Active Problems (Last Reviewed 05/31/18 @ 16:24 by Marya Rodriguez) Severe anemia (Acute) Chest pain (Acute) Shortness of breath (Acute) COPD with acute exacerbation (Acute) [age]-year-old male presenting with a 3-day history of worsening shortness of breath, lower extremity edema and cough 1. Acute exacerbation of HFrEF * BNP is 3300; ahs LE edema and CXR suggestive of edema vs infiltrate * missed dialysis yesterday, worsening fluid overload * still makes urine * admit to PCU with telemetry * IV lasix 40mg bid * initial troponin is 0.046; will trend * Get nephrology consult for dialysis * Breathing treatments 2. Fluid overload due to missed dialysis * Dialysis Wednesdays. Missed dialysis yesterday on account of not feeling well * Consult nephrology for dialysis. Creatinine 7.11 and BUN is 44 * potassium is 3.7 * 3. ?Community acquired pneumonia * Has a cough which is productive of whitish sputum that was initially yellow. Denies any fever chills * Chest x-ray suspicious for infiltrate versus fluid overload. per my personal review of the CXR, it appears he has bilateral pleural effusions; I am not very convinced about the presence of an infiltrate * Given IV azithromycin and ceftriaxone in the ED * Will give p.o. levofloxacin for 3-day course. 4. Diabetes mellitus * on insulin 40IU qam. * ISS * accuchecks ACHS * 5. CAD s/p CABG * on plavix and carvedilol as well as statin 6. Hypothyroidism: on synthroid 200mcg daily DVT prophylaxis: heparin Code status: Full code. * * Code Visit Inpatient E&M: 88306 Init Hosp L3 Procedures: 36190 Advncd Care Plan 30 Min
[2018-07-09] MEDS: Ceftriaxone 1 GM/50 ML BAG IV (15:00)
--- NOTE | 2018-07-09 15:05 | ED.DCSUM_ITS ---
- ER Visit Summary Date of Service: 07/09/18 Chief Complaint: [Shortness of breath] History of Present Illness: The patient is a 67 M [presents to the emergency department complaint of shortness of breath for the last 2 days. Patient developed a cough about a week ago or so. Patient's been coughing up some thick yellow sputum. Patient was too weak to go to dialysis yesterday. Patient complains of exertional dyspnea. Patient has not had a fever. He denies any vomiting or diarrhea. Patient does have a history of COPD, CHF, diabetes, and end-stage renal disease. Patient is normally on 4 L of home O2.] Physical Examination: [HEENT-PERRLA, EOMI. Cranial nerves II through XII grossly intact. TMs clear. Mucous membranes moist. No adenopathy. Cardiovascular-regular rate and rhythm without murmur or ectopy Lungs-minutes breath sounds in the bases. Patient has rales in both bases. Patient is X Tory wheezes bilaterally. He has tachypnea but no accessory muscle use or retractions. Abdomen-normoactive bowel sounds, soft, nontender, no rebound or rigidity, no peritoneal signs. Extremities-intact ?4, normal range of motion, normal pulses, atraumatic]. Patient has +1 edema both lower extremities and symmetric. Test Results: [EKG obtained arrival showed a sinus rhythm with a ventricular rate of [address] changes noted. When compared with prior EKG from June 07, 2018 no significant changes noted. He did have more s ignificant T wave inversions laterally. CBC with differential obtained showed a white count 7.9, hemoglobin 9.2, hematocrit 30, platelets 283. Chemistries unremarkable. BUN was 49 and creatinine 7.11. Troponin was 0.046. BNP was elevated over 3000.] Chest x-ray obtained showed increased markings both lung bases and concern for infiltration left lower lobe. Emergency Department Course and Treatment: [Patient received a DuoNeb aerosol and started on Solu-Medrol 125 mill grams IV.] Patient was started on Rocephin and Zithromax IV. Treatment Plan: [Admit] Disposition: [Admit] Impression: [Pneumonia COPD exacerbation Chronic renal failure Generalized weakness] This note was generated with [employer] dictation software. It may contain incorrect words, spelling, and punctuation that were not noted in review of the chart prior to signing ED Disposition - Plan for ED Patient: Chief Complaint: Shortness of Breath Referrals: Alfonso Rushing Chi, MD [Primary Care Provider] -
--- NOTE | 2018-07-09 15:05 | NURSING ---
PCU [facility]
--- NOTE | 2018-07-09 18:19 | PCM.CONS.R ---
Problem List (1) ESRD (end stage renal disease) on dialysis Status: Chronic Comment: He was evaluated at [facility] fro transplant list. He is presently inactive, see consult. 12/16/17 Consultation - Renal PCP/ Referring MD: Requesting physician: [] Primary care physician: Alfonso Rushing - History of Present Illness History of Present Illness: The patient is a 67 year old M with history of end-stage renal disease on Wednesday hemodialysis sessions schedule Patient is follow with Dr. Lyons at [place] . Patient missed hemodialysis session yesterday due to sickness . Patient presented with shortness of breath for 3 days along with cough . Chest x-ray showed left lower lobe pneumonia . Renal team was consulted for hemodialysis management . Patient has left upper extremity AV fistula Review of systems : 12 systems review is negative except for cough , weakness , and shortness of breath [] - Allergies Allergies: Allergies morphine Adverse Reaction (Verified 07/09/18 12:02) Itching - Current Medications Current Medications: Current Medications Atorvastatin Calcium (Lipitor) 80 mg PO DAILY LAINEY Calcium Acetate (Phoslo Gel Cap) 1,334 mg PO TIDCM LAINE[facility] Carvedilol (Coreg) 12.5 mg PO BID LAINEY Clopidogrel Bisulfate (Plavix) 75 mg PO DAILY LAINEY Dextrose (D50w Syringe) 0 gm IV X1 PRN; Protocol PRN Reason: Hypoglycemia Ferrous Sulfate (Ferrous Sulfate) 325 mg PO BIDCM@1200,1700 LAINE[facility] Furosemide (Lasix) 40 mg IV BID@1000,1800 LAINE[facility] Glucagon () 1 mg IM .X1 PRN PRN Reason: Hypoglycemia Heparin Sodium (Porcine) (Heparin Na) 5,000 unit SC Q8 LAINEY Insulin Glargine (Lantus (Bkc)) 40 units SC BREAKFAST LAINEY Insulin Human Lispro (Humalog Kwikpen (Bkc)) 0 unit SQ ACHS LAINEY; Protocol Levofloxacin (Levaquin Tablet) 500 mg PO Q48@0600 LAINEY Stop: 07/13/18 06:01 Magnesium Hydroxide (Milk Of Magnesia) 30 ml PO DAILY PRN PRN PRN Reason: Constipation Mirtazapine (Remeron) 7.5 mg PO QHS [facility] Multivit/Ca Carb/B Cmplx/FA/Prenat (Nephrocaps, Renaphro) 1 capsule PO DAILY LAINEY Nitroglycerin (Nitrostat) 0.4 mg SUBLINGUAL Q5M PRN PRN Reason: CARDIAC/CHEST PAIN Non-Formulary Medication (Lanthanum Carbonate) 1,000 mg PO TID LAINEY Non-Formulary Medication (Levothyroxine Sodium [Levo-T]) 200 mcg PO .COMPLEX LAINEY Non-Formulary Medication (Linaclotide) 72 mcg PO PRN PRN PRN Reason: Constipation - Past Medical History Past Medical History (Chronic Problems): Chronic Problems (Last Reviewed 05/31/18 @ 16:24 by Marya Rodriguez) GI bleed (Chronic) Hyperlipidemia (Chronic) Type 2 diabetes mellitus without complications (Chronic) Hypothyroidism (Chronic) Bladder cancer (Chronic) COPD (chronic obstructive pulmonary disease) (Chronic) ESRD (end stage renal disease) on dialysis (Chronic) He was evaluated at [facility] fro transplant list. He is presently inactive, see consult. 12/16/17 Presence of arteriovenous fistula for hemodialysis (Chronic) Left Arm; Balloon plasty to fistula 05/30; Dialysis 3 days per week Mon, Wed, Fri Presence of stent in coronary artery (Chronic 07/23/17) PTCA/BLAIR to prox CX, BLAIR to OM1, BLAIR to Ramus 11/27 @ [facility]; PCI /BLAIR of LCX ISR, PCI/BLAIR Ostial OM1, [id number] Ramus ISR 07/23/17;HX stents 2003 Atherosclerosis of [place] coronary artery of [place] heart without angina pectoris (Chronic) PTCA/BLAIR to prox CX, BLAIR to OM1, BLAIR to Ramus 11/27 @ [facility]; PCI /BLAIR of LCX ISR, PCI/BLAIR Ostial OM1, [id number] Ramus ISR 07/23/17;HX stents 2003 Essential (primary) hypertension (Chronic) - Past Surgical History Surgical History: angioplasty - stent, cataract - bilateral, - - AVF, bladder tumor resection - Social History Smoking Status: Former smoker Alcohol: Occasional - Family History Maternal Family History: Family History (Last Reviewed 05/31/18 @ 16:24 by Marya Rodriguez) Mother Cervical cancer Father CAD (coronary artery disease) Sister Cervical cancer Colon cancer Thromboembolism History Items: Cancer Paternal Family History: Family History (Last Reviewed 05/31/18 @ 16:24 by Marya Rodriguez) Mother Cervical cancer Father CAD (coronary artery disease) Sister Cervical cancer Colon cancer Thromboembolism History Items: Heart Disease Sibling Family History: Family History (Last Reviewed 05/31/18 @ 16:24 by Marya Rodriguez) Mother Cervical cancer Father CAD (coronary artery disease) Sister Cervical cancer Colon cancer Thromboembolism History Items: Cancer Patient Problems: Active and Suspected Problems (Last Reviewed 05/31/18 @ 16:24 by Marya Rodriguez) Shortness of breath (Acute) - Physical Exam General: Alert HEENT: Atraumatic, PERRLA Oral: Moist Mucosa Neck: Supple, No JVD Lungs: - - left lower lobe crackles Cardiovascular: Regular rate, Regular Rhythm, Normal S1, Normal S2 Abdomen: Bowel Sounds Present, Soft, Non Tender Extremities: No clubbing, No cyanosis, Edema - Edema of lower extremities Skin: No rashes Musculoskeletal: No Tenderness to Palpation of Joints or Extremities Lymphatic: Cervical Adenopathy Neurological: Cranial nerves II-XII grossly intact Psych/Mental Status: Normal Affect, Appropriate Vital Signs Temp Pulse Resp BP Pulse Ox 97.7 F L 96 16 145/83 H 94 07/09/18 16:08 07/09/18 16:28 07/09/18 16:08 07/09/18 16:08 07/09/18 16:08 Oxygen Flow Rate (L/min) 4 Oxygen Delivery Method Nasal Cannula Weight: 86.7 kg Body Mass Index (BMI) 28.2 Laboratory Tests Past 24 Hrs 07/09/18 07/09/18 07/09/18 13:10 13:10 13:10 WBC 7.9 RBC 3.25 L Hgb 9.2 L Hct 30.3 L MCV 93.2 MCH 28.3 MCHC 30.4 L RDW 18.0 H RDW Differential 60.3 H Plt Count 283 MPV 10.6 Immature Gran % (Auto) 0.100 Neut % (Auto) 61.1 Lymph % (Auto) 17.0 L [place] % (Auto) 12.9 H Eos % (Auto) 8.5 H Baso % (Auto) 0.4 Absolute Neuts (auto) 4.8 Absolute Lymphs (auto) 1.34 Total Counted Not Reportable Sodium 139 Potassium 3.7 Chloride 100 Carbon Dioxide 32.0 Anion Gap 7 BUN 44 H Creatinine 7.11 H Estim Creat Clear Calc 10.08 Est GFR (MDRD) Af Amer 10 L Est GFR (MDRD) Non-Af 8 L BUN/Creatinine Ratio 6.2 L Glucose 210 H Lactic Acid Calcium 8.8 Troponin I 0.046 H B-Natriuretic Peptide 3391.1 H 07/09/18 13:35 WBC RBC Hgb Hct MCV MCH MCHC RDW RDW Differential Plt Count MPV Immature Gran % (Auto) Neut % (Auto) Lymph % (Auto) [place] % (Auto) Eos % (Auto) Baso % (Auto) Absolute Neuts (auto) Absolute Lymphs (auto) Total Counted Sodium Potassium Chloride Carbon Dioxide Anion Gap BUN Creatinine Estim Creat Clear Calc Est GFR (MDRD) Af Amer Est GFR (MDRD) Non-Af BUN/Creatinine Ratio Glucose Lactic Acid 0.9 Calcium Troponin I B-Natriuretic Peptide Assessment/Plan All Active Problems (Last Reviewed 05/31/18 @ 16:24 by Marya Rodriguez) Severe anemia (Acute) Chest pain (Acute) Shortness of breath (Acute) COPD with acute exacerbation (Acute) 1-end-stage renal disease patient on Wednesday hemodialysis schedule. Patient follows with Dr. Lyons at [place]. Patient missed yesterday hemodialysis session due to sickness. I will arrange for hemodialysis sessions today for 3 hours: Blood flow rate 400, dialysate flow rate 600, ultrafiltration 2 L. Hemodialysis access is left upper extremity AV fistula. Anemia: We will contact patient's hemodialysis unit on Wednesday to obtain the chronic order for anemia. BMD: Continue calcium acetate. Pneumonia: Antibiotics as per the primary service. Thank you for the consult. Renal team will continue to follow.
--- NOTE | 2018-07-09 18:24 | CON.PCM_ITS ---
Problem List (1) ESRD (end stage renal disease) on dialysis Status: Chronic Comment: He was evaluated at [facility] fro transplant list. He is presently inactive, see consult. 12/16/17 Consultation - Renal PCP/ Referring MD: Requesting physician: [] Primary care physician: Alfonso Rushing - History of Present Illness History of Present Illness: The patient is a 67 year old M with history of end-stage renal disease on Wednesday hemodialysis sessions schedule Patient is follow with Dr. Lyons at [place] . Patient missed hemodialysis session yesterday due to sickness . Patient presented with shortness of breath for 3 days along with cough . Chest x-ray showed left lower lobe pneumonia . Renal team was consulted for hemodialysis management . Patient has left upper extremity AV fistula Review of systems : 12 systems review is negative except for cough , weakness , and shortness of breath [] - Allergies Allergies: Allergies morphine Adverse Reaction (Verified 07/09/18 12:02) Itching - Current Medications Current Medications: Current Medications Atorvastatin Calcium (Lipitor) 80 mg PO DAILY LAINEY Calcium Acetate (Phoslo Gel Cap) 1,334 mg PO TIDCM LAINEY Carvedilol (Coreg) 12.5 mg PO BID LAINEY Clopidogrel Bisulfate (Plavix) 75 mg PO DAILY LAINEY Dextrose (D50w Syringe) 0 gm IV X1 PRN; Protocol PRN Reason: Hypoglycemia Ferrous Sulfate (Ferrous Sulfate) 325 mg PO BIDCM@1200,1700 LAINEY Furosemide (Lasix) 40 mg IV BID@1000,1800 LAINEY Glucagon () 1 mg IM .X1 PRN PRN Reason: Hypoglycemia Heparin Sodium (Porcine) (Heparin Na) 5,000 unit SC Q8 LAINEY Insulin Glargine (Lantus (Bkc)) 40 units SC BREAKFAST LAINEY Insulin Human Lispro (Humalog Kwikpen (Bkc)) 0 unit SQ ACHS LAINEY; Protocol Levofloxacin (Levaquin Tablet) 500 mg PO Q48@0600 LAINEY Stop: 07/13/18 06:01 Magnesium Hydroxide (Milk Of Magnesia) 30 ml PO DAILY PRN PRN PRN Reason: Constipation Mirtazapine (Remeron) 7.5 mg PO QHS [facility] Multivit/Ca Carb/B Cmplx/FA/Prenat (Nephrocaps, Renaphro) 1 capsule PO DAILY LAINEY Nitroglycerin (Nitrostat) 0.4 mg SUBLINGUAL Q5M PRN PRN Reason: CARDIAC/CHEST PAIN Non-Formulary Medication (Lanthanum Carbonate) 1,000 mg PO TID LAINEY Non-Formulary Medication (Levothyroxine Sodium [Levo-T]) 200 mcg PO .COMPLEX LAINEY Non-Formulary Medication (Linaclotide) 72 mcg PO PRN PRN PRN Reason: Constipation - Past Medical History Past Medical History (Chronic Problems): Chronic Problems (Last Reviewed 05/31/18 @ 16:24 by Marya Rodriguez) GI bleed (Chronic) Hyperlipidemia (Chronic) Type 2 diabetes mellitus without complications (Chronic) Hypothyroidism (Chronic) Bladder cancer (Chronic) COPD (chronic obstructive pulmonary disease) (Chronic) ESRD (end stage renal disease) on dialysis (Chronic) He was evaluated at [facility] fro transplant list. He is presently inactive, see consult. 12/16/17 Presence of arteriovenous fistula for hemodialysis (Chronic) Left Arm; Balloon plasty to fistula 05/30; Dialysis 3 days per week Mon, Wed, Fri Presence of stent in coronary artery (Chronic 07/23/17) PTCA/BLAIR to prox CX, BLAIR to OM1, BLAIR to Ramus 11/27 @ [facility]; PCI /BLAIR of LCX ISR, PCI/BLAIR Ostial OM1, [id number] Ramus ISR 07/23/17;HX stents 2003 Atherosclerosis of [place] coronary artery of [place] heart without angina pectoris (Chronic) PTCA/BLAIR to prox CX, BLAIR to OM1, BLAIR to Ramus 11/27 @ [facility]; PCI /BLAIR of LCX ISR, PCI/BLAIR Ostial OM1, [id number] Ramus ISR 07/23/17;HX stents 2003 Essential (primary) hypertension (Chronic) - Past Surgical History Surgical History: angioplasty - stent, cataract - bilateral, - - AVF, bladder tumor resection - Social History Smoking Status: Former smoker Alcohol: Occasional - Family History Maternal Family History: Family History (Last Reviewed 05/31/18 @ 16:24 by Marya Rodriguez) Mother Cervical cancer Father CAD (coronary artery disease) Sister Cervical cancer Colon cancer Thromboembolism History Items: Cancer Paternal Family History: Family History (Last Reviewed 05/31/18 @ 16:24 by Marya Rodriguez) Mother Cervical cancer Father CAD (coronary artery disease) Sister Cervical cancer Colon cancer Thromboembolism History Items: Heart Disease Sibling Family History: Family History (Last Reviewed 05/31/18 @ 16:24 by Marya Rodriguez) Mother Cervical cancer Father CAD (coronary artery disease) Sister Cervical cancer Colon cancer Thromboembolism History Items: Cancer Patient Problems: Active and Suspected Problems (Last Reviewed 05/31/18 @ 16:24 by Marya Rodriguez) Shortness of breath (Acute) - Physical Exam General: Alert HEENT: Atraumatic, PERRLA Oral: Moist Mucosa Neck: Supple, No JVD Lungs: - - left lower lobe crackles Cardiovascular: Regular rate, Regular Rhythm, Normal S1, Normal S2 Abdomen: Bowel Sounds Present, Soft, Non Tender Extremities: No clubbing, No cyanosis, Edema - Edema of lower extremities Skin: No rashes Musculoskeletal: No Tenderness to Palpation of Joints or Extremities Lymphatic: Cervical Adenopathy Neurological: Cranial nerves II-XII grossly intact Psych/Mental Status: Normal Affect, Appropriate Vital Signs Temp Pulse Resp BP Pulse Ox 97.7 F L 96 16 145/83 H 94 07/09/18 16:08 07/09/18 16:28 07/09/18 16:08 07/09/18 16:08 07/09/18 16:08 Oxygen Flow Rate (L/min) 4 Oxygen Delivery Method Nasal Cannula Weight: 86.7 kg Body Mass Index (BMI) 28.2 Laboratory Tests Past 24 Hrs 07/09/18 07/09/18 07/09/18 13:10 13:10 13:10 WBC 7.9 RBC 3.25 L Hgb 9.2 L Hct 30.3 L MCV 93.2 MCH 28.3 MCHC 30.4 L RDW 18.0 H RDW Differential 60.3 H Plt Count 283 MPV 10.6 Immature Gran % (Auto) 0.100 Neut % (Auto) 61.1 Lymph % (Auto) 17.0 L Mccone % (Auto) 12.9 H Eos % (Auto) 8.5 H Baso % (Auto) 0.4 Absolute Neuts (auto) 4.8 Absolute Lymphs (auto) 1.34 Total Counted Not Reportable Sodium 139 Potassium 3.7 Chloride 100 Carbon Dioxide 32.0 Anion Gap 7 BUN 44 H Creatinine 7.11 H Estim Creat Clear Calc 10.08 Est GFR (MDRD) Af Amer 10 L Est GFR (MDRD) Non-Af 8 L BUN/Creatinine Ratio 6.2 L Glucose 210 H Lactic Acid Calcium 8.8 Troponin I 0.046 H B-Natriuretic Peptide 3391.1 H 07/09/18 13:35 WBC RBC Hgb Hct MCV MCH MCHC RDW RDW Differential Plt Count MPV Immature Gran % (Auto) Neut % (Auto) Lymph % (Auto) Mccone % (Auto) Eos % (Auto) Baso % (Auto) Absolute Neuts (auto) Absolute Lymphs (auto) Total Counted Sodium Potassium Chloride Carbon Dioxide Anion Gap BUN Creatinine Estim Creat Clear Calc Est GFR (MDRD) Af Amer Est GFR (MDRD) Non-Af BUN/Creatinine Ratio Glucose Lactic Acid 0.9 Calcium Troponin I B-Natriuretic Peptide Assessment/Plan All Active Problems (Last Reviewed 05/31/18 @ 16:24 by Marya Rodriguez) Severe anemia (Acute) Chest pain (Acute) Shortness of breath (Acute) COPD with acute exacerbation (Acute) 1-end-stage renal disease patient on Wednesday hemodialysis schedule. Patient follows with Dr. Lyons at [place]. Patient missed yesterday hemodialysis session due to sickness. I will arrange for hemodialysis sessions today for 3 hours: Blood flow rate 400, dialysate flow rate 600, ultrafiltration 2 L. Hemodialysis access is left upper extremity AV fistula. Anemia: We will contact patient's hemodialysis unit on Wednesday to obtain the chronic order for anemia. BMD: Continue calcium acetate. Pneumonia: Antibiotics as per the primary service. Thank you for the consult. Renal team will continue to follow.
[2018-07-09] MEDS: Furosemide 40 MG/4 ML Vial IV (18:33)
[2018-07-09] MEDS: Calcium Acetate 667 MG Capsule 1334 MG PO (18:43)
[2018-07-09] MEDS: Ferrous Sulfate 325 MG Tablet PO (18:43)
[2018-07-09] MEDS: levoFLOXacin 500 MG Tablet PO (18:44)
[2018-07-09] MEDS: Mirtazapine 15 MG Tablet 7.5 MG PO (22:09)
[2018-07-09] MEDS: Heparin Injection (Vial) 5,000 UNIT/ML VIAL 5000 UNIT SC (22:10)
[2018-07-09 22:15] LABS: Bedside Glucose 300 mg/dL (70-110)
[2018-07-09] MEDS: Insulin Lispro 100 UNIT/ML INSULN.PEN SQ (22:16)
[2018-07-10] VITALS (11 sets, daily range): BP systolic 126–159; BP diastolic 68–87; PULSE 95–106; RESP 16–22; TEMP 36.4–37; O2SAT 93–98
--- NOTE | 2018-07-10 02:42 | DIALYSIS ---
Hemodialysis completed x 2 hours, -2200 UF. Stable t/o and tolerated well. Hemostasis obtained - dressing applied. Report to Josefa ARROYO. See HD flowsheet for details.
[2018-07-10] MEDS: Heparin Injection (Vial) 5,000 UNIT/ML VIAL 5000 UNIT SC ×2 (06:05→14:20)
[2018-07-10 07:06] LABS: Bedside Glucose 422 mg/dL (70-110)
[2018-07-10 07:16] LABS: Absolute Lymphocyte Count 0.64 X10^3/ul (0.83-4.51); Absolute Neutrophil Count 5.3 X10^3/uL (2.0-7.7); Basophil# 0.01 X10^3/uL; Basophil% 0.2 % (0-1); Hematocrit 31.9 % (40-54); Hemoglobin 9.6 g/dl (13.0-16.5); Lymphocyte # 0.64 X10^3/ul (4.0); Lymphocyte % 10.6 % (19-41); Mean Corp Hgb Conc 30.1 g/gl (32-36); Mean Platelet Vol. 10.7 fl (6.2-12.0); Monocyte# 0.09 X10^3/uL; Monocyte% 1.5 % (0-10); Neutrophil # 5.29 X10^3/uL (2.7-7.7); Neutrophil % 87.7 % (47-70); Platelet Count 283 K/mm3 (150-450); RBC Distribution Width SD 60.7 fl (35.1-43.9); Red Blood Count 3.43 M/mm3 (4.6-6.2)
[2018-07-10 07:18] LABS: POSITIVE COUNT NO; POSITIVE DIFFERENTIAL NO; POSITIVE MORPHOLOGY NO
[2018-07-10 07:47] LABS: Anion Gap 12 (5-15); BUN 36 mg/dL (7-18); BUN/Creat Ratio 6.3 RATIO (10-20); Calcium,Total 9.1 mg/dL (8.5-10.1); Chloride 97 mmol/L (98-107); Creatinine, Serum 5.67 mg/dL (0.70-1.30); EST Glomerular Filtration Rate 11 mL/min (>60); Est Glom Filt Rate - Afr Amer 13 mL/min (>60); Estimated Creatinine Clearance 12.64 ml/min; Glucose 426 mg/dL (74-106); Potassium 4.2 mmol/L (3.5-5.1); Sodium Level 139 mmol/L (136-145)
[2018-07-10] MEDS: Insulin Lispro 100 UNIT/ML INSULN.PEN SQ ×2 (10:55→17:38)
[2018-07-10] MEDS: Furosemide 40 MG/4 ML Vial IV (10:56)
[2018-07-10] MEDS: Atorvastatin Calcium 80 MG Tablet PO (10:56)
[2018-07-10] MEDS: Calcium Acetate 667 MG Capsule 1334 MG PO ×2 (10:56→17:38)
[2018-07-10] MEDS: Carvedilol 12.5 MG Tablet PO (10:56)
[2018-07-10] MEDS: Folic Acid/Vitamin B Comp W-C 1 Capsule 1 CAP PO (10:57)
[2018-07-10] MEDS: Ferrous Sulfate 325 MG Tablet PO ×2 (10:57→17:38)
[2018-07-10] MEDS: Clopidogrel Bisulfate 75 MG Tablet PO (10:57)
[2018-07-10] MEDS: 0.9% NaCl Peripheral Flush Adult/Peds IV (11:06)
[2018-07-10 11:56] LABS: Bedside Glucose 422 mg/dL (70-110)
[2018-07-10] MEDS: Ipratropium/Albuterol Sulfate 3 ML AMPUL.NEB INHALATION (14:50)
--- NOTE | 2018-07-10 16:17 | DCINST_ITS ---
- Discharge Diagnoses Current Active Problems: Current Active and Chronic Problems (Last Reviewed 05/31/18 @ 16:24 by Marya Rodriguez) Shortness of breath (Acute) You will use the following diet at home:: Fluid restricted (specify 2000 mls, 1500 mls) - 1500, Renal (restricted protein/sodium) Your food should be the consistency of: Regular Your liquids should be the consistency of: Regular/Thin Discharge Activity: Return to Normal Activity Call your doctor if you observe: Fever of 101 or Higher, Coldness, Increased Pain, Shortness of breath, Dizziness, Chest pain, Prolonged hiccoughing, Increased palpitations (irregular heartbeat) Allergies/Adverse Reactions: Allergies morphine Adverse Reaction (Verified 07/09/18 12:02) Itching Medications to take at Discharge Furosemide 40 mg PO BID 08/12/16 Atorvastatin Calcium 80 mg PO DAILY 07/23/17 carvedilol 12.5 mg tablet 12.5 mg PO BID 01/17/18 nitroglycerin 0.4 mg sublingual tablet 0.4 mg SUBLINGUAL Q5-15M PRN 01/17/18 Lanthanum Carbonate [Fosrenol] 1,000 mg PO TID 04/15/18 Nephro-Janel 1 tab PO DAILY 04/15/18 Clopidogrel Bisulfate [Plavix] 75 mg PO DAILY 05/15/18 Mirtazapine 7.5 mg PO QHS 05/15/18 Insulin Aspart [Novolog Flexpen] See Protocol SC DAILY PRN PRN #0 05/17/18 levothyroxine 200 mcg tablet 200 mcg PO .COMPLEX 05/31/18 Calcium Acetate [Phoslo Gel Cap] 1,334 mg PO TIDCM 06/01/18 Insulin Degludec [Tresiba Flextouch U-100] 40 unit SQ BREAKFAST 06/01/18 Ferrous Sulfate 325 mg PO BIDCM tablet 06/08/18 Linaclotide [Linzess] 72 mcg PO PRN PRN 07/09/18 Benzonatate [Tessalon Perle] 100 mg PO TID PRN PRN #60 capsule 07/10/18 levoFLOXacin tablet [Levaquin tablet] 500 mg PO Q48@0600 #3 tablet 07/10/18 The following prescriptions were given: Benzonatate [Tessalon Perle] 100 mg PO TID PRN PRN #60 capsule PRN Reason: Cough levoFLOXacin tablet [Levaquin tablet] 500 mg PO Q48@0600 #3 tablet Primary Care Physician: Alfonso Rushing Chi, MD [Primary Care Provider] - Please follow up with your Primary Care Physician in: 1 week Test Results: Test results from this visit will be discussed in further detail at your follow- up appointment, if applicable. Please Follow Up With: Katlyn Boyd MD - Please follow-up with hemodialysis Wednesday When: 1 week Proposed Discharge Date: 07/10/18
--- NOTE | 2018-07-10 16:17 | PCM.DC.SUM ---
Discharge Date and Diagnosis - Problem List Patient Problems: Active and Suspected Problems (Last Reviewed 05/31/18 @ 16:24 by Marya Rodriguez) Shortness of breath (Acute) Date of Admission: 07/09/18 Date of Discharge: 07/10/18 - Primary Discharge Diagnosis Active and Suspected Problems (Last Reviewed 05/31/18 @ 16:24 by Marya Rodriguez) Shortness of breath (Acute) - Secondary Discharge Diagnosis Chronic Problems (Last Reviewed 05/31/18 @ 16:24 by Marya Rodriguez) GI bleed (Chronic) Hyperlipidemia (Chronic) Type 2 diabetes mellitus without complications (Chronic) Hypothyroidism (Chronic) Bladder cancer (Chronic) COPD (chronic obstructive pulmonary disease) (Chronic) ESRD (end stage renal disease) on dialysis (Chronic) He was evaluated at [facility] fro transplant list. He is presently inactive, see consult. 12/16/17 Presence of arteriovenous fistula for hemodialysis (Chronic) Left Arm; Balloon plasty to fistula 05/30; Dialysis 3 days per week Mon, Wed, Fri Presence of stent in coronary artery (Chronic 07/23/17) PTCA/BLAIR to prox CX, BLAIR to OM1, BLAIR to Ramus 11/27 @ [facility]; PCI /BLAIR of LCX ISR, PCI/BLAIR Ostial OM1, [id number] Ramus ISR 07/23/17;HX stents 2003 Atherosclerosis of [place] coronary artery of [place] heart without angina pectoris (Chronic) PTCA/BLAIR to prox CX, BLAIR to OM1, BLAIR to Ramus 11/27 @ [facility]; PCI /BLAIR of LCX ISR, PCI/BLAIR Ostial OM1, [id number] Ramus ISR 07/23/17;HX stents 2004 Essential (primary) hypertension (Chronic) Hospital Course and Treatment Imaging Results: STUDY: X-RAY CHEST REASON FOR EXAM: Male, 67 years old. Shortness of breath. TECHNIQUE: Single AP portable view of the chest. COMPARISON: 06/05/2018. FINDINGS: There again is prominence of the pulmonary vasculature. There are bilateral lower lung infiltrates/edema worse than the previous examination more confluent in the left retrocardiac region. There is increased left pleural effusion. There is mild cardiac enlargement. Normal mediastinum and александр. Normal visualized pulmonary arteries. There is atherosclerotic calcification of the aortic arch with tortuosity. The bony structures are unchanged. There is no demonstrated abnormality of the visualized soft tissue structures of the upper abdomen. RAD/Chest 1 View (Portable) IMPRESSION: Bilateral infiltrates/edema worse than the previous examination. Underlying pneumonic process in the left retrocardiac region is difficult to exclude. Increased left pleural effusion. Electronically Signed: Sarbjit Carrillo MD at 13:55 EDT Tel , Service support , CC: Bebo Rose DO; Alfonso Rushing MD ~ Technical Illustrator: Signed Severe anemia (Acute) Chest pain (Acute) Shortness of breath (Acute) COPD with acute exacerbation (Acute) 1-end-stage renal disease patient on Wednesday hemodialysis schedule. Patient follows with Dr. Lyons at [place]. Patient missed yesterday hemodialysis session due to sickness. I will arrange for hemodialysis sessions today for 3 hours: Blood flow rate 400, dialysate flow rate 600, ultrafiltration 2 L. Hemodialysis access is left upper extremity AV fistula. Anemia: We will contact patient's hemodialysis unit on Wednesday to obtain the chronic order for anemia. BMD: Continue calcium acetate. Pneumonia: Antibiotics as per the primary service. Thank you for the consult. Renal team will continue to follow. 07/09/181823 <Electronically signed by Katlyn Boyd MD> Date Katlyn Boyd MD Operations: None Procedures: Dialysis, - - Status post hemodialysis Summary of Care Provided: Patient is a 67-year-old male with an extensive medical problems including end-stage renal disease on hemodialysis on Wednesday, GI bleed, hyperlipidemia, diabetes type 2 with hyperglycemia on insulin, hypothyroidism, history of bladder cancer, COPD chronically on 4 L nasal cannula, hypertension, who presented to the hospital with a 3-day history of shortness of breath not feeling well and missing hemodialysis on Wednesday. Patient was found to be in volume overload, has had dialysis and is feels better, patient's viral panel was positive for rhinovirus. Patient is requesting a new home and will go home with hemodialysis schedule for tomorrow. As there is still a question of possible community-acquired pneumonia we will continue Levaquin every other day for the next 3 days and give Tessalon Perles for symptomatic control. Will discharge patient as per his request. Acute exacerbation of systolic heart failure due to volume overload with known EF 25-30% Patient has an EF of 25-30% with grade 2 diastolic dysfunction making this acute on chronic systolic and diastolic dysfunction secondary to missing hemodialysis. Patient has been dialyzed feels much better, patient to follow-up with his deputy clerk of court and switchboard operator receptionist and PCP as an outpatient. Last echocardiogram was 06/01/2018 again 25-30% grade 2 diastolic dysfunction Fluid overload due to missed dialysis Physicians usual dialysis days are Wednesday, patient was dialyzed today and feels much improved, patient to go to hemodialysis tomorrow. ?Community acquired pneumonia Patient was initially given azithromycin and Rocephin, though no leukocytosis, patient is chronically on 4 L and debilitated agree with previous physician will give 3 doses of Levaquin due to renal insufficiency which will cover patient. Patient symptoms however most likely due to the rhinovirus on the viral panel. We will give as needed Tessalon Perles to help patient feel better. Diabetes type 2 Continue on home insulin may need adjustments blood sugars have been slightly elevated in the 300s. CAD s/p CABG on plavix and carvedilol as well as statin Hypothyroidism: on synthroid 200mcg daily Code status: Full code. Disposition as per patient request will discharge patient home or follow-up with hemodialysis chair tomorrow. Make sure nephrology is okay with patient discharge as well. Patient is always chronically on 4 L nasal cannula due to COPD. Medications reviewed with the patient. Risks, benefits, alternatives, side effects, potential complications and dangers of medications discussed. Patient wishes to utilize these agents despite risk. A signed medical consent/advisement form regarding narcotic medications and a side medication agreement are located in the patient's chart. Chart is dictated with collar starcher software. Errors may occur in dictation that may change providers meaning. This note was generated with [employer] dictation software. It may contain incorrect words, spelling, and punctuation that were not noted in checking the note before signing. Patient Problems: Active and Suspected Problems (Last Reviewed 05/31/18 @ 16:24 by Marya Rodriguez) Shortness of breath (Acute) Subjective: Patient resting comfortably in chair no nausea vomiting diarrhea constipation denies any chest pain still has slight cough. Patient was explained that he has a virus and possibly pneumonia and will go home on Tessalon Perles and Levaquin. - Physical Exam General: Alert, Oriented x3, Cooperative HEENT: Atraumatic, PERRLA, EOMI Oral: No Gingival or Mucosal Lesions/ Ulcerations, Dry Mucosa Neck: Supple, No JVD, Trachea Midline Lungs: No rhonchi, No wheeze, No rales, Diminished - Diminished bilateral bases no rales heard along the expiratory phase Cardiovascular: Regular rate, Normal S1, Normal S2 Abdomen: Bowel Sounds Present, Soft, Non Tender, Non-Distended Extremities: No clubbing, No cyanosis, Edema - Positive pitting edema patient states this is chronic for him., - - Positive AV fistula in left upper extremity Skin: No rashes, No breakdown Musculoskeletal: No Tenderness to Palpation of Joints or Extremities Lymphatic: No Cervical, Supraclavicular, or Inguinal Adenopathy Neurological: Cranial nerves II-XII grossly intact - Patient is hard of hearing need to speak up, Neuro grossly intact Psych/Mental Status: Normal Affect, Appropriate, Alert and oriented to time, place, person, mood and affect Vital Signs Temp Pulse Resp BP Pulse Ox 97.7 F L 103 H 18 127/68 H 96 07/10/18 10:36 07/10/18 12:16 07/10/18 10:36 07/10/18 10:36 07/10/18 10:36 Oxygen Flow Rate (L/min) 4 Oxygen Delivery Method Nasal Cannula Weight: 84.6 kg Body Mass Index (BMI) 28.2 Intake and Output for Last 24 Hours 07/08/18 07/09/18 07/10/18 23:59 23:59 23:59 Intake Total 434 / 434 410 / 410 Output Total 2200 / 2200 Balance 434 / 434 -1790 / -1790 Microbiology Past 72 Hours 07/09/18 20:04 Respiratory Panel (PCR) - Final Mucosa - Nose Rhinovirus Laboratory Tests Past 24 Hrs 07/10/18 07/10/18 06:20 06:20 WBC 6.0 RBC 3.43 L Hgb 9.6 L Hct 31.9 L MCV 93.0 MCH 28.0 MCHC 30.1 L RDW 18.0 H RDW Differential 60.7 H Plt Count 283 MPV 10.7 Immature Gran % (Auto) 0.000 Neut % (Auto) 87.7 H Lymph % (Auto) 10.6 L [place] % (Auto) 1.5 Eos % (Auto) 0.0 Baso % (Auto) 0.2 Absolute Neuts (auto) 5.3 Absolute Lymphs (auto) 0.64 L Total Counted Not Reportable Sodium 139 Potassium 4.2 Chloride 97 L Carbon Dioxide 30.0 Anion Gap 12 BUN 36 H Creatinine 5.67 H Estim Creat Clear Calc 12.64 Est GFR (MDRD) Af Amer 13 L Est GFR (MDRD) Non-Af 11 L BUN/Creatinine Ratio 6.3 L Glucose 426 H Calcium 9.1 POC Glucose 07/10/18 07/10/18 07/09/18 10:51 06:53 22:08 POC Glucose 422 H 422 H 300 H Discharge Diet: Renal Diet - 1500 fluid restriction Discharge Activity: Return to Normal Activity Call your doctor if you observe: Fever of 101 or Higher, Coldness, Increased Pain, Shortness of breath, Dizziness, Chest pain, Prolonged hiccoughing, Increased palpitations (irregular heartbeat) Home Medications: Medications to take at Discharge Furosemide 40 mg PO BID 08/12/16 Atorvastatin Calcium 80 mg PO DAILY 07/23/17 carvedilol 12.5 mg tablet 12.5 mg PO BID 01/17/18 nitroglycerin 0.4 mg sublingual tablet 0.4 mg SUBLINGUAL Q5-15M PRN 01/17/18 Lanthanum Carbonate [Fosrenol] 1,000 mg PO TID 04/15/18 Nephro-Janel 1 tab PO DAILY 04/15/18 Clopidogrel Bisulfate [Plavix] 75 mg PO DAILY 05/15/18 Mirtazapine 7.5 mg PO QHS 05/15/18 Insulin Aspart [Novolog Flexpen] See Protocol SC DAILY PRN PRN #0 05/17/18 levothyroxine 200 mcg tablet 200 mcg PO .COMPLEX 05/31/18 Calcium Acetate [Phoslo Gel Cap] 1,334 mg PO TIDCM 06/01/18 Insulin Degludec [Tresiba Flextouch U-100] 40 unit SQ BREAKFAST 06/01/18 Ferrous Sulfate 325 mg PO BIDCM tablet 06/08/18 Linaclotide [Linzess] 72 mcg PO PRN PRN 07/09/18 Benzonatate [Tessalon Perle] 100 mg PO TID PRN PRN #60 capsule 07/10/18 levoFLOXacin tablet [Levaquin tablet] 500 mg PO Q48@0600 #3 tablet 07/10/18 Following Prescrptions Were Given to Patient: Benzonatate [Tessalon Perle] 100 mg PO TID PRN PRN #60 capsule PRN Reason: Cough levoFLOXacin tablet [Levaquin tablet] 500 mg PO Q48@0600 #3 tablet Primary Care Physician: Alfonso Rushing Chi, MD [Primary Care Provider] - Please follow up with your Primary Care Physician in: 1 week Please Follow Up With: Katlyn Boyd MD - Please follow-up with hemodialysis Wednesday When: 1 week Disposition: Home Minutes spent on discharge:: 36 Patient Condition:: Fair Medical Necessity - Tobacco Use Smoking Status: Former smoker Meaningful Use Info Meaningful Use Diagnoses (Choose all that apply): CHF - CHF PATRICIA/ARB ordered at discharge?: Yes Reason PATRICIA/ARB not ordered?: Worsening renal dysfunctn Documented LVEF (%): 25 Code Visit Inpatient E&M: 45526 Disch Hosp
--- NOTE | 2018-07-10 16:27 | DS.PCM_ITS ---
Discharge Date and Diagnosis - Problem List Patient Problems: Active and Suspected Problems (Last Reviewed 05/31/18 @ 16:24 by Marya Rodriguez) Shortness of breath (Acute) Date of Admission: 07/09/18 Date of Discharge: 07/10/18 - Primary Discharge Diagnosis Active and Suspected Problems (Last Reviewed 05/31/18 @ 16:24 by Marya Rodriguez) Shortness of breath (Acute) - Secondary Discharge Diagnosis Chronic Problems (Last Reviewed 05/31/18 @ 16:24 by Marya Rodriguez) GI bleed (Chronic) Hyperlipidemia (Chronic) Type 2 diabetes mellitus without complications (Chronic) Hypothyroidism (Chronic) Bladder cancer (Chronic) COPD (chronic obstructive pulmonary disease) (Chronic) ESRD (end stage renal disease) on dialysis (Chronic) He was evaluated at [facility] fro transplant list. He is presently inactive, see consult. 12/16/17 Presence of arteriovenous fistula for hemodialysis (Chronic) Left Arm; Balloon plasty to fistula 05/30; Dialysis 3 days per week Mon, Wed, Fri Presence of stent in coronary artery (Chronic 07/23/17) PTCA/BLAIR to prox CX, BLAIR to OM1, BLAIR to Ramus 11/27 @ [facility]; PCI /BLAIR of LCX ISR, PCI/BLAIR Ostial OM1, [id number] Ramus ISR 07/23/17;HX stents 2003 Atherosclerosis of [place] coronary artery of [place] heart without angina pectoris (Chronic) PTCA/BLAIR to prox CX, BLAIR to OM1, BLAIR to Ramus 11/27 @ [facility]; PCI /BLAIR of LCX ISR, PCI/BLAIR Ostial OM1, [id number] Ramus ISR 07/23/17;HX stents 2004 Essential (primary) hypertension (Chronic) Hospital Course and Treatment Imaging Results: STUDY: X-RAY CHEST REASON FOR EXAM: Male, 67 years old. Shortness of breath. TECHNIQUE: Single AP portable view of the chest. COMPARISON: 06/05/2018. FINDINGS: There again is prominence of the pulmonary vasculature. There are bilateral lower lung infiltrates/edema worse than the previous examination more confluent in the left retrocardiac region. There is increased left pleural effusion. There is mild cardiac enlargement. Normal mediastinum and александр. Normal visualized pulmonary arteries. There is atherosclerotic calcification of the aortic arch with tortuosity. The bony structures are unchanged. There is no demonstrated abnormality of the visualized soft tissue structures of the upper abdomen. RAD/Chest 1 View (Portable) IMPRESSION: Bilateral infiltrates/edema worse than the previous examination. Underlying pneumonic process in the left retrocardiac region is difficult to exclude. Increased left pleural effusion. Electronically Signed: Sarbjit Carrillo MD at 13:55 EDT Tel , Service support , CC: Bebo Rose DO; Alfonso Rushing MD ~ [place] Guide: Signed Severe anemia (Acute) Chest pain (Acute) Shortness of breath (Acute) COPD with acute exacerbation (Acute) 1-end-stage renal disease patient on Wednesday hemodialysis schedule. Patient follows with Dr. Lyons at [place]. Patient missed yesterday hemodialysis session due to sickness. I will arrange for hemodialysis sessions today for 3 hours: Blood flow rate 400, dialysate flow rate 600, ultrafiltration 2 L. Hemodialysis access is left upper extremity AV fistula. Anemia: We will contact patient's hemodialysis unit on Wednesday to obtain the de alcholizer luke order for anemia. BMD: Continue calcium acetate. Pneumonia: Antibiotics as per the primary service. Thank you for the consult. Renal team will continue to follow. 07/09/181823 <Electronically signed by Katlyn Boyd MD> Date Katlyn Boyd MD Operations: None Procedures: Dialysis, - - Status post hemodialysis Summary of Care Provided: Patient is a 67-year-old male with an extensive medical problems including end- stage renal disease on hemodialysis on Wednesday, GI bleed, hyperlipidemia, diabetes type 2 with hyperglycemia on insulin, hypothyroidism, history of bladder cancer, COPD chronically on 4 L nasal cannula, hypertension, who presented to the hospital with a 3-day history of shortness of breath not feeling well and missing hemodialysis on Wednesday. Patient was found to be in volume overload, has had dialysis and is feels better, patient's viral panel was positive for rhinovirus. Patient is requesting a new home and will go home with hemodialysis schedule for tomorrow. As there is still a question of possible community-acquired pneumonia we will continue Levaquin every other day for the next 3 days and give Tessalon Perles for symptomatic control. Will discharge patient as per his request. Acute exacerbation of systolic heart failure due to volume overload with known EF 25-30% Patient has an EF of 25-30% with grade 2 diastolic dysfunction making this acute on chronic systolic and diastolic dysfunction secondary to missing hemodialysis. 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 Last echocardiogram was 06/01/2018 again 25-30% grade 2 diastolic dysfunction Fluid overload due to missed dialysis Physicians usual dialysis days are Wednesday, patient was dialyzed today and feels much improved, patient to go to hemodialysis tomorrow. ?Community acquired pneumonia Patient was initially given azithromycin and Rocephin, though no leukocytosis, patient is chronically on 4 L and debilitated agree with previous physician will give 3 doses of Levaquin due to renal insufficiency which will cover patient. Patient symptoms however most likely due to the rhinovirus on the viral panel. We will give as needed Tessalon Perles to help patient feel better. Diabetes type 2 Continue on home insulin may need adjustments blood sugars have been slightly elevated in the 300s. CAD s/p CABG on plavix and carvedilol as well as statin Hypothyroidism: on synthroid 200mcg daily Code status: Full code. Disposition as per patient request will discharge patient home or follow-up with hemodialysis chair tomorrow. Make sure nephrology is okay with patient discharge as well. Patient is always chronically on 4 L nasal cannula due to COPD. Medications reviewed with the patient. Risks, benefits, alternatives, side effects, potential complications and dangers of medications discussed. Patient wishes to utilize these agents despite risk. A signed medical consent/advisement form regarding narcotic medications and a side medication agreement are located in the patient's chart. Chart is dictated with loan service officer software. Errors may occur in dictation that may change providers meaning. This note was generated with [employer] dictation software. It may contain incorrect words, spelling, and punctuation that were not noted in checking the note before signing. Patient Problems: Active and Suspected Problems (Last Reviewed 05/31/18 @ 16:24 by Marya Rodriguez) Shortness of breath (Acute) Subjective: Patient resting comfortably in chair no nausea vomiting diarrhea constipation denies any chest pain still has slight cough. Patient was explained that he has a virus and possibly pneumonia and will go home on Tessalon Perles and Levaquin. - Physical Exam General: Alert, Oriented x3, Cooperative HEENT: Atraumatic, PERRLA, EOMI Oral: No Gingival or Mucosal Lesions/ Ulcerations, Dry Mucosa Neck: Supple, No JVD, Trachea Midline Lungs: No rhonchi, No wheeze, No rales, Diminished - Diminished bilateral bases no rales heard along the expiratory phase Cardiovascular: Regular rate, Normal S1, Normal S2 Abdomen: Bowel Sounds Present, Soft, Non Tender, Non-Distended Extremities: No clubbing, No cyanosis, Edema - Positive pitting edema patient states this is chronic for him., - - Positive AV fistula in left upper extremity Skin: No rashes, No breakdown Musculoskeletal: No Tenderness to Palpation of Joints or Extremities Lymphatic: No Cervical, Supraclavicular, or Inguinal Adenopathy Neurological: Cranial nerves II-XII grossly intact - Patient is hard of hearing need to speak up, Neuro grossly intact Psych/Mental Status: Normal Affect, Appropriate, Alert and oriented to time, place, person, mood and affect Vital Signs Temp Pulse Resp BP Pulse Ox 97.7 F L 103 H 18 127/68 H 96 07/10/18 10:36 07/10/18 12:16 07/10/18 10:36 07/10/18 10:36 07/10/18 10:36 Oxygen Flow Rate (L/min) 4 Oxygen Delivery Method Nasal Cannula Weight: 84.6 kg Body Mass Index (BMI) 28.2 Intake and Output for Last 24 Hours 07/08/18 07/09/18 07/10/18 23:59 23:59 23:59 Intake Total 434 / 434 410 / 410 Output Total 2200 / 2200 Balance 434 / 434 -1790 / -1790 Microbiology Past 72 Hours 07/09/18 20:04 Respiratory Panel (PCR) - Final Mucosa - Nose Rhinovirus Laboratory Tests Past 24 Hrs 07/10/18 07/10/18 06:20 06:20 WBC 6.0 RBC 3.43 L Hgb 9.6 L Hct 31.9 L MCV 93.0 MCH 28.0 MCHC 30.1 L RDW 18.0 H RDW Differential 60.7 H Plt Count 283 MPV 10.7 Immature Gran % (Auto) 0.000 Neut % (Auto) 87.7 H Lymph % (Auto) 10.6 L Gosper % (Auto) 1.5 Eos % (Auto) 0.0 Baso % (Auto) 0.2 Absolute Neuts (auto) 5.3 Absolute Lymphs (auto) 0.64 L Total Counted Not Reportable Sodium 139 Potassium 4.2 Chloride 97 L Carbon Dioxide 30.0 Anion Gap 12 BUN 36 H Creatinine 5.67 H Estim Creat Clear Calc 12.64 Est GFR (MDRD) Af Amer 13 L Est GFR (MDRD) Non-Af 11 L BUN/Creatinine Ratio 6.3 L Glucose 426 H Calcium 9.1 POC Glucose 07/10/18 07/10/18 07/09/18 10:51 06:53 22:08 POC Glucose 422 H 422 H 300 H Discharge Diet: Renal Diet - 1500 fluid restriction Discharge Activity: Return to Normal Activity Call your doctor if you observe: Fever of 101 or Higher, Coldness, Increased Pain, Shortness of breath, Dizziness, Chest pain, Prolonged hiccoughing, Increased palpitations (irregular heartbeat) Home Medications: Medications to take at Discharge Furosemide 40 mg PO BID 08/12/16 Atorvastatin Calcium 80 mg PO DAILY 07/23/17 carvedilol 12.5 mg tablet 12.5 mg PO BID 01/17/18 nitroglycerin 0.4 mg sublingual tablet 0.4 mg SUBLINGUAL Q5-15M PRN 01/17/18 Lanthanum Carbonate [Fosrenol] 1,000 mg PO TID 04/15/18 Nephro-Janel 1 tab PO DAILY 04/15/18 Clopidogrel Bisulfate [Plavix] 75 mg PO DAILY 05/15/18 Mirtazapine 7.5 mg PO QHS 05/15/18 Insulin Aspart [Novolog Flexpen] See Protocol SC DAILY PRN PRN #0 05/17/18 levothyroxine 200 mcg tablet 200 mcg PO .COMPLEX 05/31/18 Calcium Acetate [Phoslo Gel Cap] 1,334 mg PO TIDCM 06/01/18 Insulin Degludec [Tresiba Flextouch U-100] 40 unit SQ BREAKFAST 06/01/18 Ferrous Sulfate 325 mg PO BIDCM tablet 06/08/18 Linaclotide [Linzess] 72 mcg PO PRN PRN 07/09/18 Benzonatate [Tessalon Perle] 100 mg PO TID PRN PRN #60 capsule 07/10/18 levoFLOXacin tablet [Levaquin tablet] 500 mg PO Q48@0600 #3 tablet 07/10/18 Following Prescrptions Were Given to Patient: Benzonatate [Tessalon Perle] 100 mg PO TID PRN PRN #60 capsule PRN Reason: Cough levoFLOXacin tablet [Levaquin tablet] 500 mg PO Q48@0600 #3 tablet Primary Care Physician: Alfonso Rushing Chi, MD [Primary Care Provider] - Please follow up with your Primary Care Physician in: 1 week Please Follow Up With: Katlyn Boyd MD - Please follow-up with hemodialysis Wednesday When: 1 week Disposition: Home Minutes spent on discharge:: 36 Patient Condition:: Fair Medical Necessity - Tobacco Use Smoking Status: Former smoker Meaningful Use Info Meaningful Use Diagnoses (Choose all that apply): CHF - CHF PATRICIA/ARB ordered at discharge?: Yes Reason PATRICIA/ARB not ordered?: Worsening renal dysfunctn Documented LVEF (%): 25 Code Visit Inpatient E&M: [id number] Disch Hosp
[2018-07-10 17:36] LABS: Bedside Glucose 340 mg/dL (70-110)
--- NOTE | 2018-07-12 12:46 | CASEMGMT ---
FOLLOW-UP CALL: Patient states he's feeling not too bad. He states he's taking his prescriptions and denies any questions regarding medications and discharge instructions. Patient states he has an appointment with Dr. Rushing tomorrow. Patient denies any needs at this time.
== END 2018-07-10 18:55 | disposition home or self-care (01) | DRG 291 ==
LOC: ED 15:21 → PCU 15:34
PROVIDERS: Admitting Provider Student in an Organized Health Care Education/Training Program; Emergency Provider Emergency Medicine; Family Provider Family Medicine Geriatric Medicine; PCP Family Medicine Geriatric Medicine; Visit Provider Internal Medicine
DX: I13.2 Hypertensive heart and chronic kidney disease with heart failure and with stage 5 chronic kidney disease, or end stage renal disease (principal); N18.6 End stage renal disease; J18.9 Pneumonia, unspecified organism; I50.23 Acute on chronic systolic (congestive) heart failure; I25.10 Atherosclerotic heart disease of native coronary artery without angina pectoris; E78.5 Hyperlipidemia, unspecified; E11.22 Type 2 diabetes mellitus with diabetic chronic kidney disease; Z99.2 Dependence on renal dialysis; E03.9 Hypothyroidism, unspecified; Z95.1 Presence of aortocoronary bypass graft; Z79.4 Long term (current) use of insulin; C67.9 Malignant neoplasm of bladder, unspecified
CPT/HCPCS: 36415; 71045; 80048; 82962; 83605; 83880; 84484; 85025; 87040; 87633; 90937; 93005; 94640; 97162; 97166; 99283; J7030; A4216; G0257; J1940